=== PATIENT | female | born 1960 | race Caucasian/White ===

== ENCOUNTER 2022-11-02 15:20 | Outpatient (OUT) | payer BC, SELFPAY ==
--- NOTE | 2022-11-02 15:32 | XR_ITS ---
The [address] [address] Patient Name: NA MELENDREZ MRN: [id number] date: 1960 Sex: F Assigned Patient Location: [facility] Current Patient Location: [facility] Accession/Order Number: [id number] Exam Date: 11/02/2022 15:42 Report Date: 11/02/2022 16:19 At the request of: AMPARO DOWELL Procedure: XR abdomen 1V EXAMINATION: XR abdomen 1V HISTORY: Abdomen pain , left flank pain increasing in severity COMPARISON: No relevant comparison available. FINDINGS: KIDNEY/URETER - RIGHT: No visible renal or ureteral calcifications. KIDNEY/URETER - LEFT: 6 x 4 mm subtle opacity projecting over region of proximal left ureter. PELVIS: No suspicious pelvic calcifications. BOWEL: No abnormal dilation or deviation. BONES: No acute abnormality. OTHER: Negative. No abnormal gaseous collections. IMPRESSION: 1. Possible 6 x 4 mm stone within proximal left ureter. 2. No appreciable additional stones within the kidneys, but evaluation is limited by dense overlying bowel content. Electronically authenticated by: EVIN MCLAUGHLIN Date: 11/02/2022 16:19
== END 2022-11-02 15:21 ==
LOC: RAD 15:26
PROVIDERS: PCP Family Medicine; Visit Provider Family Medicine
DX: R10.9 Unspecified abdominal pain (principal)
CPT/HCPCS: 74018

== ENCOUNTER 2022-11-05 11:54 | Outpatient (OUT) | payer BC, SELFPAY ==
--- NOTE | 2022-11-05 12:05 | XR_ITS ---
[address] [address] Patient Name: NA MELENDREZ MRN: [id number] date: 1960 Sex: F Assigned Patient Location: [facility] Current Patient Location: [facility] Accession/Order Number: [id number] Exam Date: 11/05/2022 12:15 Report Date: 11/05/2022 14:10 At the request of: AMPARO DOWELL Procedure: XR abdomen 1V EXAM: XR abdomen 1V HISTORY: Nephrolithiasis N20.0 COMPARISON: 11/02/2022 TECHNIQUE: Abdominal X-ray, 1 view FINDINGS: Support devices: None. Bowel: Unremarkable bowel gas pattern. No bowel dilatation. No radiographic evidence of nephrolithiasis or ureterolithiasis. Additional findings: None. IMPRESSION: No acute abnormality on radiographic exam. Electronically authenticated by: BAKARI DACOSTA Date: 11/05/2022 14:10
== END 2022-11-05 11:55 ==
LOC: RAD 11:56
PROVIDERS: PCP Family Medicine; Visit Provider Family Medicine
DX: N20.0 Calculus of kidney (principal)
CPT/HCPCS: 74018

== ENCOUNTER 2023-06-17 09:01 | Outpatient (OUT) | payer BC, SELFPAY ==
[2023-06-17 09:35] LABS: Basophils Percent Auto 0.7 % (0.2-2.0); Eosinophils Absolute Auto 0.4 10^3/uL (0.0-0.7); Eosinophils Percent Auto 6.5 % (0.9-7.0); Hematocrit 37.4 % (36.0-48.0); Hemoglobin 11.7 g/dL (12.0-16.0); Immature Granulocytes Abs Auto 0.01 10^3/uL (0.00-0.03); Immature Granulocytes Pct Auto 0.2 % (0.0-0.5); Lymphocytes Absolute Auto 1.8 10^3/uL (1.2-3.8); Lymphocytes Percent Auto 29.3 % (20.5-60.0); Mean Corpuscular HGB Conc 31.3 g/dL (29.9-35.2); Mean Corpuscular Hemoglobin 26.6 pg (26.7-34.0); Mean Platelet Volume 9.9 fL (9.5-13.5); Monocytes Absolute Auto 0.4 10^3/uL (0.3-0.8); Monocytes Percent Auto 7.4 % (1.7-12.0); Neutrophils Absolute Auto 3.4 10^3/uL (1.4-6.5); Neutrophils Percent Auto 55.9 % (43.0-75.0); Platelet Count 337 10^3/uL (150-450); Red Cell Distribution Width 14.6 % (11.0-15.0)
[2023-06-17 09:46] LABS: Estimated Average Glucose 134 mg/dL; Glycohemoglobin A1C 6.3 % (4.5-6.2)
[2023-06-17 10:14] LABS: Alanine Aminotransferase 27 U/L (14-59); Albumin Globulin Ratio 0.9; Albumin Level 3.4 g/dL (3.4-5.0); Alkaline Phosphatase 95 U/L (46-116); Anion Gap 9.4; Aspartate Amino Transferase 20 U/L (15-37); BUN Creatinine Ratio 14.9; Bilirubin Total 0.2 mg/dL (0.2-1.0); Calcium 8.8 mg/dL (8.5-10.1); Carbon Dioxide 31.2 mmol/L (21.0-32.0); Chloride 104 mmol/L (98-107); Chol HDL Ratio 2.5; Cholesterol 147 mg/dL (<=200); Estimated GFR (African America >60 (>=60); Estimated GFR (Non-African Ame >60 (>=60); Free T3 2.69 pg/mL (2.18-3.98); Globulin 3.7 g/dL; Glucose 105 mg/dL (74-106); HDL Cholesterol 60 mg/dL (40-60); LDL Cholesterol Calculated 70.6 mg/dL; Potassium 4.6 mmol/L (3.5-5.1); Sodium 140 mmol/L (136-145); Thyroid Stimulating Hormone 1.512 uIU/mL (0.358-3.740); Total Protein 7.1 g/dL (6.4-8.2); Triglycerides 82 mg/dL (<=150); VLDL CHOLESTEROL 16.4 mg/dL
[2023-06-18 12:13] LABS: Insulin 13.1 uIU/mL (2.6-24.9)
== END 2023-06-17 09:02 | disposition home or self-care (01) ==
LOC: LAB 09:03
PROVIDERS: PCP Family Medicine; Visit Provider Family Medicine
DX: Z00.00 Encounter for general adult medical examination without abnormal findings (principal); R73.09 Other abnormal glucose; E78.5 Hyperlipidemia, unspecified; D64.9 Anemia, unspecified; Z12.12 Encounter for screening for malignant neoplasm of rectum; E55.9 Vitamin D deficiency, unspecified
CPT/HCPCS: 36415; 80053; 80061; 82306; 83036; 83525; 83540; 84436; 84443; 84481; 85025

== ENCOUNTER 2023-07-17 13:24 | Outpatient (OUT) | payer BC, SELFPAY ==
--- OUTSIDE RECORDS SUMMARY | 2023-07-17 13:30 | XMS_ITS | CCD ---
Author Name Unknown Address [address] [place] [address] Organization [facility] Care Team Providers Care Interactive Media Specialist Name Role Phone Amparo Ross Primary Care Physician MAGALYS ., DR CHRISTENSEN Consulting Unavailable HOY ., DR CHRISTENSEN Attending Unavailable HOY ., DR CHRISTENSEN Admitting Unavailable HOY ., DR CHRISTENSEN Primary Care Unavailable NILL ., DR DAS Attending Unavailable NILL ., DR DAS Admitting Unavailable ZIEBER, DR TITUS Moreno Consulting Unavailable HOY ., DR CHRISTENSEN Primary Care Unavailable NILL ., DR DAS Consulting Unavailable HAIDER, KYLE Admitting Unavailable HAIDER, KYLE Attending Unavailable HOY ., DR CHRISTENSEN Primary Care Unavailable HAIDER, KYLE Admitting Unavailable HAIDER, KYLE Attending Unavailable HOY ., DR CHRISTENSEN Primary Care Unavailable HOY ., DR CHRISTENSEN Primary Care Unavailable KARASIK ., DR SOLIZ Attending Unavailabl e KARASIK ., DR SOLIZ Admitting Unavailabl e KARASIK ., DR SOLIZ Consulting Unavailabl e WEST, DR KATIE Mario Consulting Unavailable HOY ., DR CHRISTENSEN Primary Care Unavailable HOY ., DR CHRISTENSEN Consulting Unavailable HOY ., DR CHRISTENSEN Attending Unavailable HOY ., DR CHRISTENSEN Admitting Unavailable WEST, DR AKTIE Mario Consulting Unavailable HOY ., DR CHRISTENSEN Primary Care Unavailable HAIDER, KYLE Attending Unavailable HAIDER, KYLE Admitting Unavailable HAIDER, KYLE Consulting Unavailable LUKE BOBO Attending Unavailable JERAMIE, LUKE Admitting Unavailable LUKE BOBO Consulting Unavailable HOY ., DR CHRISTENSEN Primary Care Unavailable HOY ., DR CHRISTENSEN Attending Unavailable HOY ., DR CHRISTENSEN Admjennifer Unavailable HOY ., DR CHRISTENSEN Consulting Unavailable HOY ., DR CHRISTENSEN Primary Care Unavailable HOY ., DR CHRISTENSEN Consulting Unavailable HOY ., DR CHRISTENSEN Attending Unavailable DR AMPARO MCKEON Admitting DR AMPARO Su Primary Care Unavailable SALEM, DR KATIE Mario Consulting Unavailable MIRIAN ZEPEDA Attending Unavailable Pippa RAY Attending Unavailable Amparo Ross Referring Unavailable Allergies Allergy Classification Reported Allergen(s) Allergy Type Date of Onset Reaction(s) Facility (6 sources) HYDROmorphone; Translations: [hydromorphone] Drug Allergy 4 Itching (finding) [facility] [place] (5 sources) Penicillin; Translations: [penicillin] Drug Allergy Unknown (qualifier value), Weal (disorder) [facility] (2 sources) HYDROmorphone Drug Allergy 5 [facility] (3 sources) Penicillins; Translations: [PENICILLINS] Drug allergy (disorder) 4 [facility] Medications Current Medications Medication Drug Class(es) Dates Sig (Normalized) Sig (Original) albuterol HFA 90 mcg/inh MDI (4 sources) Start: 11-17-2021 take 2 puff(s) by inhalation four times daily albuterol HFA 90 mcg/inh MDI 2 puff(s), Inhalation, QID Shortness of breath or wheezing, Refill(s) 0 Start Date: 11/17/21 Status: Ordered aspirin 81 mg delayed release oral tablet (4 sources) Platelet Aggregation Inhibitor, Nonsteroidal Anti-inflammatory Drug Start: 06-27-2023 take 1 tablet by mouth once daily aspirin 81 mg Oral EC Tab 81 mg = 1 tab(s), Oral, Daily, Refills(s) 0 Start Date: 06/27/23 Status: Ordered Start: 11-17-2021 aspirin 81 mg Chew Tab 81 mg = 1 tab(s), Chewed, Daily, Refills(s) 0 Start Date: 11/17/21 Status: Ordered atenolol 25 mg oral tablet (4 sources) beta-Adrenergic Meagan Start: 11-17-2021 atenolol 25 mg Tab 37.5 mg = 1.5 tab(s), Oral, Daily, Refills(s) 0 Start Date: 11/17/21 Status: Ordered atorvastatin 40 mg oral tablet (1 source) HMG-CoA Reductase Inhibitor Start: 06-27-2023 take 1 tablet by mouth once daily atorvastatin 40 mg Tab 40 mg = 1 tab(s), Oral, Daily, Refills(s) 0 Start Date: 06/27/23 Status: Ordered 24 hr desvenlafaxine succinate 100 mg extended release oral tablet (4 sources) Serotonin and Norepinephrine Reuptake Inhibitor Start: 11-17-2021 take 1 tablet by mouth once daily desvenlafaxine 100 mg Tab- 100 mg = 1 tab(s), Oral, Daily, Refills(s) 0 Start Date: 11/17/21 Status: Ordered Start: 11-17-2021 take 1 tablet by kennedy th once daily desvenlafaxine 100 mg Tab- 100 mg = 1 tab(s), Oral, Daily, Refills(s) 0 Start Date: 11/17/21 Status: Ordered esomeprazole 40 mg delayed release oral capsule (3 sources) Proton Pump Inhibitor Start: 11-17-2021 take 1 capsule by mouth once daily Nexium 40 mg Cap-EC 40 mg = 1 cap(s), Oral, Daily, Refills(s) 0 Start Date: 11/17/21 Status: Ordered flecainide acetate 100 mg oral tablet (4 sources) Antiarrhythmic Start: 11-21-2021 take 1 tablet by mouth every twelve hours flecainide 100 mg Tab 100 mg = 1 tab(s), Oral, q12hr, Refills(s) 0 Start Date: 11/21/21 Status: Ordered magnesium oxide 500 mg oral tablet (3 sources) Start: 11-21-2021 take 1 tablet by mouth once daily magnesium oxide 500 mg oral tablet 500 mg = 1 tab(s), Oral, Daily, Refills(s) 0 Start Date: 11/21/21 Status: Ordered Vitamin D3 2000 intl units oral Tab (1 source) Start: 07-16-2023 take 1 tablet by mouth once daily Vitamin D3 2000 intl units oral Tab = 1 tab(s), Oral, Daily, tab(s), Refills(s) 0 Start Date: 07/16/23 Status: Ordered Problems Active Problems Problem Classification Problem Date Documented Date Episodic/Chronic Calculus of urinary tract (1 source) History of calculus of kidney 06-27-2023 Episodic Cardiac dysrhythmias (14 sources) Premature atrial contraction; Translations: [Supraventricular tachycardia] Onset: 3 11-17-2021 Chronic Disorders of lipid metabolism (5 sources) Pure hypercholesterolemia; Translations: [Mixed hyperlipidemia] Onset: 2 11-17-2021 Chronic Heart valve disorders (4 sources) Aortic valve regurgitation 11-17-2021 Chronic Mood disorders (4 sources) Depressive disorder 11-17-2021 Chronic Nonmalignant breast conditions (1 source) Fibrosclerosis of right breast; Translations: [FIBROSCLEROSIS OF RIGHT BREAST] Onset: 2 Chronic Nonmalignant breast conditions (6 sources) Mammographic microcalcification found on diagnostic imaging of breast; Translations: [Unspecified lump in the right breast, lower outer quadrant] Onset: 2 Episodic Other circulatory disease (4 sources) History of cerebrovascular accident 11-17-2021 Episodic Other gastrointestinal disorders (4 sources) H/O: gastrointestinal disease 11-17-2021 Episodic Other injuries and conditions due to external causes (5 sources) H/O: injury; Translations: [Personal history of other (healed) physical injury and trauma] Onset: 2 Episodic Other nutritional; endocrine; and metabolic disorders (1 source) Body mass index 30+ - obesity 07-16-2023 Chronic Other nutritional; endocrine; and metabolic disorders (1 source) Obesity 07-16-2023 Chronic Other nutritional; endocrine; and metabolic disorders (3 sources) Body mass index 25-29 - overweight 11-21-2021 Episodic Other screening for suspected conditions (not mental disorders or infectious disease) (19 sources) Abnormal findings on diagnostic imaging of breast; Translations: [Other abnormal and inconclusive findings on diagnostic imaging of breast] Onset: 2 Episodic Other upper respiratory disease (4 sources) Seasonal allergic rhinitis 11-17-2021 Chronic Spondylosis; intervertebral disc disorders; other back problems (4 sources) Disorder of lumbar disc 11-17-2021 Chronic Unclassified (2 sources) CONTACT W/AND (SUSP) EXPOS COVID-19; Translations: [CONTACT W/AND (SUSP) EXPOS COVID-19] Onset: 2 Unclassified (2 sources) Patient encounter status 01-25-2024 Viral infection (1 source) COVID-19; Translations: [COVID-19] Onset: 2 Past or Other Problems Problem Classification Problem Date Documented Da te Episodic/Chronic Cardiac dysrhythmias (4 sources) Palpitations; Translations: [PALPITATIONS] Onset: 11-27-2021 Episodic Residual codes; unclassified (1 source) Family history of malignant neoplasm of prostate; Translations: [FAMILY HX MALIG NEOPLASM PROSTATE] Onset: 11-10-2021 Episodic Residual codes; unclassified (1 source) Family history of malignant neoplasm of other organs or systems; Translations: [FAM HX MALIG NEOPLASM OTH ORGN/SYS] Onset: 11-10-2021 Episodic Unclassified (1 source) CONTACT W/AND (SUSP) EXPOS COVID-19; Translations: [CONTACT W/AND (SUSP) EXPOS COVID-19] Onset: 11-30-2021 Results Test Name Value Interpretation Reference Range Facility Physician Referralon 024 Physician Referral [id number] IFF Normal [facility] Office Visiton 12-12-2022 Follow-up visit [id number] Katelynn Melendrez 1960 F Date Provider Department Center 12/12/2022 Mikey-MIRIAN ZEPEDA CARD [facility] No family history on file Level of Service:82865 AL OFFICE/OUTPATIENT ESTABLISHED LOW MDM 20-29 MIN Normal [facility] MG MAMM DIAGNOSTIC 3D SERA CA Don 09-26-2022 MG MAMM DIAGNOSTIC 3D SERA CAD Patient: KATELYNN MELENDREZ. Exam Date: 09/26/2022 : 1960 Gender:F Ordering : DR AMPARO ROSS . Admission #: [id number] Family : Order #: [id number] CLICK HERE TO VIEW EXAM RADIOLOGY REPORT PROCEDURE: MAMMOGRAM DIAGNOSTIC 3D BILATERAL CAD COMPARISON: MG MAMM SCREEN 3D SERA CAD, 11/07/2021. MG STEREO CORE NDL W CLIP RT, 01/30/2022. MAMMO POST BIOPSY RIGHT, 01/30/2022. INDICATIONS: Mammographic mass of right breast Calculator Name NCI Breast Cancer Risk Assessment Tool 5 Year Breast Cancer Risk 2.30% Lifetime Breast Cancer Risk 10.60% Personal Breast Cancer No Personal Ovarian Cancer No Treatments None Family Cancers Grandfather-maternal with liver cancer at age 69; Grandfather-maternal with prostate cancer at age 72. LOCATION: [facility] BREAST COMPOSITION: Heterogeneously dense,which may obscure small masses. FINDINGS: DIAGNOSTIC CATEGORY 2--BENIGN FINDING. NO CHANGE FROM COMPARISON. Scattered benign-appearing nodules are present. Scattered benign-appearing calcifications are present. Scattered benign-appearing lymph nodes are present. RIGHT BREAST: Large area of architectural distortion and clustered pleomorphic microcalcifications identified in the anterior to mid lower outer quadrant. This region has had a negative MRI as well as two negative percutaneous biopsies. In light of the stability from the November 2021 exam and negative biopsies the patient was asked to return to mammography. LEFT BREAST: No significant suspicious finding. RECOMMENDATIONS: ROUTINE MAMMOGRAM AND CLINICAL EVALUATION IN 12 MONTHS. PLEASE NOTE: A NORMAL MAMMOGRAM DOES NOT EXCLUDE THE POSSIBILITY OF BREAST CANCER. A CLINICALLY SUSPICIOUS PALPABLE LUMP SHOULD BE BIOPSIED. Dictated by: Katie Mahmood MD on 09/26/2022 at 09:56 Approved by: Katie Mahmood MD on 09/26/2022 at 10:00 Normal [facility] CBC AUTO DIFFon 06-26-2022 BASO # 0.0 103/ul Normal 0.0-0.1 [facility] Comment on above: Performed By: #### C MP, LIPID, TSH #### [facility] [address] [address] [address] Jamia Albrecht Basophils/100 WBC (Bld) 0.5 % Normal 0.2-2.0 [facility] Comment on above: Performed By: #### C MP, LIPID, TSH #### [facility] [address] [address] [address] Jamia Albrecht EO # 0.3 103/ul Normal 0.0-0.7 [facility] Comment on above: Performed By: #### C MP, LIPID, TSH #### [facility] [address] [address] [address] Jamia Albrecht Eosinophils/100 WBC (Bld) 4.7 % Normal 0.9-7.0 [facility] Comment on above: Performed By: #### C MP, LIPID, TSH #### [facility] [address] [place] [address] Dr. Jamia Albrecht Erythrocyte distribution width (RBC) [Ratio] 14.3 % Normal 11.0-15.0 [facility] Comment on above: Performed By: #### C MP, LIPID, TSH #### [facility] [address] [place] [address] Dr. Jamia Albrecht Hematocrit (Bld) [Volume fraction] 37.5 % Normal 36.0-48.0 [facility] Comment on above: Performed By: #### C MP, LIPID, TSH #### [facility] [address] [place] [address] Dr. Jamia Albrecht Hemoglobin (Bld) [Mass/Vol] 12.1 g/dL Normal 12.0-16.0 [facility] Comment on above: Performed By: #### C MP, LIPID, TSH #### [facility] [address] [place] [address] Dr. Jamia Albrecht IG # 0.01 10e3/ul Normal 0.00-0.03 [facility] Comment on above: Performed By: #### C MP, LIPID, TSH #### [facility] [address] [place] [address] Dr. Jamia Albrecht IG % 0.2 % Normal 0.0-0.5 [facility] Comment on above: Performed By: #### C MP, LIPID, TSH #### [facility] [address] [place] [address] Dr. Jamia Albrecht LYMPH # 1.9 103/ul Normal 1.2-3.8 [facility] Comment on above: Performed By: #### C MP, LIPID, TSH #### [facility] [address] [place] [address] Dr. Jamia Albrecht Lymphocytes/100 WBC (Bld) 34.5 % Normal 20.5-60.0 [facility] Comment on above: Performed By: #### C MP, LIPID, TSH #### [facility] [address] [place] [address] Dr. Jamia Albrecht MANUAL DIFF REQ NO Normal [facility] Comment on above: Performed By: #### C MP, LIPID, TSH #### [facility] [address] [place] [address] Dr. Jamia Albrecht MCH (RBC) [Entitic mass] 26.8 pg Normal 26.7-34.0 [facility] Comment on above: Performed By: #### C MP, LIPID, TSH #### [facility] [address] [place] [address] Dr. Jamia Albrecht MCHC (RBC) [Mass/Vol] 32.3 g/dL Normal 29.9-35.2 [facility] Comment on above: Performed By: #### C MP, LIPID, TSH #### [facility] [address] [place] [address] Dr. Jamia Albrecht MCV (RBC) [Entitic vol] 83.0 fL Normal 81.0-99.0 [facility] Comment on above: Performed By: #### C MP, LIPID, TSH #### [facility] [address] [place] [address] Dr. Jamia Albrecht MONO # 0.4 103/ul Normal 0.3-0.8 [facility] Comment on above: Performed By: #### C MP, LIPID, TSH #### [facility] [address] [place] [address] Dr. Jamia Albrecht Monocytes/100 WBC (Bld) 6.8 % Normal 1.7-12.0 [facility] Comment on above: Performed By: #### C MP, LIPID, TSH #### [facility] [address] [place] [address] Dr. Jamia Albrecht NEUT # 2.9 103/ul Normal 1.4-6.5 [facility] Comment on above: Performed By: #### C MP, LIPID, TSH #### [facility] [address] [place] [address] Dr. Jamia Albrecht Neutrophils/100 WBC (Bld) 53.3 % Normal 43.0-75.0 [facility] Comment on above: Performed By: #### C MP, LIPID, TSH #### [facility] [address] [place] [address] Dr. Jamia Albrecht Platelet mean volume (Bld) [Entitic vol] 9.6 fL Normal 9.5-13.5 [facility] Comment on above: Performed By: #### C MP, LIPID, TSH #### [facility] [address] [address] [address] Jamia Albrecht PLT 296 103/ul Normal 150-450 [facility] Comment on above: Performed By: #### C MP, LIPID, TSH #### [facility] [address] [address] [address] Jamia Albrecht RBC 4.52 106/ul Normal 4.20-5.40 [facility] Comment on above: Performed By: #### C MP, LIPID, TSH #### [facility] [address] [address] [address] Jamia Albrecht WBC 5.5 103/ul Normal 4.0-11.0 [facility] Comment on above: Performed By: #### C MP, LIPID, TSH #### [facility] [address] [address] [address] Jamia Albrecht GLYCOHEMOGLOBIN A1Con 2022 ADA RECOMMENDATION SEE BELOW Normal [facility] Comment on above: Result Comment: ADA RECOMMENDED LIMIT 4.0 - 6.0 ADA THERAPEUTIC TARGET < 7.0 ACTION SUGGESTED > 7.0 Performed By: #### C MP, LIPID, TSH #### [facility] [address] [address] [address] Jamia Albrecht Glucose [Mass/Vol] 131 mg/dL Normal [facility] Comment on above: Performed By: #### C MP, LIPID, TSH #### [facility] [address] [address] [address] Jamia Albrecht HbA1c (Bld) [Mass fraction] 6.2 % Normal 4.5-6.2 [facility] Comment on above: Performed By: #### C MP, LIPID, TSH #### [facility] [address] [address] [address] Jamia Albrecht LIPID PROFILEon 06-26-2022 CHOL-HDL RATIO NORM SEE BELOW Normal [facility] Comment on above: Result Comment: 3.3 - 4.4 LOW RISK 4.4 - 7.1 AVERAGE RISK 7.1 - 11.0 MODERATE RISK >11.0 HIGH RISK Performed By: #### C MP, LIPID, TSH #### [facility] [address] [address] [address] Jamia Albrecht Cholesterol [Mass/Vol] 134 mg/dL Normal <=200 [facility] Comment on above: Performed By: #### C MP, LIPID, TSH #### [facility] [address] [address] [address] Jamia Albrecht Cholesterol in HDL [Mass/Vol] 58 mg/dL Normal 40-60 [facility] Comment on above: Performed By: #### C MP, LIPID, TSH #### [facility] [address] [address] [address] Jamia Albrecht Cholesterol in LDL [Mass/Vol] 60.6 mg/dL Normal [facility] Comment on above: Performed By: #### C MP, LIPID, TSH #### [facility] [address] [address] [address] Jamai Albrecht Cholesterol.total/Ch olesterol in HDL [Mass ratio] 2.3 {ratio} Normal [facility] Comment on above: Performed By: #### C MP, LIPID, TSH #### [facility] [address] [address] [address] Jamia Albrecht HDL NORMAL > or = 60 mg/dl - LO W CARDIOVASCULAR RISK <40 mg/dl - HIGH CARDIOVASCULAR RISK Normal [facility] Comment on above: Performed By: #### C MP, LIPID, TSH #### [facility] [address] [address] [address] Jamia Albrecht LDL CALC NORMAL SEE BELOW Normal [facility] Comment on above: Result Comment: <100 mg/dl OPTIMAL 100 - 129 mg/dl NEAR OR ABOVE OPTIMAL 130 - 159 mg/dl BORDERLINE HIGH 160 - 189 mg/dl HIGH >190 mg/dl VERY HIGH Performed By: #### C MP, LIPID, TSH #### [facility] [address] [address] [address] Jamia Albrecht Triglyceride [Mass/Vol] 77 mg/dL Normal <=150 [facility] Comment on above: Performed By: #### C MP, LIPID, TSH #### [facility] [address] [place] [address] Dr. Jamia Albrecht VLDL CALC 15.4 mg/dL Normal [facility] Comment on above: Performed By: #### C MP, LIPID, TSH #### [facility] [address] [place] [address] Dr. Jamia Albrecht PROF 14(COMP METB)on 023 Albumin [Mass/Vol] 3.5 g/dL Normal 3.4-5.0 [facility] Comment on above: Performed By: #### C MP, LIPID, TSH #### [facility] [address] [place] [address] Dr. Jamia Albrecht Albumin/Globulin [Mass ratio] 1.0 {ratio} Normal [facility] Comment on above: Performed By: #### C MP, LIPID, TSH #### [facility] [address] [place] [address] Dr. Jamia Albrecht ALP [Catalytic activity/Vol] 104 U/L Normal 46-116 [facility] Comment on above: Performed By: #### C MP, LIPID, TSH #### [facility] [address] [place] [address] Dr. Jamia Albrecht ALT [Catalytic activity/Vol] 30 U/L Normal 14-59 [facility] Comment on above: Performed By: #### C MP, LIPID, TSH #### [facility] [address] [place] [address] Dr. Jamia Albrecht Anion gap [Moles/Vol] 12.5 mmol/L Normal [facility] Comment on above: Performed By: #### C MP, LIPID, TSH #### [facility] [address] [place] [address] Dr. Jamia Albrecht AST [Catalytic activity/Vol] 21 U/L Normal 15-37 [facility] Comment on above: Performed By: #### C MP, LIPID, TSH #### [facility] [address] [place] [address] Dr. Jamia Albrecht Bilirubin [Mass/Vol] 0.2 mg/dL Normal 0.2-1.0 [facility] Comment on above: Performed By: #### C MP, LIPID, TSH #### [facility] [address] [address] [address] Jamia Albrecht Calcium [Mass/Vol] 8.8 mg/dL Normal 8.5-10.1 [facility] Comment on above: Performed By: #### C MP, LIPID, TSH #### [facility] [address] [place] [address] Dr. Jamia Albrecht Chloride [Moles/Vol] 102 mmol/L Normal 98-107 [facility] Comment on above: Performed By: #### C MP, LIPID, TSH #### [facility] [address] [place] [address] Dr. Jamia Albrecht CO2 [Moles/Vol] 28.5 mmol/L Normal 21.0-32.[address] [facility] Comment on above: Performed By: #### C MP, LIPID, TSH #### [facility] [address] [place] [address] Dr. Jamia Albrecht Creatinine [Mass/Vol] 0.69 mg/dL Normal 0.55-1.02 [facility] Comment on above: Performed By: #### C MP, LIPID, TSH #### [facility] [address] [place] [address] Dr. Jamia Albrecht EGFR-AF URUGUAYAN >60 Normal >=60 [facility] Comment on above: Performed By: #### C MP, LIPID, TSH #### [facility] [address] [place] [address] Dr. Jamia Albrecht EGFR-NON AF URUGUAYAN >60 Normal >=60 [facility] Comment on above: Performed By: #### C MP, LIPID, TSH #### [facility] [address] [place] [address] Dr. Jamia Albrecht Globulin (S) [Mass/Vol] 3.5 g/dL Normal [facility] Comment on above: Performed By: #### C MP, LIPID, TSH #### [facility] [address] [address] [address] Jamia Albrecht Glucose [Mass/Vol] 125 mg/dL Critically high 74-106 [facility] Comment on above: Performed By: #### C MP, LIPID, TSH #### [facility] [address] [place] [address] Dr. Jamia Albrecht Potassium [Moles/Vol] 4.0 mmol/L Normal 3.5-5.1 [facility] Comment on above: Performed By: #### C MP, LIPID, TSH #### [facility] [address] [place] [address] Dr. Jamia Albrecht Protein [Mass/Vol] 7.0 g/dL Normal 6.4-8.2 [facility] Comment on above: Performed By: #### C MP, LIPID, TSH #### [facility] [address] [place] [address] Dr. Jamia Albrecht Sodium [Moles/Vol] 139 mmol/L Normal 136-145 [facility] Comment on above: Performed By: #### C MP, LIPID, TSH #### [facility] [address] [address] [address] Jamia Albrecht Urea nitrogen [Mass/Vol] 12.0 mg/dL Normal 7.0-18.0 [facility] Comment on above: Performed By: #### C MP, LIPID, TSH #### [facility] [address] [place] [address] Dr. Jamia Albrecht Urea nitrogen/Creatinine [Mass ratio] 17.4 mg/mg Normal [facility] Comment on above: Performed By: #### C MP, LIPID, TSH #### [facility] [address] [place] [address] Dr. Jamia Albrecht TSHon 06-26-2022 TSH 2.856 uIU/mL Normal 0.358-3.740 [facility] Comment on above: Performed By: #### C MP, LIPID, TSH #### [facility] [address] [place] [address] Dr. Jamia Albrecht MAMMO POST BIOPSY RIGHTon MAMMO POST BIOPSY RIGHT Patient: KATELYNN MELENDREZ Exam Date: 01/30/2022 : 1960 Gender:F Ordering : DR PIPPA RAY . Admission #: [id number] Family : Order #: [id number] CLICK HERE TO VIEW EXAM This report includes an Addendum and supersedes previous reports for this exam. RADIOLOGY REPORT PROCEDURE: MAMMOGRAM POST BIOPSY IMAGES COMPARISON: US BREAST RIGHT LIMITED, 11/10/2021. MG MAMM RT DIAG FU, 11/10/2021. MG MAMM SCREEN 3D SERA CAD, 11/07/2021. MG STEREO CORE NDL W CLIP RT, 01/30/2022. INDICATIONS: Mammographic microcalcification of right breast BREAST COMPOSITION: Heterogeneously dense, which may obscure small masses. FINDINGS: BIOPSY MARKER: A metallic marker has been placed in the targeted location within the lower-outer quadrant of the right breast. BREAST FINDINGS: Expected post biopsy findings. RECOMMENDATIONS: Dictated by: Titus James M.D. on 01/30/2022 at 13:39 Approved by: Titus James M.D. on 01/30/2022 at 13:40 ADDENDUM: FINDINGS: DIAGNOSTIC CATEGORY 3--PROBABLY BENIGN FINDING. THE FOLLOWING FINDING(S) HAS A HIGH PROBABILITY OF A BENIGN ETIOLOGY: RECOMMENDATIONS: SHORT TERM FOLLOW-UP DIAGNOSTIC MAMMOGRAM RIGHT BREAST IN 6 MONTHS. Dictated by: Titus James M.D. on 02/08/2022 at 08:06 Approved by: Titus James M.D. on 02/08/2022 at 08:[address] [facility] MG STEREO CORE NDL W CLP RTo n 01-30-2022 MG STEREO CORE NDL W CLP RT Patient: KATELYNN MELENDREZ. Exam Date: 01/30/2022 : 1960 Gender:F Ordering : DR PIPPA RAY . Admission #: [id number] Family : Order #: [id number] CLICK HERE TO VIEW EXAM This report includes an Addendum and supersedes previous reports for this exam. RADIOLOGY REPORT PROCEDURE: MAMMOGRAM STEREO CORE BENITEZ WITH CLIP RIGHT COMPARISON: MG MAMM SCREEN 3D SERA CAD, 11/07/2021. MG MAMM RT DIAG FU, 11/10/2021. US BREAST RIGHT LIMITED, 11/10/2021. INDICATIONS: Mammographic microcalcification of right breast DESCRIPTION: Following informed consent, digital stereotactic mammographic views were obtained to localize the lesion. Multiple vacuum-assisted core biopsies were obtained. Specimen images were obtained to confirm proper sampling. The location of the biopsy was then marked as indicated below. FINDINGS: RECOMMENDATIONS: SPECIMEN #, LOCATION: 5 core samples; anaterior lower-outer quadrant right breast. SPECIMEN IMAGE: Multiple calcifications in each core. BIOPSY NEEDLE: 10 gauge Revolve(r) vacuum core biopsy needle. MARKER(S) PLACED: A single metallic marker was placed in the appropriate targeted location. MEDICATION: Buffered 1% lidocaine superficial;1% lidocaine with epinephrine deep. COMPLICATIONS: None. PATHOLOGY / LAB: Pending. CONCLUSION: 1. Technically successful biopsy of the breast lesion. 2. Pathology results are pending. An addendum will be added when pathology results are final. Originally dictated on 01/30/2022 Dictated by: Titus James M.D. on 02/08/2022 at 07:54 Approved by: Titus James M.D. on 02/08/2022 at 07:58 ADDENDUM: Final pathologic diagnosis: Fibrosis, focal chronic inflammation, histiocytes, hemosiderin deposition, calcifications. No evidence of malignancy. Reported faxed to office of Dr. Ray and verified on 02/02/22 Dictated by: Titus James M.D. on 02/08/2022 at 08:06 Approved by: Titus Jamse M.D. on 02/08/2022 at 08:08 Normal [facility] CHEMISTRYOrdered By: SYSTEM SYSTEM on 12-26-2021 Creatinine [Mass/Vol] 0.5 mg/dL Normal 0.5 - 1.3 mg/dL [facility] Remisol GFR/1.73 sq M.predicted among blacks MDRD (S/P/Bld) [Vol rate/Area] mL/min/1.73 m2 Normal >=59mL/min/1 .73 m2 [facility] Chem S GFR/1.73 sq M.predicted among non-blacks MDRD (S/P/Bld) [Vol rate/Area] mL/min/1.73 m2 Normal >=59mL/min/1 .73 m2 [facility] Chem S SYMPTOMATIC COVID-19 ANTIGEN on 11-30-2021 EUA Statement SEE BELOW Normal [facility] Comment on above: Result Comment: This test has not been FDA cleared or approved, but has been authorized by the FDA under an Emergency Use Authorization (EUA) for use by authorized laboratories certified under CLIA that meet the requirements to perform moderate or high complexity testing. This test has been authorized only for the detection of proteins from SARS-CoV-2, not for any other viruses or pathogens. The emergency use of this test is authorized for the duration of the declaration that circumstances exist justifying the authorization of emergency use of in vitro diagnostic tests for detection and/or diagnosis of Covid-19 under section 564(b)(1) of the Act, 21 U.S.C. 360bbb-3(b)(1), unless the declaration is terminated or authorization is revoked sooner. Performed By: #### C MP, LIPID, TSH #### [facility] [address] [place] [address] Dr. Jamia Albrecht SARS-CoV-2 (COVID-19) RNA TONIE+probe Ql (Unsp spec) Positive Critically abnormal NEGATIVE [facility] Comment on above: Performed By: #### C MP, LIPID, TSH #### [facility] [address] [place] [address] Dr. Jamia Albrecht CBC AUTO DIFFon 11-27-2021 BASO # 0.0 103/ul Normal 0.0-0.1 [facility] Comment on above: Performed By: #### C MP, LIPID, TSH #### [facility] [address] [place] [address] Dr. Jamia Albrecht Basophils/100 WBC (Bld) 0.5 % Normal 0.2-2.0 [facility] Comment on above: Performed By: #### C MP, LIPID, TSH #### [facility] [address] [place] [address] Dr. Jamia Albrecht EO # 0.2 103/ul Normal 0.0-0.7 [facility] Comment on above: Performed By: #### C MP, LIPID, TSH #### [facility] [address] [place] [address] Dr. Jamia Albrecht Eosinophils/100 WBC (Bld) 3.7 % Normal 0.9-7.0 [facility] Comment on above: Performed By: #### C MP, LIPID, TSH #### [facility] [address] [place] [address] Dr. Jamia Albrecht Erythrocyte distribution width (RBC) [Ratio] 14.1 % Normal 11.0-15.0 [facility] Comment on above: Performed By: #### C MP, LIPID, TSH #### [facility] [address] [place] [address] Dr. Jamia Albrecht Hematocrit (Bld) [Volume fraction] 39.8 % Normal 36.0-48.0 [facility] Comment on above: Performed By: #### C MP, LIPID, TSH #### [facility] [address] [place] [address] Dr. Jamia Albrecht Hemoglobin (Bld) [Mass/Vol] 12.6 g/dL Normal 12.0-16.0 [facility] Comment on above: Performed By: #### C MP, LIPID, TSH #### [facility] [address] [place] [address] Dr. Jamia Albrecht IG # 0.01 10e3/ul Normal 0.00-0.03 [facility] Comment on above: Performed By: #### C MP, LIPID, TSH #### [facility] [address] [place] [address] Dr. Jamia Albrecht IG % 0.2 % Normal 0.0-0.5 [facility] Comment on above: Performed By: #### C MP, LIPID, TSH #### [facility] [address] [place] [address] Dr. Jamia Albrecht LYMPH # 0.7 103/ul Critically low 1.2-3.8 [facility] Comment on above: Performed By: #### C MP, LIPID, TSH #### [facility] [address] [place] [address] Dr. Jamia Albrecht Lymphocytes/100 WBC (Bld) 16.1 % Critically low 20.5-60.0 [facility] Comment on above: Performed By: #### C MP, LIPID, TSH #### [facility] [address] [place] [address] Dr. Jamia Albrecht MANUAL DIFF REQ NO Normal [facility] Comment on above: Performed By: #### C MP, LIPID, TSH #### [facility] [address] [place] [address] Dr. Jamia Albrecht MCH (RBC) [Entitic mass] 27.2 pg Normal 26.7-34.0 [facility] Comment on above: Performed By: #### C MP, LIPID, TSH #### [facility] [address] [place] [address] Dr. Jamia Albrecht MCHC (RBC) [Mass/Vol] 31.7 g/dL Normal 29.9-35.2 [facility] Comment on above: Performed By: #### C MP, LIPID, TSH #### [facility] [address] [place] [address] Dr. Jamia Albrecht MCV (RBC) [Entitic vol] 86.0 fL Normal 81.0-99.0 [facility] Comment on above: Performed By: #### C MP, LIPID, TSH #### [facility] [address] [place] [address] Dr. Jamia Albrecht MONO # 0.5 103/ul Normal 0.3-0.8 [facility] Comment on above: Performed By: #### C MP, LIPID, TSH #### [facility] [address] [place] [address] Dr. Jamia Albrecht Monocytes/100 WBC (Bld) 11.7 % Normal 1.7-12.0 [facility] Comment on above: Performed By: #### C MP, LIPID, TSH #### [facility] [address] [place] [address] Dr. Jamia Albrecht NEUT # 3.0 103/ul Normal 1.4-6.5 [facility] Comment on above: Performed By: #### C MP, LIPID, TSH #### [facility] [address] [place] [address] Dr. Jamia Albrecht Neutrophils/100 WBC (Bld) 67.8 % Normal 43.0-75.0 [facility] Comment on above: Performed By: #### C MP, LIPID, TSH #### [facility] [address] [place] [address] Dr. Jamia Albrecht Platelet mean volume (Bld) [Entitic vol] 9.4 fL Critically low 9.5-13.5 [facility] Comment on above: Performed By: #### C MP, LIPID, TSH #### [facility] [address] [address] [address] Jamia Albrecht PLT 276 103/ul Normal 150-450 [facility] Comment on above: Performed By: #### C MP, LIPID, TSH #### [facility] [address] [place] [address] Dr. Jamia Albrecht RBC 4.63 106/ul Normal 4.20-5.40 [facility] Comment on above: Performed By: #### C MP, LIPID, TSH #### [facility] [address] [place] [address] Dr. Jamia Albrecht WBC 4.4 103/ul Normal 4.0-11.0 [facility] Comment on above: Performed By: #### C MP, LIPID, TSH #### [facility] [address] [place] [address] Dr. Jamia Albrecht LIPID PROFILEon 11-27-2021 CHOL-HDL RATIO NORM SEE BELOW Normal [facility] Comment on above: Result Comment: 3.3 - 4.4 LOW RISK 4.4 - 7.1 AVERAGE RISK 7.1 - 11.0 MODERATE RISK >11.0 HIGH RISK Performed By: #### C MP, LIPID, TSH #### [facility] [address] [place] [address] Dr. Jamia Albrecht Cholesterol [Mass/Vol] 216 mg/dL Critically high <=200 [facility] Comment on above: Performed By: #### C MP, LIPID, TSH #### [facility] [address] [place] [address] Dr. Jamia Albrecht Cholesterol in HDL [Mass/Vol] 57 mg/dL Normal 40-60 [facility] Comment on above: Performed By: #### C MP, LIPID, TSH #### [facility] [address] [address] [address] Jamia Albrecht Cholesterol in LDL [Mass/Vol] 134.2 mg/dL Normal [facility] Comment on above: Performed By: #### C MP, LIPID, TSH #### [facility] [address] [address] [address] Jamia Albrecht Cholesterol.total/Ch olesterol in HDL [Mass ratio] 3.8 {ratio} Normal [facility] Comment on above: Performed By: #### C MP, LIPID, TSH #### [facility] [address] [address] [address] Jamia Albrecht HDL NORMAL > or = 60 mg/dl - LO W CARDIOVASCULAR RISK <40 mg/dl - HIGH CARDIOVASCULAR RISK Normal [facility] Comment on above: Performed By: #### C MP, LIPID, TSH #### [facility] [address] [place] [address] Dr. Jamia Albrecht LDL CALC NORMAL SEE BELOW Normal [facility] Comment on above: Result Comment: <100 mg/dl OPTIMAL 100 - 129 mg/dl NEAR OR ABOVE OPTIMAL 130 - 159 mg/dl BORDERLINE HIGH 160 - 189 mg/dl HIGH >190 mg/dl VERY HIGH Performed By: #### C MP, LIPID, TSH #### [facility] [address] [place] [address] Dr. Jamia Albrecht Triglyceride [Mass/Vol] 124 mg/dL Normal <=150 [facility] Comment on above: Performed By: #### C MP, LIPID, TSH #### [facility] [address] [place] [address] Dr. Jamia Albrecht VLDL CALC 24.8 mg/dL Normal [facility] Comment on above: Performed By: #### C MP, LIPID, TSH #### [facility] [address] [place] [address] Dr. Jamia Albrecht PROF 14(COMP METB)on 022 Albumin [Mass/Vol] 3.7 g/dL Normal 3.4-5.0 [facility] Comment on above: Performed By: #### C MP, LIPID, TSH #### [facility] [address] [address] [address] Jamia Albrecht Albumin/Globulin [Mass ratio] 1.1 {ratio} Normal [facility] Comment on above: Performed By: #### C MP, LIPID, TSH #### [facility] [address] [address] [address] Jamia Albrecht ALP [Catalytic activity/Vol] 102 U/L Normal 46-116 [facility] Comment on above: Performed By: #### C MP, LIPID, TSH #### [facility] [address] [address] [address] Jamia Albrecht ALT [Catalytic activity/Vol] 26 U/L Normal 14-59 [facility] Comment on above: Performed By: #### C MP, LIPID, TSH #### [facility] [address] [address] [address] Jamia Albrecht Anion gap [Moles/Vol] 10.1 mmol/L Normal [facility] Comment on above: Performed By: #### C MP, LIPID, TSH #### [facility] [address] [address] [address] Jamia Albrecht AST [Catalytic activity/Vol] 19 U/L Normal 15-37 [facility] Comment on above: Performed By: #### C MP, LIPID, TSH #### [facility] [address] [address] [address] Jamia Albrecht Bilirubin [Mass/Vol] 0.3 mg/dL Normal 0.2-1.0 [facility] Comment on above: Performed By: #### C MP, LIPID, TSH #### [facility] [address] [address] [address] Jamia Albrecht Calcium [Mass/Vol] 8.8 mg/dL Normal 8.5-10.1 [facility] Comment on above: Performed By: #### C MP, LIPID, TSH #### [facility] [address] [address] [address] Jamia Albrecht Chloride [Moles/Vol] 103 mmol/L Normal 98-107 [facility] Comment on above: Performed By: #### C MP, LIPID, TSH #### [facility] [address] [address] [address] Jamia Albrecht CO2 [Moles/Vol] 30.4 mmol/L Normal 21.0-32.[address] [facility] Comment on above: Performed By: #### C MP, LIPID, TSH #### [facility] [address] [address] [address] Jamia Albrecht Creatinine [Mass/Vol] 0.83 mg/dL Normal 0.55-1.02 [facility] Comment on above: Performed By: #### C MP, LIPID, TSH #### [facility] [address] [address] [address] Jamia Albrecht EGFR-AF URUGUAYAN >=60 Normal >=[address] [facility] Comment on above: Performed By: #### C MP, LIPID, TSH #### [facility] [address] [address] [address] Jamia Albrecht EGFR-NON AF URUGUAYAN >=60 Normal >=60 [facility] Comment on above: Performed By: #### C MP, LIPID, TSH #### [facility] [address] [address] [address] Jamia Albrecht Globulin (S) [Mass/Vol] 3.4 g/dL Normal [facility] Comment on above: Performed By: #### C MP, LIPID, TSH #### [facility] [address] [address] [address] Jamia Albrecht Glucose [Mass/Vol] 106 mg/dL Normal 74-106 [facility] Comment on above: Performed By: #### C MP, LIPID, TSH #### [facility] [address] [address] [address] Jamia Albrecht Potassium [Moles/Vol] 4.5 mmol/L Normal 3.5-5.1 [facility] Comment on above: Performed By: #### C MP, LIPID, TSH #### [facility] [address] [address] [address] Jamia Albrecht Protein [Mass/Vol] 7.1 g/dL Normal 6.4-8.2 [facility] Comment on above: Performed By: #### C MP, LIPID, TSH #### [facility] [address] [address] [address] Jamia Albrecht Sodium [Moles/Vol] 139 mmol/L Normal 136-145 [facility] Comment on above: Performed By: #### C MP, LIPID, TSH #### [facility] [address] [address] [address] Jamia Albrecht Urea nitrogen [Mass/Vol] 10.0 mg/dL Normal 7.0-18.0 [facility] Comment on above: Performed By: #### C MP, LIPID, TSH #### [facility] [address] [address] [address] Jamia Albrecht Urea nitrogen/Creatinine [Mass ratio] 12.0 mg/mg Normal [facility] Comment on above: Performed By: #### C MP, LIPID, TSH #### [facility] [address] [place] [address] Dr. Jamia Albrecht TSHon 11-27-2021 TSH 1.179 uIU/mL Normal 0.358-3.740 [facility] Comment on above: Performed By: #### C MP, LIPID, TSH #### [facility] [address] [place] [address] Dr. Jamia Albrecht MG MAMM RT DIAG FUon 11-10- 022 MG MAMM RT DIAG FU Patient: KATELYNN MELENDREZ Exam Date: 11/10/2021 : 1960 Gender:F Ordering : DR AMPARO ROSS . Admission #: [id number] Family : DR MARTÍNEZ HARRELL . Order #: [id number] CLICK HERE TO VIEW EXAM RADIOLOGY REPORT PROCEDURE: MAMMOGRAM RIGHT DIAGNOSTIC DIGITAL FOLLOW UP, 11/10/2021, 09:27 ULTRASOUND BREAST RIGHT LIMITED, 11/10/2021, 10:10 COMPARISON: MG MAMM DX 3D RT CAD, 12/28/2020. MG MAMM SCREEN 3D SERA CAD, 11/07/2021. INDICATIONS: Abnormal findings on diagnostic imaging of breast Calculator Name NCI Breast Cancer Risk Assessment Tool 5 Year Breast Cancer Risk 1.70% Lifetime Breast Cancer Risk 8.70% Personal Breast Cancer No Personal Ovarian Cancer No Treatments None Family Cancers Grandfather-maternal with liver cancer at age 69; Grandfather-maternal with prostate cancer at age 72. LOCATION: [facility] BREAST COMPOSITION: Heterogeneously dense,which may obscure small masses. FINDINGS: DIAGNOSTIC CATEGORY 5--HIGHLY SUGGESTIVE OF MALIGNANCY. HIGH PROBABILITY OF MALIGNANCY BASED ON THE FOLLOWING: Four spot magnification views demonstrate a heterogeneous spiculated 5.4 x 1.8 cm mass with significant increase in pleomorphic microcalcifications as well as coarse calcifications. An interval biopsy has been performed evidenced by a new micro clip marker. Ultrasound demonstrates at o'clock position a heterogeneous lobular calcified mass measuring 4.6 x 1.3 by 2.1 cm in size with extensive acoustic shadowing In light of significant interval change, surgical biopsy/excision should be considered RECOMMENDATIONS: SURGICAL BIOPSY: RIGHT BREAST PLEASE NOTE: A NORMAL MAMMOGRAM DOES NOT EXCLUDE THE POSSIBILITY OF BREAST CANCER. A CLINICALLY SUSPICIOUS PALPABLE LUMP SHOULD BE BIOPSIED. Dictated by: Katie Mahmood MD on 11/10/2021 at 10:19 Approved by: Katie Mahmood MD on 11/10/2021 at 10:24 Normal [facility] US BREAST RIGHT LIMITEDon US BREAST RIGHT LIMITED Patient: KATELYNN MELENDREZ Exam Date: 11/10/2021 : 1960 Gender:F Ordering : DR AMPARO ROSS . Admission #: [id number] Family : DR MARTÍNEZ FOWLERCordell . Order #: [id number] CLICK HERE TO VIEW EXAM RADIOLOGY REPORT PROCEDURE: MAMMOGRAM RIGHT DIAGNOSTIC DIGITAL FOLLOW UP, 11/10/2021, 09:27 ULTRASOUND BREAST RIGHT LIMITED, 11/10/2021, 10:10 COMPARISON: MG MAMM DX 3D RT CAD, 12/28/2020. MG MAMM SCREEN 3D SERA CAD, 11/07/2021. INDICATIONS: Abnormal findings on diagnostic imaging of breast Calculator Name NCI Breast Cancer Risk Assessment Tool 5 Year Breast Cancer Risk 1.70% Lifetime Breast Cancer Risk 8.70% Personal Breast Cancer No Personal Ovarian Cancer No Treatments None Family Cancers Grandfather-maternal with liver cancer at age 69; Grandfather-maternal with prostate cancer at age 72. LOCATION: [facility] BREAST COMPOSITION: Heterogeneously dense,which may obscure small masses. FINDINGS: DIAGNOSTIC CATEGORY 5--HIGHLY SUGGESTIVE OF MALIGNANCY. HIGH PROBABILITY OF MALIGNANCY BASED ON THE FOLLOWING: Four spot magnification views demonstrate a heterogeneous spiculated 5.4 x 1.8 cm mass with significant increase in pleomorphic microcalcifications as well as coarse calcifications. An interval biopsy has been performed evidenced by a new micro clip marker. Ultrasound demonstrates at o'clock position a heterogeneous lobular calcified mass measuring 4.6 x 1.3 by 2.1 cm in size with extensive acoustic shadowing In light of significant interval change, surgical biopsy/excision should be considered RECOMMENDATIONS: SURGICAL BIOPSY: RIGHT BREAST PLEASE NOTE: A NORMAL MAMMOGRAM DOES NOT EXCLUDE THE POSSIBILITY OF BREAST CANCER. A CLINICALLY SUSPICIOUS PALPABLE LUMP SHOULD BE BIOPSIED. Dictated by: Katie Mahmood MD on 11/10/2021 at 10:19 Approved by: Katie Mahmood MD on 11/10/2021 at 10:24 [address] [facility] MAMM SCREEN 3D SERA CADon 11-07-2021 MG MAMM SCREEN 3D SERA CAD Patient: KATELYNN MELENDREZ Exam Date: 11/07/2021 : 1960 Gender:F Ordering : DR MARTÍNEZ HARRELL . Admission #: [id number] Family : DR AMPARO ROSS . Order #: [id number] CLICK HERE TO VIEW EXAM RADIOLOGY REPORT PROCEDURE: MAMMOGRAM SCREENING 3D BILATERAL CAD COMPARISON: MG MAMM DX 3D RT CAD, 12/28/2020. MG MAMM RT DIAG FU, 06/29/2020. INDICATIONS: Screening mammography Calculator Name NCI Breast Cancer Risk Assessment Tool 5 Year Breast Cancer Risk 1.70% Lifetime Breast Cancer Risk 8.70% Personal Breast Cancer No Personal Ovarian Cancer No Treatments None Family Cancers Grandfather-maternal with liver cancer at age 69; Grandfather-maternal with prostate cancer at age 72. LOCATION: [facility] BREAST COMPOSITION: Heterogeneously dense,which may obscure small masses. FINDINGS: DIAGNOSTIC CATEGORY 0--INCOMPLETE: NEED ADDITIONAL IMAGING EVALUATION. Scattered benign-appearing calcifications are present. Scattered benign-appearing lymph nodes are present. RIGHT BREAST: Interval increase in size of a spiculated 3.2 x 2.3 cm mass lower outer quadrant of the right breast with significant increase in calcifications compared to the prior exam. Spot magnification and ultrasound follow-up is recommended. Additional area of focal asymmetry in the upper outer quadrant, stable. LEFT BREAST: No significant suspicious finding. RECOMMENDATIONS: ULTRASOUND: RIGHT BREAST ADDITIONAL MAMMOGRAPHIC VIEWS REQUIRED: RIGHT BREAST - spot magnification PLEASE NOTE: A NORMAL MAMMOGRAM DOES NOT EXCLUDE THE POSSIBILITY OF BREAST CANCER. A CLINICALLY SUSPICIOUS PALPABLE LUMP SHOULD BE BIOPSIED. Dictated by: Katie Mahmood MD on 11/07/2021 at 14:26 Approved by: Katie Mahmood MD on 11/07/2021 at 14:30 Normal [facility] DIAGNOSTIC RTon 01-10-20 19 [facility] DIAGNOSTIC RT * * *Final Report* * * * * * SEE BOTTOM OF REPORT FOR ADDENDED TEXT * * * DATE OF EXAM: Jan 09 2019 3:31PM [facility] [id number] - [facility] DIAGNOSTIC RT / PROCEDURE REASON: Abnormal ultrasound of breast * * * * Physician Interpretation * * * * RESULT: FINAL REPORT #[id number] - [facility] US BIOPSY BREAST RT #[id number] - [facility] DIAGNOSTIC RT ULTRASOUND GUIDED BIOPSY RIGHT BREAST WITH POST DIGITAL MAMMOGRAPHIC IMAGIN01/09/2019 HISTORY: Abnormal Ultrasound Of Breast The patient presents for ultrasound-guided right breast biopsy. Pre and post fire sonographic images were obtained and stored in permanent archive. Abnormal Ultrasound Of Breast. PATIENT CONSENT: A time out was performed immediately prior to procedure start with the radiology team, correctly identifying the patient name, date of , procedure, anatomy (including marking of site and side), patient position, relevant diagnostic and radiology test results, safety precautions, and procedure-specific equipment needs. The procedure was explained to the patient including the risks, benefits and alternatives. Medications and allergies were also reviewed. The risks, including but not limited to infection and bleeding, were reviewed by the performing physician and the patient agreed to undergo the procedure. The radiologist and technologist were present throughout the entire procedure. Audible Time Out Time:310 Procedure Start Time:311 Procedure Stop Time: 316 . Correlation is made to exams dated: 09/03/2018 mammogram, 01/01/2019 ultrasound, and 01/09/2019 ultrasound - [facility]. An ultrasound guided biopsy using real-time ultrasound was performed for the concerning irregular shaped solid mass located in the right breast at 9 o'clock anterior depth. This was described on the previous ultrasound report. The skin was prepped in the usual manner. Local anesthetic was administered to the access site. A skin elena was made in the breast. The abnormality was approached from the lateral aspect. A 14 gauge biopsy needle was placed adjacent to the abnormality through an introducer device under ultrasound guidance. Once the needle was documented to be in the correct location, four passes were made using a BARD biopsy device. A skin closure strip and a sterile dressing were applied to the access site. Post procedure digital mammographic imaging demonstrates the clip at the targeted area and partial removal of the abnormality. The specimens were sent to the laboratory for pathological analysis. Note is made that the original partially resolved hematoma was imaged at the 1:00 position. However, the visible lesion is now located at the 9:00 region extending to the subareolar region. IMPRESSION: ULTRASOUND GUIDED BIOPSY BENIGN Ultrasound guided biopsy of the solid mass in the right breast anterior depth was successful. Pathology indicates benign finding. Pathology results are concordant with biopsy findings. UNILATERAL RIGHT DIGITAL DIAGNOSTIC MAMMOGRAM WITH CAD: 01/09/2019 RESULT: TECHNIQUE: The study was acquired using full field digital technology and interpreted from soft copy. Current study was also evaluated with a Computer Aided Detection (CAD). Comparison is made to exams dated: 09/03/2018 mammogram, 01/01/2019 ultrasound, and 01/09/2019 ultrasound - [facility] [place]. There are scattered fibroglandular elements in right breast. There is a marker clip in the appropriate position in the right breast superior lateral quadrant anterior depth. This marker clip placement is at the biopsy site. IMPRESSION: POST PROCEDURE MAMMOGRAM FOR MARKER PLACEMENT There was a successful marker clip placement in the right breast superior lateral quadrant anterior depth. A follow-up mammogram in 6 months is recommended to demonstrate stability. 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 Marissa Boggs M.D. The patient was notified of the concordant pathology results by phone on 01/13/2019 by Kathia Casarez RN (Breast imaging navigator). She should return in six months for imaging follow up. Shannen Merino M.D. ,fa/aj:01/13/2019 08:09:24 Shop Technician(s): RT An(R)(M), [facility] [place] Mammogram BI-RADS: Post-procedure mammogram for marker placement Multiple national specialty organizations have released breast cancer screening guidelines for women at average risk for developing breast cancer - guidelines that are based on both evidence and opinion, yet differ on when to start and how often to screen for breast cancer. With representation from Breast Imaging, Internal Medicine, Women's Health, Family Medicine, and Medical/Surgical Oncology, the [facility] has carefully reviewed the data and reached the following consensus: 1) All women should engage in shared decision-making with their providers to decide when to start and how often to screen; 2) All women should have the opportunity to start screening mammography at age 40; 3) For women ages 45-55, we recommend annual screening mammograms; 4) For women ages 55 and over, we support both the transition from an annual to a biennial interval if this aligns more with patient's values and preferences, or continuation with annual screening; 5) All women should discuss with their providers when to stop screening mammograms. Job Coaching: Aj Transcribe Date/Time: Jan 09 2019 2:43P Dictated by : JENNIFER MERINO MD This examination was interpreted and the report reviewed and electronically signed by: SHANNEN LUIS MD on Jan 09 2019 3:56PM EST This document has been addended by: SHANNEN LUIS MD on Jan 13 2019 8:09AM EST [id number] Normal [facility] US BIOPSY BREAST RTon [facility] US BIOPSY BREAST RT * * *Final Report* * * * * * SEE BOTTOM OF REPORT FOR ADDENDED TEXT * * * DATE OF EXAM: Jan 09 2019 3:31PM [facility] - [facility] US BIOPSY BREAST RT / PROCEDURE REASON: Abnormal ultrasound of breast * * * * Physician Interpretation * * * * RESULT: FINAL REPORT #[id number] - [facility] US BIOPSY BREAST RT #[id number] - [facility] DIAGNOSTIC RT ULTRASOUND GUIDED BIOPSY RIGHT BREAST WITH POST DIGITAL MAMMOGRAPHIC IMAGIN01/09/2019 HISTORY: Abnormal Ultrasound Of Breast The patient presents for ultrasound-guided right breast biopsy. Pre and post fire sonographic images were obtained and stored in permanent archive. Abnormal Ultrasound Of Breast. PATIENT CONSENT: A time out was performed immediately prior to procedure start with the radiology team, correctly identifying the patient name, date of , procedure, anatomy (including marking of site and side), patient position, relevant diagnostic and radiology test results, safety precautions, and procedure-specific equipment needs. The procedure was explained to the patient including the risks, benefits and alternatives. Medications and allergies were also reviewed. The risks, including but not limited to infection and bleeding, were reviewed by the performing physician and the patient agreed to undergo the procedure. The radiologist and technologist were present throughout the entire procedure. Audible Time Out Time:310 Procedure Start Time:311 Procedure Stop Time: 316 . Correlation is made to exams dated: 09/03/2018 mammogram, 01/01/2019 ultrasound, and 01/09/2019 ultrasound - [facility]. An ultrasound guided biopsy using real-time ultrasound was performed for the concerning irregular shaped solid mass located in the right breast at 9 o'clock anterior depth. This was described on the previous ultrasound report. The skin was prepped in the usual manner. Local anesthetic was administered to the access site. A skin elena was made in the breast. The abnormality was approached from the lateral aspect. A 14 gauge biopsy needle was placed adjacent to the abnormality through an introducer device under ultrasound guidance. Once the needle was documented to be in the correct location, four passes were made using a BARD biopsy device. A skin closure strip and a sterile dressing were applied to the access site. Post procedure digital mammographic imaging demonstrates the clip at the targeted area and partial removal of the abnormality. The specimens were sent to the laboratory for pathological analysis. Note is made that the original partially resolved hematoma was imaged at the 1:00 position. However, the visible lesion is now located at the 9:00 region extending to the subareolar region. IMPRESSION: ULTRASOUND GUIDED BIOPSY BENIGN Ultrasound guided biopsy of the solid mass in the right breast anterior depth was successful. Pathology indicates benign finding. Pathology results are concordant with biopsy findings. UNILATERAL RIGHT DIGITAL DIAGNOSTIC MAMMOGRAM WITH CAD: 01/09/2019 RESULT: TECHNIQUE: The study was acquired using full field digital technology and interpreted from soft copy. Current study was also evaluated with a Computer Aided Detection (CAD). Comparison is made to exams dated: 09/03/2018 mammogram, 01/01/2019 ultrasound, and 01/09/2019 ultrasound - [facility]. There are scattered fibroglandular elements in right breast. There is a marker clip in the appropriate position in the right breast superior lateral quadrant anterior depth. This marker clip placement is at the biopsy site. IMPRESSION: POST PROCEDURE MAMMOGRAM FOR MARKER PLACEMENT There was a successful marker clip placement in the right breast superior lateral quadrant anterior depth. A follow-up mammogram in 6 months is recommended to demonstrate stability. 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 Marissa Boggs M.D. The patient was notified of the concordant pathology results by phone on 01/13/2019 by Kathia Casarez RN (Breast imaging navigator). She should return in six months for imaging follow up. Shannen Merino M.D. angelina,madan/aj:01/13/2019 08:09:24 Shop Technician(s): RT An(R)(M), [facility] Mammogram BI-RADS: Post-procedure mammogram for marker placement Multiple national specialty organizations have released breast cancer screening guidelines for women at average risk for developing breast cancer - guidelines that are based on both evidence and opinion, yet differ on when to start and how often to screen for breast cancer. With representation from Breast Imaging, Internal Medicine, Women's Health, Family Medicine, and Medical/Surgical Oncology, the [facility] has carefully reviewed the data and reached the following consensus: 1) All women should engage in shared decision-making with their providers to decide when to start and how often to screen; 2) All women should have the opportunity to start screening mammography at age 40; 3) For women ages 45-55, we recommend annual screening mammograms; 4) For women ages 55 and over, we support both the transition from an annual to a biennial interval if this aligns more with patient's values and preferences, or continuation with annual screening; 5) All women should discuss with their providers when to stop screening mammograms. Job Coaching: Aj Transcribe Date/Time: Jan 09 2019 2:43P Dictated by : JENNIFER MERINO MD This examination was interpreted and the report reviewed and electronically signed by: SHANNEN LUIS MD on Jan 09 2019 3:56PM EST This document has been addended by: SHANNEN LUIS MD on Jan 13 2019 8:09AM EST [id number] Normal [facility] US BREAST [facility]TD RTon 01-09 [facility] US BREAST L[facility] RT * * *Final Report* * * DATE OF EXAM: Jan 09 2019 3:31PM [facility] - [facility] US BREAST LTD RT / PROCEDURE REASON: Lump of right breast * * * * Physician Interpretation * * * * RESULT: #[id number] - [facility] US BREAST LTD RT ULTRASOUND OF RIGHT BREAST: 01/09/2019 HISTORY: Lump Of Right Breast. RESULT: No prior exams were available for comparison. Real-time ultrasound of the right breast was performed. There are multiple benign normal right axillary lymph nodes. These normal right axillary lymph nodes display fatty hilum. IMPRESSION: BENIGN FINDING There is no sonographic evidence of malignancy. The multiple normal right axillary lymph nodes are benign. A 1 year screening mammogram is recommended. Shannen Luis M.D., mc/aj:01/09/2019 15:40:59 Shop Technician(s): Victoria Lynch RT(R)(M), [facility] [place] Ultrasound BI-RADS: 2 Benign finding Multiple national specialty organizations have released breast cancer screening guidelines for women at average risk for developing breast cancer - guidelines that are based on both evidence and opinion, yet differ on when to start and how often to screen for breast cancer. With representation from Breast Imaging, Internal Medicine, [facility], Family Medicine, and Medical/Surgical Oncology, the [facility] has carefully reviewed the data and reached the following consensus: 1) All women should engage in shared decision-making with their providers to decide when to start and how often to screen; 2) All women should have the opportunity to start screening mammography at age 40; 3) For women ages 45-55, we recommend annual screening mammograms; 4) For women ages 55 and over, we support both the transition from an annual to a biennial interval if this aligns more with patient's values and preferences, or continuation with annual screening; 5) All women should discuss with their providers when to stop screening mammograms. Job Coaching: Aj Transcribe Date/Time: Jan 09 2019 2:43P Dictated by : SHANNEN LUIS MD This examination was interpreted and the report reviewed and electronically signed by: SHANNEN LUIS MD on Jan 09 2019 3:40PM EST [id number] Normal [facility] PROGRESSon 01-09-2019 PROGRESS HNO ID: [id number] Author: Victoria Lynch Rt Service: ? Author Type: ? Type: Progress Notes Filed: 01/09/2019 3:43 PM Note Text: Double Identification Patient's idenity was verified by name and : Yes Procedure: Ultrasound Breast Clip Placement and Ultrasound Guided Breast Biopsy Site Verification: right No Nursing No Allergies ALLERGIES Not on File Is the patient having any pain? None Physician, Nurse, Technologist: Victoria Lynch Rt PREOPERATIVE/PROCEDURAL VERIFICATION: Patient verified by: Name, Medical Record Number and Date of Procedure to be performed: Ultrasound Breast Clip Placement and Ultrasound Guided Breast Biopsy Site of the procedure confirmed:Yes Site:right Patient position: Supine Equipment/implant present:Clip and Imaging Data Staff involved: Cara Luis MD Relevant documentation, images, implants or special equipment present: Yes MARKING THE SITE: Procedural site verified by:Physically marking the site on or near incision site, with persistent marker and remains visible once patient prepped. PROCEDURAL TIME OUT: All team activity stops Time out verification includes:Audible time-out documented: Yes. Time: 031 Two Patient Identifiers Correct side and site marking Accurate Consent Agreement on the procedure to be done Correct Positioning Imaging and Test Results Properly Labeled and Displayed Safety Precautions Based on Patient History or Medication Alcohol-based skin prep unit dose applicator used: ChloraPrep No soaking of the patient's hair or linens noted NUMBER OF SPECIMENS SENT TO LAB: 1 Sign in Communication: Completed Time Out: Team Confirms the Correct Patient, Correct Procedure, Correct Site and Site Marking, Correct Position (if applicable). Time: 0310 Affirmation of Time Out: N/A Sign Out Discussion: Completed [facility] PROGRESS HNO ID: [id number] Author: Victoria Lynch Rt Service: ? Author Type: ? Type: Progress Notes Filed: 01/09/2019 3:41 PM Note Text: AMBULATORY PATIENT EDUCATION RADIOLOGY TOPIC: Procedure/Surgery: READINESS TO LEARN COGNITIVE ABILITY: Alert and oriented MOTIVATION TO LEARN: Eager FAMILY SUPPORT: None - Unavailable/disinterest ed INSTRUCTION PROVIDED TO: Patient PATIENT LEARNS BEST BY: Individual Instruction Written Instruction - Hand-outs Verbal Instruction FACTORS AFFECTING LEARNING: None PHYSICAL LIMITATIONS AFFECTING LEARNING: None LEARNING RESPONSE Radiology Procedures Ultrasound Breast Clip Placement and Ultrasound Guided Breast Biopsy METHOD OF INSTRUCTION: Individual instruction Written instruction - handouts Verbal instruction PATIENT / FAMILY RESPONSE: Performs skill independently: Wound care FOLLOW-UP PLAN: Complete - No need for follow-up SUPPLEMENTAL MATERIAL: Homegoing instructions REFERRAL (RECOMMENDATION): None [facility] PROGRESS HNO ID: [id number] Author: Victoria Holley Service: ? Author Type: ? Type: Progress Notes Filed: 01/09/2019 3:40 PM Note Text: Radiology Service Progress Note PATIENT NAME: Katelynn Melendrez DATE OF SERVICE: January 09, 2019 TIME: 3:40 PM PATIENT IDENTITY VERIFICATION COMPLETED USING TWO (2) METHODS: Patient confirmed name verbally and ID band matches.. PATIENT GENDER DATA: Female. status: : No status: NO. PATIENT RELEVANT IMPLANT DATA REVIEWED: Yes RADIOLOGY DEPARTMENT: Biopsy and Mammography PERIPHERAL IV DATA: Not applicable SIGNED BY: Victoria Holley January 09, 2019 3:40 PM [facility] SURGICAL PATHOLOGYon 019 SURGICAL PATHOLOGY Specimen originated from [facility] Specimen #: [id number] Submitting Physician: SHANNEN COLLAZO ([id number]) FINAL DIAGNOSIS Right breast, 9 o'clock, coil clip, ultrasound-guided needle core biopsy (A) Fat necrosis with chronic inflammation and histiocytic reaction, see comment. KINJAL/barb 01/12/[address] Steve Rothman has seen selected slides and concurs. Marissa Boggs M.D. (Electronic Signature) SPECIMEN SUBMITTED A: RIGHT BREAST ULTRASOUND, BIOPSY 900 WITH COIL CLIP PLACEMENT CLINICAL DATA r/o breast ca vs hematoma, documented trauma 07/22. GROSS DESCRIPTION A. Received in formalin labeled as Right breast are multiple segments of cylindrical tissue aggregating to 1.2 x 0.4 x 0.2 cm, brown and of a soft consistency. The specimen is removed from the patient at no time given on 01/09/2019. The specimen was placed in formalin at 15:14 on 01/09/2019. Totally submitted in formalin in one cassette. Fixative type: 10% neutral buffered formalin Length of fixation: 31 hours and 5 minutes Cold ischemia time: Not documented Gross examination performed at [facility], [address] [place] [address] 01/10/2019 2:03:09 AM Date of Report: 01/12/2019 Date of Procedure: 01/09/2019 Date of Receipt: 01/09/2019 Submitted by: SHANNEN COLLAZO ([id number]) Location: A10 Diagnostic interpretation performed at [place] [address]. [facility] Number: [id number] [facility] CNOVon 01-01-2019 CNOV Office Visit ([facility] ) KATELYNN MELENDREZ ([id number]) 1960 F Date Time Provider Department 01/01/19 3:30 PM MARTIN LEARY [facility] During your visit today, we recorded the following information about you: Martin Leary MD 01/11/2019 11:17 AM Signed REASON FOR VISIT: Follow up for right breast hematoma HISTORY OF PRESENT ILLNESS: Katelynn Melendrez is a 58 year old female who is presenting for follow up of a posttraumatic hematoma for which she was seen initially on 09/03/2018. At that time, she was found to have a 11cm hematoma in her right breast. She reports that she feels the lump has decreased significantly in size and she does not feel the shooting pains and breast deformation that she had experienced before. She still continues to have mild dimpling above the area of the mass however. She has not had any illnesses since her last visit and is otherwise doing well. Denies fever, chills, chest pain, numbness/tingling, SOB, and lightheadedness. BREAST RELATED HISTORY: Known posttraumatic hematoma of R breast She performs Self-Breast exams. Used BCP for 10-12 years previously. Never breastfed. 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:Obstetric History T0 L2 SAB0 TAB0 Ectopic0 Multiple0 Live Births0 Comment: Menarche: 15; Age at 1st : 27; Hysterectomy at age 43 due to menometrorrhagia, Ovaries remain intact Used BCP for total 10-12 years, until she had a Stroke at 39 years of age (thought related to BCP) FAMILY HISTORY: FAMILY HISTORY Problem Relation Age of Onset - other (Liver Cancer) Maternal Grandfather 70 - Prostate Cancer Paternal Grandfather 70 - Breast Cancer Paternal Aunt 60 of unrelated disease - other (Kidney Cancer) Paternal Uncle 40 - Osteoporosis Mother - Heart Attack Father 50 PAST MEDICAL HISTORY:No past medical history on file. PROBLEM LIST:There is no problem list on file for this patient. ALLERGIES:ALLERGIES Not on File MEDICATIONS:No prescriptions on file. SOCIAL HISTORY:Employer And Job Title: None on file Years Of Education Completed: Not specified Marital Status: Social History Tobacco Use - Smoking status: Not on file Substance Use Topics - Alcohol use: Not on file - Drug use: Not on file Drug Use: Not on file SURGICAL HISTORY:No past surgical history on file.ANESTHESIA COMPLICATIONS: Denies personal history of anesthesia complications. No known family history of anesthesia complications. REVIEW OF SYSTEMS: GENERAL: No weight loss, malaise or fevers., SEE HPI COUNTER MANAGER: Denies history of stroke, TIAs, seizures, or dementia. No focal symptoms. Denies significant headaches. EENT: Denies changes in hearing or vision. Denies frequent nose bleeds. RESP: Denies dyspnea, chronic cough, Asthma, Bronchitis, COPD, Emphysema, or URI <2 weeks ago. CARD: Patient denies any dyspnea, recent RI, angina, arrhythmias, or valvular disease. GI: Patient denies any history of GERD, PUD, liver problems or ETOH abuse. Patient denies any history of Irritable Bowel, colitis, colorectal cancer, or diarrheal states. : Denies history of disease. RENAL: Denies history of renal insufficiency. ENDO: Denies history of Diabetes. Denies history of Thyroid problems. Denies history of recent steroid use. HEME: Denies bleeding or bruising easily. No history of anemia. No h/o prior transfusion. Denies known coagulopathy. Denies h/o DVT or PE. 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 MUSCULOSKELETAL: Negative for bone pain, concerning joint pain/swelling, chronic back pain, or muscle weakness. SKIN: Denies Scleroderma or Lupus. Denies chronic skin conditions. PSYCHIATRIC: Denies history of psychiatric illness. Patient feels she is coping well with recent Breast Cancer diagnosis. Negative for sleep disturbance, mood disorder and recent psychosocial stressors. EXAMINATION: There were no vitals taken for this visit. GENERAL: Normal, cooperative, in no acute distress, alert NECK: Supple, ROM grossly WNL, No cervical lymphadenopathy RESPIRATORY: Chest symmetrical with bilateral expansion. and Respirations even and non-labored. Regional Lymph Nodes: Possible LAD in right axilla, unclear on exam. No LAD in left axilla BREASTS: The Patient was examined in the upright and supine positions. Breasts are asymmetric. There are no significant fibrocystic changes Right Breast: 3cm irregular, firm mass at 7 o'clock position, 2cm from nipple with some skin retraction/dimpling. Left Breast: There are no dominant masses, skin changes, retraction, pain or nipple discharge. BREAST IMAGING: Breast Imaging was reviewed with radoiology and findings were discussed with the Patient. The results are as follows: Diagnostic Imaging performed 01/01/2019. Excerpts from Breast Imaging Studies IMPRESSION: SUSPICIOUS FINDING - BIOPSY SHOULD BE CONSIDERED The 2.4 cm x 1.7 cm x 2.4 cm irregular mass in the right breast most likely is a hematoma or fat necrosis and is suspicious of malignancy. ?An ultrasound guided biopsy is recommended Assessment/Plan IMPRESSION: 58F w/ known posttraumatic R breast hematoma diagnosed in 09/2018 (11cm at that time) who presents for follow up. Now with resolving hematoma. However, repeat imaging is concerning for irregular shape of mass and mild vascularity. Recommend biopsy of mass to rule out underlying breast malignancy. PLAN: 1. Biopsy of irregular mass on R breast scheduled for 01/09/19 2. Will schedule for additional U/S of right axilla 3. If benign, will follow up with patient in 3 months with imaging 4. Otherwise, will schedule patient based on findings All questions were answered and the Patient had no further concerns at this time. Kiko Mcconnell MD General Surgery, PGY-2 Attending Note: I have personally performed a face to face assessment of this Patient, which included an interview, physical exam, and discussion of the Breast Imaging, Assessment and Plan. I have reviewed and confirmed the history and lópez findings as documented by the Resident and edited as appropriate. Signature: Martin Hameed MD Referring Provider: MARTIN LEARY [[id number]] Allergies As of Date: 01/01/2019 (Not on File) Date Reviewed: 09/12/2018 Reviewed by: Martin Leary - Fully Assessed Primary Visit Diagnosis:Posttraumatic hematoma of right breast, initial encounter [S20.01XA] Other Visit Diagnosis:Abnormal mammogram [R92.8] Problem List As Of Date: 01/01/2019 (None) Encounter Status:Closed by MARTIN LEARY MD on 01/11/19 Normal [facility] [employer] BREAST LTD RTon 01-01 [employer] BREAST MVP Vault RT * * *Final Report* * * DATE OF EXAM: Jan 01 2019 3:12PM [facility] 0594 - [employer] BREAST [facility] RT / PROCEDURE REASON: Posttraumatic hematoma of right breast, initial encounter * * * * Physician Interpretation * * * * RESULT: #[id number] - [employer] BREAST [facility] RT ULTRASOUND OF RIGHT BREAST: 01/01/2019 HISTORY: 3 month follow-up of the right breast. History of previous trauma. RESULT: Comparison is made to exams dated: 09/03/2018 mammogram, 09/03/2018 ultrasound - [facility], and 08/20/2018 ultrasound. Color flow and real-time ultrasound of the right breast were performed. Antunez scale images of the real-time examination were reviewed. There is 2.4 cm x 1.7 cm x 2.4 cm irregular mass in the right breast at 1 o'clock middle depth 3 cm from the nipple. This irregular mass is hypoechoic. Color flow imaging demonstrates that there is no vascularity present. IMPRESSION: SUSPICIOUS FINDING - BIOPSY SHOULD BE CONSIDERED The 2.4 cm x 1.7 cm x 2.4 cm irregular mass in the right breast most likely is a hematoma or fat necrosis and is suspicious of malignancy. An ultrasound guided biopsy is recommended. SUMMARY: The patient made an appointment for the recommended biopsy before leaving the department. Electronically informed consent for the recommended biopsy was explained and signed by the patient. Marjorie yao/aj:01/01/2019 15:27:37 Shop Technician(s): RT Nhan(R)(M), [facility] [place] Ul[facility] BI-RADS: 4 Suspicious finding - Biopsy should be considered Multiple national specialty organizations have released breast cancer screening guidelines for women at average risk for developing breast cancer - guidelines that are based on both evidence and opinion, yet differ on when to start and how often to screen for breast cancer. With representation from Breast Imaging, Internal Medicine, Women's Health, Family Medicine, and Medical/Surgical Oncology, the [facility] has carefully reviewed the data and reached the following consensus: 1) All women should engage in shared decision-making with their providers to decide when to start and how often to screen; 2) All women should have the opportunity to start screening mammography at age 40; 3) For women ages 45-55, we recommend annual screening mammograms; 4) For women ages 55 and over, we support both the transition from an annual to a biennial interval if this aligns more with patient's values and preferences, or continuation with annual screening; 5) All women should discuss with their providers when to stop screening mammograms. Job Coaching: Aj Transcribe Date/Time: Jan 01 2019 2:47P Dictated by : MARJORIE DOHERTY MD This examination was interpreted and the report reviewed and electronically signed by: MARJORIE DOHERTY MD on Jan 01 2019 3:27PM EST [id number] [facility] PROGRESSon 01-01-2019 PROGRESS HNO ID: [id number] Author: Martin Leary Service: ? Author Type: Physician Type: Progress Notes Filed: 01/11/2019 11:17 AM Note Text: REASON FOR VISIT: Follow up for right breast hematoma HISTORY OF PRESENT ILLNESS: Katelynn Melendrez is a 58 year old female who is presenting for follow up of a posttraumatic hematoma for which she was seen initially on 09/03/2018. At that time, she was found to have a 11cm hematoma in her right breast. She reports that she feels the lump has decreased significantly in size and she does not feel the shooting pains and breast deformation that she had experienced before. She still continues to have mild dimpling above the area of the mass however. She has not had any illnesses since her last visit and is otherwise doing well. Denies fever, chills, chest pain, numbness/tingling, SOB, and lightheadedness. BREAST RELATED HISTORY: Known posttraumatic hematoma of R breast She performs Self-Breast exams. Used BCP for 10-12 years previously. Never breastfed. 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:Obstetric History T0 L2 SAB0 TAB0 Ectopic0 Multiple0 Live Births0 Comment: Menarche: 15; Age at 1st : 27; Hysterectomy at age 43 due to menometrorrhagia, Ovaries remain intact Used BCP for total 10-12 years, until she had a Stroke at 39 years of age (thought related to BCP) FAMILY HISTORY: FAMILY HISTORY Problem Relation Age of Onset - other (Liver Cancer) Maternal Grandfather 70 - Prostate Cancer Paternal Grandfather 70 - Breast Cancer Paternal Aunt 60 of unrelated disease - other (Kidney Cancer) Paternal Uncle 40 - Osteoporosis Mother - Heart Attack Father 50 PAST MEDICAL HISTORY:No past medical history on file. PROBLEM LIST:There is no problem list on file for this patient. ALLERGIES:ALLERGIES Not on File MEDICATIONS:No prescriptions on file. SOCIAL HISTORY:Employer And Job Title: None on file Years Of Education Completed: Not specified Marital Status: Social History Tobacco Use - Smoking status: Not on file Substance Use Topics - Alcohol use: Not on file - Drug use: Not on file Drug Use: Not on file SURGICAL HISTORY:No past surgical history on file.ANESTHESIA COMPLICATIONS: Denies personal history of anesthesia complications. No known family history of anesthesia complications. REVIEW OF SYSTEMS: GENERAL: No weight loss, malaise or fevers., SEE HPI COUNTER MANAGER: Denies history of stroke, TIAs, seizures, or dementia. No focal symptoms. Denies significant headaches. EENT: Denies changes in hearing or vision. Denies frequent nose bleeds. RESP: Denies dyspnea, chronic cough, Asthma, Bronchitis, COPD, Emphysema, or URI <2 weeks ago. CARD: Patient denies any dyspnea, recent RI, angina, arrhythmias, or valvular disease. GI: Patient denies any history of GERD, PUD, liver problems or ETOH abuse. Patient denies any history of Irritable Bowel, colitis, colorectal cancer, or diarrheal states. : Denies history of disease. RENAL: Denies history of renal insufficiency. ENDO: Denies history of Diabetes. Denies history of Thyroid problems. Denies history of recent steroid use. HEME: Denies bleeding or bruising easily. No history of anemia. No h/o prior transfusion. Denies known coagulopathy. Denies h/o DVT or PE. 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 MUSCULOSKELETAL: Negative for bone pain, concerning joint pain/swelling, chronic back pain, or muscle weakness. SKIN: Denies Scleroderma or Lupus. Denies chronic skin conditions. PSYCHIATRIC: Denies history of psychiatric illness. Patient feels she is coping well with recent Breast Cancer diagnosis. Negative for sleep disturbance, mood disorder and recent psychosocial stressors. EXAMINATION: There were no vitals taken for this visit. GENERAL: Normal, cooperative, in no acute distress, alert NECK: Supple, ROM grossly WNL, No cervical lymphadenopathy RESPIRATORY: Chest symmetrical with bilateral expansion. and Respirations even and non-labored. Regional Lymph Nodes: Possible LAD in right axilla, unclear on exam. No LAD in left axilla BREASTS: The Patient was examined in the upright and supine positions. Breasts are asymmetric. There are no significant fibrocystic changes Right Breast: 3cm irregular, firm mass at 7 o'clock position, 2cm from nipple with some skin retraction/dimpling. Left Breast: There are no dominant masses, skin changes, retraction, pain or nipple discharge. BREAST IMAGING: Breast Imaging was reviewed with radoiology and findings were discussed with the Patient. The results are as follows: Diagnostic Imaging performed 01/01/2019. Excerpts from Breast Imaging Studies IMPRESSION: SUSPICIOUS FINDING - BIOPSY SHOULD BE CONSIDERED The 2.4 cm x 1.7 cm x 2.4 cm irregular mass in the right breast most likely is a hematoma or fat necrosis and is suspicious of malignancy. ?An ultrasound guided biopsy is recommended Assessment/Plan IMPRESSION: 58F w/ known posttraumatic R breast hematoma diagnosed in 09/2018 (11cm at that time) who presents for follow up. Now with resolving hematoma. However, repeat imaging is concerning for irregular shape of mass and mild vascularity. Recommend biopsy of mass to rule out underlying breast malignancy. PLAN: 1. Biopsy of irregular mass on R breast scheduled for 01/09/19 2. Will schedule for additional U/S of right axilla 3. If benign, will follow up with patient in 3 months with imaging 4. Otherwise, will schedule patient based on findings All questions were answered and the Patient had no further concerns at this time. Kiko Mcconnell MD General Surgery, PGY-2 Attending Note: I have personally performed a face to face assessment of this Patient, which included an interview, physical exam, and discussion of the Breast Imaging, Assessment and Plan. I have reviewed and confirmed the history and lópez findings as documented by the Resident and edited as appropriate. Signature: Martin Hameed MD [facility] PROGRESS HNO ID: [id number] Author: Kathia Bourne Mamm-T Service: Radiology Author Type: ? Type: Progress Notes Filed: 01/01/2019 2:48 PM Note Text: Radiology Service Progress Note PATIENT NAME: Katelynn Melendrez DATE OF SERVICE: January 01, 2019 TIME: 2:48 PM PATIENT IDENTITY VERIFICATION COMPLETED USING TWO (2) METHODS: Patient confirmed name verbally and Date of . PATIENT GENDER DATA: Female. status: : No status: NO. PATIENT RELEVANT IMPLANT DATA REVIEWED: Yes RADIOLOGY DEPARTMENT: Mammography PERIPHERAL IV DATA: Not applicable SIGNED BY: Kathia Bourne Mamm-T January 01, 2019 2:[address] [facility] CNOVon 09-03-2018 CNOV Office Visit ([facility] ) KATELYNN MELENDREZ ([id number]) 1960 F Date Time Provider Department 09/03/18 2:00 PM MARTIN LEARY [facility] During your visit today, we recorded the following information about you: Weight Height 92.1 kg 1.651 m Martin Leary MD 09/12/2018 10:35 AM Signed REASON for TODAY'S VISIT: No chief complaint on file. REFERRAL: Self HISTORY of PRESENT ILLNESS: Katelynn Melendrez is a 58 year old female who presents today for a second opinion regarding a traumatic hematoma of her Right breast, which occurred on 07/07/18. She states she fell at work and her Right breast hit the stand of an IV pole. Initially, she had severe pain of her breast with bruising affecting the entire breast, Right side and up to her Right shoulder. She states her breast doubled in size . These symptoms have been resolving slowly, until two weeks ago she developed cellulitis in the Right breast and has completed a seven day course of Keflex 500mg three times daily. Currently, she states her breast is tender and her nipple has inverted and she continues to have bruising in the inferior aspect. She denies any nipple discharge on the Right. She denies any masses, skin changes, dimpling, pain or nipple discharge of Left breast. BREAST RELATED HISTORY: The Patient denies any prior breast problems or breast surgery. 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 FAMILY HISTORY: FAMILY HISTORY Problem Relation Age of Onset - other (Liver Cancer) Maternal Grandfather 70 - Prostate Cancer Paternal Grandfather 70 - Breast Cancer Paternal Aunt 60 of unrelated disease - other (Kidney Cancer) Paternal Uncle 40 - Osteoporosis Mother - Heart Attack Father 50 The Patient is not of Ashkenazic Ancestry.History of Genetic Testing: N/A SOCIAL HISTORY:Employer And Job Title: None on file Years Of Education Completed: Not specified Marital Status: Social History Tobacco Use - Smoking status: Not on file Substance Use Topics - Alcohol use: Not on file - Drug use: Not on file PAST MEDICAL HISTORY:No past medical history on file. 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 Denies any residual problem. HEENT: Negative for significant headaches. No changes in hearing or vision. Denies frequent nose bleeds. RESP: +H/O frequent bronchitis CARD: +HTN: Pt reports controlled on Rx. +SVT and has loop monitor embedded in Left chest. Denies h/o DVT or PE. Patient denies any dyspnea, recent RI, angina, or valvular disease, GI: +GERD. Patient denies any history of PUD, liver problems or ETOH abuse. Patient denies any history of IBD, IBS, colitis, colorectal cancer, or diarrheal states. : No history of disease. RENAL: Denies history of renal insufficiency. ENDO: Denies history of Diabetes. Denies history of Thyroid problems. Denies history of steroid use. HEME: +Recent Anemia, which she states was related to the breast trauma. Denies bleeding or bruising easily. No h/o prior transfusion. Denies known coagulopathy. 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 MUSCULOSKELETAL: +Osteoarthritis. +Chronic low back pain SKIN: Denies H/O Scleroderma or Lupus. PSYCHIATRIC: +History of depression: she states this is in good control. History was recorded by Erika Pena RN, PA-C and reviewed by Dr. Martin Leary. EXAMINATION: Ht 165.1 cm (5' 5 ) Wt 92.1 kg (203 lb) BMI 33.78 kg/m? Body mass index is 33.78 kg/m?. GENERAL: healthy, alert, no acute distress, cooperative, smiling SKIN: warm, dry, skin color, texture, turgor normal HEAD/EYES: normocephalic, atraumatic and anicteric NECK: Supple, ROM grossly WNL, No cervical lymphadenopathy RESP: Respirations non labored MUSCULOSKELETAL: No observed limitations in movement. Patient ambulates independently. REGIONAL NODES: There is There is no concerning supraclavicular, infraclavicular or axillary lymphadenopathy.. BREASTS: The Patient was examined in the upright and supine positions. Large RIGHT breast mass consistent with known hematoma that is slowly resolving. No other masses no skin changes, no nipple changes. BREAST IMAGING: Breast Imaging was reviewed with Dr. Doherty. These studies were reviewed with the Patient. Excerpts from Breast Imaging Studies RESULT: #[id number] - [facility] DIAG[facility]STIC RT #[id number] - [facility] US BREAST LTD RT UNILATERAL RIGHT DIGITAL DIAGNOSTIC MAMMOGRAM WITH CAD: 09/03/2018 HISTORY: Fell on IV pole 07/07/2018. Persistent bruising and palpable finding. Per patient she had a previous mammogram in 2018. Only provided comparison is an ultrasound dated 08/20/2018. ?Disorder Of Breast. RESULT: TECHNIQUE: The study was acquired using full field digital technology and interpreted from soft copy. Current study was also evaluated with a Computer Aided Detection (CAD). Comparison is made to exam dated: ?08/20/2018 ultrasound. ?There are scattered fibroglandular elements in right breast. There is 11 cm x 7.8 cm x 8.4 cm high density mass in the right breast upper inner aspect. No other significant masses or calcifications are seen in the breast. IMPRESSION: INCOMPLETE: NEEDS ADDITIONAL IMAGING EVALUATION The 11 cm x 7.8 cm x 8.4 cm high density mass in the right breast is indeterminate. ?An ultrasound is recommended. ULTRASOUND OF RIGHT BREAST: 09/03/2018 RESULT: Comparison is made to exam dated: ?08/20/2018 ultrasound. Color flow and real-time ultrasound of the right breast were performed. ? Antunez scale images of the real-time examination were reviewed. There is a large fluid collection throughout the upper outer and upper inner quadrants. There is no associated vascularity. ?This corresponds to the mammogram. IMPRESSION: PROBABLY BENIGN - SHORT TERM INTERVAL FOLLOW-UP RECOMMENDED Extensive hematoma consistent with the history of trauma. A follow-up right ultrasound in 3 months is recommended. OVERALL STUDY BIRADS: 3 Probably benign finding - short term interval follow-up recommended Dictated by : MARJORIE DOHERTY MD Assessment/Plan IMPRESSION: ? 58 year old female with a Right Breast Traumatic Hematoma PLAN: The Breast Imaging and today's clinical exam were discussed with the Patient. All questions were answered and she had no further concerns. Ms. Melendrez will return in 3 months with Right Breast Ultrasound as discussed with radiology and patient. She has our names and numbers to contact us if she has any questions or concerns. Martin Leary MD cc: LUKE BOBO [address] [facility] [id number] Referring Provider: LUKE BOBO [[id number]] Allergies As of Date: 09/03/2018 (Not on File) Date Reviewed: Never Reviewed Reason for Visit: New Patient [172] Primary Visit Diagnosis:Posttraumatic hematoma of right breast, initial encounter [S20.01XA] Order(s):US BREAST LTD RT [[id number]] Order #: [id number] FUTURE Problem List As Of Date: 09/03/2018 (None) Encounter Status:Closed by MARTIN LEARY MD on 09/12/18 Normal [facility] DIAGNOSTIC RTon 09-04-19 [facility] DIAGNOSTIC RT * * *Final Report* * * DATE OF EXAM: Sep 03 2018 2:29PM [facility] [id number] - [facility] DIAGNOSTIC RT / PROCEDURE REASON: Disorder of breast * * * * Physician Interpretation * * * * RESULT: #[id number] - [facility]AG[facility]ST[facility] RT #[id number] - [facility] US BREAST LTD RT UNILATERAL RIGHT DIGITAL DIAGNOSTIC MAMMOGRAM WITH CAD: 09/03/2018 HISTORY: Fell on IV pole 07/07/2018. Persistent bruising and palpable finding. Per patient she had a previous mammogram in 2018. Only provided comparison is an ultrasound dated 08/20/2018. Disorder Of Breast. RESULT: TECHNIQUE: The study was acquired using full field digital technology and interpreted from soft copy. Current study was also evaluated with a Computer Aided Detection (CAD). Comparison is made to exam dated: 08/20/2018 ultrasound. There are scattered fibroglandular elements in right breast. There is 11 cm x 7.8 cm x 8.4 cm high density mass in the right breast upper inner aspect. No other significant masses or calcifications are seen in the breast. IMPRESSION: INCOMPLETE: NEEDS ADDITIONAL IMAGING EVALUATION The 11 cm x 7.8 cm x 8.4 cm high density mass in the right breast is indeterminate. An ultrasound is recommended. ULTRASOUND OF RIGHT BREAST: 09/03/2018 RESULT: Comparison is made to exam dated: 08/20/2018 ultrasound. Color flow and real-time ultrasound of the right breast were performed. Antunez scale images of the real-time examination were reviewed. There is a large fluid collection throughout the upper outer and upper inner quadrants. There is no associated vascularity. This corresponds to the mammogram. IMPRESSION: PROBABLY BENIGN - SHORT TERM INTERVAL FOLLOW-UP RECOMMENDED Extensive hematoma consistent with the history of trauma. A follow-up right ultrasound in 3 months is recommended. Marjorie Doherty M.D. tr/aj:09/03/2018 16:07:56 Multiple national specialty organizations have released breast cancer screening guidelines for women at average risk for developing breast cancer - guidelines that are based on both evidence and opinion, yet differ on when to start and how often to screen for breast cancer. With representation from Breast Imaging, Internal Medicine, Women's Health, Family Medicine, and Medical/Surgical Oncology, the [facility] has carefully reviewed the data and reached the following consensus: 1) All women should engage in shared decision-making with their providers to decide when to start and how often to screen; 2) All women should have the opportunity to start screening mammography at age 40; 3) For women ages 45-55, we recommend annual screening mammograms; 4) For women ages 55 and over, we support both the transition from an annual to a biennial interval if this aligns more with patient's values and preferences, or continuation with annual screening; 5) All women should discuss with their providers when to stop screening mammograms. Shop Technician(s): RT Nhan(R)(M), [facility] [place] OVERALL STUDY BIRADS: 3 Probably benign finding - short term interval follow-up recommended Job Coaching: Aj Transcribe Date/Time: Sep 03 2018 2:29P Dictated by : MARJORIE DOHERTY MD This examination was interpreted and the report reviewed and electronically signed by: MARJORIE DOHERTY MD on Sep 03 2018 4:07PM EST [id number] [facility] US BREAST LTD RTon 09-03 [facility] [employer] BREAST LTD RT * * *Final Report* * * DATE OF EXAM: Sep 03 2018 2:50PM [facility] [id number] - [facility] US BREAST LTD RT / PROCEDURE REASON: Disorder of breast * * * * Physician Interpretation * * * * RESULT: #[id number] - [facility] DIAG[facility]ST[facility] RT #[id number] - [facility] US BREAST LTD RT UNILATERAL RIGHT DIGITAL DIAGNOSTIC MAMMOGRAM WITH CAD: 09/03/2018 HISTORY: Fell on IV pole 07/07/2018. Persistent bruising and palpable finding. Per patient she had a previous mammogram in 2018. Only provided comparison is an ultrasound dated 08/20/2018. Disorder Of Breast. RESULT: TECHNIQUE: The study was acquired using full field digital technology and interpreted from soft copy. Current study was also evaluated with a Computer Aided Detection (CAD). Comparison is made to exam dated: 08/20/2018 ultrasound. There are scattered fibroglandular elements in right breast. There is 11 cm x 7.8 cm x 8.4 cm high density mass in the right breast upper inner aspect. No other significant masses or calcifications are seen in the breast. IMPRESSION: INCOMPLETE: NEEDS ADDITIONAL IMAGING EVALUATION The 11 cm x 7.8 cm x 8.4 cm high density mass in the right breast is indeterminate. An ultrasound is recommended. ULTRASOUND OF RIGHT BREAST: 09/03/2018 RESULT: Comparison is made to exam dated: 08/20/2018 ultrasound. Color flow and real-time ultrasound of the right breast were performed. Antunez scale images of the real-time examination were reviewed. There is a large fluid collection throughout the upper outer and upper inner quadrants. There is no associated vascularity. This corresponds to the mammogram. IMPRESSION: PROBABLY BENIGN - SHORT TERM INTERVAL FOLLOW-UP RECOMMENDED Extensive hematoma consistent with the history of trauma. A follow-up right ultrasound in 3 months is recommended. Marjorie yao/aj:09/03/2018 16:07:56 Multiple national specialty organizations have released breast cancer screening guidelines for women at average risk for developing breast cancer - guidelines that are based on both evidence and opinion, yet differ on when to start and how often to screen for breast cancer. With representation from Breast Imaging, Internal Medicine, Women's Health, Family Medicine, and Medical/Surgical Oncology, the [facility] has carefully reviewed the data and reached the following consensus: 1) All women should engage in shared decision-making with their providers to decide when to start and how often to screen; 2) All women should have the opportunity to start screening mammography at age 40; 3) For women ages 45-55, we recommend annual screening mammograms; 4) For women ages 55 and over, we support both the transition from an annual to a biennial interval if this aligns more with patient's values and preferences, or continuation with annual screening; 5) All women should discuss with their providers when to stop screening mammograms. Shop Technician(s): RT Nhan(Josh)(M), [facility] OVERALL STUDY BIRADS: 3 Probably benign finding - short term interval follow-up recommended Job Coaching: Aj Transcribe Date/Time: Sep 03 2018 2:29P Dictated by : MARJORIE DOHERTY MD This examination was interpreted and the report reviewed and electronically signed by: MARJORIE DOHERTY MD on Sep 03 2018 4:07PM EST [id number] [facility] PROGRESSon 09-03-2018 PROGRESS HNO ID: [id number] Author: Martin Leary Service: ? Author Type: Physician Type: Progress Notes Filed: 09/12/2018 10:35 AM Note Text: REASON for TODAY'S VISIT: No chief complaint on file. REFERRAL: Self HISTORY of PRESENT ILLNESS: Katelynn Melendrez is a 58 year old female who presents today for a second opinion regarding a traumatic hematoma of her Right breast, which occurred on 07/07/18. She states she fell at work and her Right breast hit the stand of an IV pole. Initially, she had severe pain of her breast with bruising affecting the entire breast, Right side and up to her Right shoulder. She states her breast doubled in size . These symptoms have been resolving slowly, until two weeks ago she developed cellulitis in the Right breast and has completed a seven day course of Keflex 500mg three times daily. Currently, she states her breast is tender and her nipple has inverted and she continues to have bruising in the inferior aspect. She denies any nipple discharge on the Right. She denies any masses, skin changes, dimpling, pain or nipple discharge of Left breast. BREAST RELATED HISTORY: The Patient denies any prior breast problems or breast surgery. 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 FAMILY HISTORY: FAMILY HISTORY Problem Relation Age of Onset - other (Liver Cancer) Maternal Grandfather 70 - Prostate Cancer Paternal Grandfather 70 - Breast Cancer Paternal Aunt 60 of unrelated disease - other (Kidney Cancer) Paternal Uncle 40 - Osteoporosis Mother - Heart Attack Father 50 The Patient is not of Ashkenazic Ancestry.History of Genetic Testing: N/A SOCIAL HISTORY:Employer And Job Title: None on file Years Of Education Completed: Not specified Marital Status: Social History Tobacco Use - Smoking status: Not on file Substance Use Topics - Alcohol use: Not on file - Drug use: Not on file PAST MEDICAL HISTORY:No past medical history on file. 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 Denies any residual problem. HEENT: Negative for significant headaches. No changes in hearing or vision. Denies frequent nose bleeds. RESP: +H/O frequent bronchitis CARD: +HTN: Pt reports controlled on Rx. +SVT and has loop monitor embedded in Left chest. Denies h/o DVT or PE. Patient denies any dyspnea, recent RI, angina, or valvular disease, GI: +GERD. Patient denies any history of PUD, liver problems or ETOH abuse. Patient denies any history of IBD, IBS, colitis, colorectal cancer, or diarrheal states. : No history of disease. RENAL: Denies history of renal insufficiency. ENDO: Denies history of Diabetes. Denies history of Thyroid problems. Denies history of steroid use. HEME: +Recent Anemia, which she states was related to the breast trauma. Denies bleeding or bruising easily. No h/o prior transfusion. Denies known coagulopathy. 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 MUSCULOSKELETAL: +Osteoarthritis. +Chronic low back pain SKIN: Denies H/O Scleroderma or Lupus. PSYCHIATRIC: +History of depression: she states this is in good control. History was recorded by Erika Pena RN, PA-C and reviewed by Dr. Martin Leary. EXAMINATION: Ht 165.1 cm (5' 5 ) Wt 92.1 kg (203 lb) BMI 33.78 kg/m? Body mass index is 33.78 kg/m?. GENERAL: healthy, alert, no acute distress, cooperative, smiling SKIN: warm, dry, skin color, texture, turgor normal HEAD/EYES: normocephalic, atraumatic and anicteric NECK: Supple, ROM grossly WNL, No cervical lymphadenopathy RESP: Respirations non labored MUSCULOSKELETAL: No observed limitations in movement. Patient ambulates independently. REGIONAL NODES: There is There is no concerning supraclavicular, infraclavicular or axillary lymphadenopathy.. BREASTS: The Patient was examined in the upright and supine positions. Large RIGHT breast mass consistent with known hematoma that is slowly resolving. No other masses no skin changes, no nipple changes. BREAST IMAGING: Breast Imaging was reviewed with Dr. Doherty. These studies were reviewed with the Patient. Excerpts from Breast Imaging Studies RESULT: #[id number] - [facility] DI[facility]STIC RT #[id number] - [facility] US BREAST LTD RT UNILATERAL RIGHT DIGITAL DIAGNOSTIC MAMMOGRAM WITH CAD: 09/03/2018 HISTORY: Fell on IV pole 07/07/2018. Persistent bruising and palpable finding. Per patient she had a previous mammogram in 2018. Only provided comparison is an ultrasound dated 08/20/2018. ?Disorder Of Breast. RESULT: TECHNIQUE: The study was acquired using full field digital technology and interpreted from soft copy. Current study was also evaluated with a Computer Aided Detection (CAD). Comparison is made to exam dated: ?08/20/2018 ultrasound. ?There are scattered fibroglandular elements in right breast. There is 11 cm x 7.8 cm x 8.4 cm high density mass in the right breast upper inner aspect. No other significant masses or calcifications are seen in the breast. IMPRESSION: INCOMPLETE: NEEDS ADDITIONAL IMAGING EVALUATION The 11 cm x 7.8 cm x 8.4 cm high density mass in the right breast is indeterminate. ?An ultrasound is recommended. ULTRASOUND OF RIGHT BREAST: 09/03/2018 RESULT: Comparison is made to exam dated: ?08/20/2018 ultrasound. Color flow and real-time ultrasound of the right breast were performed. ? Antunez scale images of the real-time examination were reviewed. There is a large fluid collection throughout the upper outer and upper inner quadrants. There is no associated vascularity. ?This corresponds to the mammogram. IMPRESSION: PROBABLY BENIGN - SHORT TERM INTERVAL FOLLOW-UP RECOMMENDED Extensive hematoma consistent with the history of trauma. A follow-up right ultrasound in 3 months is recommended. OVERALL STUDY BIRADS: 3 Probably benign finding - short term interval follow-up recommended Dictated by : MARJORIE DOHERTY MD Assessment/Plan IMPRESSION: ? 58 year old female with a Right Breast Traumatic Hematoma PLAN: The Breast Imaging and today's clinical exam were discussed with the Patient. All questions were answered and she had no further concerns. Ms. Melendrez will return in 3 months with Right Breast Ultrasound as discussed with radiology and patient. She has our names and numbers to contact us if she has any questions or concerns. Martin Leary MD cc: LUKE BOBO [address] [facility] [id number] Normal [facility] US OUTSIDE CD DICOM IMPORT - NBNRon 08-20-2018 US OUTSIDE CD DICOM IMPORT -NBNR Images were obtained outside of [facility] [id number] Normal [facility] Vital Signs Date Time Vital Sign Value Performing Clinician Ludwin cain 07-16-2023 14:58-0500 Blood Pressure Location Pippa NILL [facility] 07-16-2023 14:58-0500 Diastolic blood pressure 84 mm[Hg] Pippa NILL [facility] 07-16-2023 14:58-0500 Heart rate 76 /min Pippa NILL [facility] 07-16-2023 14:58-0500 Respiratory rate 16 /min Pippa NILL [facility] 07-16-2023 14:58-0500 Systolic blood pressure 126 mm[Hg] Pippa NILL [facility] 11-21-2021 09:32-0400 Diastolic blood pressure 72 mm[Hg] Pippa NILL [facility] [place] 11-21-2021 09:32-0400 Mean blood pressure 87 mm[Hg] Pippa NILL [facility] [place] 11-21-2021 09:32-0400 Systolic blood pressure 116 mm[Hg] Pippa NILL [facility] [place] 11-21-2021 08:46-0400 Blood Pressure Location Pippa NILL [facility] [place] 11-21-2021 08:46-0400 Diastolic blood pressure 78 mm[Hg] Pippa NILL [facility] [place] 11-21-2021 08:46-0400 Heart rate 52 /min Pippa NILL [facility] [place] 11-21-2021 08:46-0400 Respiratory rate 16 /min Pippa NILL [facility] [place] 11-21-2021 08:46-0400 Systolic blood pressure 161 mm[Hg] Pippa NILL [facility] [place] Encounters Encounter Date Encounter Type Care Provider Facility Start: 07-16-2023 ambulatory Pippa RAY Facility :[facility] Start: 07-16-2023 End: 07-16-2023 Patient encounter procedure Pippa SANZL [facility] [place] Start: 12-12-2022 End: 12-12-2022 ambulatory [facility] Start: 09-26-2022 End: 09-27-[address] AMPARO ROSS . Facility:[facility] Start: 06-27-2022 Encounter for genera l adult medical examination without abnormal findings DR AMPARO ROSS . [facility] Start: 06-26-2022 End: 06-27-[address] AMPARO ROSS . Facility:[facility] Start: 06-26-2022 End: 06-27-2022 Encounter for general adult medical examination without abnormal findings DR AMPARO ROSS . Facility:[facility] Start: 03-29-2022 End: 03-30-[address] AMPARO ROSS . Facility:[facility] Start: 02-07-2022 End: 02-07-2022 Patient encounter procedure Pippa RAY [facility] Start: 01-31-2022 ambulatory KYLE MALONEY Facility:[facility] Start: 01-30-2022 End: 01-30-[address] PIPPA RAY . Facility:[facility] Start: 12-26-2021 End: 12-26-2021 Patient encounter procedure Pippa RAY [facility] Start: 12-13-2021 ambulatory KYLE MALONEY Facility:[facility] Start: 11-30-2021 End: 11-30-2021 ambulatory LUKE BOBO Facility:[facility] Start: 11-27-2021 End: 11-28-[address] AMPARO ROSS . Facility:[facility] Start: 11-21-2021 End: 11-21-2021 Patient encounter procedure Pippa RAY [facility] [place] Start: 11-10-2021 End: 11-11-[address] AMPARO ROSS . Facility:[facility] Start: 11-07-2021 End: 11-08-[address] AMPARO ROSS . Facility:[facility] Procedures Date Procedure Procedure Detail Performing Clinician Start: 01-30-2022 Stereotactically wendy ded core needle biopsy of breast Pippa SANZL Start: 06-03-2018 Biopsy of breast Michae l ROBBIN Start: 09-29-2009 Stereotactically wendy ded core needle biopsy of breast Pippa SANZL Decompression of median nerve Pippa RAY Excision of lumbar intervertebral disc Pippa RAY Open reduction of fr acture of ankle with internal fixation Pippa RAY Repair of right ingu inal hernia [employer] [employer] [facility] Total hysterectomy v ia vaginal approach Pippa RAY Immunizations Immunization Date Immunization Notes Care Provider Fa emily 03-03-2023 influenza virus vaccine, unspecified formulation Pippa RAY [facility] [place] 04-03-2022 SARS-CoV-2 (COVID-19 ) mRNA-1273 vaccine [employer]a [employer] [facility] [place] 03-24-2021 SARS-CoV-2 (COVID-19 ) mRNA-1273 vaccine [employer] [facility] [place] 06-30-2020 SARS-CoV-2 (COVID-19 ) mRNA-1273 vaccine Pippa [employer] [facility] [place] 06-01-2020 SARS-CoV-2 (COVID-19 ) mRNA-1273 vaccine Pippa YVON [facility] [place] Payers Date Payer Category Payer Unknown [id number] 2022 Unknown [id number] 2019 Unknown [id number] 1960 Unknown [id number] 2.16.84 [id number] 1961 Unknown [id number] 2.16.84 [id number] 1961 Unknown [id number] 2.16.84 [id number] 1961 Unknown [id number] 2.16.84 [id number] 1961 Unknown [id number] 2.16.84 [id number] 1961 Unknown [id number] 2.16.84 [id number] 1961 Unknown [id number] 2.16.84 [id number] 1961 Unknown [id number] 2.16.84 [id number] 1961 Unknown [id number] 2.16.84 [id number] 1961 Unknown [id number] 2.16.8 [id number] 1958 Self-pay [id number] Unknown [id number] 2.16.84 [id number] Social History Date Type Detail Facility Start: 11-21-2021 End: 07-16-2023 Tobacco smoking status Never smoked tobacco (finding) [facility] Tobacco smoking status Never [facility] Sex Assigned At Female [facility] Functional Status Date Assessment Result Facility 07-16-2023 Functional Status N/A [facility] 11-21-2021 Functional Status N/A [facility] Progress note 12-17-2022 Note Date & Type Note Facility 12-17-2022 Note - continue flecainid e 100 mg twice daily, atenolol 37.5 mg twice daily [facility] Progress note 12-12-2022 Note Date & Type Note Facility 12-12-2022 Note [facility] Consult Note Reason for visit: 1 year follow-up HPI: Katelynn Melendrez is a 62 y.o. 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 She had no complaints of chest pain, shortness of breath, palpitations, lightness, dizziness, syncope, presyncope ECG 12/12/2022 sinus bradycardia with first-degree AV block, AL interval 232 ms, QRS <120 ---- --- Per dr. Cobb 08/15/2021 cc; Palpitations 58-year-old lady with a past medical history of CVA and palpitations was previously seen by Dr. Costello for loop implant for cryptogenic stroke eval. This was done on 04/27/2014. Review of this has not revealed any evidence of A. fib and is now at end-of-life . She continues to have palpitations that was reported to her PCP and Dr. De La Garza had increased her medication from atenolol 37.5 once a day to 37.5 mg twice a day. Her Holter has shown that her symptoms correlated with PVCs which was confirmed to be while I was in the office with her. She notes that she is feeling some of the movement she is much more relaxed and at nighttime 15 with a lower heart rate bringing out more of the PVCs. EKG: Sinus rhythm with a PVC of right bundle branch morphology. Unfortunately our EKG could not catch it in all leads but it was positive in lead II and V4 V5 V6 12 the rhythm leads available. Stress test: Lexiscan study that was done on 06/08/2021 shows no evidence of ischemia and EF was noted to be 79% Echocardiogram 04/26/2021 shows ejection fraction of 65% with moderately dilated left atrium and mild dilatation of the right atrium with normal RV function trivial MR mild to moderate AR Holter monitor performed on 04/26/2021 to 05/03/2021 reveals 1 episode of nonsustained SVT of 4 beats that was seen on 05/02/2021 at 6:17 PM and another 1 noted on 04/27/2021 at 8:27 AM of 5 beats. Her symptoms of skipped beats seems to correlate with occasional PVC. The PVC burden was noted to be less than 2% with a total of 7000 beats over the 1 week that was monitored. No ventricular tachycardia was seen ---- - PMH: No past medical history on file. Patient Active Problem List Diagnosis Well adult health check Palpitations History of stroke without residual deficits Blood coagulation disorder (CMS/HCC) PVC (premature ventricular contraction) PSH: No past surgical history on file. SH: Social Determinants of Health Tobacco Use: Not on file Alcohol Use: Not on file Financial Resource Strain: Not on file Food Insecurity: Not on file Transportation Needs: Not on file Physical Activity: Not on file Stress: Not on file Social Connections: Not on file Intimate Partner Violence: Not on file Depression: Not on file Housing Stability: Not on file Allergies: Allergies Allergen Reactions Hydromorphone Other Penicillins Other Weight: 80.3kg Visit Vitals BP 126/79 (BP Location: Left arm, Patient Position: Sitting) Pulse 61 Ht 1.651 m (5' 5 ) Wt 80.3 kg (177 lb) SpO2 97% BMI 29.45 kg/m??? BSA 1.92 m??? Meds: Current Outpatient Medications on File Prior to Visit Medication Sig Dispense Refill albuterol 90 mcg/actuation inhaler INHALE 2 PUFFS BY MOUTH 4 TIMES A DAY NEEDED aspirin 81 mg chewable tablet Chew 1 tablet every day by oral route. atenolol (Tenormin) 25 mg tablet Take 37.5 mg by mouth 1 (one) time each day. atorvastatin (Lipitor) 40 mg tablet TAKE 1 TABLET BY MOUTH EVERYDAY AT BEDTIME desvenlafaxine (Pristiq) 100 mg 24 hr tablet Take 1 tablet by mouth in the morning. flecainide (Tambocor) 100 mg tablet Take 1 tablet (100 mg) by mouth in the morning and at bedtime. 180 tablet 3 No current facility-administered medications on file prior to visit. ROS: Cardio Basic Cardiovascular Symptoms: no lightheadedness, no leg edema, no syncope, no orthopnea, no PND, no claudication, Constitutional Constitutional: no fever, no night sweats, no significant weight gain, no significant weight loss, no exercise intolerance Eyes Eyes: no dry eyes, no irritation, no vision change ENMT Ears: no difficulty hearing, no ear pain Nose: no frequent nosebleeds, Mouth/Throat: no sore throat, no bleeding gums, no snoring, no dry mouth, no mouth ulcers, no oral abnormalities, no teeth problems Respiratory Respiratory: no cough, no wheezing, no co (more content not included)... [facility] Progress note 12-12-2022 Note Date & Type Note Facility 12-12-2022 Note Patient here for 1 y ear follow up PVC's, palpitations, and hyperlipidemia. Has rare palpitations. Feels good. Denies chest pain and SOB. Review of Systems Cardiovascular: Positive for palpitations ( rare ). All other systems reviewed and are negative. [facility] Evaluation + Plan note Radiology Note Date & Type Note Facility Evaluation + Plan note Future Appointments Appointment Date:12/26/2021 01:00:00 PM Scheduled Provider: Location:[facility].MRI Appointment Type:MRI Breast ([facility]) Future Scheduled TestsMRI Breast w/o and w/ Contrast, Bilat 12/26/21 [facility] [place] Hospital course Narrative Note Date & Type Note Facility Hospital course Narrative No data available for this section [facility] [place] Hospital Discharge instructions Note Date & Type Note Facility Hospital Discharge instructions No data available for this section [facility] [place] Progress note Note Date & Type Note Facility Progress note No data available for this section [facility] [place] Summary Purpose Family History No Family History Records FoundNo Family History Records FoundNo Family History Records FoundNo Family History Records Found No data available for this section Advance Directives No Advanced Directives Records FoundNo Advanced Directives Records FoundNo Advanced Directives Records FoundNo Advanced Directives Records Found Additional Source Comments INFORMATION SOURCE (unrecogn ized section and content) DATE CREATED AUTHOR 01/13/2019 [facility] DATE CREATED AUTHOR AUTHOR'S ORGANIZ ATION 09/29/2022 [facility] DATE CREATED AUTHOR AUTHOR'S ORGANIZ ATION 12/18/2022 [facility] DATE CREATED AUTHOR AUTHOR'S ORGANIZ ATION 07/12/2023 [facility] Care Team (unrecognized sect ion and content) Personnel Name: Amparo Ross MD Address: [address] [place] [address] Personnel Name: Amparo Ross MD Address: [address] [place] [address] Personnel Name: Amparo Ross MD Address: [address] [place] [address] Personnel Name: Amparo Ross MD Address: Address: [address] [place] [address] FOR RECORDS PERTAINING TO PATIENTS WHO ARE OR HAVE BEEN ENROLLED IN A CHEMICAL DEPENDENCY/SUBSTANCEABUSE PROGRAM, SOME INFORMATION MAY BE OMITTED. This clinical summary was aggregated from multiple sources. Caution should be exercised in using it in the provision of clinical care. This summary normalizes information from multiple sources, and as a consequence, information in this document may materially change the coding, format and clinical context of patient data. In addition, data may be omitted in some cases. CLINICAL DECISIONS SHOULD BE BASED ON THE PRIMARY CLINICAL RECORDS. [employer] [facility]. provides no warranty or guarantee of the accuracy or completeness of information in this document.
== END 2023-07-17 13:25 | disposition home or self-care (01) ==
LOC: PST 13:24
PROVIDERS: PCP Family Medicine; Visit Provider Surgery
DX: Z12.11 Encounter for screening for malignant neoplasm of colon (principal)

== ENCOUNTER 2023-07-24 07:50 | Day surgery (SDC) | payer BC, SELFPAY ==
--- NOTE | 2023-07-24 | OP_ITS ---
OPERATION DATE: 07/24/2023 PREOPERATIVE DIAGNOSIS: Colorectal screening. POSTOPERATIVE DIAGNOSIS: Normal colonoscopy to cecum. PROCEDURE: Colonoscopy to cecum. SURGEON: Judson Ray M.D. ANESTHESIA: Monitored anesthesia care. ESTIMATED BLOOD LOSS: Zero. INDICATIONS AND CONSENT: Patient is a 62-year-old female presents for colorectal screening. Indications, risks, benefits, alternatives of proceeding with colonoscopy were explained extensively to the patient, including the risks of bleeding, colon perforation or anesthetic complications. All of her questions were answered. Informed consent was obtained. PROCEDURE: Patient brought to the operating room, placed in the left lateral decubitus position. Monitored anesthesia care was provided. Rectal exam was performed which showed no masses or blood. The scope was inserted into the anal canal. Under direct visualization was advanced. With the aid of abdominal compression, it was advanced to the cecum where cecal markings were clearly identified. Upon withdrawal of the scope, mucosal surfaces were carefully examined. There were no mass lesions or polyps. No inflammatory changes or ulcerations. No significant diverticulosis. The scope was retroflexed in the anal canal. There was no significant hemorrhoidal disease. The prep was good. Scope was then withdrawn. Patient tolerated procedure well, was sent to recovery room in good condition. Follow up colonoscopy should be in 10 years for screening. CC: Jalen Ross M.D. RADHA
--- OUTSIDE RECORDS SUMMARY | 2023-07-24 07:53 | XMS_ITS | CCD ---
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 Name Role Phone Amparo Ross Primary Care Physician [phone] [address]AN[address] ., DR CHRISTENSEN Consulting Unavailable HOY ., [...] ., DR CHRISTENSEN Admitting Unavailable WEST, DR KATIE Mario Consulting Unavailable HOY [...] Unavailable HOY ., DR CHRISTENSEN Admitting Unavailable DR AMPARO MCKEON Primary Care Unavailable LINEFORK, DR KATIE Mario Consulting Unavailable MIRIAN ZEPEDA Attending Unavailable Pippa RAY Attending Unavailable Amparo Ross Referring Unavailable Allergies Allergy Classification Reported Allergen(s) Allergy Type Date of Onset Reaction(s) Facility (6 sources) HYDROmorphone; Translations: [hydromorphone] Drug Allergy 4 Itching (finding) [facility] [place] (5 sources) Penicillin; Translations: [penicillin] Drug Allergy Unknown (qualifier value), Weal (disorder) [facility] (2 sources) HYDROmorphone Drug Allergy 5 [facility] (3 sources) Penicillins; Translations: [PENICILLINS] Drug allergy (disorder) 4 [facility] Medications Current Medications Medication Drug Class(es) [...] 2 Unclassified (2 sources) Patient encounter status 06-27-2023 Viral infection (1 source) COVID-19; Translations: [COVID-19] [...] Test Name Value Interpretation Reference Range Facility Insurance Correspondenceon 0 07-18-2023 Insurance Correspondence [id number] IFF Normal [facility] Consent for Procedure/Surger yon 07-17-2023 Consent for Procedure/Surgery [id number] IFF Normal [facility] Facesheeton 07-17-2023 Facesheet [id number]#1.00 TIFF Normal [facility] Ambulatory Visit Summaryon 0 07-16-2023 Ambulatory Visit Summary KATELYNN MELENDREZ :1960 Visit Date:07/16/2023 Ambulatory Visit Instructions Your Care Team Attending Physician - ROBBIN CASTRO, Pippa Moreno Primary Care Physician - Vandana CASTRO, Amparo Referring Physician - Amparo Ross MD This Is Your Medications List Contact prescribing physician if questions or concerns albuterol (albuterol HFA 90 mcg/inh MDI) aspirin (aspirin 81 mg Oral EC Tab) atenolol (atenolol 25 mg Tab) atorvastatin (atorvastatin 40 mg Tab) cholecalciferol (Vitamin D3 2000 intl units oral Tab) desvenlafaxine (desvenlafaxine 100 mg Tab-) flecainide (flecainide 100 mg Tab) Procedures Performed Stereotactically guided core needle biopsy of breast (01/30/2022), Biopsy of breast (2019), Stereotactically guided core needle biopsy of breast (09/29/2009), Carpal tunnel release, Lumbar discectomy, ORIF - Open reduction of fracture of ankle with internal fixation, ORIF - Open reduction of fracture of ankle with internal fixation, Repair of right inguinal hernia, Vaginal total hysterectomy. Discharge Vitals Heart Rate (Peripheral) 76 Respiratory Rate 16 Blood Pressure 126/84 Height 165 cm Height 65 in Weight 83.4 kg Weight 183.48 lb BMI 30.63 Medications What How Much When Instructions Unchanged albuterol (albuterol HFA 90 mcg/ inh MDI) 2 Puffs Inhalation 4 times a day as needed for Shortness of breath or wheezing Contact prescribing physician if questions or concerns Unchanged aspirin (aspirin 81 mg Oral EC Tab) 1 Tablets By Mouth Every day Contact prescribing physician if questions or concerns Unchanged atenolol (atenolol 25 mg Tab) 1.5 Tablets By Mouth Every day Contact prescribing physician if questions or concerns Unchanged atorvastatin (atorvastatin 40 mg Tab) 1 Tablets By Mouth Every day Contact prescribing physician if questions or concerns Unchanged cholecalciferol (Vitamin D3 2000 intl units oral Tab) 1 Tablets By Mouth Every day Contact prescribing physician if questions or concerns Unchanged desvenlafaxine (desvenlafaxine 100 mg Tab-) 1 Tablets By Mouth Every day Contact prescribing physician if questions or concerns Unchanged flecainide (flecainide 100 mg Tab) 1 Tablets By Mouth Every 12 hours Contact prescribing physician if questions or concerns Allergies HYDROmorphone (Itching) penicillin (Hives) Problems Ongoing - Any problem that you are currently receiving treatment for. Abnormal mammogram of right breast Abnormal ultrasound of breast Aortic valve regurgitation BMI 30.0-30.9,adult Depression Disc disorder of lumbar region History of CVA (cerebrovascular accident) History of nephrolithiasis History of rectal fissure History of trauma of breast Obesity Premature atrial contractions Premature ventricular beats Pure hypercholesterolemia Screen for colon cancer Seasonal allergic rhinitis Supraventricular tachycardia Patient Survey You may receive a survey via text or e-mail asking about your office visit. Please share your experience with us by completing your survey. We appreciate your feedback and thank you for choosing us for your care. Normal [facility] Physician Referralon 024 Physician Referral [id number] IFF Normal [facility] Office Visiton 12-12-2022 Follow-up visit [id number] Katelynn Melendrez 1960 F Date Provider Department Center 12/12/2022 Marie6-AMBERSALEEM MIRIAN [facility] No family history on file Level of Service:76361 NM OFFICE/OUTPATIENT ESTABLISHED LOW MDM 20-29 MIN Normal [facility] MG MAMM DIAGNOSTIC 3D SERA CA Don 09-26-2022 MG MAMM DIAGNOSTIC 3D SERA CAD Patient: KATELYNN MELENDREZ. Exam Date: 09/26/2022 : 1960 Gender:F Ordering : DR AMPARO ROSS . Admission #: [id number] Family : Order #: [id number] CLICK HERE TO VIEW EXAM RADIOLOGY REPORT [...] prostate cancer at age 73. LOCATION: [facility] BREAST COMPOSITION: Heterogeneously dense,which may obscure small [...] MD on 09/26/2022 at 10:00 Normal [facility] CBC AUTO DIFFon 06-26-2022 BASO # 0.0 103/ul Normal 0.0-0.[address] [facility] Comment on above: Performed By: #### C MP, LIPID, TSH #### [facility] [address] [place] [address] Dr. Jamia Albrecht Basophils/100 WBC (Bld) 0.5 % Normal 0.2-2.0 [facility] Comment on above: Performed By: #### C MP, LIPID, TSH #### [facility] [address] [place] [address] Dr. Jamia Albrecht EO # 0.3 103/ul Normal 0.0-0.7 [facility] Comment on above: Performed By: #### C MP, LIPID, TSH #### [facility] [address] [place] [address] Dr. Jamia Albrecht Eosinophils/100 WBC (Bld) 4.7 % Normal 0.9-7.0 [facility] Comment on above: Performed By: #### C MP, LIPID, TSH #### [facility] [address] [place] [address] Dr. Jamia Albrecht Erythrocyte distribution width (RBC) [Ratio] 14.3 % Normal 11.0-15.[address] [facility] Comment on above: Performed By: #### C MP, LIPID, TSH #### [facility] [address] [place] [address] Dr. Jamia Albrecht Hematocrit (Bld) [Volume fraction] 37.5 % Normal 36.0-48.0 [facility] Comment on above: Performed By: #### C MP, LIPID, TSH #### [facility] [address] [place] [address] Dr. Jamia Albrecht Hemoglobin (Bld) [Mass/Vol] 12.1 g/dL Normal 12.0-16.0 [facility] Comment on above: Performed By: #### C MP, LIPID, TSH #### [facility] [address] [address] [address] Jamia Albrecht IG # 0.01 10e3/ul Normal 0.00-0.[address] [facility] Comment on above: Performed By: #### C MP, LIPID, TSH #### [facility] [address] [address] [address] Jamia Albrecht IG % 0.2 % Normal 0.0-0.[address] [facility] Comment on above: Performed By: #### C MP, LIPID, TSH #### [facility] [address] [address] [address] Jamia Albrecht LYMPH # 1.9 103/ul Normal 1.2-3.[address] [facility] Comment on above: Performed By: #### C MP, LIPID, TSH #### [facility] [address] [place] [address] Dr. Jamia Albrecht Lymphocytes/100 WBC (Bld) 34.5 % Normal 20.5-60.[address] [facility] Comment on above: Performed By: #### C MP, LIPID, TSH #### [facility] [address] [place] [address] Dr. Jamia Albrecht MANUAL DIFF REQ NO Normal [facility] Comment on above: Performed By: #### C MP, LIPID, TSH #### [facility] [address] [address] [address] Jamia Albrecht MCH (RBC) [Entitic mass] 26.8 pg Normal 26.7-34.[address] [facility] Comment on above: Performed By: #### C MP, LIPID, TSH #### [facility] [address] [place] [address] Dr. Jamia Albrecht MCHC (RBC) [Mass/Vol] 32.3 g/dL Normal 29.9-35.[address] [facility] Comment on above: Performed By: #### C MP, LIPID, TSH #### [facility] [address] [place] [address] Dr. Jamia Albrecht MCV (RBC) [Entitic vol] 83.0 fL Normal 81.0-99.[address] [facility] Comment on above: Performed By: #### C MP, LIPID, TSH #### [facility] [address] [place] [address] Dr. Jamia Albrecht MONO # 0.4 103/ul Normal 0.3-0.8 [facility] Comment on above: Performed By: #### C MP, LIPID, TSH #### [facility] [address] [place] [address] Dr. Jamia Albrecht Monocytes/100 WBC (Bld) 6.8 % Normal 1.7-12.[address] [facility] Comment on above: Performed By: #### C MP, LIPID, TSH #### [facility] [address] [place] [address] Dr. Jamia Albrecht NEUT # 2.9 103/ul Normal 1.4-6.[address] [facility] Comment on above: Performed By: #### C MP, LIPID, TSH #### [facility] [address] [place] [address] Dr. Jamia Albrecht Neutrophils/100 WBC (Bld) 53.3 % Normal 43.0-75.[address] [facility] Comment on above: Performed By: #### C MP, LIPID, TSH #### [facility] [address] [place] [address] Dr. Jamia Albrecht Platelet mean volume (Bld) [Entitic vol] 9.6 fL Normal 9.5-13.5 [facility] Comment on above: Performed By: #### C MP, LIPID, TSH #### [facility] [address] [place] [address] Dr. Jamia Albrecht PLT 296 103/ul Normal 150-450 [facility] Comment on above: Performed By: #### C MP, LIPID, TSH #### [facility] [address] [place] [address] Dr. Jamia Albrecht RBC 4.52 106/ul Normal 4.20-5.40 [facility] Comment on above: Performed By: #### C MP, LIPID, TSH #### [facility] [address] [place] [address] Dr. Jamia Albrecht WBC 5.5 103/ul Normal 4.0-11.0 [facility] Comment on above: Performed By: #### C MP, LIPID, TSH #### [facility] [address] [address] [address] Jamia Albrecht GLYCOHEMOGLOBIN A1Con 2022 ADA RECOMMENDATION SEE BELOW Normal [facility] Comment on above: Result Comment: ADA RECOMMENDED LIMIT 4.0 - 6.0 ADA THERAPEUTIC TARGET < 7.0 ACTION SUGGESTED > 7.0 Performed By: #### C MP, LIPID, TSH #### [facility] [address] [address] [address] Jamia Albrecht Glucose [Mass/Vol] 131 mg/dL Normal [facility] Comment on above: Performed By: #### C MP, LIPID, TSH #### [facility] [address] [address] [address] Jamia Albrecht HbA1c (Bld) [Mass fraction] 6.2 % Normal 4.5-6.[address] [facility] Comment on above: Performed By: #### C MP, LIPID, TSH #### [facility] [address] [address] [address] Jamia Albrecht LIPID PROFILEon 06-26-2022 CHOL-HDL RATIO NORM SEE BELOW Normal [facility] Comment on above: Result Comment: 3.3 - 4.4 LOW RISK 4.4 - 7.1 AVERAGE RISK 7.1 - 11.0 MODERATE RISK >11.0 HIGH RISK Performed By: #### C MP, LIPID, TSH #### [facility] [address] [address] [address] Jamia Albrecht Cholesterol [Mass/Vol] 134 mg/dL Normal <=[address] [facility] Comment on above: Performed By: #### C MP, LIPID, TSH #### [facility] [address] [address] [address] Jamia Albrecht Cholesterol in HDL [Mass/Vol] 58 mg/dL Normal 40-[address] [facility] Comment on above: Performed By: #### C MP, LIPID, TSH #### [facility] [address] [address] [address] Jamia Albrecht Cholesterol in LDL [Mass/Vol] 60.6 mg/dL Normal [facility] Comment on above: Performed By: #### C MP, LIPID, TSH #### [facility] [address] [address] [address] Jamia Albrecht Cholesterol.total/Ch olesterol in HDL [Mass ratio] 2.3 {ratio} Normal [facility] Comment on above: Performed By: #### C MP, LIPID, TSH #### [facility] [address] [address] [address] Jamia Albrecht HDL NORMAL > or = 60 mg/dl - LO W CARDIOVASCULAR RISK <40 mg/dl - HIGH CARDIOVASCULAR RISK Normal [facility] Comment on above: Performed By: #### C MP, LIPID, TSH #### [facility] [address] [place] [address] Dr. Jamia Albrecht LDL CALC NORMAL SEE BELOW Normal [facility] Comment on above: Result Comment: <100 mg/dl OPTIMAL 100 - 129 mg/dl NEAR OR ABOVE OPTIMAL 130 - 159 mg/dl BORDERLINE HIGH 160 - 189 mg/dl HIGH >190 mg/dl VERY HIGH Performed By: #### C MP, LIPID, TSH #### [facility] [address] [address] [address] Jamia Albrecht Triglyceride [Mass/Vol] 77 mg/dL Normal <=[address] [facility] Comment on above: Performed By: #### C MP, LIPID, TSH #### [facility] [address] [address] [address] Jamia Albrecht VLDL CALC 15.4 mg/dL Normal [facility] Comment on above: Performed By: #### C MP, LIPID, TSH #### [facility] [address] [address] [address] Jamia Albrecht PROF 14(COMP METB)on 023 Albumin [Mass/Vol] 3.5 g/dL Normal 3.4-5.0 [facility] Comment on above: Performed By: #### C MP, LIPID, TSH #### [facility] [address] [address] [address] Jamia Albrecht Albumin/Globulin [Mass ratio] 1.0 {ratio} Normal [facility] Comment on above: Performed By: #### C MP, LIPID, TSH #### [facility] [address] [address] [address] Jamia Albrecht ALP [Catalytic activity/Vol] 104 U/L Normal 46-[address] [facility] Comment on above: Performed By: #### C MP, LIPID, TSH #### [facility] [address] [address] [address] Jamia Albrecht ALT [Catalytic activity/Vol] 30 U/L Normal 14-[address] [facility] Comment on above: Performed By: #### C MP, LIPID, TSH #### [facility] [address] [place] [address] Dr. Jamia Albrecht Anion gap [Moles/Vol] 12.5 mmol/L Normal [facility] Comment on above: Performed By: #### C MP, LIPID, TSH #### [facility] [address] [place] [address] Dr. Jamia Albrecht AST [Catalytic activity/Vol] 21 U/L Normal 15-[address] [facility] Comment on above: Performed By: #### C MP, LIPID, TSH #### [facility] [address] [place] [address] Dr. Jamia Albrecht Bilirubin [Mass/Vol] 0.2 mg/dL Normal 0.2-1.[address] [facility] Comment on above: Performed By: #### C MP, LIPID, TSH #### [facility] [address] [place] [address] Dr. Jamia Albrecht Calcium [Mass/Vol] 8.8 mg/dL Normal 8.5-10.1 [facility] Comment on above: Performed By: #### C MP, LIPID, TSH #### [facility] [address] [place] [address] Dr. Jamia Albrecht Chloride [Moles/Vol] 102 mmol/L Normal 98-[address] [facility] Comment on above: Performed By: #### C MP, LIPID, TSH #### [facility] [address] [place] [address] Dr. Jamia Albrecht CO2 [Moles/Vol] 28.5 mmol/L Normal 21.0-32.0 [facility] Comment on above: Performed By: #### C MP, LIPID, TSH #### [facility] [address] [address] [address] Jamia Albrecht Creatinine [Mass/Vol] 0.69 mg/dL Normal 0.55-1.[address] [facility] Comment on above: Performed By: #### C MP, LIPID, TSH #### [facility] [address] [address] [address] Jamia Albrecht EGFR-AF [place] >60 Normal >=60 [facility] Comment on above: Performed By: #### C MP, LIPID, TSH #### [facility] [address] [address] [address] Jamia Albrecht EGFR-NON AF [place] >60 Normal >=[address] [facility] Comment on above: Performed By: #### C MP, LIPID, TSH #### [facility] [address] [address] [address] Jamia Albrecht Globulin (S) [Mass/Vol] 3.5 g/dL Normal [facility] Comment on above: Performed By: #### C MP, LIPID, TSH #### [facility] [address] [address] [address] Jamia Albrecht Glucose [Mass/Vol] 125 mg/dL Critically high 74-106 [facility] Comment on above: Performed By: #### C MP, LIPID, TSH #### [facility] [address] [address] [address] Jamia Albrecht Potassium [Moles/Vol] 4.0 mmol/L Normal 3.5-5.[address] [facility] Comment on above: Performed By: #### C MP, LIPID, TSH #### [facility] [address] [address] [address] Jamia Albrecht Protein [Mass/Vol] 7.0 g/dL Normal 6.4-8.2 [facility] Comment on above: Performed By: #### C MP, LIPID, TSH #### [facility] [address] [address] [address] Jamia Albrecht Sodium [Moles/Vol] 139 mmol/L Normal 136-145 [facility] Comment on above: Performed By: #### C MP, LIPID, TSH #### [facility] [address] [address] [address] Jamia Albrecht Urea nitrogen [Mass/Vol] 12.0 mg/dL Normal 7.0-18.[address] [facility] Comment on above: Performed By: #### C MP, LIPID, TSH #### [facility] [address] [address] [address] Jamia Albrecht Urea nitrogen/Creatinine [Mass ratio] 17.4 mg/mg Normal [facility] Comment on above: Performed By: #### C SATISH, LIPID, TSH #### [facility] [address] [address] [address] Jamia Albrecht TSHon 06-26-2022 TSH 2.856 uIU/mL Normal 0.358-3.740 [facility] Comment on above: Performed By: #### C MP, LIPID, TSH #### [facility] [address] [address] [address] Jamia Albrecht MAMMO POST BIOPSY RIGHTon MAMMO POST BIOPSY RIGHT Patient: KATELYNN MELENDREZ Exam Date: 01/30/2022 : 1960 Gender:F Ordering : DR PIPPA RAY . Admission #: [id number] Family : Order #: [id number] CLICK HERE TO VIEW EXAM This report [...] Titus James M.D. on 02/08/2022 at 08:[address] [facility] MG STEREO CORE NDL W CLP RTo n 01-30-2022 MG STEREO CORE NDL W CLP RT Patient: KATELYNN MELENDREZ Exam Date: 01/30/2022 : 1960 Gender:F Ordering : DR PIPPA RAY . Admission #: [id number] Family : Order #: [id number] CLICK HERE TO VIEW EXAM This report [...] by: Titus James M.D. on 02/08/2022 at 08:[address] [facility] CHEMISTRYOrdered By: SYSTEM SYSTEM on 12-26-2021 Creatinine [Mass/Vol] 0.5 mg/dL Normal 0.5 - 1.3 mg/dL [facility] Remisol GFR/1.73 sq M.predicted among blacks MDRD (S/P/Bld) [Vol rate/Area] mL/min/1.73 m2 Normal >=59mL/min/1 .73 m2 [facility] Chem S GFR/1.73 sq M.predicted among non-blacks MDRD (S/P/Bld) [Vol rate/Area] mL/min/1.73 m2 Normal >=59mL/min/1 .73 m2 [facility] Chem S SYMPTOMATIC COVID-19 ANTIGEN on 11-30-2021 EUA Statement SEE BELOW Normal [facility] Comment on above: Result Comment: This test [...] By: #### C MP, LIPID, TSH #### [facility] [address] [place] [address] Dr. Jamia Albrecht SARS-CoV-2 (COVID-19) RNA TONIE+probe Ql (Unsp spec) Positive Critically abnormal NEGATIVE [facility] Comment on above: Performed By: #### C MP, LIPID, TSH #### [facility] [address] [place] [address] Dr. Jamia Albrecht CBC AUTO DIFFon 11-27-2021 BASO # 0.0 103/ul Normal 0.0-0.[address] [facility] Comment on above: Performed By: #### C MP, LIPID, TSH #### [facility] [address] [place] [address] Dr. Jamia Albrecht Basophils/100 WBC (Bld) 0.5 % Normal 0.2-2.[address] [facility] Comment on above: Performed By: #### C MP, LIPID, TSH #### [facility] [address] [place] [address] Dr. Jamia Albrecht EO # 0.2 103/ul Normal 0.0-0.7 [facility] Comment on above: Performed By: #### C MP, LIPID, TSH #### [facility] [address] [place] [address] Dr. Jamia Albrecht Eosinophils/100 WBC (Bld) 3.7 % Normal 0.9-7.[address] [facility] Comment on above: Performed By: #### C MP, LIPID, TSH #### [facility] [address] [place] [address] Dr. Jamia Albrecht Erythrocyte distribution width (RBC) [Ratio] 14.1 % Normal 11.0-15.[address] [facility] Comment on above: Performed By: #### C MP, LIPID, TSH #### [facility] [address] [place] [address] Dr. Jamia Albrecht Hematocrit (Bld) [Volume fraction] 39.8 % Normal 36.0-48.[address] [facility] Comment on above: Performed By: #### C MP, LIPID, TSH #### [facility] [address] [place] [address] Dr. Jamia Albrecht Hemoglobin (Bld) [Mass/Vol] 12.6 g/dL Normal 12.0-16.[address] [facility] Comment on above: Performed By: #### C MP, LIPID, TSH #### [facility] [address] [place] [address] Dr. Jamia Albrecht IG # 0.01 10e3/ul Normal 0.00-0.[address] [facility] Comment on above: Performed By: #### C MP, LIPID, TSH #### [facility] [address] [place] [address] Dr. Jamia Albrecht IG % 0.2 % Normal 0.0-0.[address] [facility] Comment on above: Performed By: #### C MP, LIPID, TSH #### [facility] [address] [place] [address] Dr. Jamia Albrecht LYMPH # 0.7 103/ul Critically low 1.2-3.8 [facility] Comment on above: Performed By: #### C MP, LIPID, TSH #### [facility] [address] [place] [address] Dr. Jamia Albrecht Lymphocytes/100 WBC (Bld) 16.1 % Critically low 20.5-60.0 [facility] Comment on above: Performed By: #### C MP, LIPID, TSH #### [facility] [address] [place] [address] Dr. Jamia Albrecht MANUAL DIFF REQ NO Normal [facility] Comment on above: Performed By: #### C MP, LIPID, TSH #### [facility] [address] [place] [address] Dr. Jamia Albrecht MCH (RBC) [Entitic mass] 27.2 pg Normal 26.7-34.0 [facility] Comment on above: Performed By: #### C MP, LIPID, TSH #### [facility] [address] [place] [address] Dr. Jamia Albrecht MCHC (RBC) [Mass/Vol] 31.7 g/dL Normal 29.9-35.2 [facility] Comment on above: Performed By: #### C MP, LIPID, TSH #### [facility] [address] [place] [address] Dr. Jamia Albrecht MCV (RBC) [Entitic vol] 86.0 fL Normal 81.0-99.[address] [facility] Comment on above: Performed By: #### C MP, LIPID, TSH #### [facility] [address] [place] [address] Dr. Jamia Albrecht MONO # 0.5 103/ul Normal 0.3-0.8 [facility] Comment on above: Performed By: #### C MP, LIPID, TSH #### [facility] [address] [place] [address] Dr. Jamia Albrecht Monocytes/100 WBC (Bld) 11.7 % Normal 1.7-12.[address] [facility] Comment on above: Performed By: #### C MP, LIPID, TSH #### [facility] [address] [place] [address] Dr. Jamia Albrecht NEUT # 3.0 103/ul Normal 1.4-6.5 [facility] Comment on above: Performed By: #### C MP, LIPID, TSH #### [facility] [address] [place] [address] Dr. Jamia Albrecht Neutrophils/100 WBC (Bld) 67.8 % Normal 43.0-75.[address] [facility] Comment on above: Performed By: #### C MP, LIPID, TSH #### [facility] [address] [place] [address] Dr. Jamia Albrecht Platelet mean volume (Bld) [Entitic vol] 9.4 fL Critically low 9.5-13.[address] [facility] Comment on above: Performed By: #### C MP, LIPID, TSH #### [facility] [address] [place] [address] Dr. Jamia Albrecht PLT 276 103/ul Normal 150-450 [facility] Comment on above: Performed By: #### C MP, LIPID, TSH #### [facility] Laboratory [address] [place] [address] Dr. Jamia Albrecht RBC 4.63 106/ul Normal 4.20-5.40 [facility] Comment on above: Performed By: #### C MP, LIPID, TSH #### [facility] [address] [address] [address] Jamia Albrecht WBC 4.4 103/ul Normal 4.0-11.[address] [facility] Comment on above: Performed By: #### C MP, LIPID, TSH #### [facility] [address] [address] [address] Jamia Albrecht LIPID PROFILEon 11-27-2021 CHOL-HDL RATIO NORM SEE BELOW Normal [facility] Comment on above: Result Comment: 3.3 - 4.4 LOW RISK 4.4 - 7.1 AVERAGE RISK 7.1 - 11.0 MODERATE RISK >11.0 HIGH RISK Performed By: #### C MP, LIPID, TSH #### [facility] [address] [address] [address] Jamia Albrecht Cholesterol [Mass/Vol] 216 mg/dL Critically high <=[address] [facility] Comment on above: Performed By: #### C MP, LIPID, TSH #### [facility] [address] [address] [address] Jamia Albrecht Cholesterol in HDL [Mass/Vol] 57 mg/dL Normal 40-[address] [facility] Comment on above: Performed By: #### C MP, LIPID, TSH #### [facility] [address] [address] [address] Jamia Albrecht Cholesterol in LDL [Mass/Vol] 134.2 mg/dL Normal [facility] Comment on above: Performed By: #### C MP, LIPID, TSH #### [facility] [address] [address] [address] Jamia Albrecht Cholesterol.total/Ch olesterol in HDL [Mass ratio] 3.8 {ratio} Normal [facility] Comment on above: Performed By: #### C MP, LIPID, TSH #### [facility] [address] [address] [address] Jamia Albrecht HDL NORMAL > or = 60 mg/dl - LO W CARDIOVASCULAR RISK <40 mg/dl - HIGH CARDIOVASCULAR RISK Normal [facility] Comment on above: Performed By: #### C MP, LIPID, TSH #### [facility] [address] [address] [address] Jamia Albrecht LDL CALC NORMAL SEE BELOW Normal [facility] Comment on above: Result Comment: <100 mg/dl OPTIMAL 100 - 129 mg/dl NEAR OR ABOVE OPTIMAL 130 - 159 mg/dl BORDERLINE HIGH 160 - 189 mg/dl HIGH >190 mg/dl VERY HIGH Performed By: #### C MP, LIPID, TSH #### [facility] [address] [address] [address] Jamia Albrecht Triglyceride [Mass/Vol] 124 mg/dL Normal <=150 [facility] Comment on above: Performed By: #### C MP, LIPID, TSH #### [facility] [address] [address] [address] Jamia Albrecht VLDL CALC 24.8 mg/dL Normal [facility] Comment on above: Performed By: #### C MP, LIPID, TSH #### [facility] [address] [address] [address] Jamia Albrecht PROF 14(COMP METB)on 022 Albumin [Mass/Vol] 3.7 g/dL Normal 3.4-5.0 [facility] Comment on above: Performed By: #### C MP, LIPID, TSH #### [facility] [address] [place] [address] Dr. Jamia Albrecht Albumin/Globulin [Mass ratio] 1.1 {ratio} Normal [facility] Comment on above: Performed By: #### C MP, LIPID, TSH #### [facility] [address] [place] [address] Dr. Jamia Albrecht ALP [Catalytic activity/Vol] 102 U/L Normal 46-116 [facility] Comment on above: Performed By: #### C MP, LIPID, TSH #### [facility] [address] [place] [address] Dr. Jamia Albrecht ALT [Catalytic activity/Vol] 26 U/L Normal 14-[address] [facility] Comment on above: Performed By: #### C MP, LIPID, TSH #### [facility] [address] [address] [address] Jamia Albrecht Anion gap [Moles/Vol] 10.1 mmol/L Normal [facility] Comment on above: Performed By: #### C MP, LIPID, TSH #### [facility] [address] [place] [address] Dr. Jamia Albrecht AST [Catalytic activity/Vol] 19 U/L Normal 15-[address] [facility] Comment on above: Performed By: #### C MP, LIPID, TSH #### [facility] [address] [place] [address] Dr. Jamia Albrecht Bilirubin [Mass/Vol] 0.3 mg/dL Normal 0.2-1.[address] [facility] Comment on above: Performed By: #### C MP, LIPID, TSH #### [facility] [address] [place] [address] Dr. Jamia Albrecht Calcium [Mass/Vol] 8.8 mg/dL Normal 8.5-10.1 [facility] Comment on above: Performed By: #### C MP, LIPID, TSH #### [facility] [address] [place] [address] Dr. Jamia Albrecht Chloride [Moles/Vol] 103 mmol/L Normal 98-107 [facility] Comment on above: Performed By: #### C MP, LIPID, TSH #### [facility] [address] [place] [address] Dr. Jamia Albrecht CO2 [Moles/Vol] 30.4 mmol/L Normal 21.0-32.0 [facility] Comment on above: Performed By: #### C MP, LIPID, TSH #### [facility] [address] [place] [address] Dr. Jamia Albrecht Creatinine [Mass/Vol] 0.83 mg/dL Normal 0.55-1.02 [facility] Comment on above: Performed By: #### C MP, LIPID, TSH #### [facility] [address] [place] [address] Dr. Jamia Albrecht EGFR-AF [place]OREAN >=60 Normal >=60 [facility] Comment on above: Performed By: #### C MP, LIPID, TSH #### [facility] [address] [address] [address] Jamia Albrecht EGFR-NON AF [place]ORE[place] >=60 Normal >=[address] [facility] Comment on above: Performed By: #### C MP, LIPID, TSH #### [facility] [address] [address] [address] Jamia Albrecht Globulin (S) [Mass/Vol] 3.4 g/dL Normal [facility] Comment on above: Performed By: #### C MP, LIPID, TSH #### [facility] [address] [address] [address] Jamia Albrecht Glucose [Mass/Vol] 106 mg/dL Normal 74-106 [facility] Comment on above: Performed By: #### C MP, LIPID, TSH #### [facility] [address] [place] [address] Dr. Jamia Albrecht Potassium [Moles/Vol] 4.5 mmol/L Normal 3.5-5.1 [facility] Comment on above: Performed By: #### C MP, LIPID, TSH #### [facility] [address] [place] [address] Dr. Jamia Albrecht Protein [Mass/Vol] 7.1 g/dL Normal 6.4-8.2 [facility] Comment on above: Performed By: #### C MP, LIPID, TSH #### [facility] [address] [place] [address] Dr. Jamia Albrecht Sodium [Moles/Vol] 139 mmol/L Normal 136-145 [facility] Comment on above: Performed By: #### C MP, LIPID, TSH #### [facility] [address] [place] [address] Dr. Jamia Albrecht Urea nitrogen [Mass/Vol] 10.0 mg/dL Normal 7.0-18.[address] [facility] Comment on above: Performed By: #### C MP, LIPID, TSH #### [facility] [address] [place] [address] Dr. Jamia Albrecht Urea nitrogen/Creatinine [Mass ratio] 12.0 mg/mg Normal [facility] Comment on above: Performed By: #### C MP, LIPID, TSH #### [facility] [address], [place] [address] Dr. Jamia Albrecht TSHon 11-27-2021 TSH 1.179 uIU/mL Normal 0.358-3.740 [facility] Comment on above: Performed By: #### C MP, LIPID, TSH #### [facility] [address], [place] [address] Dr. Jamia Albrecht MG MAMM RT DIAG FUon 022 MG MAMM RT DIAG FU Patient: KATELYNN MELENDREZ Exam Date: 11/10/2021 : 1960 Gender:F Ordering : DR AMPARO ROSS . Admission #: [id number] Family : DR MARTÍNEZ HARRELL . Order #: [id number] CLICK HERE TO VIEW EXAM RADIOLOGY REPORT [...] prostate cancer at age 73. LOCATION: [facility] BREAST COMPOSITION: Heterogeneously dense,which may obscure small [...] MD on 11/10/2021 at 10:24 Normal [facility] US BREAST RIGHT LIMITEDon US BREAST RIGHT LIMITED Patient: KATELYNN MELENDREZ Exam Date: 11/10/2021 : 1960 Gender:F Ordering : DR AMPARO ROSS . Admission #: [id number] Family : DR MARTÍNEZ HARRELL . Order #: [id number] CLICK HERE TO VIEW EXAM RADIOLOGY REPORT [...] prostate cancer at age 73. LOCATION: [facility] BREAST COMPOSITION: Heterogeneously dense,which may obscure small [...] MD on 11/10/2021 at 10:24 Normal [facility] MG MAMM SCREEN 3D SERA CADon 06-07-2022 MG MAMM SCREEN 3D SERA CAD Patient: KATELYNN MELENDREZ Exam Date: 11/07/2021 : 1960 Gender:F Ordering : DR MARTÍNEZ HARRELL . Admission #: [id number] Family : DR AMPARO ROSS . Order #: [id number] CLICK HERE TO VIEW EXAM RADIOLOGY REPORT PROCEDURE: MAMMOGRAM SCREENING 3D BILATERAL CAD COMPARISON: MG MAMM DX 3D RT CAD, 12/28/2020. MG MAMM RT DIAG FU, 06/29/2020. INDICATIONS: Screening mammography Calculator Name [facility] Breast Cancer Risk Assessment Tool 5 Year Breast Cancer Risk 1.70% Lifetime Breast Cancer Risk 8.70% Personal Breast Cancer No Personal Ovarian Cancer No Treatments None Family Cancers Grandfather-maternal with liver cancer at age 69; Grandfather-maternal with prostate cancer at age 72. LOCATION: [facility] BREAST COMPOSITION: Heterogeneously dense,which may obscure small [...] Mahmood MD on 11/07/2021 at 14:30 Normal [facility] DIAGNOSTIC RTon 01-10-20 19 [facility] DIAGNOSTIC RT * * *Final Report* * * * * * SEE BOTTOM OF REPORT FOR ADDENDED TEXT * * * DATE OF EXAM: Jan 09 2019 3:31PM W 0626 - [facility] DIAGNOSTIC RT / PROCEDURE REASON: Abnormal ultrasound of breast * * * * Physician Interpretation * * * * RESULT: FINAL REPORT #[id number] - [facility] US BIOPSY BREAST RT #[id number] - [facility] DIAGNOSTIC RT ULTRASOUND GUIDED BIOPSY RIGHT [...] 01/01/2019 ultrasound, and 01/09/2019 ultrasound - [facility]. There are scattered fibroglandular elements in right [...] months for imaging follow up. Shannen Merino M.D., mc,madan/aj:01/13/2019 08:09:24 Nitroglycerin Separator Operator(s): RT An(R)(M), [facility] [place] Mammogram BI-RADS: Post-procedure mammogram for marker placement [...] Health, Family Medicine, and Medical/Surgical Oncology, the [facility] has carefully reviewed the data and reached [...] their providers when to stop screening mammograms. Paediatrician: Aj Transcribe Date/Time: Jan 09 2019 2:43P Dictated by : JENNIFER MERINO MD This examination was interpreted and the report reviewed and electronically signed by: SHANNEN LUIS MD on Jan 09 2019 3:56PM EST This document has been addended by: SHANNEN LUIS MD on Jan 13 2019 8:09AM EST [id number] Normal [facility] US BIOPSY BREAST RTon [facility] US BIOPSY BREAST RT * * *Final Report* * * * * * SEE BOTTOM OF REPORT FOR ADDENDED TEXT * * * DATE OF EXAM: Jan 09 2019 3:31PM MCW 0598 - [facility] US BIOPSY BREAST RT / PROCEDURE REASON: Abnormal ultrasound of breast * * * * Physician Interpretation * * * * RESULT: FINAL REPORT #[id number] - [facility] US BIOPSY BREAST RT #[id number] - [facility] DIAGNOSTIC RT ULTRASOUND GUIDED BIOPSY RIGHT [...] 01/01/2019 ultrasound, and 01/09/2019 ultrasound - [facility] [place]. There are scattered fibroglandular elements in right [...] months for imaging follow up. Shannen Merino M.D., mc,fa/penori:01/13/2019 08:09:24 Nitroglycerin Separator Operator(s): RT An(R)(M), [facility] Mamm[facility] BI-RADS: Post-procedure mammogram [...] Health, Family Medicine, and Medical/Surgical Oncology, the [facility] has carefully reviewed the data and reached [...] their providers when to stop screening mammograms. Paediatrician: Aj Transcribe Date/Time: Jan 09 2019 2:43P Dictated by : JENNIFER MERINO MD This examination was interpreted and the report reviewed and electronically signed by: SHANNEN LUIS MD on Jan 09 2019 3:56PM EST This document has been addended by: SHANNEN LUIS MD on Jan 13 2019 8:09AM EST [id number] Normal [facility] US BREAST LTD RTon 01-09 [facility] BREAST LTD RT * * *Final Report* * * DATE OF EXAM: Jan 09 2019 3:31PM [facility] - [facility] BREAST LTD RT / PROCEDURE REASON: Lump of right breast * * * * Physician Interpretation * * * * RESULT: #[id number] - [facility] BREAST LTD RT ULTRASOUND OF RIGHT BREAST: [...] is recommended. Shannen Luis M.D., mc/aj:01/09/2019 15:40:59 Nitroglycerin Separator Operator(s): RT An(R)(M), [facility] [place] Ultrasound BI-RADS: 2 Benign finding Multiple national specialty organizations have released breast cancer screening guidelines for women at average risk for developing breast cancer - guidelines that are based on both evidence and opinion, yet differ on when to start and how often to screen for breast cancer. With representation from Breast Imaging, Internal Medicine, Women's Health, Family Medicine, and Medical/Surgical Oncology, the [facility] has carefully reviewed the data and reached [...] their providers when to stop screening mammograms. Paediatrician: Aj Transcribe Date/Time: Jan 09 2019 2:43P Dictated by : SHANNEN LUIS MD This examination was interpreted and the report reviewed and electronically signed by: SHANNEN LUIS MD on Jan 09 2019 3:40PM EST [id number] Normal [facility] PROGRESSon 01-09-2019 PROGRESS HNO ID: [id number] Author: Victoria Holley Service: ? Author Type: ? Type: Progress Notes Filed: 01/09/2019 3:43 PM Note Text: Double Identification Patient's idenity was verified by name and : Yes Procedure: Ultrasound Breast Clip Placement and Ultrasound Guided Breast Biopsy Site Verification: right No Nursing No Allergies ALLERGIES Not on File Is the patient having any pain? None Physician, Nurse, Technologist: Victoria Holley PREOPERATIVE/PROCEDURAL VERIFICATION: Patient verified by: Name, Medical [...] out verification includes:Audible time-out documented: Yes. Time: 309 Two Patient Identifiers Correct side and site [...] Site Marking, Correct Position (if applicable). Time: 309 Affirmation of Time Out: N/A Sign Out Discussion: Completed Normal [facility] PROGRESS HNO ID: [id number] Author: Victoria Lynch Rt Service: ? Author [...] MATERIAL: Homegoing instructions REFERRAL (RECOMMENDATION): None Normal [facility] PROGRESS HNO ID: [id number] Author: Victoria Holley Service: ? 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 JJR/barb 01/12/[address] Steve Rothman has seen [...] time: Not documented Gross examination performed at [facility], [address] [place] [address] 01/10/2019 2:03:09 AM Date of Report: 01/12/2019 Date of Procedure: 01/09/2019 Date of Receipt: 01/09/2019 Submitted by: SHANNEN COLLAZO ([id number]) Location: A10 Diagnostic interpretation performed at [facility], [address], [facility] [address]. [place] Number: [id number] Normal [facility] CNOVon 01-01-2019 CNOV Office Visit (BRCRMN ) KATELYNN MELENDREZ ([id number]) 1960 F Date Time Provider Department 01/01/19 3:30 PM MARTIN LEARY BRZAKIYA During your visit today, we recorded the [...] BCP for 10-12 years previously. Never breastfed. 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 No focal symptoms. Denies significant headaches. EENT: Denies changes in hearing or vision. Denies frequent nose bleeds. RESP: Denies dyspnea, chronic cough, Asthma, Bronchitis, COPD, Emphysema, or URI <2 weeks ago. CARD: Patient denies any dyspnea, recent [place], angina, arrhythmias, or valvular disease. GI: Patient [...] known coagulopathy. Denies h/o DVT or PE. SHINGLE CATCHER: Negative for abnormal vaginal bleeding, abnormal vaginal [...] Martin Hameed MD Referring Provider: MARTIN LEARY [[id number]] Allergies As of Date: 01/01/2019 (Not on File) Date Reviewed: 09/12/2018 Reviewed by: Martin Leary - Fully Assessed Primary Visit Diagnosis:Posttraumatic hematoma of right breast, initial encounter [S20.01XA] Other Visit Diagnosis:Abnormal mammogram [R92.8] Problem List As Of Date: 01/01/2019 (None) Encounter Status:Closed by MARTIN LEARY MD on 01/11/19 Normal [facility] US BREAST LTD RTon 01-01 [facility] US BREAST LTD RT * * *Final Report* * * DATE OF EXAM: Jan 01 2019 3:12PM MCW 0594 - [facility] US BREAST LTD RT / PROCEDURE REASON: Posttraumatic hematoma of right breast, initial encounter * * * * Physician Interpretation * * * * RESULT: #[id number] - [facility] US BREAST LTD RT ULTRASOUND OF RIGHT BREAST: 01/01/2019 HISTORY: 3 month follow-up of the right breast. History of previous trauma. RESULT: Comparison is made to exams dated: 09/03/2018 mammogram, 09/03/2018 ultrasound - [facility], and 08/20/2018 ultrasound. Color [...] signed by the patient. Marjorie yao/aj:01/01/2019 15:27:37 Nitroglycerin Separator Operator(s): RT Nhan(R)(M), [facility] [place] Ultrasound BI-RADS: 4 Suspicious finding - Biopsy [...] Health, Family Medicine, and Medical/Surgical Oncology, the [facility] has carefully reviewed the data and reached [...] their providers when to stop screening mammograms. Paediatrician: Aj Transcribe Date/Time: Jan 01 2019 2:47P Dictated by : MARJORIE DOHERTY MD This examination was interpreted and the report reviewed and electronically signed by: MARJORIE DOHERTY MD on Jan 01 2019 3:27PM EST [id number] Normal [facility] PROGRESSon 01-01-2019 PROGRESS HNO ID: [id number] Author: Martin Leary Service: ? Author Type: [...] BCP for 10-12 years previously. Never breastfed. 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 No focal symptoms. Denies significant headaches. EENT: Denies changes in hearing or vision. Denies frequent nose bleeds. RESP: Denies dyspnea, chronic cough, Asthma, Bronchitis, COPD, Emphysema, or URI <2 weeks ago. CARD: Patient denies any dyspnea, recent [place], angina, arrhythmias, or valvular disease. GI: Patient [...] known coagulopathy. Denies h/o DVT or PE. SHINGLE CATCHER: Negative for abnormal vaginal bleeding, abnormal vaginal [...] edited as appropriate. Signature: Martin Hameed MD [facility] PROGRESS HNO ID: [id number] Author: Kathia Bourne Mamm-T Service: Radiology Author [...] IV DATA: Not applicable SIGNED BY: Kathia Somersgilda Mamm-T January 01, 2019 2:48 PM Normal [facility] CNOVon 09-03-2018 CNOV Office Visit (BRCRMN ) KATELYNN MELENDREZ ([id number]) 1960 F Date Time Provider Department 09/03/18 2:00 PM MARTIN LEARY During your visit today, we recorded the [...] any prior breast problems or breast surgery. 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 Denies any residual problem. HEENT: Negative for significant headaches. No changes in hearing or vision. Denies frequent nose bleeds. RESP: +H/O frequent bronchitis CARD: +HTN: Pt reports controlled on Rx. +SVT and has loop monitor embedded in Left chest. Denies h/o DVT or PE. Patient denies any dyspnea, recent [place], angina, or valvular disease, GI: +GERD. Patient [...] No h/o prior transfusion. Denies known coagulopathy. SHINGLE CATCHER: Negative for abnormal vaginal bleeding, abnormal vaginal [...] Patient. Excerpts from Breast Imaging Studies RESULT: #[id number] - [facility] DIAGNOSTIC RT #[id number] - [facility] US BREAST LTD RT UNILATERAL RIGHT [...] Martin Leary MD cc: LUKE BOBO [address] [address] Referring Provider: LUKE BOBO [[id number]] Allergies As of Date: 09/03/2018 (Not on File) Date Reviewed: Never Reviewed Reason for Visit: New Patient [[id number]] Primary Visit Diagnosis:Posttraumatic hematoma of right breast, initial encounter [S20.01XA] Order(s):US BREAST LTD RT [[id number]] Order #: [id number] FUTURE Problem List As Of Date: 09/03/2018 (None) Encounter Status:Closed by MARTIN LEARY MD on 09/12/18 Normal [facility] DIAGNOSTIC RTon 09-04-19 19 [facility] DIAGNOSTIC RT * * *Final Report* * * DATE OF EXAM: Sep 03 2018 2:29PM [facility] 0626 - [facility] DIAGNOSTIC RT / PROCEDURE REASON: Disorder of breast * * * * Physician Interpretation * * * * RESULT: #[id number] - [facility] DIAGNOSTIC RT #[id number] - [facility] US BREAST LTD RT UNILATERAL RIGHT [...] Health, Family Medicine, and Medical/Surgical Oncology, the [facility] has carefully reviewed the data and reached [...] their providers when to stop screening mammograms. Nitroglycerin Separator Operator(s): RT Nhan(R)(M), [facility] OVERALL STUDY BIRADS: 3 Probably benign finding - short term interval follow-up recommended Paediatrician: Aj Transcribe Date/Time: Sep 03 2018 2:29P Dictated by : MARJORIE DOHERTY MD This examination was interpreted and the report reviewed and electronically signed by: MARJORIE DOHERTY MD on Sep 03 2018 4:07PM EST [id number] Normal [facility] US BREAST LTD RTon 09-03 [facility] BREAST LTD RT * * *Final Report* * * DATE OF EXAM: Sep 03 2018 2:50PM [facility]W 0594 - [facility] BREAST [place] RT / PROCEDURE REASON: Disorder of breast * * * * Physician Interpretation * * * * RESULT: #[id number] - [facility] DIAGNOSTIC RT #[id number] - [facility] BREAST LTD RT UNILATERAL RIGHT DIGITAL DIAGNOSTIC [...] Health, Family Medicine, and Medical/Surgical Oncology, the [facility] has carefully reviewed the data and reached [...] their providers when to stop screening mammograms. Nitroglycerin Separator Operator(s): RT Nhan(Josh)(M), [facility] [place] OVERALL STUDY BIRADS: 3 Probably benign finding - short term interval follow-up recommended Paediatrician: Aj Transcribe Date/Time: Sep 03 2018 2:29P Dictated by : MARJORIE DOHERTY MD This examination was interpreted and the report reviewed and electronically signed by: MARJORIE DOHERTY MD on Sep 03 2018 4:07PM EST [id number] Normal [facility] PROGRESSon 09-03-2018 PROGRESS HNO ID: [id number] Author: Martin Leary Service: ? Author Type: Physician Type: Progress Notes Filed: 09/12/2018 10:35 AM Note Text: REASON for TODAY'S VISIT: No chief complaint on file. REFERRAL: Self HISTORY of PRESENT ILLNESS: Katleynn Melendrez is a 58 year old female [...] any prior breast problems or breast surgery. 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 Denies any residual problem. HEENT: Negative for significant headaches. No changes in hearing or vision. Denies frequent nose bleeds. RESP: +H/O frequent bronchitis CARD: +HTN: Pt reports controlled on Rx. +SVT and has loop monitor embedded in Left chest. Denies h/o DVT or PE. Patient denies any dyspnea, recent [place], angina, or valvular disease, GI: +GERD. Patient [...] No h/o prior transfusion. Denies known coagulopathy. SHINGLE CATCHER: Negative for abnormal vaginal bleeding, abnormal vaginal [...] Patient. Excerpts from Breast Imaging Studies RESULT: #[id number] - [facility] DIAGNOSTIC RT #[id number] - [facility] US BREAST LTD RT UNILATERAL RIGHT [...] Martin Leary MD cc: LUKE BOBO [address] [facility] [id number] Normal [facility] US OUTSIDE CD DICOM IMPORT - NBNRon 08-20-2018 US OUTSIDE CD DICOM IMPORT -NBNR Images were obtained outside of [facility] [id number] Normal [facility] Vital Signs Date Time Vital Sign Value Performing Clinician Ludwin cain 07-16-2023 14:58-0500 Blood Pressure Location Pippa RAY [facility] [place] 07-16-2023 14:58-0500 Diastolic blood pressure 84 mm[Hg] Pippa NILL [facility] [place] 07-16-2023 14:58-0500 Heart rate 76 /min Pippa NILL [facility] [place] 07-16-2023 14:58-0500 Respiratory rate 16 /min Pippa NILL [facility] [place] 07-16-2023 14:58-0500 Systolic blood pressure 126 mm[Hg] Pippa NILL [facility] [place] 11-21-2021 09:32-0400 Diastolic blood pressure 72 mm[Hg] Pippa NILL [facility] [place] 11-21-2021 09:32-0400 Mean blood pressure 87 mm[Hg] Pippa NILL [facility] [place] 11-21-2021 09:32-0400 Systolic blood pressure 116 mm[Hg] Pippa NILL [facility] [place] 11-21-2021 08:46-0400 Blood Pressure Location Pippa NILL [facility] [place] 11-21-2021 08:46-0400 Diastolic blood pressure 78 mm[Hg] Pippa NILL [facility] [place] 11-21-2021 08:46-0400 Heart rate 52 /min Pippa NILL [facility] [place] 11-21-2021 08:46-0400 Respiratory rate 16 /min Pippa NILL [facility] [place] 11-21-2021 08:46-0400 Systolic blood pressure 161 mm[Hg] Pippa RAY [facility] [place] Encounters Encounter Date Encounter Type Care Provider Facility Start: 07-16-2023 End: 07-17-2023 ambulatory Pippa RAY Facility:[facility] Start: 07-16-2023 End: 07-16-2023 Patient encounter procedure Pippa RAY [facility] Start: 12-12-2022 End: 12-12-2022 ambulatory [facility] Start: 09-26-2022 End: 09-27-[address] AMPARO ROSS . Facility:[facility] Start: 06-27-2022 Encounter for genera l adult medical examination without abnormal findings DR AMPARO ROSS . [facility] Start: 06-26-2022 End: 06-27-[address] AMPARO ROSS . Facility: Start: 06-26-2022 End: 06-27-2022 Encounter for general adult medical examination without abnormal findings DR AMPARO ROSS . Facility: Start: 03-29-2022 End: 03-30-[address] AMPARO ROSS . Facility: Start: 02-07-2022 End: 02-07-2022 Patient encounter procedure Pippa RAY [facility] [place] Start: 01-31-2022 ambulatory KYLE MALONEY Facility:[facility] Start: 01-30-2022 End: 01-30-[address] PIPPA RAY . Facility:[facility] Start: 12-26-2021 End: 12-26-2021 Patient encounter procedure Pippa RAY [facility] Start: 12-13-2021 ambulatory KYLE MALONEY Facility:[facility] Start: 11-30-2021 End: 11-30-2021 ambulatory LUKE VILLAERLY Facility:[facility] Start: 11-27-2021 End: 11-28-[address] AMPARO ROSS . Facility:[facility] Start: 11-21-2021 End: 11-21-2021 Patient encounter procedure Pippa RAY [facility] [place] Start: 11-10-2021 End: 11-11-[address] AMPARO ROSS . Facility:[facility] Start: 11-07-2021 End: 11-08-[address] AMPARO ROSS . Facility:[facility] Procedures Date Procedure Procedure Detail Performing Clinician Start: 01-30-2022 Stereotactically wendy ded core needle biopsy of breast Pippa RAY Start: 06-03-2018 Biopsy of breast Ron RAY Start: 09-29-2009 Stereotactically wendy ded core needle biopsy of breast Pippa SANZL Decompression of median nerve Pippa SANZL Excision of lumbar intervertebral disc Pippa SANZL Open reduction of fr acture of ankle with internal fixation Pippa SANZL Repair of right ingu inal hernia Pippa SANZL Total hysterectomy v ia vaginal approach Pippa SANZL Immunizations Immunization Date Immunization Notes Care Provider Fa [facility] 03-03-2023 influenza virus vaccine, unspecified formulation Pippa SANZL [facility] [place] 04-03-2022 SARS-CoV-2 (COVID-19 ) mRNA-1273 vaccine Pippa NILL [facility] [place] 03-24-2021 SARS-CoV-2 (COVID-19 ) mRNA-1273 vaccine Pippa NILL [facility] [place] 06-30-2020 SARS-CoV-2 (COVID-19 ) mRNA-1273 vaccine Pippa RAY [facility] [place] 06-01-2020 SARS-CoV-2 (COVID-19 ) mRNA-1273 vaccine Pippa RAY [facility] Payers Date Payer Category Payer Unknown [id number] 2022 Unknown [id number] 2019 Unknown [id number] 1960 Unknown [id number] 2.16.84 [id number] 1960 Unknown [id number] 2.16.84 [id number] 1961 Unknown [id number] 2.16.84 [id number] 1961 Unknown [id number] 2.16.84 [id number] 1961 Unknown [id number] 2.16.84 [id number] 1961 Unknown [id number] 2.16.84 [id number] 1961 Unknown [id number] 2.16.84 [id number] 1961 Unknown [id number] 2.16.84 [id number] 1961 Unknown [id number] 2.16.84 [id number] 1960 Unknown [id number] 2.16.8 [id number] 1958 Self-pay [id number] Unknown [id number] 2.16.84 [id number] Social History Date Type Detail Facility Start: 11-21-2021 End: 07-16-2023 Tobacco smoking status Never smoked tobacco (finding) [facility] [place] Tobacco smoking status [facility] [place] Sex Assigned At Female [facility] Functional Status Date Assessment Result Facility 07-16-2023 Functional Status N/A [facility] [place] 11-21-2021 Functional Status N/A [facility] [place] Clinical Note 07-16-2023 Note Date & Type Note Facility 07-16-2023 Note Chief Complaint consultation for colonoscopy HPI Staff 62 year old female presents on consultation from Dr. Ross for screening colonoscopy. Denies abdominal or rectal pain. No rectal bleeding or change in bowel habits. Denies nausea or vomiting. No unexplained weight loss. Never had colonoscopy in the past. No known family history of colon cancer. History of Present Illness 62 yo female with h/o hypercholesterolemia, SVT, aortic regurgitation, CVA, referred for colorectal screening; denies change in bms or blood in stools; no abdominal complaints; on baby asa daily, no NSAID use, no SBE prophylaxis; abdominal operations significant for RIHR and vaginal hysterectomy; no fmhx of GI malignancy or IBD; no tobacco use. Review of Systems PHQ Score Initial Depression Screen Score: 0 SCORE ROS - Provider Constitutional: no fever, no sweats, no weight loss. Eyes: yes glasses, no blurred vision, no visual loss. ENMT: no dentures, no hoarseness, no swallowing difficulties, no hearing loss, no ear infection(s), no nose bleeds. Cardiovascular: normal blood pressure, no chest pain, regular heartbeat, no heart murmur. Respiratory: no shortness of breath, no cough, no asthma, no wheezing. Gastrointestinal: no nausea, no vomiting, no diarrhea, no constipation, no blood in stool, no change in bowel habits, no abdominal pain, no hepatitis. Genitourinary: no kidney stones, no urine infection, no dysuria. Musculoskeletal: no pain, no weakness. Skin: no changing moles, no rash, no skin lumps. Neurologic: no seizures, no epilepsy, no headache. Psychiatric: no emotional or psychiatric problem. Heme/Lymph: no bleeding problems, no anemia, no blood clots, no transfusions. Allergy/Immunologic: no swollen lymph nodes/glands, no IV drug abuse. Other: Additional ROS info: Except as noted in the above Review of Systems and in the History of Present Illness, all other systems have been reviewed and are negative or noncontributory. Physical Exam Vitals & Measurements HR: 76(Peripheral) RR: 16 BP: 126/84 HT: 65 in HT: 165 cm WT: 83.4 kg WT: 183.48 lb BMI: 30.63 HEENT: normal conjunctiva, sclera clear, no scleral icterus, EOM intact, PERRLA, oral mucosa moist without lesions. Neck: trachea midline, no mass, symmetric, no thyromegaly or nodules, no adenopathy Respiratory: lungs CTA, respirations non labored. Cardiovascular: regular rate and rhythm, no murmur, no pedal edema or varicosities. Gastrointestinal: soft, non distended, no tenderness, no masses, no palpable hernias, diastasis recti no, no hepatosplenomegaly; normal bs Lymphatic: no cervical adenopathy, nosupraclavicular adenopathy. Musculoskeletal: normal gait, digits and nails without infection, nodes, cyanosis, clubbing. Skin: no rashes, no lesions, no ulcers, no subcutaneous nodules, induration. Psychiatric/Neuro: oriented to time, place, person, judgement normal, affect appropriate for age, insight intact, no focal deficits. Tests: , review of old records completed , Discussed surgical options, risks, and possible complications with patient. Assessment/Plan 1. Screening for malignant neoplasm of colon (Z12.11: Encounter for screening for malignant neoplasm of colon) plan colonoscopy under anesthesia, informed consent obtained. Follow-up No qualifying data available Problem List/Past Medical History Ongoing Abnormal mammogram of right breast Abnormal ultrasound of breast Aortic valve regurgitation BMI 30.0-30.9,adult Depression Disc disorder of lumbar region History of CVA (cerebrovascular accident) History of nephrolithiasis History of rectal fissure History of trauma of breast Obesity Premature atrial contractions Premature ventricular beats Pure hypercholesterolemia Screen for colon cancer Screening for malignant neoplasm of colon Seasonal allergic rhinitis Supraventricular tachycardia Historical No qualifying data Procedure/Surgical History Stereotactically guided core needle biopsy of breast (01/30/2022), Biopsy of breast (2019), Stereotactically guided core needle biopsy of breast (09/29/2009), Carpal tunnel release, Lumbar discectomy, ORIF - Open reduction of fracture of ankle with internal fixation, ORIF - Open reduction of fracture of ankle with internal fixation, Repair of right inguinal hernia, Vaginal total hysterectomy. Medications albuterol HFA 90 mcg/inh MDI, 2 puff(s), Inhalation, QID, PRN aspirin 81 mg Oral EC Tab, 81 mg= 1 tab(s), Oral, Daily atenolol 25 mg Tab, 37.5 mg= 1.5 tab(s), Oral, Daily atorvastatin 40 mg Tab, 40 mg= 1 tab(s), Oral, Daily desvenlafaxine 100 mg Tab-, 100 mg= 1 tab(s), Oral, Daily flecainide 100 mg Tab, 100 mg= 1 tab(s), Oral, q12hr Vitamin D3 2000 intl units oral Tab, 1 tab(s), Oral, Daily Allergies HYDROmorphone (Itching) penicillin (Hives) Social History Alcohol - Denies Alcohol Use, 11/21/2021 Substance Abuse - Denies Substance Abuse, 11/21/2021 Tobacco Never (less than (more content not included)... [facility] Comment on above: Result Comment: Elec tronically Signed By: ROBBIN CASTRO, Pippa Jenkins\Date and Time Signed: 07/16/23 15:21 EST Progress note 12-17-2022 Note Date & Type Note Facility 12-17-2022 Note - continue flecainid e 100 mg twice daily, atenolol 37.5 mg twice daily [facility] Progress note 12-12-2022 Note Date & Type [...] 12/12/2022 sinus bradycardia with first-degree AV block, NM interval 232 ms, QRS <120 ---- --- [...] wheezing, no co (more content not included)... [facility] Progress note 12-12-2022 Note Date & Type Note Facility 12-12-2022 Note Patient here for 1 y ear follow up PVC's, palpitations, and hyperlipidemia. Has rare palpitations. Feels good. Denies chest pain and SOB. Review of Systems Cardiovascular: Positive for palpitations ( rare ). All other systems reviewed and are negative. [facility] Evaluation + Plan note Radiology Note Date & Type Note Facility Evaluation + Plan note Future Appointments Appointment Date:12/26/2021 01:00:00 PM Scheduled Provider: Location:FT.MRI Appointment Type:MRI Breast ([facility]) Future Scheduled TestsMRI Breast w/o and w/ Contrast, Bilat 12/26/21 [facility] [place] Hospital course Narrative Note Date & Type Note Facility Hospital course Narrative No data available for this section [facility] [place] Hospital Discharge instructions Note Date & Type Note Facility Hospital Discharge instructions No data available for this section [facility] [place] Progress note Note Date & Type Note Facility Progress note No data available for this section [facility] [place] Summary Purpose Family History No Family History Records FoundNo Family History Records FoundNo Family History Records Found No data available for this section No Family History Records Found Advance Directives No Advanced Directives Records FoundNo Advanced Directives Records FoundNo Advanced Directives Records FoundNo Advanced Directives Records Found Additional Source Comments INFORMATION SOURCE (unrecogn ized section and content) DATE CREATED AUTHOR 01/13/2019 [facility] DATE CREATED AUTHOR AUTHOR'S ORGANIZ ATION 09/29/2022 [facility] DATE CREATED AUTHOR AUTHOR'S ORGANIZ ATION 12/18/2022 [facility] DATE CREATED AUTHOR AUTHOR'S ORGANIZ ATION 07/20/2023 [place] [facility] Team (unrecognized sect ion and content) Personnel Name: Amparo Ross MD Address: [address] [place] [address] Personnel Name: Amparo Ross MD Address: [address] [place] [address] Personnel Name: Amparo Ross MD Address: [address] [place] [address] Personnel Name: Amparo Ross MD Address: Address: [address] [place] [address] FOR RECORDS PERTAINING TO PATIENTS WHO ARE [...] BE BASED ON THE PRIMARY CLINICAL RECORDS. [facility] [employer] provides no warranty or guarantee of the accuracy or completeness of information in this document.
[2023-07-24 08:15] VITALS: BP 132/66; PULSE 52; RESP 16; TEMP 35.9; O2SAT 100; BMI 29.4
[2023-07-24] MEDS: LACTATED RINGER'S SOLUTION 1,000 ML 50 ML IV (08:24)
[2023-07-24 09:20] VITALS: BP 99/56; PULSE 51; RESP 16; TEMP 36.2; O2SAT 96
[2023-07-24 09:35] VITALS: BP 73/35; PULSE 48; RESP 16; O2SAT 100
--- NOTE | 2023-07-24 09:40 | PC.NURSE ---
low bp increased flluids and lowered patient's head of the bed.Patient is resting comfortable.
[2023-07-24 09:50] VITALS: BP 82/48; PULSE 54; RESP 16; O2SAT 95
[2023-07-24 10:05] VITALS: BP 94/46; PULSE 48; RESP 16; O2SAT 100
[2023-07-24 10:20] VITALS: BP 85/59; PULSE 50; RESP 16; O2SAT 100
--- NOTE | 2023-07-24 10:23 | PC.NURSE ---
ANGELITO Worley spoke with patient about low blood pressure. 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 Patient states she is a little groggy but feels fine. Patient is in the bathroom gettig clothes on.
--- NOTE | 2023-07-24 10:26 | PC.NURSE ---
Patient states she feels fine and wants to be discharged.
--- NOTE | 2023-07-24 10:26 | PC.NURSE ---
Per anesthesia it is ok for her to be discharged as ANGELITO Worley explained to her if she wanted to be treated she would. Patient refused .
--- NOTE | 2023-07-24 10:34 | PC.NURSE ---
1025 iv was removed intact. Patient tolerated well.
== END 2023-07-24 10:25 | disposition home or self-care (01) ==
PROVIDERS: PCP Family Medicine; Visit Provider Surgery
PROC: (CPT 811; principal; 2023-07-24 09:00)
DX: Z12.11 Encounter for screening for malignant neoplasm of colon (principal); Z86.73 Personal history of transient ischemic attack (TIA), and cerebral infarction without residual deficits; Z87.442 Personal history of urinary calculi; F32.A Depression, unspecified; M51.86 Other intervertebral disc disorders, lumbar region; Z90.710 Acquired absence of both cervix and uterus; Z79.82 Long term (current) use of aspirin; I35.1 Nonrheumatic aortic (valve) insufficiency; E66.9 Obesity, unspecified; Z68.30 Body mass index [BMI] 30.0-30.9, adult
CPT/HCPCS: 45378; J1100; J2704

== ENCOUNTER 2023-11-11 11:41 | Outpatient (OUT) | payer BC, SELFPAY ==
--- NOTE | 2023-11-11 | XR_ITS ---
The [address] [address] Patient Name: NA MELENDREZ MRN: [id number] date: 1960 Sex: F Assigned Patient Location: Current Patient Location: Accession/Order Number: [id number] Exam Date: 11/11/2023 11:41 Report Date: 11/11/2023 13:05 At the request of: EVIN NUNES Procedure: XR hand LT min 3V PROCEDURE: XR hand LT min 3V COMPARISON: None. HISTORY: LEFT HAND PAIN FINDINGS: BONES:No acute fracture or dislocation. Moderate osteoarthritis of the first carpometacarpal joint with joint space narrowing marginal osteophyte formation SOFT TISSUES:Negative. No visible soft tissue swelling. EFFUSION:None visible. OTHER: Negative. XR/XR hand LT min 3V IMPRESSION: Moderate first carpometacarpal joint osteoarthritis Electronically authenticated by: KATIE WHALEY Date: 11/11/2023 13:05
--- OUTSIDE RECORDS SUMMARY | 2023-11-11 12:01 | XMS_ITS | CCD ---
Author Organization [facility] Care Team Providers Care Bridge Instructor Name Role Phone Amparo Ross Primary Care Physician VANDANA ., DR CHRISTENSEN Consulting Unavailable HOY [...] Unavailable HOY ., DR CHRISTENSEN Admjennifer Unavailable WEST, DR KATIE Mario Consulting Unavailable HOY ., DR CHRISTENSEN Primary Care Unavailable HAIDER, KYLE Attending Unavailable HAIDER, KYLE Admitting Unavailable HAIDER, KYLE Consulting Unavailable JERAMIE, LUKE Attending Unavailable JERAMIE, LUKE Admitting Unavailable JERAMIELUKE MEJIA Consulting Unavailable HOY ., DR CHRISTENSEN Primary Care Unavailable HOY ., DR CHRISTENSEN Attending Unavailable HOY ., DR CHRISTENSEN Admjennifer Unavailable HOY ., DR CHRISTENSEN Consulting Unavailable HOY ., DR CHRISTENSEN Primary Care Unavailable HOY ., DR CHRISTENSEN Consulting Unavailable HOY ., DR CHRISTENSEN Attending Unavailable HOY ., DR CHRISTENSEN Admjennifer Unavailable HOY ., DR CHRISTENSEN Primary Care Unavailable WEST, DR KATIE Mario Consulting Unavailable MIRIAN ZEPEDA Attending Unavailable Pippa RAY Attending Unavailable Amparo Ross Referring Unavailable Pippa RAY Attending Unavailable Allergies Allergy Classification Reported Allergen(s) Allergy Type Date of Onset Reaction(s) Facility (6 sources) HYDROmorphone; Translations: [hydromorphone] Drug Allergy 4 Itching (finding) [facility] (5 sources) Penicillin; Translations: [penicillin] Drug Allergy Unknown (qualifier value), Weal (disorder) [facility] (2 sources) HYDROmorphone Drug Allergy 5 [facility] (3 sources) Penicillins; Translations: [PENICILLINS] Drug allergy (disorder) 4 [facility] Medications Current Medications Medication Drug [...] malignant neoplasm of prostate; Translations: [FAMILY HX MALMIGUEL NEOPLASM PROSTATE] Onset: 11-10-2021 Episodic Residual codes; unclassified (1 source) Family history of malignant neoplasm of other organs or systems; Translations: [FAM HX MALIG NEOPLASM OTH ORGN/SYS] Onset: 11-10-2021 Episodic Unclassified (1 source) CONTACT W/AND (SUSP) EXPOS COVID-19; Translations: [CONTACT W/AND (SUSP) EXPOS COVID-19] Onset: 11-30-2021 Results Test Name Value Interpretation Reference Range Facility Outside Colonoscopyon 2023 Outside Colonoscopy [id number]#1.00T IFF [facility] Reminderson 07-25-2023 Reminders - From: Ginger Young LPN To: N - Clinical; Sent: 07/25/2023 13:55:05 EST Show up: 06/23/2033 07:00:00 EST Subject: colonoscopy recall Due Date/Time: 07/24/2033 07:00:00 EST Reminder/Recall Patient due for screening colonoscopy 07/24/2033. [facility] Insurance Correspondenceon 0 07-18-2023 Insurance Correspondence [id number] IFF [facility] Consent for Procedure/Surger yon 07-17-2023 Consent for Procedure/Surgery [id number] IFF [facility] Facesheeton 07-17-2023 Facesheet [id number] TIFF [facility] Ambulatory Visit Summaryon 0 07-16-2023 Ambulatory [...] biopsy of breast (01/30/2022), Biopsy of breast (2018), Stereotactically guided core needle biopsy of breast [...] for choosing us for your care. Normal [facility] Physician Referralon 024 Physician Referral [id number] IFF Normal [facility] Office Visiton 12-12-2022 Follow-up visit [id number] Katelynn Melendrez 1960 F Date Provider Department Center 12/12/2022 Mikey-MIRIAN ZEPEDA [facility] No family history on file Level of Service:13289 DE OFFICE/OUTPATIENT ESTABLISHED LOW MDM 20-29 MIN Normal [facility] MG MAMM DIAGNOSTIC 3D SERA CA Don 09-26-2022 MG MAMM DIAGNOSTIC 3D SERA CAD Patient: KATELYNN MELENDREZ. Exam Date: 09/26/2022 : 1960 Gender:F Ordering : DR AMPARO ROSS . Admission #: [id number] Family : Order #: [id number] CLICK HERE TO VIEW EXAM RADIOLOGY REPORT [...] prostate cancer at age 73. LOCATION: [facility] BREAST COMPOSITION: Heterogeneously dense,which may obscure [...] MD on 09/26/2022 at 10:00 Normal [facility] CBC AUTO DIFFon 06-26-2022 BASO # 0.0 103/ul Normal 0.0-0.1 [facility] Comment on above: Performed By: #### C MP, LIPID, TSH #### [facility] [address] [place] [address] Dr. Jamia Albrecht Basophils/100 WBC (Bld) 0.5 % Normal 0.2-2.0 [facility] Comment on above: Performed By: #### C MP, LIPID, TSH #### [facility] [address] [place] [address] Dr. Jamia Albrecht EO # 0.3 103/ul Normal 0.0-0.7 [facility] Comment on above: Performed By: #### C MP, LIPID, TSH #### [facility] [address] [place] [address] Dr. Jamia Albrecht Eosinophils/100 WBC (Bld) 4.7 % Normal 0.9-7.0 [facility] Comment on above: Performed By: #### C MP, LIPID, TSH #### [facility] [address] [place] [address] Dr. Jamia Albrecht Erythrocyte distribution width (RBC) [Ratio] 14.3 % Normal 11.0-15.0 [facility] Comment on above: Performed By: #### C MP, LIPID, TSH #### [facility] [address] [place] [address] Dr. Jamia Albrecht Hematocrit (Bld) [Volume fraction] 37.5 % Normal 36.0-48.0 [facility] Comment on above: Performed By: #### C MP, LIPID, TSH #### [facility] [address] [place] [address] Dr. Jamia Albrecht Hemoglobin (Bld) [Mass/Vol] 12.1 g/dL Normal 12.0-16.0 [facility] Comment on above: Performed By: #### C MP, LIPID, TSH #### [facility] [address] [place] [address] Dr. Jamia Albrecht IG # 0.01 10e3/ul Normal 0.00-0.03 [facility] Comment on above: Performed By: #### C MP, LIPID, TSH #### [facility] [address] [place] [address] Dr. Jamia Albrecht IG % 0.2 % Normal 0.0-0.5 [facility] Comment on above: Performed By: #### C MP, LIPID, TSH #### [facility] [address] [place] [address] Dr. Jamia Albrecht LYMPH # 1.9 103/ul Normal 1.2-3.8 [facility] Comment on above: Performed By: #### C MP, LIPID, TSH #### [facility] [address] [place] [address] Dr. Jamia Albrecht Lymphocytes/100 WBC (Bld) 34.5 % Normal 20.5-60.0 [facility] Comment on above: Performed By: #### C MP, LIPID, TSH #### [facility] [address] [place] [address] Dr. Jamia Albrecht MANUAL DIFF REQ NO Normal [facility] Comment on above: Performed By: #### C MP, LIPID, TSH #### [facility] [address] [place] [address] Dr. Jamia Albrecht MCH (RBC) [Entitic mass] 26.8 pg Normal 26.7-34.0 [facility] Comment on above: Performed By: #### C MP, LIPID, TSH #### [facility] [address] [place] [address] Dr. Jamia Albrecht MCHC (RBC) [Mass/Vol] 32.3 g/dL Normal 29.9-35.2 [facility] Comment on above: Performed By: #### C MP, LIPID, TSH #### [facility] [address] [place] [address] Dr. Jamia Albrecht MCV (RBC) [Entitic vol] 83.0 fL Normal 81.0-99.0 [facility] Comment on above: Performed By: #### C MP, LIPID, TSH #### [facility] [address] [place] [address] Dr. Jamia Albrecht MONO # 0.4 103/ul Normal 0.3-0.8 [facility] Comment on above: Performed By: #### C MP, LIPID, TSH #### [facility] [address] [place] [address] Dr. Jamia Albrecht Monocytes/100 WBC (Bld) 6.8 % Normal 1.7-12.0 [facility] Comment on above: Performed By: #### C MP, LIPID, TSH #### [facility] [address] [place] [address] Dr. Jamia Albrecht NEUT # 2.9 103/ul Normal 1.4-6.5 [facility] Comment on above: Performed By: #### C MP, LIPID, TSH #### [facility] [address] [place] [address] Dr. Jamia Albrecht Neutrophils/100 WBC (Bld) 53.3 % Normal 43.0-75.0 [facility] Comment on above: Performed By: #### C MP, LIPID, TSH #### [facility] [address] [place] [address] Dr. Jamia Albrecht Platelet mean volume (Bld) [Entitic vol] 9.6 fL Normal 9.5-13.5 [facility] Comment on above: Performed By: #### C MP, LIPID, TSH #### [facility] [address] [address] [address] Jamia Albrecht PLT 296 103/ul Normal 150-450 [facility] Comment on above: Performed By: #### C MP, LIPID, TSH #### [facility] [address] [address] [address] Jamia Albrecht RBC 4.52 106/ul Normal 4.20-5.40 [facility] Comment on above: Performed By: #### C MP, LIPID, TSH #### [facility] [address] [address] [address] Jamia Albrecht WBC 5.5 103/ul Normal 4.0-11.0 [facility] Comment on above: Performed By: #### C MP, LIPID, TSH #### [facility] [address] [address] [address] Jamia Albrecht GLYCOHEMOGLOBIN A1Con 2022 ADA RECOMMENDATION SEE BELOW Normal [facility] Comment on above: Result Comment: ADA RECOMMENDED LIMIT 4.0 - 6.0 ADA THERAPEUTIC TARGET < 7.0 ACTION SUGGESTED > 7.0 Performed By: #### C MP, LIPID, TSH #### [facility] [address] [address] [address] Jamia Albrecht Glucose [Mass/Vol] 131 mg/dL Normal [facility] Comment on above: Performed By: #### C MP, LIPID, TSH #### [facility] [address] [address] [address] Jamia Albrecht HbA1c (Bld) [Mass fraction] 6.2 % Normal 4.5-6.2 [facility] Comment on above: Performed By: #### C MP, LIPID, TSH #### [facility] [address] [address] [address] Jamia Albrecht LIPID PROFILEon 06-26-2022 CHOL-HDL RATIO NORM SEE BELOW Normal [facility] Comment on above: Result Comment: 3.3 - 4.4 LOW RISK 4.4 - 7.1 AVERAGE RISK 7.1 - 11.0 MODERATE RISK >11.0 HIGH RISK Performed By: #### C MP, LIPID, TSH #### [facility] [address] [address] [address] Jamia Albrecht Cholesterol [Mass/Vol] 134 mg/dL Normal <=200 [facility] Comment on above: Performed By: #### C MP, LIPID, TSH #### [facility] [address] [address] [address] Jamia Albrecht Cholesterol in HDL [Mass/Vol] 58 mg/dL Normal 40-60 [facility] Comment on above: Performed By: #### C MP, LIPID, TSH #### [facility] [address] [address] [address] Jamia Albrecht Cholesterol in LDL [Mass/Vol] 60.6 mg/dL Normal [facility] Comment on above: Performed By: #### C MP, LIPID, TSH #### [facility] [address] [address] [address] Jamia Albrecht Cholesterol.total/Ch olesterol in HDL [Mass ratio] 2.3 {ratio} Normal [facility] Comment on above: Performed By: #### C MP, LIPID, TSH #### [facility] [address] [address] [address] Jamia Albrecht HDL NORMAL > or = 60 mg/dl - LO W CARDIOVASCULAR RISK <40 mg/dl - HIGH CARDIOVASCULAR RISK Normal [facility] Comment on above: Performed By: #### C MP, LIPID, TSH #### [facility] [address] [address] [address] Jamia Albrecht LDL CALC NORMAL SEE BELOW Normal [facility] Comment on above: Result Comment: <100 mg/dl OPTIMAL 100 - 129 mg/dl NEAR OR ABOVE OPTIMAL 130 - 159 mg/dl BORDERLINE HIGH 160 - 189 mg/dl HIGH >190 mg/dl VERY HIGH Performed By: #### C MP, LIPID, TSH #### [facility] [address] [address] [address] Jamia Albrecht Triglyceride [Mass/Vol] 77 mg/dL Normal <=150 [facility] Comment on above: Performed By: #### C MP, LIPID, TSH #### [facility] [address] [address] [address] Jamia Albrecht VLDL CALC 15.4 mg/dL Normal [facility] Comment on above: Performed By: #### C MP, LIPID, TSH #### [facility] [address] [place] [address] Dr. Jamia Albrecht PROF 14(COMP METB)on 023 Albumin [Mass/Vol] 3.5 g/dL Normal 3.4-5.0 [facility] Comment on above: Performed By: #### C MP, LIPID, TSH #### [facility] [address] [place] [address] Dr. Jamia Albrecht Albumin/Globulin [Mass ratio] 1.0 {ratio} Normal [facility] Comment on above: Performed By: #### C MP, LIPID, TSH #### [facility] [address] [place] [address] Dr. Jamia Albrecht ALP [Catalytic activity/Vol] 104 U/L Normal 46-116 [facility] Comment on above: Performed By: #### C MP, LIPID, TSH #### [facility] [address] [place] [address] Dr. Jamia Albrecht ALT [Catalytic activity/Vol] 30 U/L Normal 14-59 [facility] Comment on above: Performed By: #### C MP, LIPID, TSH #### [facility] [address] [place] [address] Dr. Jamia Albrecht Anion gap [Moles/Vol] 12.5 mmol/L Normal [facility] Comment on above: Performed By: #### C MP, LIPID, TSH #### [facility] [address] [place] [address] Dr. Jamia Albrecht AST [Catalytic activity/Vol] 21 U/L Normal 15-37 [facility] Comment on above: Performed By: #### C MP, LIPID, TSH #### [facility] [address] [place] [address] Dr. Jamia Albrecht Bilirubin [Mass/Vol] 0.2 mg/dL Normal 0.2-1.0 [facility] Comment on above: Performed By: #### C MP, LIPID, TSH #### [facility] [address] [address] [address] Jamia Albrecht Calcium [Mass/Vol] 8.8 mg/dL Normal 8.5-10.1 [facility] Comment on above: Performed By: #### C MP, LIPID, TSH #### [facility] [address] [address] [address] Jamia Albrecht Chloride [Moles/Vol] 102 mmol/L Normal 98-107 [facility] Comment on above: Performed By: #### C MP, LIPID, TSH #### [facility] [address] [address] [address] Jamia Albrecht CO2 [Moles/Vol] 28.5 mmol/L Normal 21.0-32.0 [facility] Comment on above: Performed By: #### C MP, LIPID, TSH #### [facility] [address] [place] [address] Dr. Jamia Albrecht Creatinine [Mass/Vol] 0.69 mg/dL Normal 0.55-1.02 [facility] Comment on above: Performed By: #### C MP, LIPID, TSH #### [facility] [address] [address] [address] Jamia Albrecht EGFR-AF ANGOLAN >60 Normal >=60 [facility] Comment on above: Performed By: #### C MP, LIPID, TSH #### [facility] [address] [place] [address] Dr. Jamia Albrecht EGFR-NON AF ANGOLAN >60 Normal >=60 [facility] Comment on above: Performed By: #### C MP, LIPID, TSH #### [facility] [address] [place] [address] Dr. Jamia Albrecht Globulin (S) [Mass/Vol] 3.5 g/dL Normal [facility] Comment on above: Performed By: #### C MP, LIPID, TSH #### [facility] [address] [place] [address] Dr. Jamia Albrecht Glucose [Mass/Vol] 125 mg/dL Critically high 74-106 T [facility] Comment on above: Performed By: #### C MP, LIPID, TSH #### [facility] [address] [address] [address] Jamia Albrecht Potassium [Moles/Vol] 4.0 mmol/L Normal 3.5-5.1 [facility] Comment on above: Performed By: #### C MP, LIPID, TSH #### [facility] [address] [address] [address] Jamia Albrecht Protein [Mass/Vol] 7.0 g/dL Normal 6.4-8.2 [facility] Comment on above: Performed By: #### C MP, LIPID, TSH #### [facility] [address] [address] [address] Jamia Albrecht Sodium [Moles/Vol] 139 mmol/L Normal 136-145 [facility] Comment on above: Performed By: #### C MP, LIPID, TSH #### [facility] [address] [place] [address] Dr. Jamia Albrecht Urea nitrogen [Mass/Vol] 12.0 mg/dL Normal 7.0-18.0 [facility] Comment on above: Performed By: #### C MP, LIPID, TSH #### [facility] [address] [address] [address] Jamia Albrecht Urea nitrogen/Creatinine [Mass ratio] 17.4 mg/mg Normal [facility] Comment on above: Performed By: #### C MP, LIPID, TSH #### [facility] [address] [address] [address] Jamia Albrecht TSHon 06-26-2022 TSH 2.856 uIU/mL Normal 0.358-3.[address] [facility] Comment on above: Performed By: #### C MP, LIPID, TSH #### [facility] [address] [place] [address] Dr. Jamia Albrecht MAMMO POST BIOPSY RIGHTon MAMMO POST BIOPSY RIGHT Patient: KATELYNN MELENDREZ Exam Date: 01/30/2022 : 1960 Gender:F Ordering : DR PIPPA RAY . Admission #: [id number] Family : Order #: [id number] CLICK HERE TO VIEW EXAM This report [...] James M.D. on 02/08/2022 at 08:06 Normal [facility] MG STEREO CORE NDL W CLP RTo n 01-30-2022 MG STEREO CORE NDL W CLP RT Patient: KATELYNN MELENDREZ Exam Date: 01/30/2022 : 1960 Gender:F Ordering : DR PIPPA RAY . Admission #: [id number] Family : Order #: [id number] CLICK HERE TO VIEW EXAM This report [...] James M.D. on 02/08/2022 at 08:08 Normal [facility] CHEMISTRYOrdered By: SYSTEM SYSTEM on 12-26-2021 Creatinine [Mass/Vol] 0.5 mg/dL Normal 0.5 - 1.3 mg/dL [facility] Remisol GFR/1.73 sq M.predicted among blacks MDRD (S/P/Bld) [Vol rate/Area] mL/min/1.73 m2 Normal >=59mL/min/1 .73 m2 [facility] Chem S GFR/1.73 sq M.predicted among non-blacks MDRD (S/P/Bld) [Vol rate/Area] mL/min/1.73 m2 Normal >=59mL/min/1 .73 m2 [facility] Chem S SYMPTOMATIC COVID-19 ANTIGEN on 11-30-2021 EUA Statement SEE BELOW Normal [facility] Comment on above: Result Comment: This test [...] By: #### C MP, LIPID, TSH #### [facility] [address] [place] [address] Dr. Jamia Albrecht SARS-CoV-2 (COVID-19) RNA TONIE+probe Ql (Unsp spec) Positive Critically abnormal NEGATIVE [facility] Comment on above: Performed By: #### C MP, LIPID, TSH #### [facility] [address] [place] [address] Dr. Jamia Albrecht CBC AUTO DIFFon 11-27-2021 BASO # 0.0 103/ul Normal 0.0-0.1 [facility] Comment on above: Performed By: #### C MP, LIPID, TSH #### [facility] [address] [place] [address] Dr. Jamia Albrecht Basophils/100 WBC (Bld) 0.5 % Normal 0.2-2.0 [facility] Comment on above: Performed By: #### C MP, LIPID, TSH #### [facility] [address] [place] [address] Dr. Jamia Albrecht EO # 0.2 103/ul Normal 0.0-0.7 [facility] Comment on above: Performed By: #### C MP, LIPID, TSH #### [facility] [address] [place] [address] Dr. Jamia Albrecht Eosinophils/100 WBC (Bld) 3.7 % Normal 0.9-7.0 [facility] Comment on above: Performed By: #### C MP, LIPID, TSH #### [facility] [address] [address] [address] Jamia Albrecht Erythrocyte distribution width (RBC) [Ratio] 14.1 % Normal 11.0-15.0 [facility] Comment on above: Performed By: #### C MP, LIPID, TSH #### [facility] [address] [address] [address] Jamia Albrecht Hematocrit (Bld) [Volume fraction] 39.8 % Normal 36.0-48.0 [facility] Comment on above: Performed By: #### C MP, LIPID, TSH #### [facility] [address] [address] [address] Jamia Albrecht Hemoglobin (Bld) [Mass/Vol] 12.6 g/dL Normal 12.0-16.0 [facility] Comment on above: Performed By: #### C MP, LIPID, TSH #### [facility] [address] [place] [address] Dr. Jamia Albrecht IG # 0.01 10e3/ul Normal 0.00-0.03 [facility] Comment on above: Performed By: #### C MP, LIPID, TSH #### [facility] [address] [address] [address] Jamia Albrecht IG % 0.2 % Normal 0.0-0.5 [facility] Comment on above: Performed By: #### C MP, LIPID, TSH #### [facility] [address] [address] [address] Jamia Albrecht LYMPH # 0.7 103/ul Critically low 1.2-3.8 [facility] Comment on above: Performed By: #### C MP, LIPID, TSH #### [facility] [address] [address] [address] Jamia Albrecht Lymphocytes/100 WBC (Bld) 16.1 % Critically low 20.5-60.0 [facility] Comment on above: Performed By: #### C MP, LIPID, TSH #### [facility] [address] [address] [address] Jamia Albrecht MANUAL DIFF REQ NO Normal [facility] Comment on above: Performed By: #### C MP, LIPID, TSH #### [facility] [address] [place] [address] Dr. Jamia Albrecht MCH (RBC) [Entitic mass] 27.2 pg Normal 26.7-34.0 [facility] Comment on above: Performed By: #### C MP, LIPID, TSH #### [facility] [address] [place] [address] Dr. Jamia Albrecht MCHC (RBC) [Mass/Vol] 31.7 g/dL Normal 29.9-35.2 [facility] Comment on above: Performed By: #### C MP, LIPID, TSH #### [facility] [address] [place] [address] Dr. Jamia Albrecht MCV (RBC) [Entitic vol] 86.0 fL Normal 81.0-99.0 [facility] Comment on above: Performed By: #### C MP, LIPID, TSH #### [facility] [address] [place] [address] Dr. Jamia Albrecht MONO # 0.5 103/ul Normal 0.3-0.8 [facility] Comment on above: Performed By: #### C MP, LIPID, TSH #### [facility] [address] [place] [address] Dr. Jamia Albrecht Monocytes/100 WBC (Bld) 11.7 % Normal 1.7-12.0 [facility] Comment on above: Performed By: #### C MP, LIPID, TSH #### [facility] [address] [place] [address] Dr. Jamia Albrecht NEUT # 3.0 103/ul Normal 1.4-6.5 [facility] Comment on above: Performed By: #### C MP, LIPID, TSH #### [facility] [address] [place] [address] Dr. Jamia Albrecht Neutrophils/100 WBC (Bld) 67.8 % Normal 43.0-75.0 [facility] Comment on above: Performed By: #### C MP, LIPID, TSH #### [facility] [address] [place] [address] Dr. Jamia Albrecht Platelet mean volume (Bld) [Entitic vol] 9.4 fL Critically low 9.5-13.5 [facility] Comment on above: Performed By: #### C MP, LIPID, TSH #### [facility] [address] [address] [address] Jamia Albrecht PLT 276 103/ul Normal 150-450 [facility] Comment on above: Performed By: #### C MP, LIPID, TSH #### [facility] [address] [address] [address] Jamia Alrbecht RBC 4.63 106/ul Normal 4.20-5.40 [facility] Comment on above: Performed By: #### C MP, LIPID, TSH #### [facility] [address] [address] [address] Jamia Albrecht WBC 4.4 103/ul Normal 4.0-11.0 [facility] Comment on above: Performed By: #### C MP, LIPID, TSH #### [facility] [address] [place] [address] Dr. Jamia Albrecht LIPID PROFILEon 11-27-2021 CHOL-HDL RATIO NORM SEE BELOW Normal [facility] Comment on above: Result Comment: 3.3 - 4.4 LOW RISK 4.4 - 7.1 AVERAGE RISK 7.1 - 11.0 MODERATE RISK >11.0 HIGH RISK Performed By: #### C MP, LIPID, TSH #### [facility] [address] [address] [address] Jamia Albrecht Cholesterol [Mass/Vol] 216 mg/dL Critically high <=200 [facility] Comment on above: Performed By: #### C MP, LIPID, TSH #### [facility] [address] [address] [address] Jamia Albrecht Cholesterol in HDL [Mass/Vol] 57 mg/dL Normal 40-60 [facility] Comment on above: Performed By: #### C MP, LIPID, TSH #### [facility] [address] [address] [address] Jamia Albrecht Cholesterol in LDL [Mass/Vol] 134.2 mg/dL Normal [facility] Comment on above: Performed By: #### C MP, LIPID, TSH #### [facility] [address] [address] [address] Jamia Albrecht Cholesterol.total/Ch olesterol in HDL [Mass ratio] 3.8 {ratio} Normal [facility] Comment on above: Performed By: #### C MP, LIPID, TSH #### [facility] [address] [address] [address] Jamia Albrecht HDL NORMAL > or = 60 mg/dl - LO W CARDIOVASCULAR RISK <40 mg/dl - HIGH CARDIOVASCULAR RISK Normal [facility] Comment on above: Performed By: #### C MP, LIPID, TSH #### [facility] [address] [place] [address] Dr. Jamia Albrecht LDL CALC NORMAL SEE BELOW Normal [facility] Comment on above: Result Comment: <100 mg/dl OPTIMAL 100 - 129 mg/dl NEAR OR ABOVE OPTIMAL 130 - 159 mg/dl BORDERLINE HIGH 160 - 189 mg/dl HIGH >190 mg/dl VERY HIGH Performed By: #### C MP, LIPID, TSH #### [facility] [address] [address] [address] Jamia Albrecht Triglyceride [Mass/Vol] 124 mg/dL Normal <=150 [facility] Comment on above: Performed By: #### C MP, LIPID, TSH #### [facility] [address] [place] [address] Dr. Jamia Albrecht VLDL CALC 24.8 mg/dL Normal [facility] Comment on above: Performed By: #### C MP, LIPID, TSH #### [facility] [address] [address] [address] Jamia Albrecht PROF 14(COMP METB)on 022 Albumin [Mass/Vol] 3.7 g/dL Normal 3.4-5.0 [facility] Comment on above: Performed By: #### C MP, LIPID, TSH #### [facility] [address] [place] [address] Dr. Jamia Albrecht Albumin/Globulin [Mass ratio] 1.1 {ratio} Normal [facility] Comment on above: Performed By: #### C MP, LIPID, TSH #### [facility] [address] [address] [address] Jamia Albrecht ALP [Catalytic activity/Vol] 102 U/L Normal 46-116 [facility] Comment on above: Performed By: #### C MP, LIPID, TSH #### [facility] [address] [address] [address] Jamia Albrecht ALT [Catalytic activity/Vol] 26 U/L Normal 14-59 [facility] Comment on above: Performed By: #### C MP, LIPID, TSH #### [facility] [address] [address] [address] Jamia Albrecht Anion gap [Moles/Vol] 10.1 mmol/L Normal [facility] Comment on above: Performed By: #### C MP, LIPID, TSH #### [facility] [address] [address] [address] Jamia Albrecht AST [Catalytic activity/Vol] 19 U/L Normal 15-37 [facility] Comment on above: Performed By: #### C MP, LIPID, TSH #### [facility] [address] [address] [address] Jamia Albrecht Bilirubin [Mass/Vol] 0.3 mg/dL Normal 0.2-1.0 [facility] Comment on above: Performed By: #### C MP, LIPID, TSH #### [facility] [address] [address] [address] Jamia Albrecht Calcium [Mass/Vol] 8.8 mg/dL Normal 8.5-10.1 [facility] Comment on above: Performed By: #### C MP, LIPID, TSH #### [facility] [address] [address] [address] Jamia Albrecht Chloride [Moles/Vol] 103 mmol/L Normal 98-107 [facility] Comment on above: Performed By: #### C MP, LIPID, TSH #### [facility] [address] [address] [address] Jamia Albrecht CO2 [Moles/Vol] 30.4 mmol/L Normal 21.0-32.0 [facility] Comment on above: Performed By: #### C MP, LIPID, TSH #### [facility] [address] [address] [address] Jamia Albrecht Creatinine [Mass/Vol] 0.83 mg/dL Normal 0.55-1.02 [facility] Comment on above: Performed By: #### C MP, LIPID, TSH #### [facility] [address] [address] [address] Jamia Albrecht EGFR-AF ANGOLAN >=60 Normal >=60 [facility] Comment on above: Performed By: #### C MP, LIPID, TSH #### [facility] [address] [place] [address] Dr. Jamia Albrecht EGFR-NON AF ANGOLAN >=60 Normal >=60 [facility] Comment on above: Performed By: #### C MP, LIPID, TSH #### [facility] [address] [place] [address] Dr. Jaima Albrecht Globulin (S) [Mass/Vol] 3.4 g/dL Normal [facility] Comment on above: Performed By: #### C MP, LIPID, TSH #### [facility] [address] [place] [address] Dr. Jamia Albrecht Glucose [Mass/Vol] 106 mg/dL Normal 74-106 [facility] Comment on above: Performed By: #### C MP, LIPID, TSH #### [facility] [address] [address] [address] Jamia Albrecht Potassium [Moles/Vol] 4.5 mmol/L Normal 3.5-5.1 [facility] Comment on above: Performed By: #### C MP, LIPID, TSH #### [facility] [address] [place] [address] Dr. Jamia Albrecht Protein [Mass/Vol] 7.1 g/dL Normal 6.4-8.2 [facility] Comment on above: Performed By: #### C MP, LIPID, TSH #### [facility] [address] [place] [address] Dr. Jamia Albrecht Sodium [Moles/Vol] 139 mmol/L Normal 136-145 [facility] Comment on above: Performed By: #### C SATISH, LIPID, TSH #### [facility] [address] [address] [address] Jamia Albrecht Urea nitrogen [Mass/Vol] 10.0 mg/dL Normal 7.0-18.0 [facility] Comment on above: Performed By: #### C SATISH LIPID, TSH #### [facility] [address] [address] [address] Jamia Albrecht Urea nitrogen/Creatinine [Mass ratio] 12.0 mg/mg Normal [facility] Comment on above: Performed By: #### C SATISH LIPID, TSH #### [facility] [address] [place] [address] Dr. Jamia Albrecht TSHon 11-27-2021 TSH 1.179 uIU/mL Normal 0.358-3.[address] [facility] Comment on above: Performed By: #### C SATISH LIPID, TSH #### [facility] [address] [place] [address] Dr. Jamia Albrecht MG MAMM RT DIAG FUon 022 MG MAMM RT DIAG Patient: KATELYNN MELENDREZ Exam Date: 11/10/2021 : 1960 Gender:F Ordering : DR AMPARO ROSS . Admission #: [id number] Family : DR MARTÍNEZ HARRELL . Order #: [id number] CLICK HERE TO VIEW EXAM RADIOLOGY REPORT [...] prostate cancer at age 73. LOCATION: [facility] BREAST COMPOSITION: Heterogeneously dense,which may obscure [...] MD on 11/10/2021 at 10:24 Normal [facility] US BREAST RIGHT LIMITEDon US BREAST RIGHT LIMITED Patient: KATELYNN MELENDREZ Exam Date: 11/10/2021 : 1960 Gender:F Ordering : DR AMPARO ROSS . Admission #: [id number] Family : DR MARTÍNEZ HARRELL . Order #: [id number] CLICK HERE TO VIEW EXAM RADIOLOGY REPORT [...] prostate cancer at age 73. LOCATION: [facility] BREAST COMPOSITION: Heterogeneously dense,which may obscure [...] MD on 11/10/2021 at 10:24 Normal [facility] MAMM SCREEN 3D SERA CADon 11-07-2021 MG MAMM SCREEN 3D SERA CAD Patient: KATELYNN MELENDREZ Exam Date: 11/07/2021 : 1960 Gender:F Ordering : DR MARTÍNEZ HARRELL . Admission #: [id number] Family : DR AMPARO ROSS . Order #: [id number] CLICK HERE TO VIEW EXAM RADIOLOGY REPORT [...] prostate cancer at age 73. LOCATION: [facility] BREAST COMPOSITION: Heterogeneously dense,which may obscure [...] MD on 11/07/2021 at 14:30 Normal The [facility] DIAGNOSTIC RTon 01-10-20 [facility] RT * * *Final Report* * * * * * SEE BOTTOM OF REPORT FOR ADDENDED TEXT * * * DATE OF EXAM: Jan 09 2019 3:31PM [facility] 0626 - [facility] RT / PROCEDURE REASON: Abnormal ultrasound of breast * * * * Physician Interpretation * * * * RESULT: FINAL REPORT #[id number] - [facility] US BIOPSY BREAST RT #[id number] - [facility] RT ULTRASOUND GUIDED BIOPSY RIGHT BREAST [...] location, four passes were made using a MRO biopsy device. A skin closure strip and [...] 01/01/2019 ultrasound, and 01/09/2019 ultrasound - The [facility]. There are scattered fibroglandular elements in right [...] for imaging follow up. Shannen Merino M.D., mc,fa/aj:01/13/2019 08:09:24 Loft Worker Head(s): RT An(Josh)(M), The [facility] Mammogram BI-RADS: Post-procedure mammogram for marker placement [...] Medicine, and Medical/Surgical Oncology, the [facility] has carefully reviewed the data and reached [...] their providers when to stop screening mammograms. Demi Chef: Aj Transcribe Date/Time: Jan 09 2019 2:43P Dictated by : JENNIFER MERINO MD This examination was interpreted and the report reviewed and electronically signed by: SHANNEN LUIS MD on Jan 09 2019 3:56PM EST This document has been addended by: SHANNEN LUIS MD on Jan 13 2019 8:09AM EST [id number] Normal [facility] US BIOPSY BREAST RTon [facility] US BIOPSY BREAST RT * * *Final Report* * * * * * SEE BOTTOM OF REPORT FOR ADDENDED TEXT * * * DATE OF EXAM: Jan 09 2019 3:31PM [facility] [place] [facility] US BIOPSY BREAST RT / PROCEDURE REASON: Abnormal ultrasound of breast * * * * Physician Interpretation * * * * RESULT: FINAL REPORT #[id number] - [facility] US BIOPSY BREAST RT #[id number] - [facility] RT ULTRASOUND GUIDED BIOPSY RIGHT BREAST [...] 01/01/2019 ultrasound, and 01/09/2019 ultrasound - [facility] An [facility] guided biopsy using real-time ultrasound [...] 01/01/2019 ultrasound, and 01/09/2019 ultrasound - [facility]. There are scattered fibroglandular [...] for imaging follow up. Shannen Merino M.D. leigh,madan/aj:01/13/2019 08:09:24 Loft Worker Head(s): RT An(R)(M), [facility] [...] Medicine, and Medical/Surgical Oncology, the [facility] has carefully reviewed the data and reached [...] their providers when to stop screening mammograms. Demi Chef: Aj Transcribe Date/Time: Jan 09 2019 2:43P Dictated by : JENNIFER MERINO MD This examination was interpreted and the report reviewed and electronically signed by: SHANNEN LUIS MD on Jan 09 2019 3:56PM EST This document has been addended by: SHANNEN LUIS MD on Jan 13 2019 8:09AM EST [id number] Normal [facility] US BREAST LTD RTon 01-09 [facility] US BREAST LTD RT * * *Final Report* * * DATE OF EXAM: Jan 09 2019 3:31PM [facility] - [facility] US BREAST LTD RT / PROCEDURE REASON: Lump of right breast * * * * Physician Interpretation * * * * RESULT: #[id number] - [facility] US BREAST LTD RT ULTRASOUND OF RIGHT [...] is recommended. Shannen Luis M.D., mc/aj:01/09/2019 15:40:59 Loft Worker Head(s): RT An(R)(M), [facility] Ul[facility]ound BI-RADS: 2 Benign finding Multiple national [...] Medicine, and Medical/Surgical Oncology, the [facility] has carefully reviewed the data and reached [...] their providers when to stop screening mammograms. Demi Chef: Aj Transcribe Date/Time: Jan 09 2019 2:43P Dictated by : SHANNEN LUIS MD This examination was interpreted and the report reviewed and electronically signed by: SHANNEN LUIS MD on Jan 09 2019 3:40PM EST [id number] Normal [facility] PROGRESSon 01-09-2019 PROGRESS HNO ID: [id number] Author: Victoria Syed Rt Service: ? Author Type: ? Type: [...] out verification includes:Audible time-out documented: Yes. Time: 0310 Two Patient Identifiers Correct side and site [...] Out: N/A Sign Out Discussion: Completed Normal [facility] PROGRESS HNO ID: [id number] Author: Victoria Lynch Rt Service: ? Author [...] MATERIAL: Homegoing instructions REFERRAL (RECOMMENDATION): None Normal [facility] PROGRESS HNO ID: [id number] Author: Victoria Holley Service: ? Author Type: [...] Holley January 09, 2019 3:40 PM Normal [facility] SURGICAL PATHOLOGYon 019 SURGICAL PATHOLOGY Specimen originated from [facility] Specimen #: [id number] Submitting Physician: SHANNEN COLLAZO ([id number]) FINAL DIAGNOSIS [...] documented Gross examination performed at [facility], [address] [place] [address] 01/10/2019 2:03:09 AM Date of Report: 01/12/2019 Date of Procedure: 01/09/2019 Date of Receipt: 01/09/2019 Submitted by: SHANNEN COLLAZO ([id number]) Location: A10 Diagnostic interpretation performed at [address] [address]. IA Number: [id number] Normal [facility] CNOVon 01-01-2019 CNOV Office Visit (BRCRMN ) KATELYNN MELENDREZ ([id number]) 1960 F Date Time Provider Department 01/01/19 3:30 PM MARTIN LEARY [facility] During your visit today, we recorded the [...] BCP for 10-12 years previously. Never breastfed. BIOSTATISTICS TEACHER HISTORY:Obstetric History T0 L2 SAB0 TAB0 Ectopic0 [...] weight loss, malaise or fevers., SEE HPI DIE ASSEMBLER: Denies history of stroke, TIAs, seizures, or dementia. No focal symptoms. Denies significant headaches. EENT: Denies changes in hearing or vision. Denies frequent nose bleeds. RESP: Denies dyspnea, chronic cough, Asthma, Bronchitis, COPD, Emphysema, or URI <2 weeks ago. CARD: Patient denies any dyspnea, recent IN, angina, arrhythmias, or valvular disease. GI: Patient [...] known coagulopathy. Denies h/o DVT or PE. SUBSTANCE ADDICTION COORDINATOR: Negative for abnormal vaginal bleeding, abnormal vaginal [...] Martin Hameed MD Referring Provider: MARTIN LEARY [[id number]] Allergies As of Date: 01/01/2019 (Not on File) Date Reviewed: 09/12/2018 Reviewed by: Martin Leary - Fully Assessed Primary Visit Diagnosis:Posttraumatic hematoma of right breast, initial encounter [S20.01XA] Other Visit Diagnosis:Abnormal mammogram [R92.8] Problem List As Of Date: 01/01/2019 (None) Encounter Status:Closed by MARTIN LEARY MD on 01/11/19 Normal [facility] BREAST Appercode RTon 01-01 [facility] BREAST Appercode RT * * *Final Report* * * DATE OF EXAM: Jan 01 2019 3:12PM [facility] [place] [facility] RT / PROCEDURE REASON: Posttraumatic hematoma of right breast, initial encounter * * * * Physician Interpretation * * * * RESULT: #[id number] - [facility] RT ULTRASOUND OF RIGHT BREAST: 01/01/2019 HISTORY: [...] signed by the patient. Marjorie yao/aj:01/01/2019 15:27:37 Loft Worker Head(s): RT Nhan(R)(M), [facility] Ultrasound BI-RADS: 4 Suspicious finding - Biopsy [...] Medicine, and Medical/Surgical Oncology, the [facility] has carefully reviewed the data and reached [...] their providers when to stop screening mammograms. Demi Chef: Aj Transcribe Date/Time: Jan 01 2019 2:47P Dictated by : MARJORIE DOHERTY MD This examination was interpreted and the report reviewed and electronically signed by: MARJORIE DOHERTY MD on Jan 01 2019 3:27PM EST [id number] Normal [facility] PROGRESSon 01-01-2019 PROGRESS HNO ID: [id number] Author: Martin Leary Service: ? Author Type: [...] BCP for 10-12 years previously. Never breastfed. BIOSTATISTICS TEACHER HISTORY:Obstetric History T0 L2 SAB0 TAB0 Ectopic0 [...] weight loss, malaise or fevers., SEE HPI DIE ASSEMBLER: Denies history of stroke, TIAs, seizures, or dementia. No focal symptoms. Denies significant headaches. EENT: Denies changes in hearing or vision. Denies frequent nose bleeds. RESP: Denies dyspnea, chronic cough, Asthma, Bronchitis, COPD, Emphysema, or URI <2 weeks ago. CARD: Patient denies any dyspnea, recent IN, angina, arrhythmias, or valvular disease. GI: Patient [...] known coagulopathy. Denies h/o DVT or PE. SUBSTANCE ADDICTION COORDINATOR: Negative for abnormal vaginal bleeding, abnormal vaginal [...] edited as appropriate. Signature: Martin Hameed MD [facility] PROGRESS HNO ID: [id number] Author: Kathia Bourne Mamm-T Service: Radiology Author [...] Bourne Mamm-T January 01, 2019 2:48 PM [facility] CNOVon 09-03-2018 CNOV Office Visit (BRCRMN ) KATELYNN MELENDREZ ([id number]) 1960 F Date Time Provider Department 09/03/18 [...] any prior breast problems or breast surgery. BIOSTATISTICS TEACHER RELATED HISTORY:Obstetric History T0 L2 SAB0 TAB0 [...] weight loss, malaise or fevers., SEE HPI DIE ASSEMBLER: +stroke - 39 yo felt to be due to use of BCP. Denies any residual problem. HEENT: Negative for significant headaches. No changes in hearing or vision. Denies frequent nose bleeds. RESP: +H/O frequent bronchitis CARD: +HTN: Pt reports controlled on Rx. +SVT and has loop monitor embedded in Left chest. Denies h/o DVT or PE. Patient denies any dyspnea, recent IN, angina, or valvular disease, GI: +GERD. Patient [...] No h/o prior transfusion. Denies known coagulopathy. SUBSTANCE ADDICTION COORDINATOR: Negative for abnormal vaginal bleeding, abnormal vaginal [...] Patient. Excerpts from Breast Imaging Studies RESULT: #[id number] - [facility] RT #[id number] - [facility] US BREAST LTD RT UNILATERAL RIGHT DIGITAL [...] Martin Leary MD cc: LUKE BOBO [address] [facility] [address] Referring Provider: LUKE BOBO [[id number]] Allergies As of Date: 09/03/2018 (Not on File) Date Reviewed: Never Reviewed Reason for Visit: New Patient [172] Primary Visit Diagnosis:Posttraumatic hematoma of right breast, initial encounter [S20.01XA] Order(s):US BREAST LTD RT [[id number]] Order #: [id number] FUTURE Problem List As Of Date: 09/03/2018 (None) Encounter Status:Closed by MARTIN LEARY MD on 09/12/18 Normal [facility] DIAGNOSTIC RTon 09-04-19 [facility] RT * * *Final Report* * * DATE OF EXAM: Sep 03 2018 2:29PM [facility] 0626 - [facility] RT / PROCEDURE REASON: Disorder of breast * * * * Physician Interpretation * * * * RESULT: #[id number] - [facility] RT #[id number] - [facility] US BREAST LTD RT UNILATERAL RIGHT DIGITAL [...] Medicine, and Medical/Surgical Oncology, the [facility] has carefully reviewed the data and reached [...] their providers when to stop screening mammograms. Loft Worker Head(s): RT Nhan(R)(M), [facility] OVERALL STUDY BIRADS: 3 Probably benign finding - short term interval follow-up recommended Demi Chef: Aj Transcribe Date/Time: Sep 03 2018 2:29P Dictated by : MARJORIE DOHERTY MD This examination was interpreted and the report reviewed and electronically signed by: MARJORIE DOHERTY MD on Sep 03 2018 4:07PM EST [id number] Normal [facility] US BREAST LTD RTon 09-03 [facility] US BREAST LTD RT * * *Final Report* * * DATE OF EXAM: Sep 03 2018 2:50PM [facility] 0594 - [facility] US BREAST LTD RT / PROCEDURE REASON: Disorder of breast * * * * Physician Interpretation * * * * RESULT: #[id number] - [facility] RT #[id number] - [facility] US BREAST LTD RT UNILATERAL RIGHT DIGITAL [...] Medicine, and Medical/Surgical Oncology, the [facility] has carefully reviewed the data and reached [...] their providers when to stop screening mammograms. Loft Worker Head(s): RT Nhan(R)(M), [facility] OVERALL STUDY BIRADS: 3 Probably benign finding - short term interval follow-up recommended Demi Chef: Aj Transcribe Date/Time: Sep 03 2018 2:29P Dictated by : MARJORIE DOHERTY MD This examination was interpreted and the report reviewed and electronically signed by: MARJORIE DOHERTY MD on Sep 03 2018 4:07PM EST [id number] Normal [facility] PROGRESSon 09-03-2018 PROGRESS HNO ID: [id number] Author: Martin Leary Service: ? Author Type: [...] any prior breast problems or breast surgery. BIOSTATISTICS TEACHER RELATED HISTORY:Obstetric History T0 L2 SAB0 TAB0 [...] weight loss, malaise or fevers., SEE HPI DIE ASSEMBLER: +stroke - 39 yo felt to be due to use of BCP. Denies any residual problem. HEENT: Negative for significant headaches. No changes in hearing or vision. Denies frequent nose bleeds. RESP: +H/O frequent bronchitis CARD: +HTN: Pt reports controlled on Rx. +SVT and has loop monitor embedded in Left chest. Denies h/o DVT or PE. Patient denies any dyspnea, recent IN, angina, or valvular disease, GI: +GERD. Patient [...] No h/o prior transfusion. Denies known coagulopathy. SUBSTANCE ADDICTION COORDINATOR: Negative for abnormal vaginal bleeding, abnormal vaginal [...] Patient. Excerpts from Breast Imaging Studies RESULT: #[id number] - [facility] RT #[id number] - [facility] US BREAST LTD RT UNILATERAL RIGHT DIGITAL [...] Leary MD cc: LUKE BOBO [address] [facility] [address] Normal [facility] US OUTSIDE CD DICOM IMPORT - NBNRon 08-20-2018 US OUTSIDE CD DICOM IMPORT -NBNR Images were obtained outside of [facility] [id number] Normal [facility] Vital Signs Date Time Vital Sign Value Performing Clinician Ludwin cain 07-16-2023 14:58-0500 Blood Pressure Location Pippa NILL [facility] 07-16-2023 14:58-0500 Diastolic blood pressure 84 mm[Hg] Pippa NILL [facility] 07-16-2023 14:58-0500 Heart rate 76 /min Pippa NILL [facility] 07-16-2023 14:58-0500 Respiratory rate 16 /min Pippa NILL [facility] 07-16-2023 14:58-0500 Systolic blood pressure 126 mm[Hg] Pippa NILL [facility] 11-21-2021 09:32-0400 Diastolic blood pressure 72 mm[Hg] Pippa NILL [facility] [place] 11-21-2021 09:32-0400 Mean blood pressure 87 mm[Hg] Pippa NILL [facility] [place] 11-21-2021 09:32-0400 Systolic blood pressure 116 mm[Hg] Pippa NILL [facility] [place] 11-21-2021 08:46-0400 Blood Pressure Location Pippa NILL [facility] [place] 11-21-2021 08:46-0400 Diastolic blood pressure 78 mm[Hg] Pippa NILL [facility] [place] 11-21-2021 08:46-0400 Heart rate 52 /min Pippa NILL [facility] [place] 11-21-2021 08:46-0400 Respiratory rate 16 /min Pippa NILL [facility] [place] 11-21-2021 08:46-0400 Systolic blood pressure 161 mm[Hg] Pippa NILL [facility] [place] Encounters Encounter Date Encounter Type Care Provider Facility Start: 07-24-2023 End: 07-25-2023 ambulatory Pippa R NILL Facility:CD:[id number] Start: 07-16-2023 End: 07-17-2023 ambulatory Pippa R NILL Facility: [facility] Start: 07-16-2023 End: 07-16-2023 Patient encounter procedure Pippa R NILL [facility] Start: 12-12-2022 End: 12-12-2022 ambulatory [facility] Start: 09-26-2022 End: 09-27-[address] AMPARO ROSS . Facility:[facility] Start: 06-27-2022 Encounter for genera l adult medical examination without abnormal findings DR AMPARO ROSS . [facility] Start: 06-26-2022 End: 06-27-[address] [...] End: 12-26-2021 Patient encounter procedure Pippa R[facility] Start: 12-13-2021 ambulatory KYLE MALONEY Facility:[facility] Start: 11-30-2021 End: 11-30-2021 ambulatory LUKE JERAMIE Facility:[facility] Start: 11-27-2021 End: 11-28-[address] AMPARO ROSS . Facility:[facility] Start: 11-21-2021 End: 11-21-2021 Patient encounter procedure Pippa RAY [facility] [place] Start: 11-10-2021 End: 11-11-[address] AMPARO ROSS . Facility:[facility] Start: 11-07-2021 End: 11-08-[address] AMPARO ROSS . Facility:[facility] Procedures Date Procedure Procedure Detail Performing Clinician Start: 01-30-2022 Stereotactically wendy ded core needle biopsy of breast Pippa SANZL Start: 06-03-2018 Biopsy of breast Michae alyson RAY Start: 09-29-2009 Stereotactically wendy ded core needle biopsy of breast Pippa SANZL Decompression of median nerve Pippa SANZL Excision of lumbar intervertebral disc Pippa SANZL Open reduction of fr acture of ankle with internal fixation Pippa YVONL Repair of right ingu inal hernia Pippa RAY Total hysterectomy v ia vaginal approach Pippa RAY Immunizations Immunization Date Immunization Notes Care Provider Fa cili 03-03-2023 influenza virus vaccine, unspecified formulation Pippa RAY [facility] [place] 04-03-2022 SARS-CoV-2 (COVID-19 ) mRNA-1273 vaccine Pippa RAY [facility] [place] 03-24-2021 SARS-CoV-2 (COVID-19 ) mRNA-1273 vaccine Pippa RAY [facility] [place] 06-30-2020 SARS-CoV-2 (COVID-19 ) mRNA-1273 vaccine Pippa RAY [facility] [place] 06-01-2020 SARS-CoV-2 (COVID-19 ) mRNA-1273 vaccine Pippa RAY [facility] [place] Payers Date Payer Category Payer Unknown [id number] 2022 Unknown [id number] 2019 Unknown [id number] 1960 Unknown [id number] 2.16.84 [id number] 1960 Unknown [id number] 2.16.84 [id number] 1960 Unknown [id number] 2.16.84 [id number] 1960 Unknown [id number] 2.16.84 [id number] 1960 Unknown [id number] 2.16.84 [id number] 1960 Unknown [id number] 2.16.84 [id number] 1960 Unknown [id number] 2.16.84 [id number] 1960 Unknown [id number] 2.16.84 [id number] 1960 Unknown [id number] 2.16.84 [id number] 1960 Unknown [id number] 1960 Unknown [id number] 1958 Self-pay [id number] Unknown [id number] Social History Date Type Detail Facility Start: 11-21-2021 End: 07-16-2023 Tobacco smoking status Never smoked tobacco (finding) [facility] Tobacco smoking status Never [facility] Sex Assigned At Female [facility] Functional Status Date Assessment Result Facility 07-16-2023 Functional Status N/A [facility] 11-21-2021 Functional Status N/A [facility] Clinical Note 07-16-2023 Note Date & Type [...] biopsy of breast (01/30/2022), Biopsy of breast (2018), Stereotactically guided core needle biopsy of breast [...] Never (less than (more content not included)... [facility] Comment on above: Result Comment: Elec tronically Signed By: ROBBIN ACSTRO, Pippa Jenkins\Date and Time Signed: 07/16/23 15:21 EST Progress note 12-17-2022 Note Date & Type Note Facility 12-17-2022 Note - continue flecainid e 100 mg twice daily, atenolol 37.5 mg twice daily [facility] Progress note 12-12-2022 Note Date & Type [...] 12/12/2022 sinus bradycardia with first-degree AV block, DE interval 232 ms, QRS <120 ---- --- [...] wheezing, no co (more content not included)... [facility] Progress note 12-12-2022 Note Date & Type Note Facility 12-12-2022 Note Patient here for 1 y ear follow up PVC's, palpitations, and hyperlipidemia. Has rare palpitations. Feels good. Denies chest pain and SOB. Review of Systems Cardiovascular: Positive for palpitations ( rare ). All other systems reviewed and are negative. [facility] Evaluation + Plan note Radiology Note Date & Type Note Facility Evaluation + Plan note Future Appointments Appointment Date:12/26/2021 01:00:00 PM Scheduled Provider: Location:.MRI Appointment Type:MRI Breast (FT) Future Scheduled TestsMRI Breast w/o and w/ Contrast, Bilat 12/26/21 [facility] Hospital course Narrative Note Date & Type Note Facility Hospital course Narrative No data available for this section [facility] Hospital Discharge instructions Note Date & Type Note Facility Hospital Discharge instructions No data available for this section [facility] Progress note Note Date & Type Note Facility Progress note No data available for this section [facility] Summary Purpose Family History No Family History Records FoundNo Family History Records FoundNo Family History Records Found No data available for this section No Family History Records Found Advance Directives No Advanced Directives Records FoundNo Advanced Directives Records FoundNo Advanced Directives Records FoundNo Advanced Directives Records Found Additional Source Comments INFORMATION SOURCE (unrecogn ized section and content) DATE CREATED AUTHOR 01/13/2019 [facility] DATE CREATED AUTHOR AUTHOR'S ORGANIZ ATION 09/29/2022 [facility] DATE CREATED AUTHOR AUTHOR'S ORGANIZ ATION 12/18/2022 [facility] DATE CREATED AUTHOR AUTHOR'S ORGANIZ ATION 08/02/2023 [facility] Care Team (unrecognized sect ion and content) Personnel Name: Amparo Ross MD Address: [address] [place] [address] Personnel Name: Amparo Ross MD Address: [address] [address] Personnel Name: Amparo Ross MD Address: [address] [place] [address] Personnel Name: Amparo Ross MD Address: Address: [address] [place] [address] FOR RECORDS PERTAINING TO PATIENTS WHO ARE [...] BE BASED ON THE PRIMARY CLINICAL RECORDS. [facility]. provides no warranty or guarantee of the accuracy or completeness of information in this document.
== END 2023-11-11 11:42 | disposition home or self-care (01) ==
LOC: EC 11:41
PROVIDERS: PCP Family Medicine; Visit Provider Orthopaedic Surgery
DX: M79.642 Pain in left hand (principal); M19.042 Primary osteoarthritis, left hand
CPT/HCPCS: 73130

== ENCOUNTER 2023-11-27 08:54 | Outpatient (OUT) | payer BC, SELFPAY ==
--- NOTE | 2023-11-27 | MM_ITS ---
Patient Name: NA MELENDREZ MR#: [id number] : 1960 Exam Date: 11/27/2023 Ordering Doctor: DR AMPARO DOWELL . RADIOLOGY REPORT PROCEDURE: MM TOMOSYNTHESIS SCREENING BI COMPARISON: MG MAMM DIAGNOSTIC 3D SERA CAD, 09/26/2022. MAMMO POST BIOPSY RIGHT, 01/30/2022. INDICATIONS: SCREENING FOR MALIGNANT NEOPLASM Calculator Name NCI Breast Cancer Risk Assessment Tool 5 Year Breast Cancer Risk 2.30% Lifetime Breast Cancer Risk 10.30% Personal Breast Cancer No Personal Ovarian Cancer No Treatments None Family Cancers Grandfather-maternal with liver cancer at age ~69; Grandfather-maternal with prostate cancer at age ~72. LOCATION: [facility] BREAST COMPOSITION: The breasts are heterogeneously dense,which may obscure small masses. FINDINGS: DIAGNOSTIC CATEGORY 2--BENIGN FINDING. NO CHANGE FROM COMPARISON. Scattered benign-appearing calcifications are present. Scattered benign-appearing lymph nodes are present. Scattered benign-appearing nodules are present. RIGHT BREAST: Stable geographic calcifications 9 o'clock anterior right breast LEFT BREAST: No significant suspicious finding. Loop recorder RECOMMENDATIONS: ROUTINE MAMMOGRAM AND CLINICAL EVALUATION IN 12 MONTHS. PLEASE NOTE: A NORMAL MAMMOGRAM DOES NOT EXCLUDE THE POSSIBILITY OF BREAST CANCER. A CLINICALLY SUSPICIOUS PALPABLE LUMP SHOULD BE BIOPSIED. Dictated by: Pablo Mahmood MD on 11/27/2023 at 16:06 Approved by: Pablo Mahmood MD on 11/27/2023 at 16:08
--- OUTSIDE RECORDS SUMMARY | 2023-11-27 09:12 | XMS_ITS | CCD ---
Author Organization [facility] Providers Care Dump Motorman Name Role Phone Amparo Ross Primary Care [...] DR CHRISTENSEN Attending Unavailable HOY ., DR AMPARO Lu Unavailable HOY ., DR CHRISTENSEN Primary Care Unavailable WEST, DR KATIE Mario Consulting Unavailable MIRIAN ZEPEDA Attending Unavailable Pippa RAY Attending Unavailable Amparo Ross Referring Unavailable Pippa RAY Attending Unavailable Allergies Allergy Classification Reported Allergen(s) Allergy Type Date of Onset Reaction(s) Facility (6 sources) HYDROmorphone; Translations: [hydromorphone] Drug Allergy 4 Itching (finding) [facility] (5 sources) Penicillin; Translations: [penicillin] Drug Allergy Unknown (qualifier value), Weal (disorder) [facility] (2 sources) HYDROmorphone Drug Allergy 5 [facility] (3 sources) Penicillins; Translations: [PENICILLINS] Drug allergy (disorder) 4 [facility] Medications Current Medications Medication Drug Class(es) [...] Range Facility Outside Colonoscopyon 2023 Outside Colonoscopy [id number]#1.00T IFF [facility] Reminderson 07-25-2023 Reminders - From: Ginger Young LPN To: N - Clinical; Sent: 07/25/2023 13:55:05 EST Show up: 06/23/2033 07:00:00 EST Subject: colonoscopy recall Due Date/Time: 07/24/2033 07:00:00 EST Reminder/Recall Patient due for screening colonoscopy 07/24/2033. [facility] Insurance Correspondenceon 0 07-18-2023 Insurance Correspondence [id number] IFF [facility] Consent for Procedure/Surger yon 07-17-2023 Consent for Procedure/Surgery [id number] IFF [facility] Facesheeton 07-17-2023 Facesheet [id number] TIFF [facility] Ambulatory Visit Summaryon 0 07-16-2023 Ambulatory [...] for choosing us for your care. Normal [facility] Physician Referralon 024 Physician Referral [id number] IFF Normal [facility] Office Visiton 12-12-2022 Follow-up visit [id number] Katelynn Melendrez 1960 F Date Provider Department Center 12/12/2022 Mikey-MIRIAN ZEPEDA [facility] No family history on file Level of Service:61259 MO OFFICE/OUTPATIENT ESTABLISHED LOW MDM 20-29 MIN Normal [facility] MG MAMM DIAGNOSTIC 3D SERA CA Don 09-26-2022 MG MAMM DIAGNOSTIC 3D SERA CAD Patient: KATELYNN MELENDREZ. Exam Date: 09/26/2022 : 1960 Gender:F Ordering : DR AMPARO ROSS . Admission #: [id number] Family : Order #: [id number] CLICK HERE TO VIEW EXAM RADIOLOGY REPORT [...] prostate cancer at age 73. LOCATION: [facility] BREAST COMPOSITION: Heterogeneously dense,which may obscure small [...] MD on 09/26/2022 at 10:00 Normal [facility] CBC AUTO DIFFon 06-26-2022 BASO # 0.0 103/ul Normal 0.0-0.1 [facility] Comment on above: Performed By: #### C MP, LIPID, TSH #### [facility] [address] [place] [address] Dr. Jamia Albrecht Basophils/100 WBC (Bld) 0.5 % Normal 0.2-2.0 [facility] Comment on above: Performed By: #### C MP, LIPID, TSH #### [facility] [address] [place] [address] Dr. Jamia Albrecht EO # 0.3 103/ul Normal 0.0-0.7 [facility] Comment on above: Performed By: #### C MP, LIPID, TSH #### [facility] [address] [place] [address] Dr. Jamia Albrecht Eosinophils/100 WBC (Bld) 4.7 % Normal 0.9-7.0 [facility] Comment on above: Performed By: #### C MP, LIPID, TSH #### [facility] [address] [place] [address] Dr. Jamia Albrecht Erythrocyte distribution width (RBC) [Ratio] 14.3 % Normal 11.0-15.0 [facility] Comment on above: Performed By: #### C MP, LIPID, TSH #### [facility] [address] [place] [address] Dr. Jamia Albercht Hematocrit (Bld) [Volume fraction] 37.5 % Normal 36.0-48.0 [facility] Comment on above: Performed By: #### C MP, LIPID, TSH #### [facility] [address] [place] [address] Dr. Jamia Albrecht Hemoglobin (Bld) [Mass/Vol] 12.1 g/dL Normal 12.0-16.0 [facility] Comment on above: Performed By: #### C MP, LIPID, TSH #### [facility] [address] [place] [address] Dr. Jamia Albrecht IG # 0.01 10e3/ul Normal 0.00-0.03 [facility] Comment on above: Performed By: #### C MP, LIPID, TSH #### [facility] [address] [place] [address] Dr. Jamia Albrecht IG % 0.2 % Normal 0.0-0.5 [facility] Comment on above: Performed By: #### C MP, LIPID, TSH #### [facility] [address] [place] [address] Dr. Jamia Albrecht LYMPH # 1.9 103/ul Normal 1.2-3.8 [facility] Comment on above: Performed By: #### C MP, LIPID, TSH #### [facility] [address] [place] [address] Dr. Jamia Albrecht Lymphocytes/100 WBC (Bld) 34.5 % Normal 20.5-60.0 [facility] Comment on above: Performed By: #### C MP, LIPID, TSH #### [facility] [address] [place] [address] Dr. Jamia Albrecht MANUAL DIFF REQ NO Normal [facility] Comment on above: Performed By: #### C MP, LIPID, TSH #### [facility] [address] [place] [address] Dr. Jamia Albrecht MCH (RBC) [Entitic mass] 26.8 pg Normal 26.7-34.0 [facility] Comment on above: Performed By: #### C MP, LIPID, TSH #### [facility] [address] [place] [address] Dr. Jamia Albrecht MCHC (RBC) [Mass/Vol] 32.3 g/dL Normal 29.9-35.2 [facility] Comment on above: Performed By: #### C MP, LIPID, TSH #### [facility] [address] [place] [address] Dr. Jamia Albrecht MCV (RBC) [Entitic vol] 83.0 fL Normal 81.0-99.0 [facility] Comment on above: Performed By: #### C MP, LIPID, TSH #### [facility] [address] [place] [address] Dr. Jamia Albrecht MONO # 0.4 103/ul Normal 0.3-0.8 [facility] Comment on above: Performed By: #### C MP, LIPID, TSH #### [facility] [address] [place] [address] Dr. Jamia Albrecht Monocytes/100 WBC (Bld) 6.8 % Normal 1.7-12.0 [facility] Comment on above: Performed By: #### C MP, LIPID, TSH #### [facility] [address] [place] [address] Dr. Jamia Albrecht NEUT # 2.9 103/ul Normal 1.4-6.5 [facility] Comment on above: Performed By: #### C MP, LIPID, TSH #### [facility] [address] [place] [address] Dr. Jamia Albrecht Neutrophils/100 WBC (Bld) 53.3 % Normal 43.0-75.0 [facility] Comment on above: Performed By: #### C MP, LIPID, TSH #### [facility] [address] [place] [address] Dr. Jamia Albrecht Platelet mean volume (Bld) [Entitic vol] 9.6 fL Normal 9.5-13.5 [facility] Comment on above: Performed By: #### C MP, LIPID, TSH #### [facility] [address] [address] [address] Jamia Albrecht PLT 296 103/ul Normal 150-450 [facility] Comment on above: Performed By: #### C MP, LIPID, TSH #### [facility] [address] [address] [address] Jamia Albrecht RBC 4.52 106/ul Normal 4.20-5.40 [facility] Comment on above: Performed By: #### C MP, LIPID, TSH #### [facility] [address] [address] [address] Jamia Albrecht WBC 5.5 103/ul Normal 4.0-11.0 [facility] Comment on above: Performed By: #### C MP, LIPID, TSH #### [facility] [address] [address] [address] Jamia Albrehct GLYCOHEMOGLOBIN A1Con 2022 ADA RECOMMENDATION SEE BELOW Normal [facility] Comment on above: Result Comment: ADA RECOMMENDED LIMIT 4.0 - 6.0 ADA THERAPEUTIC TARGET < 7.0 ACTION SUGGESTED > 7.0 Performed By: #### C MP, LIPID, TSH #### [facility] [address] [address] [address] Jamia Albrecht Glucose [Mass/Vol] 131 mg/dL Normal [facility] Comment on above: Performed By: #### C MP, LIPID, TSH #### [facility] [address] [address] [address] Jamia Albrecht HbA1c (Bld) [Mass fraction] 6.2 % Normal 4.5-6.2 [facility] Comment on above: Performed By: #### C MP, LIPID, TSH #### [facility] [address] [address] [address] Jamia Albrecht LIPID PROFILEon 06-26-2022 CHOL-HDL RATIO NORM SEE BELOW Normal [facility] Comment on above: Result Comment: 3.3 - 4.4 LOW RISK 4.4 - 7.1 AVERAGE RISK 7.1 - 11.0 MODERATE RISK >11.0 HIGH RISK Performed By: #### C MP, LIPID, TSH #### [facility] [address] [address] [address] Jamia Albrecht Cholesterol [Mass/Vol] 134 mg/dL Normal <=200 [facility] Comment on above: Performed By: #### C MP, LIPID, TSH #### [facility] [address] [address] [address] Jamia Albrecht Cholesterol in HDL [Mass/Vol] 58 mg/dL Normal 40-60 [facility] Comment on above: Performed By: #### C MP, LIPID, TSH #### [facility] [address] [address] [address] Jamia Albrecht Cholesterol in LDL [Mass/Vol] 60.6 mg/dL Normal [facility] Comment on above: Performed By: #### C MP, LIPID, TSH #### [facility] [address] [address] [address] Jamia Albrecht Cholesterol.total/Ch olesterol in HDL [Mass ratio] 2.3 {ratio} Normal [facility] Comment on above: Performed By: #### C MP, LIPID, TSH #### [facility] [address] [address] [address] Jamia Albrecht HDL NORMAL > or = 60 mg/dl - LO W CARDIOVASCULAR RISK <40 mg/dl - HIGH CARDIOVASCULAR RISK Normal [facility] Comment on above: Performed By: #### C MP, LIPID, TSH #### [facility] [address] [address] [address] Jamia Albrecht LDL CALC NORMAL SEE BELOW Normal [facility] Comment on above: Result Comment: <100 mg/dl OPTIMAL 100 - 129 mg/dl NEAR OR ABOVE OPTIMAL 130 - 159 mg/dl BORDERLINE HIGH 160 - 189 mg/dl HIGH >190 mg/dl VERY HIGH Performed By: #### C MP, LIPID, TSH #### [facility] [address] [address] [address] Jamia Albrecht Triglyceride [Mass/Vol] 77 mg/dL Normal <=150 [facility] Comment on above: Performed By: #### C MP, LIPID, TSH #### [facility] [address] [address] [address] Jamia Albrecht VLDL CALC 15.4 mg/dL Normal [facility] Comment on above: Performed By: #### C MP, LIPID, TSH #### [facility] [address] [address] [address] Jamia Albrecht PROF 14(COMP METB)on 023 Albumin [Mass/Vol] 3.5 g/dL Normal 3.4-5.0 [facility] Comment on above: Performed By: #### C MP, LIPID, TSH #### [facility] [address] [place] [address] Dr. Jamia Albrecht Albumin/Globulin [Mass ratio] 1.0 {ratio} Normal [facility] Comment on above: Performed By: #### C MP, LIPID, TSH #### [facility] [address] [place] [address] Dr. Jamia Albrecht ALP [Catalytic activity/Vol] 104 U/L Normal 46-116 [facility] Comment on above: Performed By: #### C MP, LIPID, TSH #### [facility] [address] [place] [address] Dr. Jamia Albrecht ALT [Catalytic activity/Vol] 30 U/L Normal 14-59 [facility] Comment on above: Performed By: #### C MP, LIPID, TSH #### [facility] [address] [place] [address] Dr. Jamia Albrecht Anion gap [Moles/Vol] 12.5 mmol/L Normal [facility] Comment on above: Performed By: #### C MP, LIPID, TSH #### [facility] [address] [place] [address] Dr. Jamia Albrecht AST [Catalytic activity/Vol] 21 U/L Normal 15-37 [facility] Comment on above: Performed By: #### C MP, LIPID, TSH #### [facility] [address] [place] [address] Dr. Jamia Albrecht Bilirubin [Mass/Vol] 0.2 mg/dL Normal 0.2-1.0 [facility] Comment on above: Performed By: #### C MP, LIPID, TSH #### [facility] [address] [address] [address] Jamia Albrecht Calcium [Mass/Vol] 8.8 mg/dL Normal 8.5-10.1 [facility] Comment on above: Performed By: #### C MP, LIPID, TSH #### [facility] [address] [address] [address] Jamia Albrecht Chloride [Moles/Vol] 102 mmol/L Normal 98-107 [facility] Comment on above: Performed By: #### C MP, LIPID, TSH #### [facility] [address] [address] [address] Jamia Albrecht CO2 [Moles/Vol] 28.5 mmol/L Normal 21.0-32.0 [facility] Comment on above: Performed By: #### C MP, LIPID, TSH #### [facility] [address] [place] [address] Dr. Jamia Albrecht Creatinine [Mass/Vol] 0.69 mg/dL Normal 0.55-1.02 [facility] Comment on above: Performed By: #### C MP, LIPID, TSH #### [facility] [address] [place] [address] Dr. Jamia Albrecht EGFR-AF ETHIOPIAN >60 Normal >=60 [facility] Comment on above: Performed By: #### C MP, LIPID, TSH #### [facility] [address] [place] [address] Dr. Jamia Albrecht EGFR-NON AF ETHIOPIAN >60 Normal >=60 [facility] Comment on above: Performed By: #### C MP, LIPID, TSH #### [facility] [address] [place] [address] Dr. Jamia Albrecht Globulin (S) [Mass/Vol] 3.5 g/dL Normal [facility] Comment on above: Performed By: #### C MP, LIPID, TSH #### [facility] [address] [place] [address] Dr. Jamia Albrecht Glucose [Mass/Vol] 125 mg/dL Critically high 74-106 T [facility] Comment on above: Performed By: #### C MP, LIPID, TSH #### [facility] [address] [address] [address] Jamia Albrecht Potassium [Moles/Vol] 4.0 mmol/L Normal 3.5-5.1 [facility] Comment on above: Performed By: #### C MP, LIPID, TSH #### [facility] [address] [address] [address] Jamia Albrecht Protein [Mass/Vol] 7.0 g/dL Normal 6.4-8.2 [facility] Comment on above: Performed By: #### C MP, LIPID, TSH #### [facility] [address] [address] [address] Jamia Albrecht Sodium [Moles/Vol] 139 mmol/L Normal 136-145 [facility] Comment on above: Performed By: #### C MP, LIPID, TSH #### [facility] [address] [place] [address] Dr. Jamia Albrecht Urea nitrogen [Mass/Vol] 12.0 mg/dL Normal 7.0-18.0 [facility] Comment on above: Performed By: #### C MP, LIPID, TSH #### [facility] [address] [address] [address] Jamia Albrecht Urea nitrogen/Creatinine [Mass ratio] 17.4 mg/mg Normal [facility] Comment on above: Performed By: #### C MP, LIPID, TSH #### [facility] [address] [address] [address] Jamia Albrecht TSHon 06-26-2022 TSH 2.856 uIU/mL Normal 0.358-3.740 [facility] Comment on above: Performed By: #### C MP, LIPID, TSH #### [facility] [address] [place] [address] Dr. Jamia Albrecht MAMMO POST BIOPSY RIGHTon MAMMO POST BIOPSY RIGHT Patient: KATELYNN MELENDREZ Exam Date: 01/30/2022 : 1960 Gender:F Ordering : DR PIPPA RAY . Admission #: [id number] Family : Order #: [id number] CLICK HERE TO VIEW EXAM This report [...] James M.D. on 02/08/2022 at 08:06 Normal [facility] MG STEREO CORE NDL W CLP RTo n 01-30-2022 MG STEREO CORE NDL W CLP RT Patient: KATELYNN MELENDREZ Exam Date: 01/30/2022 : 1960 Gender:F Ordering : DR PIPPA RAY . Admission #: [id number] Family : Order #: [id number] CLICK HERE TO VIEW EXAM This report [...] James M.D. on 02/08/2022 at 08:08 Normal [facility] CHEMISTRYOrdered By: SYSTEM SYSTEM on 12-26-2021 Creatinine [Mass/Vol] 0.5 mg/dL Normal 0.5 - 1.3 mg/dL [facility] Remisol GFR/1.73 sq M.predicted among blacks MDRD (S/P/Bld) [Vol rate/Area] mL/min/1.73 m2 Normal >=59mL/min/1 .73 m2 [facility] Chem S GFR/1.73 sq M.predicted among non-blacks MDRD (S/P/Bld) [Vol rate/Area] mL/min/1.73 m2 Normal >=59mL/min/1 .73 m2 [facility] Chem S SYMPTOMATIC COVID-19 ANTIGEN on 11-30-2021 EUA Statement SEE BELOW Normal [facility] Comment on above: Result Comment: [...] By: #### C MP, LIPID, TSH #### [facility] [address] [place] [address] Dr. Jamia Albrecht SARS-CoV-2 (COVID-19) RNA TONIE+probe Ql (Unsp spec) Positive Critically abnormal NEGATIVE [facility] Comment on above: Performed By: #### C MP, LIPID, TSH #### [facility] [address] [place] [address] Dr. Jamia Albrecht CBC AUTO DIFFon 11-27-2021 BASO # 0.0 103/ul Normal 0.0-0.1 [facility] Comment on above: Performed By: #### C MP, LIPID, TSH #### [facility] [address] [place] [address] Dr. Jamia Albrecht Basophils/100 WBC (Bld) 0.5 % Normal 0.2-2.0 [facility] Comment on above: Performed By: #### C MP, LIPID, TSH #### [facility] [address] [place] [address] Dr. Jamia Albrecht EO # 0.2 103/ul Normal 0.0-0.7 [facility] Comment on above: Performed By: #### C MP, LIPID, TSH #### [facility] [address] [place] [address] Dr. Jamia Albrecht Eosinophils/100 WBC (Bld) 3.7 % Normal 0.9-7.0 [facility] Comment on above: Performed By: #### C MP, LIPID, TSH #### [facility] [address] [address] [address] Jamia Albrecht Erythrocyte distribution width (RBC) [Ratio] 14.1 % Normal 11.0-15.0 [facility] Comment on above: Performed By: #### C MP, LIPID, TSH #### [facility] [address] [address] [address] Jamia Albrecht Hematocrit (Bld) [Volume fraction] 39.8 % Normal 36.0-48.0 [facility] Comment on above: Performed By: #### C MP, LIPID, TSH #### [facility] [address] [address] [address] Jamia Albrecht Hemoglobin (Bld) [Mass/Vol] 12.6 g/dL Normal 12.0-16.0 [facility] Comment on above: Performed By: #### C MP, LIPID, TSH #### [facility] [address] [place] [address] Dr. Jamia Albrecht IG # 0.01 10e3/ul Normal 0.00-0.03 [facility] Comment on above: Performed By: #### C MP, LIPID, TSH #### [facility] [address] [address] [address] Jamia Albrecht IG % 0.2 % Normal 0.0-0.5 [facility] Comment on above: Performed By: #### C MP, LIPID, TSH #### [facility] [address] [address] [address] Jamia Albrecht LYMPH # 0.7 103/ul Critically low 1.2-3.8 [facility] Comment on above: Performed By: #### C MP, LIPID, TSH #### [facility] [address] [address] [address] Jamia Albrecht Lymphocytes/100 WBC (Bld) 16.1 % Critically low 20.5-60.0 [facility] Comment on above: Performed By: #### C MP, LIPID, TSH #### [facility] [address] [address] [address] Jamia Albrecht MANUAL DIFF REQ NO Normal [facility] Comment on above: Performed By: #### C MP, LIPID, TSH #### [facility] [address] [place] [address] Dr. Jamia Albrecht MCH (RBC) [Entitic mass] 27.2 pg Normal 26.7-34.0 [facility] Comment on above: Performed By: #### C MP, LIPID, TSH #### [facility] [address] [place] [address] Dr. Jamia Albrecht MCHC (RBC) [Mass/Vol] 31.7 g/dL Normal 29.9-35.2 [facility] Comment on above: Performed By: #### C MP, LIPID, TSH #### [facility] [address] [place] [address] Dr. Jamia Albrecht MCV (RBC) [Entitic vol] 86.0 fL Normal 81.0-99.0 [facility] Comment on above: Performed By: #### C MP, LIPID, TSH #### [facility] [address] [place] [address] Dr. Jamia Albrecht MONO # 0.5 103/ul Normal 0.3-0.8 [facility] Comment on above: Performed By: #### C MP, LIPID, TSH #### [facility] [address] [place] [address] Dr. Jamia Albrecht Monocytes/100 WBC (Bld) 11.7 % Normal 1.7-12.0 [facility] Comment on above: Performed By: #### C MP, LIPID, TSH #### [facility] [address] [place] [address] Dr. Jamia Albrecht NEUT # 3.0 103/ul Normal 1.4-6.5 [facility] Comment on above: Performed By: #### C MP, LIPID, TSH #### [facility] [address] [place] [address] Dr. Jamia Albrecht Neutrophils/100 WBC (Bld) 67.8 % Normal 43.0-75.0 [facility] Comment on above: Performed By: #### C MP, LIPID, TSH #### [facility] [address] [place] [address] Dr. Jamia Albrecht Platelet mean volume (Bld) [Entitic vol] 9.4 fL Critically low 9.5-13.5 [facility] Comment on above: Performed By: #### C MP, LIPID, TSH #### [facility] [address] [place] [address] Dr. Jamia Albrecht PLT 276 103/ul Normal 150-450 [facility] Comment on above: Performed By: #### C MP, LIPID, TSH #### [facility] [address] [address] [address] Jamia Albrecht RBC 4.63 106/ul Normal 4.20-5.40 [facility] Comment on above: Performed By: #### C MP, LIPID, TSH #### [facility] [address] [place] [address] Dr. Jamia Albrecht WBC 4.4 103/ul Normal 4.0-11.0 [facility] Comment on above: Performed By: #### C MP, LIPID, TSH #### [facility] [address] [place] [address] Dr. Jamia Albrecht LIPID PROFILEon 11-27-2021 CHOL-HDL RATIO NORM SEE BELOW Normal [facility] Comment on above: Result Comment: 3.3 - 4.4 LOW RISK 4.4 - 7.1 AVERAGE RISK 7.1 - 11.0 MODERATE RISK >11.0 HIGH RISK Performed By: #### C MP, LIPID, TSH #### [facility] [address] [place] [address] Dr. Jamia Albrecht Cholesterol [Mass/Vol] 216 mg/dL Critically high <=200 [facility] Comment on above: Performed By: #### C MP, LIPID, TSH #### [facility] [address] [address] [address] Jamia Albrecht Cholesterol in HDL [Mass/Vol] 57 mg/dL Normal 40-60 [facility] Comment on above: Performed By: #### C MP, LIPID, TSH #### [facility] [address] [place] [address] Dr. Jamia Albrecht Cholesterol in LDL [Mass/Vol] 134.2 mg/dL Normal [facility] Comment on above: Performed By: #### C MP, LIPID, TSH #### [facility] [address] [address] [address] Jamia Albrecht Cholesterol.total/Ch olesterol in HDL [Mass ratio] 3.8 {ratio} Normal [facility] Comment on above: Performed By: #### C MP, LIPID, TSH #### [facility] [address] [address] [address] Jamia Albrecht HDL NORMAL > or = 60 mg/dl - LO W CARDIOVASCULAR RISK <40 mg/dl - HIGH CARDIOVASCULAR RISK Normal [facility] Comment on above: Performed By: #### C MP, LIPID, TSH #### [facility] [address] [address] [address] Jamia Albrecht LDL CALC NORMAL SEE BELOW Normal [facility] Comment on above: Result Comment: <100 mg/dl OPTIMAL 100 - 129 mg/dl NEAR OR ABOVE OPTIMAL 130 - 159 mg/dl BORDERLINE HIGH 160 - 189 mg/dl HIGH >190 mg/dl VERY HIGH Performed By: #### C MP, LIPID, TSH #### [facility] [address] [address] [address] Jamia Albrecht Triglyceride [Mass/Vol] 124 mg/dL Normal <=150 [facility] Comment on above: Performed By: #### C MP, LIPID, TSH #### [facility] [address] [place] [address] Dr. Jamia Albrecht VLDL CALC 24.8 mg/dL Normal [facility] Comment on above: Performed By: #### C MP, LIPID, TSH #### [facility] [address] [address] [address] Jamia Albrecht PROF 14(COMP METB)on 022 Albumin [Mass/Vol] 3.7 g/dL Normal 3.4-5.0 [facility] Comment on above: Performed By: #### C MP, LIPID, TSH #### [facility] [address] [place] [address] Dr. Jamia Albrecht Albumin/Globulin [Mass ratio] 1.1 {ratio} Normal [facility] Comment on above: Performed By: #### C MP, LIPID, TSH #### [facility] [address] [address] [address] Jamia Albrecht ALP [Catalytic activity/Vol] 102 U/L Normal 46-116 [facility] Comment on above: Performed By: #### C MP, LIPID, TSH #### [facility] [address] [address] [address] Jamai Albrecht ALT [Catalytic activity/Vol] 26 U/L Normal 14-59 [facility] Comment on above: Performed By: #### C MP, LIPID, TSH #### [facility] [address] [address] [address] Jamia Albrecht Anion gap [Moles/Vol] 10.1 mmol/L Normal [facility] Comment on above: Performed By: #### C MP, LIPID, TSH #### [facility] [address] [address] [address] Jamia Albrecht AST [Catalytic activity/Vol] 19 U/L Normal 15-37 [facility] Comment on above: Performed By: #### C MP, LIPID, TSH #### [facility] [address] [address] [address] Jamia Albrecht Bilirubin [Mass/Vol] 0.3 mg/dL Normal 0.2-1.0 [facility] Comment on above: Performed By: #### C MP, LIPID, TSH #### [facility] [address] [address] [address] Jamia Albrecht Calcium [Mass/Vol] 8.8 mg/dL Normal 8.5-10.1 [facility] Comment on above: Performed By: #### C MP, LIPID, TSH #### [facility] [address] [address] [address] Jamia Albrecht Chloride [Moles/Vol] 103 mmol/L Normal 98-107 [facility] Comment on above: Performed By: #### C MP, LIPID, TSH #### [facility] [address] [address] [address] Jamia Albrecht CO2 [Moles/Vol] 30.4 mmol/L Normal 21.0-32.0 [facility] Comment on above: Performed By: #### C MP, LIPID, TSH #### [facility] [address] [address] [address] Jamia Albrecht Creatinine [Mass/Vol] 0.83 mg/dL Normal 0.55-1.02 [facility] Comment on above: Performed By: #### C MP, LIPID, TSH #### [facility] [address] [address] [address] Jamia Albrecht EGFR-AF ETHIOPIAN >=60 Normal >=60 [facility] Comment on above: Performed By: #### C MP, LIPID, TSH #### [facility] [address] [address] [address] Jamia Albrecht EGFR-NON AF ETHIOPIAN >=60 Normal >=60 [facility] Comment on above: Performed By: #### C MP, LIPID, TSH #### [facility] [address] [address] [address] Jamia Albrecht Globulin (S) [Mass/Vol] 3.4 g/dL Normal [facility] Comment on above: Performed By: #### C MP, LIPID, TSH #### [facility] [address] [place] [address] Dr. Jamia Albrecht Glucose [Mass/Vol] 106 mg/dL Normal 74-106 [facility] Comment on above: Performed By: #### C MP, LIPID, TSH #### [facility] [address] [address] [address] Jamia Albrecht Potassium [Moles/Vol] 4.5 mmol/L Normal 3.5-5.1 [facility] Comment on above: Performed By: #### C MP, LIPID, TSH #### [facility] [address] [address] [address] Jamia Albrecht Protein [Mass/Vol] 7.1 g/dL Normal 6.4-8.2 [facility] Comment on above: Performed By: #### C MP, LIPID, TSH #### [facility] [address] [address] [address] Jamia Albrecht Sodium [Moles/Vol] 139 mmol/L Normal 136-145 [facility] Comment on above: Performed By: #### C SATISH, LIPID, TSH #### [facility] [address] [address] [address] Jamia Albrecht Urea nitrogen [Mass/Vol] 10.0 mg/dL Normal 7.0-18.0 [facility] Comment on above: Performed By: #### C SATISH LIPID, TSH #### [facility] [address] [address] [address] Jamia Albrecht Urea nitrogen/Creatinine [Mass ratio] 12.0 mg/mg Normal [facility] Comment on above: Performed By: #### C SATISH LIPID, TSH #### [facility] [address] [place] [address] Dr. Jamia Albrecht TSHon 11-27-2021 TSH 1.179 uIU/mL Normal 0.358-3.740 [facility] Comment on above: Performed By: #### C SATISH LIPID, TSH #### [facility] [address] [place] [address] Dr. Jamia Albrecht MG MAMM RT DIAG FUon 022 MG MAMM RT DIAG Patient: KATELYNN MELENDREZ Exam Date: 11/10/2021 : 1960 Gender:F Ordering : DR AMPARO ROSS . Admission #: [id number] Family : DR MARTÍNEZ HARRELL . Order #: [id number] CLICK HERE TO VIEW EXAM RADIOLOGY REPORT [...] prostate cancer at age 73. LOCATION: [facility] BREAST COMPOSITION: Heterogeneously dense,which may obscure small [...] MD on 11/10/2021 at 10:24 Normal [facility] US BREAST RIGHT LIMITEDon US BREAST RIGHT LIMITED Patient: KATELYNN MELENDREZ Exam Date: 11/10/2021 : 1960 Gender:F Ordering : DR AMPARO ROSS . Admission #: [id number] Family : DR MARTÍNEZ HARRELL . Order #: [id number] CLICK HERE TO VIEW EXAM RADIOLOGY REPORT [...] prostate cancer at age 73. LOCATION: [facility] BREAST COMPOSITION: Heterogeneously dense,which may obscure small [...] MD on 11/10/2021 at 10:24 Normal [facility] MAMM SCREEN 3D SERA CADon 11-07-2021 MG MAMM SCREEN 3D SERA CAD Patient: KATELYNN MELENDREZ Exam Date: 11/07/2021 : 1960 Gender:F Ordering : DR MARTÍNEZ HARRELL . Admission #: [id number] Family : DR AMPARO ROSS . Order #: [id number] CLICK HERE TO VIEW EXAM RADIOLOGY REPORT [...] prostate cancer at age 73. LOCATION: [facility] BREAST COMPOSITION: Heterogeneously dense,which may obscure small [...] MD on 11/07/2021 at 14:30 Normal [facility] DIAGNOSTIC RTon 01-10-20 [facility] DIAGNOSTIC RT * * *Final Report* * * * * * SEE BOTTOM OF REPORT FOR ADDENDED TEXT * * * DATE OF EXAM: Jan 09 2019 3:31PM W 0626 - [facility] DIAGNOSTIC RT / PROCEDURE REASON: Abnormal ultrasound of breast * * * * Physician Interpretation * * * * RESULT: FINAL REPORT #[id number] - [facility] US BIOPSY BREAST RT #[id number] - [facility] DIAGNOSTIC RT ULTRASOUND GUIDED BIOPSY RIGHT BREAST [...] [facility] An ultrasound guided biopsy using real-time ultrasound [...] location, four passes were made using a [employer] biopsy device. A skin closure strip and [...] 01/01/2019 ultrasound, and 01/09/2019 ultrasound - [facility]. There are scattered fibroglandular elements in right [...] follow up. Shannen Merino M.D., mc,fa/aj:01/13/2019 08:09:24 Staffing Executive(s): RT An(Josh)(M), [facility] Mammogram BI-RADS: Post-procedure mammogram for marker placement [...] Family Medicine, and Medical/Surgical Oncology, the [facility] has carefully reviewed the data and [...] their providers when to stop screening mammograms. Spinneret Cleaner: Aj Transcribe Date/Time: Jan 09 2019 2:43P Dictated by : JENNIFER MERINO MD This examination was interpreted and the report reviewed and electronically signed by: SHANNEN LUIS MD on Jan 09 2019 3:56PM EST This document has been addended by: SHANNEN LUIS MD on Jan 13 2019 8:09AM EST [id number] Normal [facility] US BIOPSY BREAST RTon [facility] US BIOPSY BREAST RT * * *Final Report* * * * * * SEE BOTTOM OF REPORT FOR ADDENDED TEXT * * * DATE OF EXAM: Jan 09 2019 3:31PM [facility] 0598 - [facility] US BIOPSY BREAST RT / PROCEDURE REASON: Abnormal ultrasound of breast * * * * Physician Interpretation * * * * RESULT: FINAL REPORT #[id number] - [facility] US BIOPSY BREAST RT #[id number] - [facility] DIAGNOSTIC RT ULTRASOUND GUIDED BIOPSY RIGHT BREAST [...] 01/01/2019 ultrasound, and 01/09/2019 [facility] - [facility]. An ultrasound guided biopsy using real-time ultrasound [...] 01/01/2019 ultrasound, and 01/09/2019 ultrasound - [facility]. There are scattered fibroglandular [...] follow up. Shannen Merino M.D. leigh,madan/aj:01/13/2019 08:09:24 Staffing Executive(s): RT An(R)(M), [facility] [...] Family Medicine, and Medical/Surgical Oncology, the [facility] has carefully reviewed the data and [...] their providers when to stop screening mammograms. Spinneret Cleaner: Aj Transcribe Date/Time: Jan 09 2019 2:43P Dictated by : JENNIFER MERINO MD This examination was interpreted and the report reviewed and electronically signed by: SHANNEN LUIS MD on Jan 09 2019 3:56PM EST This document has been addended by: SHANNEN LUIS MD on Jan 13 2019 8:09AM EST [id number] Normal [facility] US BREAST LTD RTon 01-09 [facility] US BREAST LTD RT * * *Final Report* * * DATE OF EXAM: Jan 09 2019 3:31PM W 0594 - [facility] US BREAST LTD RT / PROCEDURE REASON: Lump of right breast * * * * Physician Interpretation * * * * RESULT: #[id number] - [facility] US BREAST LTD RT ULTRASOUND OF RIGHT [...] is recommended. Shannen Luis M.D., mc/aj:01/09/2019 15:40:59 Staffing Executive(s): RT An(R)(M), [facility] Ultrasound BI-RADS: 2 Benign finding Multiple national [...] Family Medicine, and Medical/Surgical Oncology, the [facility] has carefully reviewed the data and [...] their providers when to stop screening mammograms. Spinneret Cleaner: Aj Transcribe Date/Time: Jan 09 2019 2:43P Dictated by : SHANNEN LUIS MD This examination was interpreted and the report reviewed and electronically signed by: SHANNEN LUIS MD on Jan 09 2019 3:40PM EST [id number] Normal [facility] PROGRESSon 01-09-2019 PROGRESS HNO ID: [id number] Author: Victoria Lynch Rt Service: ? Author [...] Out: N/A Sign Out Discussion: Completed Normal [facility] PROGRESS HNO ID: [id number] Author: Victoria Lynch Rt Service: ? Author [...] MATERIAL: Homegoing instructions REFERRAL (RECOMMENDATION): None Normal [facility] PROGRESS HNO ID: [id number] Author: Victoria Holley Service: ? Author Type: [...] Holley January 09, 2019 3:40 PM Normal [facility] SURGICAL PATHOLOGYon 019 SURGICAL PATHOLOGY Specimen originated from [facility] Specimen #: [id number] Submitting Physician: SHANNEN COLLAZO ([id number]) FINAL DIAGNOSIS [...] Not documented Gross examination performed at [facility], [address] [place] [address] 01/10/2019 2:03:09 AM Date of Report: 01/12/2019 Date of Procedure: 01/09/2019 Date of Receipt: 01/09/2019 Submitted by: SHANNEN COLLAZO ([email or web address]) Location: A10 Diagnostic interpretation performed at [address] [place] [address]. IA Number: [id number] Normal [facility] CNOVon 01-01-2019 CNOV Office Visit (BRCRMN ) KATELYNN MELENDREZ ([id number]) 1960 F Date Time Provider Department 01/01/19 3:30 PM MARTIN LEARY [facility] During your visit today, we recorded the [...] BCP for 10-12 years previously. Never breastfed. 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 No focal symptoms. Denies significant headaches. EENT: Denies changes in hearing or vision. Denies frequent nose bleeds. RESP: Denies dyspnea, chronic cough, Asthma, Bronchitis, COPD, Emphysema, or URI <2 weeks ago. CARD: Patient denies any dyspnea, recent DC, angina, arrhythmias, or valvular disease. GI: Patient [...] known coagulopathy. Denies h/o DVT or PE. APPEALS EXAMINER: Negative for abnormal vaginal bleeding, abnormal vaginal [...] Martin Hameed MD Referring Provider: MARTIN LEARY [[id number]] Allergies As of Date: 01/01/2019 (Not on File) Date Reviewed: 09/12/2018 Reviewed by: Martin Leary - Fully Assessed Primary Visit Diagnosis:Posttraumatic hematoma of right breast, initial encounter [S20.01XA] Other Visit Diagnosis:Abnormal mammogram [R92.8] Problem List As Of Date: 01/01/2019 (None) Encounter Status:Closed by MARTIN LEARY MD on 01/11/19 Normal [facility] [employer] BREAST [employer] RTon 01-01 [employer] BRE[employer] RT * * *Final Report* * * DATE OF EXAM: Jan 01 2019 3:12PM [facility] 0594 - [employer] RT / PROCEDURE REASON: Posttraumatic hematoma of right breast, initial encounter * * * * Physician Interpretation * * * * RESULT: #[id number] - [employer] RT ULTRASOUND OF RIGHT BREAST: 01/01/2019 HISTORY: [...] signed by the patient. Marjorie yao/aj:01/01/2019 15:27:37 Staffing Executive(s): RT Nhan(Josh)(M), [facility] Ultrasound BI-RADS: 4 Suspicious [...] Family Medicine, and Medical/Surgical Oncology, the [facility] has carefully reviewed the data and [...] their providers when to stop screening mammograms. Spinneret Cleaner: Aj Transcribe Date/Time: Jan 01 2019 2:47P Dictated by : MARJORIE DOHERTY MD This examination was interpreted and the report reviewed and electronically signed by: MARJORIE DOHERTY MD on Jan 01 2019 3:27PM EST [id number] Normal [facility] PROGRESSon 01-01-2019 PROGRESS HNO ID: [id number] Author: Martin Leary Service: ? Author Type: [...] BCP for 10-12 years previously. Never breastfed. 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 No focal symptoms. Denies significant headaches. EENT: Denies changes in hearing or vision. Denies frequent nose bleeds. RESP: Denies dyspnea, chronic cough, Asthma, Bronchitis, COPD, Emphysema, or URI <2 weeks ago. CARD: Patient denies any dyspnea, recent DC, angina, arrhythmias, or valvular disease. GI: Patient [...] known coagulopathy. Denies h/o DVT or PE. APPEALS EXAMINER: Negative for abnormal vaginal bleeding, abnormal vaginal [...] edited as appropriate. Signature: Martin Hameed MD [facility] PROGRESS HNO ID: [id number] Author: Kathia Bourne Mamm-T Service: Radiology Author [...] Bourne Mamm-T January 01, 2019 2:48 PM [facility] CNOVon 09-03-2018 CNOV Office Visit (BRCRMN ) KATELYNN MELENDREZ ([id number]) 1960 F Date Time Provider Department 09/03/18 [...] any prior breast problems or breast surgery. 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 Denies any residual problem. HEENT: Negative for significant headaches. No changes in hearing or vision. Denies frequent nose bleeds. RESP: +H/O frequent bronchitis CARD: +HTN: Pt reports controlled on Rx. +SVT and has loop monitor embedded in Left chest. Denies h/o DVT or PE. Patient denies any dyspnea, recent DC, angina, or valvular disease, GI: +GERD. Patient [...] No h/o prior transfusion. Denies known coagulopathy. APPEALS EXAMINER: Negative for abnormal vaginal bleeding, abnormal vaginal [...] Patient. Excerpts from Breast Imaging Studies RESULT: #[id number] - [facility] DIAGNOSTIC RT #[id number] - [facility] US BREAST LTD RT UNILATERAL RIGHT DIGITAL [...] Leary MD cc: LUKE BOBO [address] [facility] [address] Referring Provider: LUKE BOBO [[id number]] Allergies As of Date: 09/03/2018 (Not on File) Date Reviewed: Never Reviewed Reason for Visit: New Patient [[id number]] Primary Visit Diagnosis:Posttraumatic hematoma of right breast, initial encounter [S20.01XA] Order(s):US BREAST LTD RT [[id number]] Order #: [id number] FUTURE Problem List As Of Date: 09/03/2018 (None) Encounter Status:Closed by MARTIN LEARY MD on 09/12/18 Normal [facility] DIAGNOSTIC RTon 09-04-19 [facility] DIAGNOSTIC RT * * *Final Report* * * DATE OF EXAM: Sep 03 2018 2:29PM MCW 0626 - [facility] DIAGNOSTIC RT / PROCEDURE REASON: Disorder of breast * * * * Physician Interpretation * * * * RESULT: #[id number] - [facility] DIAGNOSTIC RT #[id number] - [facility] US BREAST LTD RT UNILATERAL RIGHT DIGITAL [...] Family Medicine, and Medical/Surgical Oncology, the [facility] has carefully reviewed the data and [...] their providers when to stop screening mammograms. Staffing Executive(s): RT Nhan(R)(M), [facility] OVERALL STUDY BIRADS: 3 Probably benign finding - short term interval follow-up recommended Spinneret Cleaner: Aj Transcribe Date/Time: Sep 03 2018 2:29P Dictated by : MARJORIE DOHERTY MD This examination was interpreted and the report reviewed and electronically signed by: MARJORIE DOHERTY MD on Sep 03 2018 4:07PM EST [id number] Normal [facility] US BREAST LTD RTon 09-03 [facility] [employer] BREAST LTD RT * * *Final Report* * * DATE OF EXAM: Sep 03 2018 2:50PM [facility]W 0594 - [facility] US BREAST LTD RT / PROCEDURE REASON: Disorder of breast * * * * Physician Interpretation * * * * RESULT: #[id number] - [facility] DIAGNOSTIC RT #[id number] - [facility] US BREAST LTD RT UNILATERAL RIGHT DIGITAL [...] Family Medicine, and Medical/Surgical Oncology, the [facility] has carefully reviewed the data and [...] their providers when to stop screening mammograms. Staffing Executive(s): RT Nhan(R)(M), [facility] OVERALL STUDY BIRADS: 3 Probably benign finding - short term interval follow-up recommended Spinneret Cleaner: Aj Transcribe Date/Time: Sep 03 2018 2:29P Dictated by : MARJORIE DOHERTY MD This examination was interpreted and the report reviewed and electronically signed by: MARJORIE DOHERTY MD on Sep 03 2018 4:07PM EST [id number] Normal [facility] PROGRESSon 09-03-2018 PROGRESS HNO ID: [id number] Author: Martin DickTerencegilda Service: ? Author Type: Physician Type: Progress [...] any prior breast problems or breast surgery. 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 Denies any residual problem. HEENT: Negative for significant headaches. No changes in hearing or vision. Denies frequent nose bleeds. RESP: +H/O frequent bronchitis CARD: +HTN: Pt reports controlled on Rx. +SVT and has loop monitor embedded in Left chest. Denies h/o DVT or PE. Patient denies any dyspnea, recent DC, angina, or valvular disease, GI: +GERD. Patient [...] No h/o prior transfusion. Denies known coagulopathy. APPEALS EXAMINER: Negative for abnormal vaginal bleeding, abnormal vaginal [...] Patient. Excerpts from Breast Imaging Studies RESULT: #[id number] - [facility] DIAGNOSTIC RT #[id number] - [facility] US BREAST LTD RT UNILATERAL RIGHT DIGITAL [...] Leary MD cc: LUKE BOBO [address] [facility] [address] Normal [facility] US OUTSIDE CD DICOM IMPORT - NBNRon 08-20-2018 US OUTSIDE CD DICOM IMPORT -NBNR Images were obtained outside of [facility] [id number] Normal [facility] Vital Signs Date Time Vital Sign Value Performing Clinician Ludwin cain 07-16-2023 14:58-0500 Blood Pressure Location Pippa NILL [facility] 07-16-2023 14:58-0500 Diastolic blood pressure 84 mm[Hg] Pippa NILL [facility] 07-16-2023 14:58-0500 Heart rate 76 /min Pippa NILL [facility] 07-16-2023 14:58-0500 Respiratory rate 16 /min Pippa NILL [facility] 07-16-2023 14:58-0500 Systolic blood pressure 126 mm[Hg] Pippa NILL [facility] 11-21-2021 09:32-0400 Diastolic blood pressure 72 mm[Hg] Pippa NILL [facility] [place] 11-21-2021 09:32-0400 Mean blood pressure 87 mm[Hg] Pippa NILL [facility] [place] 11-21-2021 09:32-0400 Systolic blood pressure 116 mm[Hg] Pippa NILL [facility] [place] 11-21-2021 08:46-0400 Blood Pressure Location Pippa NILL [facility] [place] 11-21-2021 08:46-0400 Diastolic blood pressure 78 mm[Hg] Pippa NILL [facility] [place] 11-21-2021 08:46-0400 Heart rate 52 /min Pippa NILL [facility] [place] 11-21-2021 08:46-0400 Respiratory rate 16 /min Pippa NILL [facility] [place] 11-21-2021 08:46-0400 Systolic blood pressure 161 mm[Hg] Pippa NILL [facility] [place] Encounters Encounter Date Encounter Type Care Provider Facility Start: 07-24-2023 End: 07-25-2023 ambulatory Pippa R YVONL Facility:CD:[id number] Start: 07-16-2023 End: 07-17-2023 [facility] Start: 07-16-2023 End: 07-16-2023 Patient encounter procedure Pippa R NILL [facility] Start: 12-12-2022 End: 12-12-2022 ambulatory [facility] Start: 09-26-2022 End: 09-27-[address] AMPARO ROSS . Facility:[facility] Start: 06-27-2022 Encounter for genera l adult medical examination without abnormal findings DR AMPARO ROSS . [facility] Start: 06-26-2022 End: 06-27-[address] AMPARO [...] End: 12-26-2021 Patient encounter procedure Pippa RAY [facility] Start: 12-13-2021 ambulatory KYLE MALONEY Facility:[facility] Start: 11-30-2021 End: 11-30-2021 ambulatory LUKE JERAMIE Facility:[facility] Start: 11-27-2021 End: 11-28-[address] AMPARO ROSS . Facility:[facility] Start: 11-21-2021 End: 11-21-2021 Patient encounter procedure Pippa RAY [facility] [place] Start: 11-10-2021 End: 11-11-[address] AMPARO ROSS . Facility:[facility] Start: 11-07-2021 End: 11-08-[address] AMAPRO ROSS . Facility:[facility] Procedures Date Procedure Procedure Detail Performing Clinician Start: 01-30-2022 Stereotactically wendy ded core needle biopsy of breast Pippa SANZL Start: 06-03-2018 Biopsy of breast Michae alyson RAY Start: 09-29-2009 Stereotactically wendy ded core needle biopsy of breast Pippa SANZL Decompression of median nerve Pippa SANZAlyson Excision of lumbar intervertebral disc Pippa SANZL Open reduction of fr acture of ankle with internal fixation Pippa YVONL Repair of right ingu inal hernia Pippa RAY Total hysterectomy v ia vaginal approach Pippa RAY Immunizations Immunization Date Immunization Notes Care Provider Fa cility 03-03-2023 influenza virus vaccine, unspecified formulation Pippa RAY [facility] [place] 04-03-2022 SARS-CoV-2 (COVID-19 ) mRNA-1273 vaccine Pippa RAY [facility] [place] 03-24-2021 SARS-CoV-2 (COVID-19 ) mRNA-1273 vaccine Pippa RAY [facility] [place] 06-30-2020 SARS-CoV-2 (COVID-19 ) mRNA-1273 vaccine [facility] [place] 06-01-2020 SARS-CoV-2 (COVID-19 ) mRNA-1273 vaccine [facility] [place] Payers Date Payer Category Payer Unknown [id number] 2022 Unknown [id number] 2019 Unknown [id number] 1961 Unknown [id number] 2.16.84 0.1.041091.3.579.2.593 1961 Unknown [id number] 2.16.84 0.1.112921.3.579.2.593 1961 Unknown [id number] 2.16.84 0.1.336736.3.579.2.593 1961 Unknown [id number] 2.16.84 0.1.276774.3.579.2.593 1961 Unknown [id number] 2.16.84 0.1.061365.3.579.2.593 1961 Unknown [id number] 2.16.84 0.1.224447.3.579.2.593 1961 Unknown [id number] 2.16.84 0.1.995255.3.579.2.593 1961 Unknown [id number] 2.16.84 0.1.068155.3.579.2.593 1961 Unknown [id number] 2.16.84 0.1.388352.3.579.2.593 1961 Unknown [id number] 2.16.8 40.1.408466.3.579.2.727 1961 Unknown [id number] 2.16.8 40.1.031971.3.579.2.727 1959 Self-pay [id number] Unknown [id number] 2.16.84 0.1.389328.3.579.2.593 Social History Date Type Detail Facility Start: 11-21-2021 End: 07-16-2023 Tobacco smoking status Never smoked tobacco (finding) [facility] Tobacco smoking status Never [facility] Sex Assigned At Female [facility] Functional Status Date Assessment Result Facility 07-16-2023 Functional Status N/A [facility] 11-21-2021 Functional Status N/A [facility] Clinical Note 07-16-2023 Note Date & Type [...] Never (less than (more content not included)... [facility] [place] Comment on above: Result Comment: Elec tronically Signed By: ROBBIN CASTRO, Pippa Jenkins\Date and Time Signed: 07/16/23 15:21 EST Progress note 12-17-2022 Note Date & Type Note Facility 12-17-2022 Note - continue flecainid e 100 mg twice daily, atenolol 37.5 mg twice daily [facility] Progress note 12-12-2022 Note Date & Type [...] 12/12/2022 sinus bradycardia with first-degree AV block, MO interval 232 ms, QRS <120 ---- --- [...] wheezing, no co (more content not included)... [facility] Progress note 12-12-2022 Note Date & Type Note Facility 12-12-2022 Note Patient here for 1 y ear follow up PVC's, palpitations, and hyperlipidemia. Has rare palpitations. Feels good. Denies chest pain and SOB. Review of Systems Cardiovascular: Positive for palpitations ( rare ). All other systems reviewed and are negative. [facility] Evaluation + Plan note Radiology Note Date & Type Note Facility Evaluation + Plan note Future Appointments Appointment Date:12/26/2021 01:00:00 PM Scheduled Provider: Location:.MRI Appointment Type:MRI Breast (FT) Future Scheduled TestsMRI Breast w/o and w/ Contrast, Bilat 12/26/21 [facility] Hospital course Narrative Note Date & Type Note Facility Hospital course Narrative No data available for this section [facility] Hospital Discharge instructions Note Date & Type Note Facility Hospital Discharge instructions No data available for this section [facility] Progress note Note Date & Type Note Facility Progress note No data available for this section [facility] Summary Purpose Family History No Family History Records FoundNo Family History Records FoundNo Family History Records Found No data available for this section No Family History Records Found Advance Directives No Advanced Directives Records FoundNo Advanced Directives Records FoundNo Advanced Directives Records FoundNo Advanced Directives Records Found Additional Source Comments INFORMATION SOURCE (unrecogn ized section and content) DATE CREATED AUTHOR 01/13/2019 [facility] DATE CREATED AUTHOR AUTHOR'S ORGANIZ ATION 09/29/2022 [facility] DATE CREATED AUTHOR AUTHOR'S ORGANIZ ATION 12/18/2022 [facility] DATE CREATED AUTHOR AUTHOR'S ORGANIZ ATION 08/02/2023 [facility] Care Team (unrecognized sect ion and content) Personnel Name: Amparo Ross MD Address: [address] [place] [address] Personnel Name: Amparo Ross MD Address: [address] [place] [address] Personnel Name: Amparo Ross MD Address: [address] [place] [address] Personnel Name: Amparo Ross MD Address: Address: [address] [place] [address] FOR RECORDS PERTAINING TO PATIENTS WHO ARE [...] BE BASED ON THE PRIMARY CLINICAL RECORDS. [facility] [employer] [facility] provides no warranty or guarantee of the accuracy or completeness of information in this document.
== END 2023-11-27 08:55 | disposition home or self-care (01) ==
LOC: MAMMO 08:54
PROVIDERS: PCP Family Medicine; Visit Provider Family Medicine
DX: Z12.31 Encounter for screening mammogram for malignant neoplasm of breast (principal); Z80.42 Family history of malignant neoplasm of prostate; Z80.0 Family history of malignant neoplasm of digestive organs
CPT/HCPCS: 77063; 77067

== ENCOUNTER 2024-02-12 06:07 | Outpatient (OUT) | payer BC, SELFPAY ==
--- OUTSIDE RECORDS SUMMARY | 2024-02-12 06:10 | XMS_ITS | CCD ---
Author Organization [facility] Team Providers Care Emissions Testing And Repair Technician Name Role Phone Amparo Ross Primary Care [...] SOLIZ Consulting Unavailabl e WEST, DR KATIE aMrio Consulting Unavailable HOY ., DR CHRISTENSEN Primary [...] Unavailable WEST, DR KATIE Mario Consulting Unavailable Pippa RAY Attending Unavailable Amparo Ross Referring Unavailable Pippa RAY Attending Unavailable BOSSMAN MARIN Attending Unavailable Allergies Allergy Classification Reported Allergen(s) Allergy Type Date of Onset Reaction(s) Facility (6 sources) HYDROmorphone; Translations: [hydromorphone] Drug Allergy 4 Itching (finding) [facility] (5 sources) Penicillin; Translations: [penicillin] Drug Allergy Unknown (qualifier value), Weal (disorder) [facility] (2 sources) HYDROmorphone Drug Allergy 5 [facility] (3 sources) Penicillins; Translations: [PENICILLINS] Drug allergy (disorder) 4 [facility] Medications Current Medications Medication Drug [...] calculus of kidney 06-27-2023 Episodic Cardiac dysrhythmias (12 sources) Premature atrial contraction; Translations: [Supraventricular tachycardia] 11-17-2021 Chronic Disorders of lipid metabolism (5 [...] breast, lower outer quadrant] Onset: 2 Episodic Nonspecific chest pain (2 sources) Chest pain, unspecified; Translations: [Chest pain, unspecified] Onset: 4 Episodic Other circulatory disease (4 sources) History of cerebrovascular accident 11-17-2021 Episodic Other gastrointestinal disorders (4 sources) H/O: gastrointestinal disease 11-17-2021 Episodic Other injuries and conditions due to external causes (5 sources) H/O: injury; Translations: [Personal history of other (healed) physical injury and trauma] Onset: 2 Episodic Other lower respiratory disease (2 sources) Other forms of dyspnea; Translations: [Other forms of dyspnea] Onset: 4 Episodic Other nutritional; endocrine; and metabolic disorders [...] Test Name Value Interpretation Reference Range Facility Office Visiton 01-20-2024 Follow-up visit [id number] Katelynn Melendrez 1960 F Date Provider Department Center 01/20/2024 00186-NTOYLYBOSSMAN MARIN ROZINA [facility] Family History Problem Relation Age of Onset Heart disease Mother Comments: Had permanent pacemaker Arrhythmia Father Comments: A-fib Heart disease Father 50 Comments: Had CABG in his 50s Family Status - Relation Status Age at Mother Father Level of Service:[address] [place] OFFICE/OUTPATIENT ESTABLISHED MOD MDM 30 MIN Reason for Visit and Comments: Chest Pain [516926] Shortness of Breath [335418] Normal [facility] Outside Colonoscopyon 2023 Outside Colonoscopy [id number]#1.00T IFF Normal [facility] Reminderson 07-25-2023 Reminders - From: Ginger Young LPN To: N - Clinical; Sent: 07/25/2023 13:55:05 EST Show up: 06/23/2033 07:00:00 EST Subject: colonoscopy recall Due Date/Time: 07/24/2033 07:00:00 EST Reminder/Recall Patient due for screening colonoscopy 07/24/2033. Normal [facility] Insurance Correspondenceon 0 07-18-2023 Insurance Correspondence [id number] IFF Normal [facility] Consent for Procedure/Surger yon 07-17-2023 Consent for Procedure/Surgery [id number] IFF Normal [facility] Facesheeton 07-17-2023 Facesheet [id number]#1.00 TIFF [facility] Ambulatory Visit Summaryon 0 07-16-2023 Ambulatory Visit [...] for choosing us for your care. Normal [facility] Physician Referralon 024 Physician Referral [id number] IFF Normal [facility] MG MAMM DIAGNOSTIC 3D SERA CA Don 09-26-2022 MG MAMM DIAGNOSTIC 3D SERA CAD Patient: ANEESH KATELYNN Pilo. Exam Date: 09/26/2022 : 1960 Gender:F Ordering : DR AMPARO ROSS . Admission #: [id number] Family : Order #: [id number] CLICK HERE TO VIEW EXAM RADIOLOGY REPORT [...] prostate cancer at age 73. LOCATION: [facility] BREAST COMPOSITION: Heterogeneously dense,which may obscure [...] MD on 09/26/2022 at 10:00 Normal [facility] CBC AUTO DIFFon 06-26-2022 BASO # 0.0 103/ul Normal 0.0-0.1 [facility] Comment on above: Performed By: #### C MP, LIPID, TSH #### [facility] [address] [place] [address] Dr. Jamia Albrecht Basophils/100 WBC (Bld) 0.5 % Normal 0.2-2.0 [facility] Comment on above: Performed By: #### C MP, LIPID, TSH #### [facility] [address] [place] [address] Dr. Jamia Albrecht EO # 0.3 103/ul Normal 0.0-0.7 [facility] Comment on above: Performed By: #### C MP, LIPID, TSH #### [facility] [address] [place] [address] Dr. Jamia Albrecht Eosinophils/100 WBC (Bld) 4.7 % Normal 0.9-7.0 [facility] Comment on above: Performed By: #### C MP, LIPID, TSH #### [facility] [address] [place] [address] Dr. Jamia Albrecht Erythrocyte distribution width (RBC) [Ratio] 14.3 % Normal 11.0-15.0 [facility] Comment on above: Performed By: #### C MP, LIPID, TSH #### [facility] [address] [place] [address] Dr. Jamia Albrecht Hematocrit (Bld) [Volume fraction] 37.5 % Normal 36.0-48.0 [facility] Comment on above: Performed By: #### C MP, LIPID, TSH #### [facility] [address] [place] [address] Dr. Jamia Albrecht Hemoglobin (Bld) [Mass/Vol] 12.1 g/dL Normal 12.0-16.0 [facility] Comment on above: Performed By: #### C MP, LIPID, TSH #### [facility] [address] [place] [address] Dr. Jamia Albrecht IG # 0.01 10e3/ul Normal 0.00-0.03 [facility] Comment on above: Performed By: #### C MP, LIPID, TSH #### [facility] [address] [place] [address] Dr. Jamia Albrecht IG % 0.2 % Normal 0.0-0.5 [facility] Comment on above: Performed By: #### C MP, LIPID, TSH #### [facility] [address] [place] [address] Dr. Jamia Albrecht LYMPH # 1.9 103/ul Normal 1.2-3.8 [facility] Comment on above: Performed By: #### C MP, LIPID, TSH #### [facility] [address] [place] [address] Dr. Jamia Albrecht Lymphocytes/100 WBC (Bld) 34.5 % Normal 20.5-60.0 [facility] Comment on above: Performed By: #### C MP, LIPID, TSH #### [facility] [address] [place] [address] Dr. Jamia Albrecht MANUAL DIFF REQ NO Normal [facility] Comment on above: Performed By: #### C MP, LIPID, TSH #### [facility] [address] [place] [address] Dr. Jamia lAbrecht MCH (RBC) [Entitic mass] 26.8 pg Normal 26.7-34.0 [facility] Comment on above: Performed By: #### C MP, LIPID, TSH #### [facility] [address] [place] [address] Dr. Jamia Albrecht MCHC (RBC) [Mass/Vol] 32.3 g/dL Normal 29.9-35.2 [facility] Comment on above: Performed By: #### C MP, LIPID, TSH #### [facility] [address] [place] [address] Dr. Jamia Albrecht MCV (RBC) [Entitic vol] 83.0 fL Normal 81.0-99.0 [facility] Comment on above: Performed By: #### C MP, LIPID, TSH #### [facility] [address] [place] [address] Dr. Jamia Albrecht MONO # 0.4 103/ul Normal 0.3-0.8 [facility] Comment on above: Performed By: #### C MP, LIPID, TSH #### [facility] [address] [place] [address] Dr. Jamia Albrecht Monocytes/100 WBC (Bld) 6.8 % Normal 1.7-12.0 [facility] Comment on above: Performed By: #### C MP, LIPID, TSH #### [facility] [address] [place] [address] Dr. Jamia Albrecht NEUT # 2.9 103/ul Normal 1.4-6.5 [facility] Comment on above: Performed By: #### C MP, LIPID, TSH #### [facility] [address] [place] [address] Dr. Jamia Albrecht Neutrophils/100 WBC (Bld) 53.3 % Normal 43.0-75.0 [facility] Comment on above: Performed By: #### C MP, LIPID, TSH #### [facility] [address] [address] [address] Jamia Albrecht Platelet mean volume (Bld) [Entitic vol] 9.6 fL Normal 9.5-13.5 [facility] Comment on above: Performed By: #### C MP, LIPID, TSH #### [facility] [address] [address] [address] Jamia Albrecht PLT 296 103/ul Normal 150-450 [facility] Comment on above: Performed By: #### C MP, LIPID, TSH #### [facility] [address] [address] [address] Jamia Albrecht RBC 4.52 106/ul Normal 4.20-5.40 [facility] Comment on above: Performed By: #### C MP, LIPID, TSH #### [facility] [address] [address] [address] Jamia Albrecht WBC 5.5 103/ul Normal 4.0-11.0 [facility] Comment on above: Performed By: #### C MP, LIPID, TSH #### [facility] [address] [place] [address] Dr. Jamia Albrecht GLYCOHEMOGLOBIN A1Con 2022 ADA RECOMMENDATION SEE BELOW Normal [facility] Comment on above: Result Comment: ADA RECOMMENDED LIMIT 4.0 - 6.0 ADA THERAPEUTIC TARGET < 7.0 ACTION SUGGESTED > 7.0 Performed By: #### C MP, LIPID, TSH #### [facility] [address] [place] [address] Dr. Jamia Albrecht Glucose [Mass/Vol] 131 mg/dL Normal [facility] Comment on above: Performed By: #### C MP, LIPID, TSH #### [facility] [address] [place] [address] Dr. Jamia Albrecht HbA1c (Bld) [Mass fraction] 6.2 % Normal 4.5-6.2 [facility] Comment on above: Performed By: #### C MP, LIPID, TSH #### [facility] [address] [address] [address] Jamia Albrecht LIPID PROFILEon 06-26-2022 CHOL-HDL RATIO NORM SEE BELOW Normal [facility] Comment on above: Result Comment: 3.3 - 4.4 LOW RISK 4.4 - 7.1 AVERAGE RISK 7.1 - 11.0 MODERATE RISK >11.0 HIGH RISK Performed By: #### C MP, LIPID, TSH #### [facility] [address] [address] [address] Jamia Albrecht Cholesterol [Mass/Vol] 134 mg/dL Normal <=200 [facility] Comment on above: Performed By: #### C MP, LIPID, TSH #### [facility] [address] [address] [address] Jamia Albrecht Cholesterol in HDL [Mass/Vol] 58 mg/dL Normal 40-60 [facility] Comment on above: Performed By: #### C MP, LIPID, TSH #### [facility] [address] [address] [address] Jamia Albrecht Cholesterol in LDL [Mass/Vol] 60.6 mg/dL Normal [facility] Comment on above: Performed By: #### C MP, LIPID, TSH #### [facility] [address] [address] [address] Jamia Albrecht Cholesterol.total/Ch olesterol in HDL [Mass ratio] 2.3 {ratio} Normal [facility] Comment on above: Performed By: #### C MP, LIPID, TSH #### [facility] [address] [address] [address] Jamia Albrecht HDL NORMAL > or = 60 mg/dl - LO W CARDIOVASCULAR RISK <40 mg/dl - HIGH CARDIOVASCULAR RISK Normal [facility] Comment on above: Performed By: #### C MP, LIPID, TSH #### [facility] [address] [place] [address] Dr. Jamia Albrecht LDL CALC NORMAL SEE BELOW Normal [facility] Comment on above: Result Comment: <100 mg/dl OPTIMAL 100 - 129 mg/dl NEAR OR ABOVE OPTIMAL 130 - 159 mg/dl BORDERLINE HIGH 160 - 189 mg/dl HIGH >190 mg/dl VERY HIGH Performed By: #### C MP, LIPID, TSH #### [facility] [address] [place] [address] Dr. Jamia Albrecht Triglyceride [Mass/Vol] 77 mg/dL Normal <=150 [facility] Comment on above: Performed By: #### C MP, LIPID, TSH #### [facility] [address] [place] [address] Dr. Jamia Albrecht VLDL CALC 15.4 mg/dL Normal [facility] Comment on above: Performed By: #### C MP, LIPID, TSH #### [facility] [address] [place] [address] Dr. Jamia Albrecht PROF 14(COMP METB)on 023 Albumin [Mass/Vol] 3.5 g/dL Normal 3.4-5.0 [facility] Comment on above: Performed By: #### C MP, LIPID, TSH #### [facility] [address] [place] [address] Dr. Jamia Albrecht Albumin/Globulin [Mass ratio] 1.0 {ratio} Normal [facility] Comment on above: Performed By: #### C MP, LIPID, TSH #### [facility] [address] [place] [address] Dr. Jamia Albrecht ALP [Catalytic activity/Vol] 104 U/L Normal 46-116 [facility] Comment on above: Performed By: #### C MP, LIPID, TSH #### [facility] [address] [place] [address] Dr. Jamia Albrecht ALT [Catalytic activity/Vol] 30 U/L Normal 14-59 [facility] Comment on above: Performed By: #### C MP, LIPID, TSH #### [facility] [address] [place] [address] Dr. Jamia Albrecht Anion gap [Moles/Vol] 12.5 mmol/L Normal [facility] Comment on above: Performed By: #### C MP, LIPID, TSH #### [facility] [address] [place] [address] Dr. Jamia Albrecht AST [Catalytic activity/Vol] 21 U/L Normal 15-37 [facility] Comment on above: Performed By: #### C MP, LIPID, TSH #### [facility] [address] [address] [address] Jamia Albrecht Bilirubin [Mass/Vol] 0.2 mg/dL Normal 0.2-1.0 [facility] Comment on above: Performed By: #### C MP, LIPID, TSH #### [facility] [address] [address] [address] Jamia Albrecht Calcium [Mass/Vol] 8.8 mg/dL Normal 8.5-10.1 [facility] Comment on above: Performed By: #### C MP, LIPID, TSH #### [facility] [address] [place] [address] Dr. Jamia Albrecht Chloride [Moles/Vol] 102 mmol/L Normal 98-107 [facility] Comment on above: Performed By: #### C MP, LIPID, TSH #### [facility] [address] [place] [address] Dr. Jamia Albrecht CO2 [Moles/Vol] 28.5 mmol/L Normal 21.0-32.0 [facility] Comment on above: Performed By: #### C MP, LIPID, TSH #### [facility] [address] [place] [address] Dr. Jamia Albrecht Creatinine [Mass/Vol] 0.69 mg/dL Normal 0.55-1.02 [facility] Comment on above: Performed By: #### C MP, LIPID, TSH #### [facility] [address] [place] [address] Dr. Jamia Albrecht EGFR-AF ALGERIAN >60 Normal >=60 [facility] Comment on above: Performed By: #### C MP, LIPID, TSH #### [facility] [address] [place] [address] Dr. Jamia Albrecht EGFR-NON AF ALGERIAN >60 Normal >=60 [facility] Comment on above: Performed By: #### C MP, LIPID, TSH #### [facility] [address] [place] [address] Dr. Jamia Albrecht Globulin (S) [Mass/Vol] 3.5 g/dL Normal [facility] Comment on above: Performed By: #### C MP, LIPID, TSH #### [facility] [address] [address] [address] Jamia Albrecht Glucose [Mass/Vol] 125 mg/dL Critically high 74-106 [facility] Comment on above: Performed By: #### C MP, LIPID, TSH #### [facility] [address] [place] [address] Dr. Jaima Albrecht Potassium [Moles/Vol] 4.0 mmol/L Normal 3.5-5.1 [facility] Comment on above: Performed By: #### C MP, LIPID, TSH #### [facility] [address] [place] [address] Dr. Jamia Albrecht Protein [Mass/Vol] 7.0 g/dL Normal 6.4-8.[address] [facility] Comment on above: Performed By: #### C MP, LIPID, TSH #### [facility] [address] [place] [address] Dr. Jamia Albrecht Sodium [Moles/Vol] 139 mmol/L Normal 136-[address] [facility] Comment on above: Performed By: #### C MP, LIPID, TSH #### [facility] [address] [place] [address] Dr. Jamia Albrecht Urea nitrogen [Mass/Vol] 12.0 mg/dL Normal 7.0-18.0 [facility] Comment on above: Performed By: #### C MP, LIPID, TSH #### [facility] [address] [place] [address] Dr. Jamia Albrecht Urea nitrogen/Creatinine [Mass ratio] 17.4 mg/mg Normal [facility] Comment on above: Performed By: #### C MP, LIPID, TSH #### [facility] [address] [place] [address] Dr. Jamia Albrecht TSHon 06-26-2022 TSH 2.856 uIU/mL Normal 0.358-3.740 [facility] Comment on above: Performed By: #### C MP, LIPID, TSH #### [facility] [address] [address] [address] Jamia Albrecht MAMMO POST BIOPSY RIGHTon MAMMO POST BIOPSY RIGHT Patient: KATELYNN MELENDREZ Exam Date: 01/30/2022 : 1960 Gender:F Ordering : DR PIPPA RAY . Admission #: [id number] Family : Order #: [id number] CLICK HERE TO VIEW EXAM This report [...] James M.D. on 02/08/2022 at 08:06 Normal [facility] MG STEREO CORE NDL W CLP RTo n 01-30-2022 MG STEREO CORE NDL W CLP RT Patient: KATELYNN MELENDREZ Exam Date: 01/30/2022 : 1960 Gender:F Ordering : DR PIPPA RAY . Admission #: [id number] Family : Order #: [id number] CLICK HERE TO VIEW EXAM This report [...] James M.D. on 02/08/2022 at 08:08 Normal [facility] CHEMISTRYOrdered By: SYSTEM SYSTEM on 12-26-2021 [...] 11-30-2021 EUA Statement SEE BELOW Normal [facility] Comment on above: Result Comment: This [...] By: #### C MP, LIPID, TSH #### [facility] [address] [place] [address] Dr. Jamia Albrecht SARS-CoV-2 (COVID-19) RNA TONIE+probe Ql (Unsp spec) Positive Critically abnormal NEGATIVE [facility] Comment on above: Performed By: #### C MP, LIPID, TSH #### [facility] [address] [place] [address] Dr. Jamia Albrecht CBC AUTO DIFFon 11-27-2021 BASO # 0.0 103/ul Normal 0.0-0.1 [facility] Comment on above: Performed By: #### C MP, LIPID, TSH #### [facility] [address] [place] [address] Dr. Jamia Albrecht Basophils/100 WBC (Bld) 0.5 % Normal 0.2-2.0 [facility] Comment on above: Performed By: #### C MP, LIPID, TSH #### [facility] [address] [place] [address] Dr. Jamia Albrecht EO # 0.2 103/ul Normal 0.0-0.7 [facility] Comment on above: Performed By: #### C MP, LIPID, TSH #### [facility] [address] [place] [address] Dr. Jamia Albrecht Eosinophils/100 WBC (Bld) 3.7 % Normal 0.9-7.0 [facility] Comment on above: Performed By: #### C MP, LIPID, TSH #### [facility] [address] [place] [address] Dr. Jamia Albrecht Erythrocyte distribution width (RBC) [Ratio] 14.1 % Normal 11.0-15.0 [facility] Comment on above: Performed By: #### C MP, LIPID, TSH #### [facility] [address] [place] [address] Dr. Jamia Albrecht Hematocrit (Bld) [Volume fraction] 39.8 % Normal 36.0-48.0 [facility] Comment on above: Performed By: #### C MP, LIPID, TSH #### [facility] [address] [place] [address] Dr. Jamia Albrecht Hemoglobin (Bld) [Mass/Vol] 12.6 g/dL Normal 12.0-16.0 [facility] Comment on above: Performed By: #### C MP, LIPID, TSH #### [facility] [address] [place] [address] Dr. Jamia Albrecht IG # 0.01 10e3/ul Normal 0.00-0.03 [facility] Comment on above: Performed By: #### C MP, LIPID, TSH #### [facility] [address] [place] [address] Dr. Jamia Albrecht IG % 0.2 % Normal 0.0-0.5 [facility] Comment on above: Performed By: #### C MP, LIPID, TSH #### [facility] [address] [place] [address] Dr. Jamia Albrecht LYMPH # 0.7 103/ul Critically low 1.2-3.8 [facility] Comment on above: Performed By: #### C MP, LIPID, TSH #### [facility] [address] [address] [address] Jamia Albrecht Lymphocytes/100 WBC (Bld) 16.1 % Critically low 20.5-60.0 [facility] Comment on above: Performed By: #### C MP, LIPID, TSH #### [facility] [address] [address] [address] Jamia Albrecht MANUAL DIFF REQ NO Normal [facility] Comment on above: Performed By: #### C MP, LIPID, TSH #### [facility] [address] [place] [address] Dr. Jamia Albrecht MCH (RBC) [Entitic mass] 27.2 pg Normal 26.7-34.0 [facility] Comment on above: Performed By: #### C MP, LIPID, TSH #### [facility] [address] [place] [address] Dr. Jamia Albrecht MCHC (RBC) [Mass/Vol] 31.7 g/dL Normal 29.9-35.2 [facility] Comment on above: Performed By: #### C MP, LIPID, TSH #### [facility] [address] [address] [address] Jamia Albrecht MCV (RBC) [Entitic vol] 86.0 fL Normal 81.0-99.0 [facility] Comment on above: Performed By: #### C MP, LIPID, TSH #### [facility] [address] [place] [address] Dr. Jamia Albrecht MONO # 0.5 103/ul Normal 0.3-0.8 [facility] Comment on above: Performed By: #### C MP, LIPID, TSH #### [facility] [address] [place] [address] Dr. Jamia Albrecht Monocytes/100 WBC (Bld) 11.7 % Normal 1.7-12.0 [facility] Comment on above: Performed By: #### C MP, LIPID, TSH #### [facility] [address] [place] [address] Dr. Jamia Albrecht NEUT # 3.0 103/ul Normal 1.4-6.5 [facility] Comment on above: Performed By: #### C MP, LIPID, TSH #### [facility] [address] [place] [address] Dr. Jamia Albrecht Neutrophils/100 WBC (Bld) 67.8 % Normal 43.0-75.0 [facility] Comment on above: Performed By: #### C MP, LIPID, TSH #### [facility] [address] [place] [address] Dr. Jamia Albrecht Platelet mean volume (Bld) [Entitic vol] 9.4 fL Critically low 9.5-13.5 [facility] Comment on above: Performed By: #### C MP, LIPID, TSH #### [facility] [address] [place] [address] Dr. Jamia Albrecht PLT 276 103/ul Normal 150-450 [facility] Comment on above: Performed By: #### C MP, LIPID, TSH #### [facility] [address] [place] [address] Dr. Jamia Albrecht RBC 4.63 106/ul Normal 4.20-5.40 [facility] Comment on above: Performed By: #### C MP, LIPID, TSH #### [facility] [address] [place] [address] Dr. Jamia Albrecht WBC 4.4 103/ul Normal 4.0-11.0 [facility] Comment on above: Performed By: #### C MP, LIPID, TSH #### [facility] [address] [place] [address] Dr. Jamia Albrecht LIPID PROFILEon 11-27-2021 CHOL-HDL RATIO NORM SEE BELOW Normal [facility] Comment on above: Result Comment: 3.3 - 4.4 LOW RISK 4.4 - 7.1 AVERAGE RISK 7.1 - 11.0 MODERATE RISK >11.0 HIGH RISK Performed By: #### C MP, LIPID, TSH #### [facility] [address] [place] [address] Dr. Jamia Albrecht Cholesterol [Mass/Vol] 216 mg/dL Critically high <=200 [facility] Comment on above: Performed By: #### C MP, LIPID, TSH #### [facility] [address] [address] [address] Jamia Albrecht Cholesterol in HDL [Mass/Vol] 57 mg/dL Normal 40-60 [facility] Comment on above: Performed By: #### C MP, LIPID, TSH #### [facility] [address] [address] [address] Jamia Albrecht Cholesterol in LDL [Mass/Vol] 134.2 mg/dL Normal [facility] Comment on above: Performed By: #### C MP, LIPID, TSH #### [facility] [address] [address] [address] Jamia Albrecht Cholesterol.total/Ch olesterol in HDL [Mass ratio] 3.8 {ratio} Normal [facility] Comment on above: Performed By: #### C MP, LIPID, TSH #### [facility] [address] [address] [address] Jamia Albrecht HDL NORMAL > or = 60 mg/dl - LO W CARDIOVASCULAR RISK <40 mg/dl - HIGH CARDIOVASCULAR RISK [facility] Comment on above: Performed By: #### C MP, LIPID, TSH #### [facility] [address] [address] [address] Jamia Albrecht LDL CALC NORMAL SEE BELOW Normal [facility] Comment on above: Result Comment: <100 mg/dl OPTIMAL 100 - 129 mg/dl NEAR OR ABOVE OPTIMAL 130 - 159 mg/dl BORDERLINE HIGH 160 - 189 mg/dl HIGH >190 mg/dl VERY HIGH Performed By: #### C MP, LIPID, TSH #### [facility] [address] [address] [address] Jamia Albrecht Triglyceride [Mass/Vol] 124 mg/dL Normal <=150 [facility] Comment on above: Performed By: #### C MP, LIPID, TSH #### [facility] [address] [address] [address] Jamia Albrecht VLDL CALC 24.8 mg/dL Normal [facility] Comment on above: Performed By: #### C MP, LIPID, TSH #### [facility] [address] [address] [address] Jamia Albrecht PROF 14(COMP METB)on 022 Albumin [Mass/Vol] 3.7 g/dL Normal 3.4-5.0 [facility] Comment on above: Performed By: #### C MP, LIPID, TSH #### [facility] [address] [address] [address] Jamia Albrecht Albumin/Globulin [Mass ratio] 1.1 {ratio} Normal [facility] Comment on above: Performed By: #### C MP, LIPID, TSH #### [facility] [address] [address] [address] Jamia Albrecht ALP [Catalytic activity/Vol] 102 U/L Normal 46-116 [facility] Comment on above: Performed By: #### C MP, LIPID, TSH #### [facility] [address] [address] [address] Jamia Albrecht ALT [Catalytic activity/Vol] 26 U/L Normal 14-59 [facility] Comment on above: Performed By: #### C MP, LIPID, TSH #### [facility] [address] [address] [address] Jamia Albrecht Anion gap [Moles/Vol] 10.1 mmol/L [facility] Comment on above: Performed By: #### C MP, LIPID, TSH #### [facility] [address] [address] [address] Jamia Albrecht AST [Catalytic activity/Vol] 19 U/L Normal 15-37 [facility] Comment on above: Performed By: #### C MP, LIPID, TSH #### [facility] [address] [address] [address] Jamia Albrecht Bilirubin [Mass/Vol] 0.3 mg/dL Normal 0.2-1.0 [facility] Comment on above: Performed By: #### C MP, LIPID, TSH #### [facility] [address] [address] [address] Jamia Albrecht Calcium [Mass/Vol] 8.8 mg/dL Normal 8.5-10.[address] [facility] Comment on above: Performed By: #### C MP, LIPID, TSH #### [facility] [address] [address] [address] Jamia Albrecht Chloride [Moles/Vol] 103 mmol/L Normal 98-107 [facility] Comment on above: Performed By: #### C MP, LIPID, TSH #### [facility] [address] [address] [address] Jamia Albrecht CO2 [Moles/Vol] 30.4 mmol/L Normal 21.0-32.0 [facility] Comment on above: Performed By: #### C MP, LIPID, TSH #### [facility] [address] [address] [address] Jamia Albrecht Creatinine [Mass/Vol] 0.83 mg/dL Normal 0.55-1.02 [facility] Comment on above: Performed By: #### C MP, LIPID, TSH #### [facility] [address] [place] [address] Dr. Jamia Albrecht EGFR-AF ALGERIAN >=60 Normal >=60 [facility] Comment on above: Performed By: #### C MP, LIPID, TSH #### [facility] [address] [place] [address] Dr. Jamia Albrecht EGFR-NON AF ALGERIAN >=60 Normal >=60 [facility] Comment on above: Performed By: #### C MP, LIPID, TSH #### [facility] [address] [place] [address] Dr. Jamia Albrecht Globulin (S) [Mass/Vol] 3.4 g/dL [facility] Comment on above: Performed By: #### C MP, LIPID, TSH #### [facility] [address] [address] [address] Jamia Albrecht Glucose [Mass/Vol] 106 mg/dL Normal 74-106 [facility] Comment on above: Performed By: #### C MP, LIPID, TSH #### [facility] [address] [address] [address] Jamia Albrecht Potassium [Moles/Vol] 4.5 mmol/L Normal 3.5-5.1 [facility] Comment on above: Performed By: #### C MP, LIPID, TSH #### [facility] [address] [address] [address] Jamia Albrecht Protein [Mass/Vol] 7.1 g/dL Normal 6.4-8.2 [facility] Comment on above: Performed By: #### C MP, LIPID, TSH #### [facility] [address] [place] [address] Dr. Jamia Albrecht Sodium [Moles/Vol] 139 mmol/L Normal 136-145 [facility] Comment on above: Performed By: #### C MP, LIPID, TSH #### [facility] [address] [place] [address] Dr. Jamia Albrecht Urea nitrogen [Mass/Vol] 10.0 mg/dL Normal 7.0-18.0 [facility] Comment on above: Performed By: #### C MP, LIPID, TSH #### [facility] [address] [place] [address] Dr. Jamia Albrecht Urea nitrogen/Creatinine [Mass ratio] 12.0 mg/mg Normal [facility] Comment on above: Performed By: #### C MP, LIPID, TSH #### [facility] [address] [place] [address] Dr. Jamia Albrecht TSHon 11-27-2021 TSH 1.179 uIU/mL Normal 0.358-3.740 [facility] Comment on above: Performed By: #### C MP, LIPID, TSH #### [facility] [address] [place] [address] Dr. Jamia Albrecht MG MAMM RT DIAG FUon 11-10- 022 MG MAMM RT DIAG FU Patient: KATELYNN MELENDREZ Exam Date: 11/10/2021 : 1960 Gender:F Ordering : DR AMPARO ROSS . Admission #: [id number] Family : DR MARTÍNEZ HARRELL . Order #: [id number] CLICK HERE TO VIEW EXAM RADIOLOGY REPORT [...] prostate cancer at age 73. LOCATION: [facility] BREAST COMPOSITION: Heterogeneously dense,which may obscure [...] MD on 11/10/2021 at 10:24 Normal [facility] US BREAST RIGHT LIMITEDon US BREAST RIGHT LIMITED Patient: KATELYNN MELENDREZ Exam Date: 11/10/2021 : 1960 Gender:F Ordering : DR AMPARO ROSS . Admission #: [id number] Family : DR MARTÍNEZ HARRELL . Order #: [id number] CLICK HERE TO VIEW EXAM RADIOLOGY REPORT [...] prostate cancer at age 73. LOCATION: [facility] BREAST COMPOSITION: Heterogeneously dense,which may obscure [...] MD on 11/10/2021 at 10:24 Normal [facility] MAMM SCREEN 3D SERA CADon 11-07-2021 MG MAMM SCREEN 3D SERA CAD Patient: KATELYNN MELENDREZ Exam Date: 11/07/2021 : 1960 Gender:F Ordering : DR MARTÍNEZ HARRELL . Admission #: [id number] Family : DR AMPARO ROSS . Order #: [id number] CLICK HERE TO VIEW EXAM RADIOLOGY REPORT [...] prostate cancer at age 73. LOCATION: [facility] BREAST COMPOSITION: Heterogeneously dense,which may obscure [...] on 11/07/2021 at 14:30 Normal [facility] DIAGNOSTIC RTon 01-10-20 [facility] DIAGNOSTIC RT * * *Final Report* * * * * * SEE BOTTOM OF REPORT FOR ADDENDED TEXT * * * DATE OF EXAM: Jan 09 2019 3:31PM W 0626 - [facility] DIAGNOSTIC RT / PROCEDURE REASON: Abnormal ultrasound of breast * * * * Physician Interpretation * * * * RESULT: FINAL REPORT #[id number] - [facility] US BIOPSY BREAST RT #[id number] - [facility] DIAGNOSTIC RT ULTRASOUND GUIDED BIOPSY RIGHT BREAST [...] - [facility]. There are scattered [...] for imaging follow up. Shannen Merino M.D. madan/aj:01/13/2019 08:09:24 Guest Room Inspector(s): RT An(R)(M), [facility] [...] Health, Family Medicine, and Medical/Surgical Oncology, the [facility] has carefully reviewed the data and [...] their providers when to stop screening mammograms. Fireworks Inspector: Aj Transcribe Date/Time: Jan 09 2019 2:43P Dictated by : JENNIFER MERINO MD This examination was interpreted and the report reviewed and electronically signed by: SHANNEN LUIS MD on Jan 09 2019 3:56PM EST This document has been addended by: SHANNEN LUIS MD on Jan 13 2019 8:09AM EST [id number] Normal [facility] US BIOPSY BREAST RTon [facility] US BIOPSY BREAST RT * * *Final Report* * * * * * SEE BOTTOM OF REPORT FOR ADDENDED TEXT * * * DATE OF EXAM: Jan 09 2019 3:31PM [facility] 0598 - [facility] US BIOPSY BREAST RT / PROCEDURE REASON: Abnormal ultrasound of breast * * * * Physician Interpretation * * * * RESULT: FINAL REPORT #[id number] - [facility] US BIOPSY BREAST RT #[id number] - [facility] DIAGNOSTIC RT ULTRASOUND GUIDED BIOPSY RIGHT BREAST [...] ultrasound, and 01/09/2019 ultrasound - [facility]. There are scattered fibroglandular [...] follow up. Shannen Merino M.D., mc,madan/aj:01/13/2019 08:09:24 Guest Room Inspector(s): RT An(R)(M), [facility] Mammogram BI-RADS: Post-procedure mammogram for marker placement [...] Health, Family Medicine, and Medical/Surgical Oncology, the [facility] has carefully reviewed the data and [...] their providers when to stop screening mammograms. Fireworks Inspector: Aj Transcribe Date/Time: Jan 09 2019 2:43P Dictated by : JENNIFER MERINO MD This examination was interpreted and the report reviewed and electronically signed by: SHANNEN LUIS MD on Jan 09 2019 3:56PM EST This document has been addended by: SHANNEN LUIS MD on Jan 13 2019 8:09AM EST [id number] Normal [facility] US BREAST LTD RTon 01-09 [facility] US BREAST LTD RT * * *Final Report* * * DATE OF EXAM: Jan 09 2019 3:31PM [facility] 0594 - [facility] US BREAST LTD RT / PROCEDURE REASON: Lump of right breast * * * * Physician Interpretation * * * * RESULT: #[id number] - [facility] US BREAST LTD RT ULTRASOUND OF RIGHT [...] screening mammogram is recommended. Shannen Luis M.D., mc/penrad:01/09/2019 15:40:59 Guest Room Inspector(s): RT An(R)(M), [facility] Ultrasound BI-RADS: 2 Benign finding Multiple national specialty organizations have released breast cancer screening guidelines for women at average risk for developing breast cancer - guidelines that are based on both evidence and opinion, yet differ on when to start and how often to screen for breast cancer. With representation from Breast Imaging, Internal Medicine, Women's Health, Family Medicine, and Medical/Surgical Oncology, the [facility] has carefully reviewed the data and [...] their providers when to stop screening mammograms. Fireworks Inspector: Aj Transcribe Date/Time: Jan 09 2019 2:43P Dictated by : SHANNEN LUIS MD This examination was interpreted and the report reviewed and electronically signed by: SHANNEN LUIS MD on Jan 09 2019 3:40PM EST [id number] [facility] PROGRESSon 01-09-2019 PROGRESS HNO ID: [id number] Author: Victoria Lynch Rt Service: ? Author [...] Out: N/A Sign Out Discussion: Completed [facility] PROGRESS HNO ID: [id number] Author: Victoria Holley Service: ? Author Type: [...] MATERIAL: Homegoing instructions REFERRAL (RECOMMENDATION): None [facility] PROGRESS HNO ID: [id number] Author: Victoria Holley Service: ? Author Type: [...] Holley January 09, 2019 3:40 PM [facility] SURGICAL PATHOLOGYon 019 SURGICAL PATHOLOGY Specimen originated from [facility] Specimen #: [id number] Submitting Physician: SHANNEN COLLAZO ([id number]) FINAL DIAGNOSIS [...] time: Not documented Gross examination performed at [facility], [address] [place] [address] 01/10/2019 2:03:09 AM Date of Report: 01/12/2019 Date of Procedure: 01/09/2019 Date of Receipt: 01/09/2019 Submitted by: SHANNEN COLLAZO ([email or web address]) Location: A10 Diagnostic interpretation performed at [address] [address]. [facility] Number: [id number] [facility] CNOVon 01-01-2019 CNOV Office Visit (BRCRMN ) ANEESHKATELYNN ([id number]) 1960 F Date Time Provider Department 01/01/19 3:30 PM MARTIN LEARY BRJOCELINEMN During your visit today, we recorded the [...] BCP for 10-12 years previously. Never breastfed. 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 No focal symptoms. Denies significant headaches. EENT: Denies changes in hearing or vision. Denies frequent nose bleeds. RESP: Denies dyspnea, chronic cough, Asthma, Bronchitis, COPD, Emphysema, or URI <2 weeks ago. CARD: Patient denies any dyspnea, recent AL, angina, arrhythmias, or valvular disease. GI: Patient [...] known coagulopathy. Denies h/o DVT or PE. ARTISAN PLASTERER: Negative for abnormal vaginal bleeding, abnormal vaginal [...] Martin Hameed MD Referring Provider: MARTIN LEARY [[id number]] Allergies As of Date: 01/01/2019 (Not on File) Date Reviewed: 09/12/2018 Reviewed by: Martin Leary - Fully Assessed Primary Visit Diagnosis:Posttraumatic hematoma of right breast, initial encounter [S20.01XA] Other Visit Diagnosis:Abnormal mammogram [R92.8] Problem List As Of Date: 01/01/2019 (None) Encounter Status:Closed by MARTIN LEARY MD on 01/11/19 Normal [facility] BREAST LTD RTon 01-01 [employer] BREAST LTD RT * * *Final Report* * * DATE OF EXAM: Jan 01 2019 3:12PM [facility] 0594 - [employer] [facility] BREAST [employer] RT / PROCEDURE REASON: Posttraumatic hematoma of right breast, initial encounter * * * * Physician Interpretation * * * * RESULT: #[id number] - [facility] BREAST [employer] RT ULTRASOUND OF RIGHT BREAST: 01/01/2019 HISTORY: [...] signed by the patient. Marjorie yao/aj:01/01/2019 15:27:37 Guest Room Inspector(s): RT Nhan(R)(M), The [facility] Ultrasound BI-RADS: 4 Suspicious finding - Biopsy [...] Health, Family Medicine, and Medical/Surgical Oncology, the [facility] has carefully reviewed the data and [...] their providers when to stop screening mammograms. Fireworks Inspector: Aj Transcribe Date/Time: Jan 01 2019 2:47P Dictated by : MARJORIE DOHERTY MD This examination was interpreted and the report reviewed and electronically signed by: MARJORIE DOHERTY MD on Jan 01 2019 3:27PM EST [id number] [facility] PROGRESSon 01-01-2019 PROGRESS HNO ID: [id number] Author: Martin Leary Service: ? Author Type: [...] BCP for 10-12 years previously. Never breastfed. 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 No focal symptoms. Denies significant headaches. EENT: Denies changes in hearing or vision. Denies frequent nose bleeds. RESP: Denies dyspnea, chronic cough, Asthma, Bronchitis, COPD, Emphysema, or URI <2 weeks ago. CARD: Patient denies any dyspnea, recent AL, angina, arrhythmias, or valvular disease. GI: Patient [...] known coagulopathy. Denies h/o DVT or PE. ARTISAN PLASTERER: Negative for abnormal vaginal bleeding, abnormal vaginal [...] edited as appropriate. Signature: Martin Hameed MD [facility] PROGRESS HNO ID: [id number] Author: Kathia Bourne Mamm-T Service: Radiology Author [...] Bourne Mamm-T January 01, 2019 2:48 PM [facility] CNOVon 09-03-2018 CNOV Office Visit (BRCRMN ) KATELYNN MELENDREZ ([id number]) 1960 F Date Time Provider Department 09/03/18 [...] any prior breast problems or breast surgery. 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 Denies any residual problem. HEENT: Negative for significant headaches. No changes in hearing or vision. Denies frequent nose bleeds. RESP: +H/O frequent bronchitis CARD: +HTN: Pt reports controlled on Rx. +SVT and has loop monitor embedded in Left chest. Denies h/o DVT or PE. Patient denies any dyspnea, recent AL, angina, or valvular disease, GI: +GERD. Patient [...] No h/o prior transfusion. Denies known coagulopathy. ARTISAN PLASTERER: Negative for abnormal vaginal bleeding, abnormal vaginal [...] Patient. Excerpts from Breast Imaging Studies RESULT: #[id number] - [facility] DIAGNOSTIC RT #[id number] - [facility] US BREAST LTD RT UNILATERAL RIGHT DIGITAL [...] Leary MD cc: LUKE BOBO [address] [facility] [address] Referring Provider: LUKE BOBO [[id number]] Allergies As of Date: 09/03/2018 (Not on File) Date Reviewed: Never Reviewed Reason for Visit: New Patient [[id number]] Primary Visit Diagnosis:Posttraumatic hematoma of right breast, initial encounter [S20.01XA] Order(s):US BREAST LTD RT [[id number]] Order #: [id number] FUTURE Problem List As Of Date: 09/03/2018 (None) Encounter Status:Closed by MARTIN LEARY MD on 09/12/18 Normal [facility] DIAGNOSTIC RTon 09-04-19 [facility] DIAGNOSTIC RT * * *Final Report* * * DATE OF EXAM: Sep 03 2018 2:29PM [facility] 0626 - [facility] DIAGNOSTIC RT / PROCEDURE REASON: Disorder of breast * * * * Physician Interpretation * * * * RESULT: #[id number] - [facility] DIAGNOSTIC RT #[id number] - [facility] US BREAST LTD RT UNILATERAL RIGHT DIGITAL [...] Health, Family Medicine, and Medical/Surgical Oncology, the [facility] has carefully reviewed the data and [...] their providers when to stop screening mammograms. Guest Room Inspector(s): RT Nhan(R)(M), [facility] OVER[facility] BIRADS: 3 Probably benign finding - short term interval follow-up recommended Fireworks Inspector: Aj Transcribe Date/Time: Sep 03 2018 2:29P Dictated by : MARJORIE DOHERTY MD This examination was interpreted and the report reviewed and electronically signed by: MARJORIE DOHERTY MD on Sep 03 2018 4:07PM EST [id number] Normal [facility] US BREAST LTD RTon 09-03 [facility] US BREAST LTD RT * * *Final Report* * * DATE OF EXAM: Sep 03 2018 2:50PM [facility] 0594 - [facility] US BREAST LTD RT / PROCEDURE REASON: Disorder of breast * * * * Physician Interpretation * * * * RESULT: #[id number] - [facility] DIAGNOSTIC RT #[id number] - [facility] US BREAST LTD RT UNILATERAL RIGHT DIGITAL [...] Health, Family Medicine, and Medical/Surgical Oncology, the [facility] has carefully reviewed the data and [...] their providers when to stop screening mammograms. Guest Room Inspector(s): RT Nhan(R)(M), [facility] OVERALL STUDY BIRADS: 3 Probably benign finding - short term interval follow-up recommended Fireworks Inspector: Aj Transcribe Date/Time: Sep 03 2018 2:29P Dictated by : MARJORIE DOHERTY MD This examination was interpreted and the report reviewed and electronically signed by: MARJORIE DOHERTY MD on Sep 03 2018 4:07PM EST [id number] [facility] PROGRESSon 09-03-2018 PROGRESS HNO ID: [id number] Author: Martin Leary Service: ? Author Type: [...] any prior breast problems or breast surgery. 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 Denies any residual problem. HEENT: Negative for significant headaches. No changes in hearing or vision. Denies frequent nose bleeds. RESP: +H/O frequent bronchitis CARD: +HTN: Pt reports controlled on Rx. +SVT and has loop monitor embedded in Left chest. Denies h/o DVT or PE. Patient denies any dyspnea, recent AL, angina, or valvular disease, GI: +GERD. Patient [...] No h/o prior transfusion. Denies known coagulopathy. ARTISAN PLASTERER: Negative for abnormal vaginal bleeding, abnormal vaginal [...] Patient. Excerpts from Breast Imaging Studies RESULT: #[id number] - [facility] DIAGNOSTIC RT #[id number] - [facility] US BREAST LTD RT UNILATERAL RIGHT DIGITAL [...] Martin Leary MD cc: LUKE BOBO [address] [facility] [address] [facility] US OUTSIDE CD DICOM IMPORT - NBNRon 08-20-2018 US OUTSIDE CD DICOM IMPORT -NBNR Images were obtained outside of [facility] [id number] [facility] Vital Signs Date Time Vital Sign Value Performing Clinician Ludwin cain 07-16-2023 14:58-0500 Blood Pressure Location Pippa NILL [facility] 07-16-2023 14:58-0500 Diastolic blood pressure 84 mm[Hg] Pippa NILL [facility] 07-16-2023 14:58-0500 Heart rate 76 /min Pippa NILL [facility] 07-16-2023 14:58-0500 Respiratory rate 16 /min Pippa NILL [facility] 07-16-2023 14:58-0500 Systolic blood pressure 126 mm[Hg] Pippa NILL [facility] 11-21-2021 09:32-0400 Diastolic blood pressure 72 mm[Hg] Pippa NILL [facility] [place] 11-21-2021 09:32-0400 Mean blood pressure 87 mm[Hg] Pippa NILL [facility] [place] 11-21-2021 09:32-0400 Systolic blood pressure 116 mm[Hg] Pippa NILL [facility] [place] 11-21-2021 08:46-0400 Blood Pressure Location Pippa NILL [facility] [place] 11-21-2021 08:46-0400 Diastolic blood pressure 78 mm[Hg] Pippa NILL [facility] [place] 11-21-2021 08:46-0400 Heart rate 52 /min Pippa NILL [facility] [place] 11-21-2021 08:46-0400 Respiratory rate 16 /min Pippa NILL [facility] [place] 11-21-2021 08:46-0400 Systolic blood pressure 161 mm[Hg] Pippa NILL [facility] [place] Encounters Encounter Date Encounter Type Care Provider Facility Start: 01-20-2024 End: 01-20-2024 ambulatory [facility] Start: 07-24-2023 End: 07-25-2023 ambulatory Pippa R NILL Facility:CD:[id number] Start: 07-16-2023 End: 07-17-2023 ambulatory Pippa R NILL Facility:[facility] Start: 07-16-2023 End: 07-16-2023 Patient encounter procedure Pippa R NILL General [facility] Start: 09-26-2022 End: 09-27-[address] AMPARO ROSS . Facility:[facility] Start: 06-27-2022 Encounter for genera l adult medical examination without abnormal findings DR AMPARO ROSS . [facility] Start: 06-26-2022 End: 06-27-[address] AMPARO ROSS . Facility:[facility] Start: 06-26-2022 End: 06-27-2022 Encounter for general adult medical examination without abnormal findings DR AMPARO ROSS . Facility:[facility] Start: 03-29-2022 End: 03-30-[address] AMPARO ROSS . Facility:[facility] Start: 02-07-2022 End: 02-07-2022 Patient encounter procedure Pippa RAY General Surgery [facility] Start: 01-31-2022 ambulatory KYLE MALONEY Facility:[facility] Start: 01-30-2022 End: 01-30-[address] PIPPA RAY . Facility:[facility] Start: 12-26-2021 End: 12-26-2021 Patient encounter procedure Pippa RAY [facility] Start: 12-13-2021 ambulatory KYLE MALONEY Facility:[facility] Start: 11-30-2021 End: 11-30-2021 ambulatory LUKE JERAMIE Facility:[facility] Start: 11-27-2021 End: 11-28-[address] AMPARO ROSS . Facility:[facility] Start: 11-21-2021 End: 11-21-2021 Patient encounter procedure Pippa RAY [facility] [place] Start: 11-10-2021 End: 11-11-[address] AMPARO ROSS . Facility:[facility] Start: 11-07-2021 End: 11-08-[address] AMPARO ROSS . Facility:[facility] Procedures Date Procedure Procedure Detail Performing Clinician Start: 01-30-2022 Stereotactically wendy ded core needle biopsy of breast Pippa RAY Start: 06-03-2018 Biopsy of breast Ron RAY Start: 09-29-2009 Stereotactically wendy ded core needle biopsy of breast Pippa RAY Decompression of median nerve Pippa RAY Excision of lumbar intervertebral disc Pippa SANZL Open reduction of fr acture of ankle with internal fixation Pippa RAY Repair of right ingu inal hernia Pippa SANZL Total hysterectomy v ia vaginal approach Pippa RAY Immunizations Immunization Date Immunization Notes Care Provider [facility] 03-03-2023 influenza virus vaccine, unspecified formulation Pippa RAY [facility] [place] 04-03-2022 SARS-CoV-2 (COVID-19 ) mRNA-1273 vaccine Pippa RAY [facility] [place] 03-24-2021 SARS-CoV-2 (COVID-19 ) mRNA-1273 vaccine Pippa SANZ [facility] [place] 06-30-2020 SARS-CoV-2 (COVID-19 ) mRNA-1273 vaccine Pippa RAY [facility] [place] 06-01-2020 SARS-CoV-2 (COVID-19 ) mRNA-1273 vaccine Pippa SANZ [facility] [place] Payers Date Payer Category Payer Unknown [id number] 2019 Unknown [id number] 1960 Unknown [id number] 2.16.84 [id number] 1960 Unknown [id number] 2.16.84 [id number] 1960 Unknown [id number] 2.16.84 [id number] 1960 Unknown [id number] 2.16.84 [id number] 1960 Unknown [id number] 2.16.84 [id number] 1960 Unknown [id number] 2.16.84 [id number] 1961 Unknown [id number] 2.16.84 [id number] 1961 Unknown [id number] 2.16.84 [id number] 1960 Unknown [id number] 2.16.84 [id number] 1961 Unknown [id number] 2.16.8 [id number] 1960 Unknown [id number] 2.16.8 [id number] 1958 Self-pay [id number] Unknown [id number] 2.16.84 [id number] Social History Date Type Detail Facility Start: 11-21-2021 End: 07-16-2023 Tobacco smoking status Never smoked tobacco (finding) [facility] Tobacco smoking status Never [facility] Sex Assigned At Female [facility] Functional Status Date Assessment Result Facility 07-16-2023 Functional Status N/A [facility] [place] 11-21-2021 Functional Status N/A [facility] [place] Progress note 01-20-2024 Note Date & Type Note Facility 01-20-2024 Note [place] [facility] - [facility] Subjective Katelynn Daigle Aneesh is a 63 y.o. year old female patient being seen for Chest Pain and Shortness of Breath Patient Active Problem List Diagnosis Well adult health check Palpitations History of stroke without residual deficits Blood coagulation disorder (CMS/HCC) PVC (premature ventricular contraction) Abnormal mammogram of right breast Abnormal ultrasound of breast Aortic valve regurgitation Depression Disc disorder of lumbar region History of nephrolithiasis History of rectal fissure History of trauma of breast BMI 30.0-30.9,adult Obesity Premature atrial contractions Pure hypercholesterolemia Seasonal allergic rhinitis Supraventricular tachycardia (CMS/HCC) HPI Patient has history of CVA which was considered cryptogenic and she had loop implant in 2013 which did not show any evidence of A-fib. Holter monitor after that showed PVCs with burden less than 2% in association with palpitation for which she has been on flecainide. She has mild to moderate mitral regurgitation on prior echoes. She has history of hypertension and hyperlipidemia Patient is complaining of chest pain which is located on the right side she describes it as sharp with little pressure and she feels that she needs to take a deep breath which usually helps. It has been occurring on and off for 2 years, it occurs randomly and not related to exertion, duration varies and sometimes it lasts up to 1 hour, no change of the severity of the pain with exertion, is not affected by inspiration, chest wall is not tender to palpation. It occurs 1-2 times a month. Otherwise patient denies orthopnea or paroxysmal nocturnal dyspnea or dizziness or palpitations or legs edema. 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 She never smoked, she denies alcohol or illicit drugs next Regarding family history her father had CABG in his 50s and he has atrial fibrillation. Mother had third-degree AV block and permanent pacemaker implantation ROS All systems were reviewed and they were negative except for the positive findings noted above in the history Past Medical History: Diagnosis Date Hyperlipidemia No past surgical history on file. Family History Problem Relation Name Age of Onset Heart disease Mother Had permanent pacemaker Arrhythmia Father A-fib Heart disease Father 50 Had CABG in his 50s Social History Tobacco Use Smoking status: Never Smokeless tobacco: Never Substance Use Topics Alcohol use: Never Drug use: Never Allergies Allergies Allergen Reactions Hydromorphone Other Penicillins Other Medications Current Outpatient Medications: aspirin 81 mg chewable tablet, Chew 1 tablet every day by oral route., Disp: , Rfl: atenolol (Tenormin) 25 mg tablet, Take 37.5 mg by mouth in the morning., Disp: , Rfl: atorvastatin (Lipitor) 40 mg tablet, TAKE 1 TABLET BY MOUTH EVERYDAY AT BEDTIME, Disp: , Rfl: desvenlafaxine (Pristiq) 100 mg 24 hr tablet, Take 1 tablet by mouth in the morning., Disp: , Rfl: diclofenac (Voltaren) 75 mg EC tablet, Take 75 mg by mouth two times daily. Do not crush, chew, or split., Disp: , Rfl: flecainide (Tambocor) 100 mg tablet, TAKE 1 TABLET BY MOUTH IN THE MORNING AND AT BEDTIME, Disp: 180 tablet, Rfl: 3 Objective Visit Vitals BP 132/82 (BP Location: Left arm, Patient Position: Sitting) Pulse (!) 48 Ht 1.651 m (5' 5 ) Wt 81.2 kg (179 lb) SpO2 99% BMI 29.79 kg/m??? Smoking Status Never BSA 1.93 m??? Physical exam: GENERAL: alert and oriented x3, well developed, in no acute distress. HEAD: atraumatic, normocephalic. EYES: JER, EOMI. NECK: trachea midline, no JVD present, no carotid bruits present. CARDIAC: S1, S2 present. RRR. No murmur, rubs, or gallops. RESPIRATORY: CTAB, no increased effort of breathing, no rales, rhonchi, or wheezing. ABDOMEN: soft, nontender, nondistended. EXTREMITIES: no lower extremity edema, peripheral pulses are 2+ bilaterally. No rash/skin discoloration present. NEURO: strength/sensation equal and symmetric in bilateral upper and lower extremities. PSYCH: appropriate mood, affect, and judgement. Recent Labs No results found for: GLUCOSE , CALCIUM , NA , K , CO2 , CL , BUN , CREATININE No results found for: WBC , HGB , HCT , MCV , PLT No results found for: CHOL No results found for: HDL No results found for: LDLCALC No results found for: TRIG No components found for: CHOLHDL No results found for: ALT , AST , GGT , ALKPHOS , BILITOT No results found for: TSH Imaging and other tests EKG: Today 01/20/2024 showed sinus bradycardia, heart rate 49 bpm borderline first-degree AV block, nonspecific T wave abnormalities, QTc 435 ms, no significant changes in comparison to EKG from 08/15/2021. Echo: 04/26/2021 at (more content not included)... [facility] Clinical Note 07-16-2023 Note Date & [...] Never (less than (more content not included)... [facility] Comment on above: Result Comment: Elec tronically Signed By: ROBBIN CASTRO, Pippa Jenkins\Date and Time Signed: 07/16/23 15:21 EST Evaluation + Plan note Radiology Note Date & Type Note Facility Evaluation + Plan note Future Appointments Appointment Date:12/26/2021 01:00:00 PM Scheduled Provider: Location:[facility].MRI Appointment Type:MRI Breast ([facility]) Future Scheduled TestsMRI Breast w/o and w/ Contrast, Bilat 12/26/21 [facility] [place] Hospital course Narrative Note Date & Type Note Facility Hospital course Narrative No data available for this section [facility] [place] Hospital Discharge instructions Note Date & Type Note Facility Hospital Discharge instructions No data available for this section [facility] [place] Progress note Note Date & Type Note Facility Progress note No data available for this section [facility] [place] Summary Purpose Family History No Family History Records FoundNo Family History Records Found No data available for this section No Family History Records FoundNo Family History Records Found Advance Directives No Advanced Directives Records FoundNo Advanced Directives Records FoundNo Advanced Directives Records FoundNo Advanced Directives Records Found Additional Source Comments INFORMATION SOURCE (unrecogn ized section and content) DATE CREATED AUTHOR 01/13/2019 [facility] DATE CREATED AUTHOR AUTHOR'S ORGANIZ ATION 09/29/2022 [facility] DATE CREATED AUTHOR AUTHOR'S ORGANIZ ATION 08/02/2023 Rod Mendenhall [facility] DATE CREATED AUTHOR AUTHOR'S ORGANIZ ATION 01/23/2024 [facility] Care Team (unrecognized sect ion and content) Personnel Name: Amparo Ross MD Address: [address] [place] [address] Personnel Name: Amparo Ross MD Address: [address] [place] [address] Personnel Name: Amparo Ross MD Address: [address] [place] [address] Personnel Name: Amparo Ross MD Address: Address: [address] [place] [address] FOR RECORDS PERTAINING TO PATIENTS WHO ARE [...] BE BASED ON THE PRIMARY CLINICAL RECORDS. [facility] [facility]. provides no warranty or guarantee of the accuracy or completeness of information in this document.
--- NOTE | 2024-02-12 06:15 | NM_ITS ---
Patient Name: NA MELENDREZ MR#: [id number] : 1960 Exam Date: 02/12/2024 Ordering Doctor: DR. BOSSMAN MARIN M.D. RADIOLOGY REPORT PROCEDURE: NM YVONNE PERF SPECT REST STR COMPARISON: None. INDICATIONS: CHEST PAIN, DYSPNEA TECHNIQUE: Exam Description: Stress/Rest one day protocol gated SPECT Rest Imagin.3 mCi Tc-99m Cardiolite IV on 02/12/2024 Stress Imaging 30.7 mCi Tc-99m Cardiolite IV on 02/12/2024 Exercise Protocol: [place] Heart Rate (bpm): Rest: 45 Max: 134 PMHR: 85 Blood Pressure: Rest: 130/74 Max: 156/84 Exercise Time: Minutes: 9 Seconds: 12 Stage Reached: Stage: 3 Mets 10.1 Symptoms: Rest and peak stress ECG findings were pending and the exercise portion of the study was pending per attending physician Dr. BARBA . For more details please see separate cardiac stress test report. FINDINGS: QUALITY OF STUDY: Good. PERFUSION DEFECT: LOCATION: Apical anterior. [place]. SIZE: Small (1-2 segments). SEVERITY: Mild. TYPE: Persistent. WALL MOTION: Normal. LV SIZE: Normal. 70 mL. TID / TCD: None; 1.0 LVEF: Normal. Calculated EF 72%. SUMMARY: Myocardial perfusion imaging study has ABNORMAL findings. CONCLUSION: 1. Small area of decreased uptake in the apex, LAD distribution, I favor a focal thinning 2. No reversible ischemia 3. Pending exercise test result Dictated by: Pablo Mahmood MD on 02/12/2024 at 15:43 Approved by: Pablo Mahmood MD on 02/12/2024 at 15:44
--- NOTE | 2024-02-12 08:53 | PC.NURSE ---
Nursing Note Cardiac Stress Test Reviewed: Medication, allergies and patient history reviewed. Stress Test: [ x] Patient tolerated stress test well. [ ] Patient unable to tolerate walking on treadmill. Switched to Lexiscan stress test. [x ] No chest pain noted per patient [ ] Chest pain that resolved prior to leaving stress lab. [ ] No dyspnea noted. [x ] Dyspnea that resolved prior to leaving stress lab. [x ] Patient left stress lab asymptomatic and hemodynamically stable. [ ] Patient taken to the Emergency Room due to non-resolving symptoms following stress test. [ x] Patient achieved target heart rate. [ ] Patient unable to achieve target heart rate. [ ] Aminophylline administered as reversal agent to Lexiscan (Regadenoson). [ ] Nitro administered. Nursing Comments:Pt had cardiolite stress test done and tolerated well. Pt's only complaint was peripheral muscle fatigue. Pt had no chest pain noted.
== END 2024-02-12 06:08 | disposition home or self-care (01) ==
LOC: NM 06:07
PROVIDERS: PCP Family Medicine; Visit Provider Internal Medicine Cardiovascular Disease
DX: R07.9 Chest pain, unspecified (principal); R06.09 Other forms of dyspnea
CPT/HCPCS: 78452; 93017; A9500

== ENCOUNTER 2024-03-09 13:45 | Outpatient (OUT) | payer BC, SELFPAY ==
--- NOTE | 2024-03-09 13:47 | CA_ITS ---
Patient Name: NA MELENDREZ MR#: [id number] : 1960 Exam Date: 03/09/2024 Ordering Doctor: DR. BOSSMAN MARIN M.D. ECHOCARDIOGRAM REPORT PROCEDURE: CA ECHO DOPPLER COMPLETE INDICATIONS: Chest pain COMPARISON: None. DESCRIPTION: COMPLETE ECHOCARDIOGRAM Real-time transthoracic echocardiography with 2D, M-mode, spectral and color flow Doppler performed. QUALITY: Technical quality was good. LEFT VENTRICLE: Normal chamber size. Borderline left ventricular hypertrophy. Global left ventricular systolic function is normal. LV EF: Estimated left ventricular ejection fraction is 55-60 % DIASTOLIC: Diastolic function is indeterminate. ATRIAL SEPTUM: LEFT ATRIUM: Severe dilatation. RIGHT ATRIUM: Moderate dilatation. RIGHT VENTRICLE: Normal chamber size. Normal right ventricular systolic function. TRICUSPID VALVE: Normal mobility and thickness. No stenosis with mild regurgitation. No evidence of pulmonary hypertension. RVSP 33 mmHg MITRAL VALVE: Normal mobility and thickness. No evidence of mitral valve stenosis. There is no mitral annular calcification. Trivial mitral regurgitation. AORTIC VALVE: Normal trileaflet appearance. No visible sclerosis. Normal leaflet mobility. No evidence of aortic valve stenosis. Mild to moderate aortic regurgitation. AORTIC ROOT: Normal diameter and appearance, measuring 3.3 cm. The ascending aorta is normal in size measuring 3.0 cm. PULMONIC VALVE: Normal thickness and mobility. No stenosis. Trivial regurgitation. PERICARDIUM: No evidence of pericardial effusion. IVC: Collapses with inspirations. Normal size. PLEURA: CONCLUSION: 1. Normal left ventricular size and systolic function. LVEF is estimated at 55 to 60%. 2. Normal right ventricular size and systolic function. 3. Moderate to severe biatrial dilatation. 4. Mild to moderate aortic regurgitation. 5. Mild tricuspid regurgitation. 6. Normal right-sided pressures. Adult Echocardiography Procedure Report Left Ventricle LVEDD (3.7 - 5.6 cm): 4.60 cm LVESD (2.2 - 4.0 cm): 2.98 cm LVIVS thickness (0.6 - 1.2 cm): 1.03 cm LVPW thickness (0.5 - 1.0 cm): 0.82 cm e': 0.07 m/s E - e': 7.26 LVOT Max Gradient: 5.20 mm[Hg] LVOT Area (cm2): 1.14 m/s Peak Velocity (LVOT): 1.14 m/s Mean Velocity (LVOT): 0.66 m/s LVOT Diameter 1.89 cm Left Ventricular Ejection Fraction: 55-60% Left Atrium LA Volume Index (2D A2C): 55.85 ml/m2 Left Atrium Systolic Dimension: 4.13 cm Mitral Valve MV E to A Ratio: 0.81 Mitral Valve A-Wave Peak Velocity: 0.66 m/s Mitral Valve E-Wave Peak Velocity: 0.54 m/s Right Ventricle RV Internal Diastolic Dimension: 3.85 cm Aorta AO Root Diam: 3.33 cm Ascending Ao Diam: 2.98 cm Aortic Valve AoV Area (Peak Daniel): 2.35 cm2, 2.35 cm2 AoV Area (VTI): 2.15 cm2, 2.15 cm2 Deceleration Ness: 1.78 m/s2 Pressure Half-Time: 653.57 ms Peak Velocity(Antegrade Flow): 1.36 m/s Peak Gradient(Antegrade Flow): 7.44 mm[Hg] Mean Velocity(Antegrade Flow): 0.88 m/s Mean Gradient(Antegrade Flow): 3.60 mm[Hg] Velocity Time Integral: 37.56 cm Tricuspid Valve Peak Velocity (Regurgitant Flow): 2.37 m/s, 2.49 m/s, 2.75 m/s Pulmonic Valve Peak Velocity: 0.92 m/s Peak Gradient: 3.74 mm[Hg], 3.08 mm[Hg] Right Atrium Right Atrium Systolic Pressure: 36.53 ml, 36.53 ml Dictated by: Mc Newton M.D. on 03/09/2024 at 17:42 Approved by: Mc Newton M.D. on 03/09/2024 at 17:56
--- OUTSIDE RECORDS SUMMARY | 2024-03-09 14:06 | XMS_ITS | CCD ---
Author Organization [facility] Care Team Providers Care Counselor Marriage And Family Name Role Phone Amparo Ross Primary Care Physician [phone] V[address] ., DR CHRISTENSEN Consulting Unavailable HOY [...] [hydromorphone] Drug Allergy 4 Itching (finding) [facility] (5 sources) Penicillin; Translations: [penicillin] Drug Allergy Unknown (qualifier value), Weal (disorder) [facility] (2 sources) HYDROmorphone Drug Allergy 5 [facility] (3 sources) Penicillins; Translations: [PENICILLINS] Drug allergy (disorder) 4 [facility] Medications Current Medications Medication Drug Class(es) [...] Test Name Value Interpretation Reference Range Facility 36on 03-06-2024 36 Regarding stress jeff t result from 02/12/2024: MD Desi De La Vega MA Please inform patient that her stress test is normal at good level of exercise. Patient made aware via text message. Waiting on echo results. Normal [facility] Office Visiton 01-20-2024 Follow-up visit [id number] Katelynn Melendrez 1960 F Date Provider Department Center 01/20/2024 [id number] MARIN CARD [facility] Family History Problem Relation Age of Onset Heart disease Mother Comments: Had permanent pacemaker Arrhythmia Father Comments: A-fib Heart disease Father 50 Comments: Had CABG in his 50s Family Status - Relation Status Age at Mother Father Level of Service:90771 LA OFFICE/OUTPATIENT ESTABLISHED MOD MDM 30 MIN Reason for Visit and Comments: Chest Pain [015240] Shortness of Breath [227586] Normal [facility] Outside Colonoscopyon 2023 Outside Colonoscopy [id number] IFF Normal [facility] Reminderson 07-25-2023 Reminders - From: Ginger Young LPN To: N - Clinical; Sent: 07/25/2023 13:55:05 EST Show up: 06/23/2033 07:00:00 EST Subject: colonoscopy recall Due Date/Time: 07/24/2033 07:00:00 EST Reminder/Recall Patient due for screening colonoscopy 07/24/2033. Normal [facility] Insurance Correspondenceon 0 07-18-2023 Insurance Correspondence [id number] IFF [facility] Consent for Procedure/Surger yon 07-17-2023 Consent for Procedure/Surgery [id number] IFF [facility] Facesheeton 07-17-2023 Facesheet [id number] TIFF [facility] Ambulatory Visit Summaryon 0 07-16-2023 [...] for choosing us for your care. Normal [facility] Physician Referralon 024 Physician Referral [id number] IFF Normal [facility] MG MAMM DIAGNOSTIC 3D SERA CA Don 09-26-2022 MG MAMM DIAGNOSTIC 3D SERA CAD Patient: KATELYNN MELENDREZ Exam Date: 09/26/2022 : 1960 Gender:F Ordering : DR AMPARO ROSS . Admission #: [id number] Family : Order #: [id number] CLICK HERE TO VIEW EXAM RADIOLOGY REPORT [...] prostate cancer at age 73. LOCATION: [facility] BREAST COMPOSITION: Heterogeneously dense,which may obscure small [...] MD on 09/26/2022 at 10:00 Normal [facility] CBC AUTO DIFFon 06-26-2022 BASO # 0.0 103/ul Normal 0.0-0.1 [facility] Comment on above: Performed By: #### C MP, LIPID, TSH #### [facility] [address] [address] [address] Jamia Albrecht Basophils/100 WBC (Bld) 0.5 % Normal 0.2-2.0 [facility] Comment on above: Performed By: #### C MP, LIPID, TSH #### [facility] [address] [place] [address] Dr. Jamia Albrecht EO # 0.3 103/ul Normal 0.0-0.7 [facility] Comment on above: Performed By: #### C MP, LIPID, TSH #### [facility] [address] [place] [address] Dr. Jamia Albrecht Eosinophils/100 WBC (Bld) 4.7 % Normal 0.9-7.0 [facility] Comment on above: Performed By: #### C MP, LIPID, TSH #### [facility] [address] [place] [address] Dr. Jamia Albrecht Erythrocyte distribution width (RBC) [Ratio] 14.3 % Normal 11.0-15.0 [facility] Comment on above: Performed By: #### C MP, LIPID, TSH #### [facility] [address] [place] [address] Dr. Jamia Albrecht Hematocrit (Bld) [Volume fraction] 37.5 % Normal 36.0-48.0 [facility] Comment on above: Performed By: #### C MP, LIPID, TSH #### [facility] [address] [place] [address] Dr. Jamia Albrecht Hemoglobin (Bld) [Mass/Vol] 12.1 g/dL Normal 12.0-16.0 [facility] Comment on above: Performed By: #### C MP, LIPID, TSH #### [facility] [address] [place] [address] Dr. Jamia Albrecht IG # 0.01 10e3/ul Normal 0.00-0.03 [facility] Comment on above: Performed By: #### C MP, LIPID, TSH #### [facility] [address] [place] [address] Dr. Jamia Albrecht IG % 0.2 % Normal 0.0-0.5 [facility] Comment on above: Performed By: #### C MP, LIPID, TSH #### [facility] [address] [place] [address] Dr. Jamia Albrecht LYMPH # 1.9 103/ul Normal 1.2-3.8 [facility] Comment on above: Performed By: #### C MP, LIPID, TSH #### [facility] [address] [place] [address] Dr. Jamia Albrecht Lymphocytes/100 WBC (Bld) 34.5 % Normal 20.5-60.0 [facility] Comment on above: Performed By: #### C MP, LIPID, TSH #### [facility] [address] [place] [address] Dr. Jamia Albrecht MANUAL DIFF REQ NO Normal [facility] Comment on above: Performed By: #### C MP, LIPID, TSH #### [facility] [address] [place] [address] Dr. Jamia Albrecht MCH (RBC) [Entitic mass] 26.8 pg Normal 26.7-34.0 [facility] Comment on above: Performed By: #### C MP, LIPID, TSH #### [facility] [address] [place] [address] Dr. Jamia Albrecht MCHC (RBC) [Mass/Vol] 32.3 g/dL Normal 29.9-35.2 [facility] Comment on above: Performed By: #### C MP, LIPID, TSH #### [facility] [address] [place] [address] Dr. Jamia Albrecht MCV (RBC) [Entitic vol] 83.0 fL Normal 81.0-99.0 [facility] Comment on above: Performed By: #### C MP, LIPID, TSH #### [facility] [address] [place] [address] Dr. Jamia Albrecht MONO # 0.4 103/ul Normal 0.3-0.8 [facility] Comment on above: Performed By: #### C MP, LIPID, TSH #### [facility] [address] [place] [address] Dr. Jamia Albrecht Monocytes/100 WBC (Bld) 6.8 % Normal 1.7-12.0 [facility] Comment on above: Performed By: #### C MP, LIPID, TSH #### [facility] [address] [place] [address] Dr. Jamia Albrecht NEUT # 2.9 103/ul Normal 1.4-6.5 [facility] Comment on above: Performed By: #### C MP, LIPID, TSH #### [facility] [address] [address] [address] Jamia Albrecht Neutrophils/100 WBC (Bld) 53.3 % Normal 43.0-75.0 [facility] Comment on above: Performed By: #### C MP, LIPID, TSH #### [facility] [address] [place] [address] Dr. Jamia Albrecht Platelet mean volume (Bld) [Entitic vol] 9.6 fL Normal 9.5-13.5 [facility] Comment on above: Performed By: #### C MP, LIPID, TSH #### [facility] [address] [place] [address] Dr. Jamia Ablrecht PLT 296 103/ul Normal 150-450 [facility] Comment on above: Performed By: #### C MP, LIPID, TSH #### [facility] [address] [place] [address] Dr. Jamia Albrecht RBC 4.52 106/ul Normal 4.20-5.40 [facility] Comment on above: Performed By: #### C MP, LIPID, TSH #### [facility] [address] [place] [address] Dr. Jamia Albrecht WBC 5.5 103/ul Normal 4.0-11.0 [facility] Comment on above: Performed By: #### C MP, LIPID, TSH #### [facility] [address] [place] [address] Dr. Jamia Albrecht GLYCOHEMOGLOBIN A1Con 2022 ADA RECOMMENDATION SEE BELOW Normal [facility] Comment on above: Result Comment: ADA RECOMMENDED LIMIT 4.0 - 6.0 ADA THERAPEUTIC TARGET < 7.0 ACTION SUGGESTED > 7.0 Performed By: #### C MP, LIPID, TSH #### [facility] [address] [place] [address] Dr. Jamia Albrecht Glucose [Mass/Vol] 131 mg/dL Normal [facility] Comment on above: Performed By: #### C MP, LIPID, TSH #### [facility] [address] [address] [address] Jamia Albrecht HbA1c (Bld) [Mass fraction] 6.2 % Normal 4.5-6.2 [facility] Comment on above: Performed By: #### C MP, LIPID, TSH #### [facility] [address] [address] [address] Jamia Albrecht LIPID PROFILEon 06-26-2022 CHOL-HDL RATIO NORM SEE BELOW Normal [facility] Comment on above: Result Comment: 3.3 - 4.4 LOW RISK 4.4 - 7.1 AVERAGE RISK 7.1 - 11.0 MODERATE RISK >11.0 HIGH RISK Performed By: #### C MP, LIPID, TSH #### [facility] [address] [place] [address] Dr. Jamia Albrecht Cholesterol [Mass/Vol] 134 mg/dL Normal <=200 [facility] Comment on above: Performed By: #### C MP, LIPID, TSH #### [facility] [address] [place] [address] Dr. Jamia Albrecht Cholesterol in HDL [Mass/Vol] 58 mg/dL Normal 40-60 [facility] Comment on above: Performed By: #### C MP, LIPID, TSH #### [facility] [address] [place] [address] Dr. Jamia Albrecht Cholesterol in LDL [Mass/Vol] 60.6 mg/dL Normal [facility] Comment on above: Performed By: #### C MP, LIPID, TSH #### [facility] [address] [address] [address] Jamia Albrecht Cholesterol.total/Ch olesterol in HDL [Mass ratio] 2.3 {ratio} Normal [facility] Comment on above: Performed By: #### C MP, LIPID, TSH #### [facility] [address] [place] [address] Dr. Jamia Albrecht HDL NORMAL > or = 60 mg/dl - LO W CARDIOVASCULAR RISK <40 mg/dl - HIGH CARDIOVASCULAR RISK Normal [facility] Comment on above: Performed By: #### C MP, LIPID, TSH #### [facility] [address] [place] [address] Dr. Jamia Albrecht LDL CALC NORMAL SEE BELOW Normal [facility] Comment on above: Result Comment: <100 mg/dl OPTIMAL 100 - 129 mg/dl NEAR OR ABOVE OPTIMAL 130 - 159 mg/dl BORDERLINE HIGH 160 - 189 mg/dl HIGH >190 mg/dl VERY HIGH Performed By: #### C MP, LIPID, TSH #### [facility] [address] [address] [address] Jamia Albrecht Triglyceride [Mass/Vol] 77 mg/dL Normal <=150 [facility] Comment on above: Performed By: #### C MP, LIPID, TSH #### [facility] [address] [place] [address] Dr. Jamia Albrecht VLDL CALC 15.4 mg/dL Normal [facility] Comment on above: Performed By: #### C MP, LIPID, TSH #### [facility] [address] [place] [address] Dr. Jamia Albrecht PROF 14(COMP METB)on 023 Albumin [Mass/Vol] 3.5 g/dL Normal 3.4-5.0 [facility] Comment on above: Performed By: #### C MP, LIPID, TSH #### [facility] [address] [place] [address] Dr. Jamia Albrecht Albumin/Globulin [Mass ratio] 1.0 {ratio} Normal [facility] Comment on above: Performed By: #### C MP, LIPID, TSH #### [facility] [address] [place] [address] Dr. Jamia Albrecht ALP [Catalytic activity/Vol] 104 U/L Normal 46-116 [facility] Comment on above: Performed By: #### C MP, LIPID, TSH #### [facility] [address] [place] [address] Dr. Jamia Albrecht ALT [Catalytic activity/Vol] 30 U/L Normal 14-59 [facility] Comment on above: Performed By: #### C MP, LIPID, TSH #### [facility] [address] [place] [address] Dr. Jamia Albrecht Anion gap [Moles/Vol] 12.5 mmol/L Normal [facility] Comment on above: Performed By: #### C MP, LIPID, TSH #### [facility] [address] [address] [address] Jamia Albrecht AST [Catalytic activity/Vol] 21 U/L Normal 15-37 [facility] Comment on above: Performed By: #### C MP, LIPID, TSH #### [facility] [address] [address] [address] Jamia Albrecht Bilirubin [Mass/Vol] 0.2 mg/dL Normal 0.2-1.0 [facility] Comment on above: Performed By: #### C MP, LIPID, TSH #### [facility] [address] [place] [address] Dr. Jamia Albrecht Calcium [Mass/Vol] 8.8 mg/dL Normal 8.5-10.1 [facility] Comment on above: Performed By: #### C MP, LIPID, TSH #### [facility] [address] [address] [address] Jamia Albrecht Chloride [Moles/Vol] 102 mmol/L Normal 98-107 [facility] Comment on above: Performed By: #### C MP, LIPID, TSH #### [facility] [address] [address] [address] Jamia Albrecht CO2 [Moles/Vol] 28.5 mmol/L Normal 21.0-32.0 [facility] Comment on above: Performed By: #### C MP, LIPID, TSH #### [facility] [address] [place] [address] Dr. Jamia Albrecht Creatinine [Mass/Vol] 0.69 mg/dL Normal 0.55-1.02 [facility] Comment on above: Performed By: #### C MP, LIPID, TSH #### [facility] [address] [address] [address] Jamia Albrecht EGFR-AF MAURITIAN >60 Normal >=60 [facility] Comment on above: Performed By: #### C MP, LIPID, TSH #### [facility] [address] [address] [address] Jamia Albrecht EGFR-NON AF MAURITIAN >60 Normal >=60 [facility] Comment on above: Performed By: #### C MP, LIPID, TSH #### [facility] [address] [address] [address] Jamia Albrecht Globulin (S) [Mass/Vol] 3.5 g/dL Normal [facility] Comment on above: Performed By: #### C MP, LIPID, TSH #### [facility] [address] [address] [address] Jamia Albrecht Glucose [Mass/Vol] 125 mg/dL Critically high 74-106 T [facility] Comment on above: Performed By: #### C MP, LIPID, TSH #### [facility] [address] [place] [address] Dr. Jamia Albrecht Potassium [Moles/Vol] 4.0 mmol/L Normal 3.5-5.1 [facility] Comment on above: Performed By: #### C MP, LIPID, TSH #### [facility] [address] [address] [address] Jamia Albrecht Protein [Mass/Vol] 7.0 g/dL Normal 6.4-8.2 [facility] Comment on above: Performed By: #### C MP, LIPID, TSH #### [facility] [address] [address] [address] Jamia Albrecht Sodium [Moles/Vol] 139 mmol/L Normal 136-145 [facility] Comment on above: Performed By: #### C MP, LIPID, TSH #### [facility] [address] [address] [address] Jamia Albrecht Urea nitrogen [Mass/Vol] 12.0 mg/dL Normal 7.0-18.0 [facility] Comment on above: Performed By: #### C MP, LIPID, TSH #### [facility] [address] [address] [address] Jamia Albrecht Urea nitrogen/Creatinine [Mass ratio] 17.4 mg/mg Normal [facility] Comment on above: Performed By: #### C MP, LIPID, TSH #### [facility] [address] [place], [place] [address] Dr. Jamia Albrecht TSHon 06-26-2022 TSH 2.856 uIU/mL Normal 0.358-3.740 [facility] Comment on above: Performed By: #### C MP, LIPID, TSH #### [facility] [address] [place], [place] [address] Dr. Jamia Albrecht MAMMO POST BIOPSY RIGHTon MAMMO POST BIOPSY RIGHT Patient: KATELYNN MELENDREZ Exam Date: 01/30/2022 : 1960 Gender:F Ordering : DR PIPPA RAY . Admission #: [id number] Family : Order #: [id number] CLICK HERE TO VIEW EXAM This report [...] M.D. on 02/08/2022 at 08:06 Normal [facility] MG STEREO CORE NDL W CLP RTo n 01-30-2022 MG STEREO CORE NDL W CLP RT Patient: KATELYNN MELENDREZ Exam Date: 01/30/2022 : 1960 Gender:F Ordering : DR PIPPA RAY . Admission #: [id number] Family : Order #: [id number] CLICK HERE TO VIEW EXAM This report [...] James M.D. on 02/08/2022 at 08:08 Normal [facility] CHEMISTRYOrdered By: [employer] on 12-26-2021 Creatinine [Mass/Vol] 0.5 mg/dL [...] 11-30-2021 EUA Statement SEE BELOW Normal [facility] Comment on above: Result Comment: This [...] By: #### C MP, LIPID, TSH #### [facility] [address] [place] [address] Dr. Jamia Albrecht SARS-CoV-2 (COVID-19) RNA TONIE+probe Ql (Unsp spec) Positive Critically abnormal NEGATIVE [facility] Comment on above: Performed By: #### C MP, LIPID, TSH #### [facility] [address] [place] [address] Dr. Jamia Albrecht CBC AUTO DIFFon 11-27-2021 BASO # 0.0 103/ul Normal 0.0-0.1 [facility] Comment on above: Performed By: #### C MP, LIPID, TSH #### [facility] [address] [place] [address] Dr. Jamia Albrecht Basophils/100 WBC (Bld) 0.5 % Normal 0.2-2.0 [facility] Comment on above: Performed By: #### C MP, LIPID, TSH #### [facility] [address] [place] [address] Dr. Jamia Albrecht EO # 0.2 103/ul Normal 0.0-0.7 [facility] Comment on above: Performed By: #### C MP, LIPID, TSH #### [facility] [address] [place] [address] Dr. Jamia Albrecht Eosinophils/100 WBC (Bld) 3.7 % Normal 0.9-7.0 [facility] Comment on above: Performed By: #### C MP, LIPID, TSH #### [facility] [address] [place] [address] Dr. Jamia Albrecht Erythrocyte distribution width (RBC) [Ratio] 14.1 % Normal 11.0-15.0 [facility] Comment on above: Performed By: #### C MP, LIPID, TSH #### [facility] [address] [place] [address] Dr. Jamia Albrecht Hematocrit (Bld) [Volume fraction] 39.8 % Normal 36.0-48.0 [facility] Comment on above: Performed By: #### C MP, LIPID, TSH #### [facility] [address] [place] [address] Dr. Jamia Albrecht Hemoglobin (Bld) [Mass/Vol] 12.6 g/dL Normal 12.0-16.0 [facility] Comment on above: Performed By: #### C MP, LIPID, TSH #### [facility] [address] [place] [address] Dr. Jamia Albrecht IG # 0.01 10e3/ul Normal 0.00-0.03 [facility] Comment on above: Performed By: #### C MP, LIPID, TSH #### [facility] [address] [place] [address] Dr. Jamia Albrecht IG % 0.2 % Normal 0.0-0.5 [facility] Comment on above: Performed By: #### C MP, LIPID, TSH #### [facility] [address] [address] [address] Jamia Albrecht LYMPH # 0.7 103/ul Critically low 1.2-3.[address] [facility] Comment on above: Performed By: #### C MP, LIPID, TSH #### [facility] [address] [address] [address] Jamia Albrecht Lymphocytes/100 WBC (Bld) 16.1 % Critically low 20.5-60.0 [facility] Comment on above: Performed By: #### C MP, LIPID, TSH #### [facility] [address] [address] [address] Jamia Albrecht MANUAL DIFF REQ NO Normal [facility] Comment on above: Performed By: #### C MP, LIPID, TSH #### [facility] [address] [place] [address] Dr. Jamia Albrecht MCH (RBC) [Entitic mass] 27.2 pg Normal 26.7-34.0 [facility] Comment on above: Performed By: #### C MP, LIPID, TSH #### [facility] [address] [address] [address] Jamia Albrecht MCHC (RBC) [Mass/Vol] 31.7 g/dL Normal 29.9-35.2 [facility] Comment on above: Performed By: #### C MP, LIPID, TSH #### [facility] [address] [place] [address] Dr. Jamia Albrecht MCV (RBC) [Entitic vol] 86.0 fL Normal 81.0-99.0 [facility] Comment on above: Performed By: #### C MP, LIPID, TSH #### [facility] [address] [place] [address] Dr. Jamia Albrecht MONO # 0.5 103/ul Normal 0.3-0.8 [facility] Comment on above: Performed By: #### C MP, LIPID, TSH #### [facility] [address] [address] [address] Jamia Albrecht Monocytes/100 WBC (Bld) 11.7 % Normal 1.7-12.0 [facility] Comment on above: Performed By: #### C MP, LIPID, TSH #### [facility] [address] [place] [address] Dr. Jamia Albrecht NEUT # 3.0 103/ul Normal 1.4-6.5 [facility] Comment on above: Performed By: #### C MP, LIPID, TSH #### [facility] [address] [place] [address] Dr. aJmia Albrecht Neutrophils/100 WBC (Bld) 67.8 % Normal 43.0-75.0 [facility] Comment on above: Performed By: #### C MP, LIPID, TSH #### [facility] [address] [place] [address] Dr. Jamia Albrecht Platelet mean volume (Bld) [Entitic vol] 9.4 fL Critically low 9.5-13.5 [facility] Comment on above: Performed By: #### C MP, LIPID, TSH #### [facility] [address] [place] [address] Dr. Jamia Albrecht PLT 276 103/ul Normal 150-450 [facility] Comment on above: Performed By: #### C MP, LIPID, TSH #### [facility] [address] [place] [address] Dr. Jamia Albrecht RBC 4.63 106/ul Normal 4.20-5.40 [facility] Comment on above: Performed By: #### C MP, LIPID, TSH #### [facility] [address] [place] [address] Dr. Jamia Albrecht WBC 4.4 103/ul Normal 4.0-11.0 [facility] Comment on above: Performed By: #### C MP, LIPID, TSH #### [facility] [address] [place] [address] Dr. Jaima Albrecht LIPID PROFILEon 11-27-2021 CHOL-HDL RATIO NORM SEE BELOW Normal [facility] Comment on above: Result Comment: 3.3 - 4.4 LOW RISK 4.4 - 7.1 AVERAGE RISK 7.1 - 11.0 MODERATE RISK >11.0 HIGH RISK Performed By: #### C MP, LIPID, TSH #### [facility] [address] [address] [address] Jamia Albrecht Cholesterol [Mass/Vol] 216 mg/dL Critically high <=200 [facility] Comment on above: Performed By: #### C MP, LIPID, TSH #### [facility] [address] [address] [address] Jamia Albrecht Cholesterol in HDL [Mass/Vol] 57 mg/dL Normal 40-60 [facility] Comment on above: Performed By: #### C MP, LIPID, TSH #### [facility] [address] [address] [address] Jamia Albrecht Cholesterol in LDL [Mass/Vol] 134.2 mg/dL Normal [facility] Comment on above: Performed By: #### C MP, LIPID, TSH #### [facility] [address] [address] [address] Jamia Albrecht Cholesterol.total/Ch olesterol in HDL [Mass ratio] 3.8 {ratio} Normal [facility] Comment on above: Performed By: #### C MP, LIPID, TSH #### [facility] [address] [address] [address] Jamia Albrecht HDL NORMAL > or = 60 mg/dl - LO W CARDIOVASCULAR RISK <40 mg/dl - HIGH CARDIOVASCULAR RISK Normal [facility] Comment on above: Performed By: #### C MP, LIPID, TSH #### [facility] [address] [address] [address] Jamia Albrecht LDL CALC NORMAL SEE BELOW Normal [facility] Comment on above: Result Comment: <100 mg/dl OPTIMAL 100 - 129 mg/dl NEAR OR ABOVE OPTIMAL 130 - 159 mg/dl BORDERLINE HIGH 160 - 189 mg/dl HIGH >190 mg/dl VERY HIGH Performed By: #### C MP, LIPID, TSH #### [facility] [address] [address] [address] Jamia Albrecht Triglyceride [Mass/Vol] 124 mg/dL Normal <=150 [facility] Comment on above: Performed By: #### C MP, LIPID, TSH #### [facility] [address] [address] [address] Jamia Albrecht VLDL CALC 24.8 mg/dL Normal [facility] Comment on above: Performed By: #### C MP, LIPID, TSH #### [facility] [address] [address] [address] Jamia Albrecht PROF 14(COMP METB)on 022 Albumin [Mass/Vol] 3.7 g/dL Normal 3.4-5.0 [facility] Comment on above: Performed By: #### C MP, LIPID, TSH #### [facility] [address] [address] [address] Jamia Albrecht Albumin/Globulin [Mass ratio] 1.1 {ratio} Normal [facility] Comment on above: Performed By: #### C MP, LIPID, TSH #### [facility] [address] [place] [address] Dr. Jamia Albrecht ALP [Catalytic activity/Vol] 102 U/L Normal 46-116 [facility] Comment on above: Performed By: #### C MP, LIPID, TSH #### [facility] [address] [place] [address] Dr. Jamia Albrecht ALT [Catalytic activity/Vol] 26 U/L Normal 14-59 [facility] Comment on above: Performed By: #### C MP, LIPID, TSH #### [facility] [address] [address] [address] Jamia Albrecht Anion gap [Moles/Vol] 10.1 mmol/L Normal [facility] Comment on above: Performed By: #### C MP, LIPID, TSH #### [facility] [address] [place] [address] Dr. Jamia Albrecht AST [Catalytic activity/Vol] 19 U/L Normal 15-37 [facility] Comment on above: Performed By: #### C MP, LIPID, TSH #### [facility] [address] [address] [address] Jamia Albrecht Bilirubin [Mass/Vol] 0.3 mg/dL Normal 0.2-1.0 [facility] Comment on above: Performed By: #### C MP, LIPID, TSH #### [facility] [address] [address] [address] Jamia Albrecht Calcium [Mass/Vol] 8.8 mg/dL Normal 8.5-10.1 [facility] Comment on above: Performed By: #### C MP, LIPID, TSH #### [facility] [address] [address] [address] Jamia Albrecht Chloride [Moles/Vol] 103 mmol/L Normal 98-107 [facility] Comment on above: Performed By: #### C MP, LIPID, TSH #### [facility] [address] [address] [address] Jamia Albrecht CO2 [Moles/Vol] 30.4 mmol/L Normal 21.0-32.0 [facility] Comment on above: Performed By: #### C MP, LIPID, TSH #### [facility] [address] [address] [address] Jamia Albrecht Creatinine [Mass/Vol] 0.83 mg/dL Normal 0.55-1.02 [facility] Comment on above: Performed By: #### C MP, LIPID, TSH #### [facility] [address] [place] [address] Dr. Jamia Albrecht EGFR-AF MAURITIAN >=60 Normal >=60 [facility] Comment on above: Performed By: #### C MP, LIPID, TSH #### [facility] [address] [address] [address] Jamia Albrecht EGFR-NON AF MAURITIAN >=60 Normal >=60 [facility] Comment on above: Performed By: #### C MP, LIPID, TSH #### [facility] [address] [address] [address] Jamia Albrecht Globulin (S) [Mass/Vol] 3.4 g/dL Normal [facility] Comment on above: Performed By: #### C MP, LIPID, TSH #### [facility] [address] [address] [address] Jamia Albrecht Glucose [Mass/Vol] 106 mg/dL Normal 74-106 [facility] Comment on above: Performed By: #### C MP, LIPID, TSH #### [facility] [address] [address] [address] Jamia Albrecht Potassium [Moles/Vol] 4.5 mmol/L Normal 3.5-5.1 [facility] Comment on above: Performed By: #### C MP, LIPID, TSH #### [facility] [address] [address] [address] Jamia Albrecht Protein [Mass/Vol] 7.1 g/dL Normal 6.4-8.2 [facility] Comment on above: Performed By: #### C MP, LIPID, TSH #### [facility] [address] [place] [address] Dr. Jamia Albrecht Sodium [Moles/Vol] 139 mmol/L Normal 136-145 [facility] Comment on above: Performed By: #### C MP, LIPID, TSH #### [facility] [address] [place] [address] Dr. Jamia Albrecht Urea nitrogen [Mass/Vol] 10.0 mg/dL Normal 7.0-18.0 [facility] Comment on above: Performed By: #### C MP, LIPID, TSH #### [facility] [address] [place] [address] Dr. Jamia Albrecht Urea nitrogen/Creatinine [Mass ratio] 12.0 mg/mg Normal [facility] Comment on above: Performed By: #### C MP, LIPID, TSH #### [facility] [address] [place] [address] Dr. Jamia Albrecht TSHon 11-27-2021 TSH 1.179 uIU/mL Normal 0.358-3.[address] [facility] Comment on above: Performed By: #### C MP, LIPID, TSH #### [facility] [address] [place] [address] Dr. Jamia Albrecht MG MAMM RT DIAG FUon 022 MG MAMM RT DIAG FU Patient: KATELYNN MELENDREZ Exam Date: 11/10/2021 : 1960 Gender:F Ordering : DR AMPARO ROSS . Admission #: [id number] Family : DR MARTÍNEZ HARRELL . Order #: [id number] CLICK HERE TO VIEW EXAM RADIOLOGY REPORT [...] prostate cancer at age 73. LOCATION: [facility] BREAST COMPOSITION: Heterogeneously dense,which may obscure small [...] MD on 11/10/2021 at 10:24 Normal [facility] US BREAST RIGHT LIMITEDon US BREAST RIGHT LIMITED Patient: KATELYNN MELENDREZ Exam Date: 11/10/2021 : 1960 Gender:F Ordering : DR AMPARO ROSS . Admission #: [id number] Family : DR MARTÍNEZ HARRELL . Order #: [id number] CLICK HERE TO VIEW EXAM RADIOLOGY REPORT [...] prostate cancer at age 73. LOCATION: [facility] BREAST COMPOSITION: Heterogeneously dense,which may obscure small [...] MD on 11/10/2021 at 10:24 Normal [facility] MAMM SCREEN 3D SERA CADon 11-07-2021 MG MAMM SCREEN 3D SERA CAD Patient: KATELYNN MELENDREZOrly Exam Date: 11/07/2021 : 1960 Gender:F Ordering : DR MARTÍNEZ HARRELL . Admission #: [id number] Family : DR AMPARO ROSS . Order #: [id number] CLICK HERE TO VIEW EXAM RADIOLOGY REPORT [...] prostate cancer at age 73. LOCATION: [facility] BREAST COMPOSITION: Heterogeneously dense,which may obscure small [...] MD on 11/07/2021 at 14:30 Normal [facility] DIAGNOSTIC RTon 01-10-20 19 [facility] DIAGNOSTIC RT * * *Final Report* * * * * * SEE BOTTOM OF REPORT FOR ADDENDED TEXT * * * DATE OF EXAM: Jan 09 2019 3:31PM [facility] - [facility] DIAGNOSTIC RT / PROCEDURE REASON: Abnormal ultrasound of breast * * * * Physician Interpretation * * * * RESULT: FINAL REPORT #[id number] - [facility] US BIOPSY BREAST RT #[id number] - [facility] DIAGNOSTIC RT ULTRASOUND GUIDED BIOPSY RIGHT [...] ultrasound, and 01/09/2019 ultrasound - [facility]. An ultrasound guided biopsy [...] location, four passes were made using a Audience biopsy device. A skin closure strip and [...] ultrasound, and 01/09/2019 ultrasound - [facility]. There are scattered [...] necrosis with chronic inflammation and histiocytic reaction. J. Sang Boggs, M.D. The patient was notified of the concordant pathology results by phone on 01/13/2019 by Kathia Casarez RN (Breast imaging navigator). She should return in six months for imaging follow up. Shannen Merino M.D. leigh,madan/aj:01/13/2019 08:09:24 Railroad Operating Engineer(s): RT An(R)(M), [facility] [...] Family Medicine, and Medical/Surgical Oncology, the [facility] has carefully reviewed the data and [...] their providers when to stop screening mammograms. Production Supervisor Trainee: Aj Transcribe Date/Time: Jan 09 2019 2:43P Dictated by : JENNIFER MERINO MD This examination was interpreted and the report reviewed and electronically signed by: SHANNEN LUIS MD on Jan 09 2019 3:56PM EST This document has been addended by: SHANNEN LUIS MD on Jan 13 2019 8:09AM EST [id number] Normal [facility] US BIOPSY BREAST RTon [facility] US BIOPSY BREAST RT * * *Final Report* * * * * * SEE BOTTOM OF REPORT FOR ADDENDED TEXT * * * DATE OF EXAM: Jan 09 2019 3:31PM [facility] [place] - [facility] US BIOPSY BREAST RT / PROCEDURE REASON: Abnormal ultrasound of breast * * * * Physician Interpretation * * * * RESULT: FINAL REPORT #[id number] - [facility] US BIOPSY BREAST RT #[id number] - [facility] DIAGNOSTIC RT ULTRASOUND GUIDED BIOPSY RIGHT [...] ultrasound, and 01/09/2019 ultrasound - [facility] There are scattered fibroglandular elements in right [...] follow up. Shannen Merino M.D. madan/aj:01/13/2019 08:09:24 Railroad Operating Engineer(s): RT An(R)(M), The [facility] Mammogram BI-RADS: Post-procedure mammogram for marker placement [...] Family Medicine, and Medical/Surgical Oncology, the [facility] has carefully reviewed the data and [...] their providers when to stop screening mammograms. Production Supervisor Trainee: Aj Transcribe Date/Time: Jan 09 2019 2:43P Dictated by : JENNIFER MERINO MD This examination was interpreted and the report reviewed and electronically signed by: SHANNEN LUIS MD on Jan 09 2019 3:56PM EST This document has been addended by: SHANNEN LUIS MD on Jan 13 2019 8:09AM EST [id number] Normal [facility] US BREAST LTD RTon 01-09 [facility] Feedtrace BREAST LTD RT * * *Final Report* * * DATE OF EXAM: Jan 09 2019 3:31PM [facility] 0594 - [facility] Feedtrace BREAST LTD RT / PROCEDURE REASON: Lump of right breast * * * * Physician Interpretation * * * * RESULT: #[id number] - [facility] Feedtrace BREAST LTD RT ULTRASOUND OF RIGHT BREAST: [...] is recommended. Shannen Luis M.D., mc/aj:01/09/2019 15:40:59 Railroad Operating Engineer(s): RT An(R)(M), [facility] [place] Ultrasound BI-RADS: 2 Benign finding Multiple national [...] Family Medicine, and Medical/Surgical Oncology, the [facility] has carefully reviewed the data and [...] their providers when to stop screening mammograms. Production Supervisor Trainee: Aj Transcribe Date/Time: Jan 09 2019 2:43P Dictated by : SHANNEN LUIS MD This examination was interpreted and the report reviewed and electronically signed by: SHANNEN LUIS MD on Jan 09 2019 3:40PM EST [id number] Normal [facility] PROGRESSon 01-09-2019 PROGRESS HNO ID: [id number] Author: Victoria Holley Service: ? Author Type: [...] Out: N/A Sign Out Discussion: Completed Normal [facility] PROGRESS HNO ID: [id number] Author: Victoria Holley Service: ? Author Type: [...] MATERIAL: Homegoing instructions REFERRAL (RECOMMENDATION): None Normal [facility] PROGRESS HNO ID: [id number] Author: Victoria Holley Service: ? Author Type: [...] Holley January 09, 2019 3:40 PM Normal [facility] SURGICAL PATHOLOGYon 019 SURGICAL PATHOLOGY Specimen originated from [facility] Specimen #: [id number] Submitting Physician: SHANNEN COLLAZO ([id number]) FINAL DIAGNOSIS [...] Not documented Gross examination performed at [facility], [address] [place] [address] 01/10/2019 2:03:09 AM Date of Report: 01/12/2019 Date of Procedure: 01/09/2019 Date of Receipt: 01/09/2019 Submitted by: SHANNEN COLLAZO ([id number]) Location: A10 Diagnostic interpretation performed at [address] [address]. CLIA Number: [id number] Normal [facility] CNOVon 01-01-2019 CNOV Office Visit (BRCRMN ) KATELYNN MELENDREZ ([id number]) 1960 F Date Time Provider Department 01/01/19 [...] BCP for 10-12 years previously. Never breastfed. BIZTALK SOFTWARE DEVELOPER HISTORY:Obstetric History T0 L2 SAB0 TAB0 Ectopic0 [...] weight loss, malaise or fevers., SEE HPI SEWER AND DRAIN TECHNICIAN: Denies history of stroke, TIAs, seizures, or dementia. No focal symptoms. Denies significant headaches. EENT: Denies changes in hearing or vision. Denies frequent nose bleeds. RESP: Denies dyspnea, chronic cough, Asthma, Bronchitis, COPD, Emphysema, or URI <2 weeks ago. CARD: Patient denies any dyspnea, recent OH, angina, arrhythmias, or valvular disease. GI: Patient [...] known coagulopathy. Denies h/o DVT or PE. LOADING MACHINE ADJUSTER: Negative for abnormal vaginal bleeding, abnormal vaginal [...] Martin Hameed MD Referring Provider: MARTIN LEARY [[id number]] Allergies As of Date: 01/01/2019 (Not on File) Date Reviewed: 09/12/2018 Reviewed by: Martin Leary - Fully Assessed Primary Visit Diagnosis:Posttraumatic hematoma of right breast, initial encounter [S20.01XA] Other Visit Diagnosis:Abnormal mammogram [R92.8] Problem List As Of Date: 01/01/2019 (None) Encounter Status:Closed by MARTIN LEARY MD on 01/11/19 Normal [facility] US BREAST LTD RTon 01-01 [employer] BREAST LTD RT * * *Final Report* * * DATE OF EXAM: Jan 01 2019 3:12PM [facility] 0594 - [employer] BREAST LTD RT / PROCEDURE REASON: Posttraumatic hematoma of right breast, initial encounter * * * * Physician Interpretation * * * * RESULT: #[id number] - [employer] BREAST [place] RT ULTRASOUND OF RIGHT BREAST: 01/01/2019 HISTORY: 3 month follow-up of the right breast. History of previous trauma. RESULT: Comparison is made to exams dated: 09/03/2018 mammogram, 09/03/2018 ultrasound - [facility], and 08/20/2018 ultrasound. Color [...] signed by the patient. Marjorie yao/aj:01/01/2019 15:27:37 Railroad Operating Engineer(s): RT Nhan(R)(M), [facility] [place] Ultrasound BI-RADS: 4 Suspicious finding - Biopsy [...] Family Medicine, and Medical/Surgical Oncology, the [facility] has carefully reviewed the data and [...] their providers when to stop screening mammograms. Production Supervisor Trainee: Aj Transcribe Date/Time: Jan 01 2019 2:47P Dictated by : MARJORIE DOHERTY MD This examination was interpreted and the report reviewed and electronically signed by: MARJORIE DOHERTY MD on Jan 01 2019 3:27PM EST [id number] Normal [facility] PROGRESSon 01-01-2019 PROGRESS HNO ID: [id number] Author: Martin Leary Service: ? Author Type: [...] BCP for 10-12 years previously. Never breastfed. BIZTALK SOFTWARE DEVELOPER HISTORY:Obstetric History T0 L2 SAB0 TAB0 Ectopic0 [...] weight loss, malaise or fevers., SEE HPI SEWER AND DRAIN TECHNICIAN: Denies history of stroke, TIAs, seizures, or dementia. No focal symptoms. Denies significant headaches. EENT: Denies changes in hearing or vision. Denies frequent nose bleeds. RESP: Denies dyspnea, chronic cough, Asthma, Bronchitis, COPD, Emphysema, or URI <2 weeks ago. CARD: Patient denies any dyspnea, recent OH, angina, arrhythmias, or valvular disease. GI: Patient [...] known coagulopathy. Denies h/o DVT or PE. LOADING MACHINE ADJUSTER: Negative for abnormal vaginal bleeding, abnormal vaginal [...] edited as appropriate. Signature: Martin Hameed MD [facility] PROGRESS HNO ID: [id number] Author: Kathia Bourne Mamm-T Service: Radiology Author [...] Bourne Mamm-T January 01, 2019 2:48 PM [facility] CNOVon 09-03-2018 CNOV Office Visit (BRCRMN ) KATELYNN MELENDREZ ([id number]) 1960 F Date Time Provider Department 09/03[facility]18 [facility], we recorded [...] any prior breast problems or breast surgery. BIZTALK SOFTWARE DEVELOPER RELATED HISTORY:Obstetric History T0 L2 SAB0 TAB0 [...] weight loss, malaise or fevers., SEE HPI SEWER AND DRAIN TECHNICIAN: +stroke - 39 yo felt to be due to use of BCP. Denies any residual problem. HEENT: Negative for significant headaches. No changes in hearing or vision. Denies frequent nose bleeds. RESP: +H/O frequent bronchitis CARD: +HTN: Pt reports controlled on Rx. +SVT and has loop monitor embedded in Left chest. Denies h/o DVT or PE. Patient denies any dyspnea, recent OH, angina, or valvular disease, GI: +GERD. Patient [...] No h/o prior transfusion. Denies known coagulopathy. LOADING MACHINE ADJUSTER: Negative for abnormal vaginal bleeding, abnormal vaginal [...] Patient. Excerpts from Breast Imaging Studies RESULT: #[id number] - [facility] DIAGNOSTIC RT #[id number] - [facility] US BREAST LTD RT UNILATERAL RIGHT [...] Leary MD cc: LUKE BOBO [address] [facility] [address] Referring Provider: LUKE BOBO [[id number]] Allergies As of Date: 09/03/2018 (Not on File) Date Reviewed: Never Reviewed Reason for Visit: New Patient [172] Primary Visit Diagnosis:Posttraumatic hematoma of right breast, initial encounter [S20.01XA] Order(s):US BREAST LTD RT [[id number]] Order #: [id number] FUTURE Problem List As Of Date: 09/03/2018 (None) Encounter Status:Closed by MARTIN LEARY MD on 09/12/18 Normal [facility] DIAGNOSTIC RTon 09-04-19 [facility] DIAGNOSTIC RT * * *Final Report* * * DATE OF EXAM: Sep 03 2018 2:29PM [facility] - [facility] DIAGNOSTIC RT / PROCEDURE REASON: Disorder of breast * * * * Physician Interpretation * * * * RESULT: #[id number] - [facility] DIAGNOSTIC RT #[id number] - [facility] US BREAST LTD RT UNILATERAL RIGHT [...] Family Medicine, and Medical/Surgical Oncology, the [facility] has carefully reviewed the data and [...] their providers when to stop screening mammograms. Railroad Operating Engineer(s): RT Nhan(R)(M), [facility] OVERALL STUDY BIRADS: 3 Probably benign finding - short term interval follow-up recommended Production Supervisor Trainee: Aj Transcribe Date/Time: Sep 03 2018 2:29P Dictated by : MARJORIE DOHERTY MD This examination was interpreted and the report reviewed and electronically signed by: MARJORIE DOHERTY MD on Sep 03 2018 4:07PM EST [id number] Normal [facility] US BREAST LTD RTon 09-03 [facility] US BREAST LTD RT * * *Final Report* * * DATE OF EXAM: Sep 03 2018 2:50PM [facility] 0594 - [facility] US BREAST LTD RT / PROCEDURE REASON: Disorder of breast * * * * Physician Interpretation * * * * RESULT: #[id number] - [facility] DIAGNOSTIC RT #[id number] - [facility] US BREAST LTD RT UNILATERAL RIGHT [...] Family Medicine, and Medical/Surgical Oncology, the [facility] has carefully reviewed the data and [...] their providers when to stop screening mammograms. Railroad Operating Engineer(s): RT Nhan(R)(M), [facility] OVERALL STUDY BIRADS: 3 Probably benign finding - short term interval follow-up recommended Production Supervisor Trainee: Aj Transcribe Date/Time: Sep 03 2018 2:29P Dictated by : MARJORIE DOHERTY MD This examination was interpreted and the report reviewed and electronically signed by: MARJORIE DOHERTY MD on Sep 03 2018 4:07PM EST [id number] Normal [facility] PROGRESSon 09-03-2018 PROGRESS HNO ID: [id number] Author: Martin Leary Service: ? Author Type: [...] any prior breast problems or breast surgery. BIZTALK SOFTWARE DEVELOPER RELATED HISTORY:Obstetric History T0 L2 SAB0 TAB0 [...] weight loss, malaise or fevers., SEE HPI SEWER AND DRAIN TECHNICIAN: +stroke - 39 yo felt to be due to use of BCP. Denies any residual problem. HEENT: Negative for significant headaches. No changes in hearing or vision. Denies frequent nose bleeds. RESP: +H/O frequent bronchitis CARD: +HTN: Pt reports controlled on Rx. +SVT and has loop monitor embedded in Left chest. Denies h/o DVT or PE. Patient denies any dyspnea, recent OH, angina, or valvular disease, GI: +GERD. Patient [...] No h/o prior transfusion. Denies known coagulopathy. LOADING MACHINE ADJUSTER: Negative for abnormal vaginal bleeding, abnormal vaginal [...] Patient. Excerpts from Breast Imaging Studies RESULT: #[id number] - [facility] DIAGNOSTIC RT #[id number] - [facility] US BREAST LTD RT UNILATERAL RIGHT [...] Martin Leary MD cc: LUKE BOBO [address] [address] Normal [facility] US OUTSIDE CD DICOM IMPORT - NBNRon 08-20-2018 US OUTSIDE CD DICOM IMPORT -NBNR Images were obtained outside of [facility] [id number] Normal [facility] Vital Signs Date Time Vital Sign Value Performing Clinician Ludwin cain 07-16-2023 14:58-0500 Blood Pressure Location [facility] 07-16-2023 14:58-0500 Diastolic blood pressure 84 mm[Hg] Pippa NILL [facility] 07-16-2023 14:58-0500 Heart rate 76 /min [facility] 07-16-2023 14:58-0500 Respiratory rate 16 /min [facility] 07-16-2023 14:58-0500 Systolic blood pressure 126 mm[Hg] [employer] [facility] 11-21-2021 09:32-0400 Diastolic blood pressure 72 mm[Hg] [employer] [facility] 11-21-2021 09:32-0400 Mean blood pressure 87 mm[Hg] Pippa NILL [facility] 11-21-2021 09:32-0400 Systolic blood pressure 116 mm[Hg] Pippa NILL [facility] 11-21-2021 08:46-0400 Blood Pressure Location Pippa NILL [facility] 11-21-2021 08:46-0400 Diastolic blood pressure 78 mm[Hg] Pippa NILL [facility] 11-21-2021 08:46-0400 Heart rate 52 /min Pippa NILL [facility] 11-21-2021 08:46-0400 Respiratory rate 16 /min Pippa NILL [facility] 11-21-2021 08:46-0400 Systolic blood pressure 161 mm[Hg] Pippa NILL [facility] Encounters Encounter Date Encounter Type Care Provider Facility Start: 01-20-2024 End: 01-20-2024 ambulatory [facility] Start: 07-24-2023 End: 07-25-2023 ambulatory Pippa R NILL Facility:CD:[id number] Start: 07-16-2023 End: 07-17-2023 ambulatory Pippa R NILL Facility:[facility] Start: 07-16-2023 End: 07-16-2023 Patient encounter procedure Pippa RAY [facility] Start: 09-26-2022 End: 09-27-[address] AMPARO ROSS . Facility:[facility] Start: 06-27-2022 Encounter for genera l adult medical examination without abnormal findings DR AMPARO ROSS . [facility] Start: 06-26-2022 End: 06-27-[address] AMPARO [...] Patient encounter procedure Pippa RAY [facility] Start: 12-13-2021 ambulatory KYLE MALONEY Facility:[facility] Start: 11-30-2021 End: 11-30-2021 ambulatory LUKE BOBO Facility:[facility] Start: 11-27-2021 End: 11-28-[address] AMPARO ROSS . Facility:[facility] Start: 11-21-2021 End: 11-21-2021 Patient encounter procedure Pippa RAY [facility] Start: 11-10-2021 End: 11-11-[address] AMPARO ROSS . Facility:[facility] Start: 11-07-2021 End: 11-08-[address] AMPARO ROSS . Facility:[facility] Procedures Date Procedure Procedure Detail Performing Clinician Start: 01-30-2022 Stereotactically w[place]y ded core needle biopsy of breast Pippa SANZL Start: 06-03-2018 Biopsy of breast Michae alyson SANZL Start: 09-29-2009 Stereotactically wendy ded core needle biopsy of breast Pippa SANZL Decompression of median nerve Pippa NILL Excision of lumbar intervertebral disc Pippa NILL Open reduction of fr acture of ankle with internal fixation Pippa NILL Repair of right ingu inal hernia Pippa NILL Total hysterectomy v ia vaginal approach Pippa NILL Immunizations Immunization Date Immunization Notes Care Provider [facility] 03-03-2023 influenza virus vaccine, unspecified formulation Pippa SANZL [facility] [place] 04-03-2022 SARS-CoV-2 (COVID-19 ) mRNA-1273 vaccine Pippa SANZL [facility] [place] 03-24-2021 SARS-CoV-2 (COVID-19 ) mRNA-1273 vaccine Pippa SANZL [facility] [place] 06-30-2020 SARS-CoV-2 (COVID-19 ) mRNA-1273 vaccine Pippa SANZL [facility] [place] 06-01-2020 SARS-CoV-2 (COVID-19 ) mRNA-1273 vaccine Pippa NILL [facility] [place] Payers Date Payer Category Payer Unknown [id number] 2019 Unknown [id number] 1960 Unknown [id number] 2.16.84 0.1.295537.3.579.2.593 1961 Unknown [id number] 2.16.84 0.1.434066.3.579.2.593 1961 Unknown [id number] 2.16.84 0.1.636201.3.579.2.593 1961 Unknown [id number] 2.16.84 0.1.498945.3.579.2.593 1961 Unknown [id number] 2.16.84 0.1.085336.3.579.2.593 1961 Unknown [id number] 2.16.84 0.1.076861.3.579.2.593 1961 Unknown [id number] 2.16.84 0.1.237251.3.579.2.593 1961 Unknown [id number] 2.16.84 0.1.465868.3.579.2.593 1961 Unknown [id number] 2.16.84 0.1.124051.3.579.2.593 1961 Unknown [id number] 2.16.8 40.1.542768.3.579.2.727 1961 Unknown [id number] 2.16.8 40.1.156189.3.579.2.727 1959 Self-pay [id number] Unknown [id number] 2.16.84 0.1.387107.3.579.2.593 Social History Date Type Detail Facility Start: 11-21-2021 End: 07-16-2023 Tobacco smoking status Never smoked tobacco (finding) [facility] Tobacco smoking status Never [facility] Sex Assigned At Female [facility] Functional Status Date Assessment Result Facility 07-16-2023 Functional Status N/A [facility] 11-21-2021 Functional Status N/A [facility] General Surgery [place] Progress note 01-20-2024 Note Date & Type Note Facility 01-20-2024 Note [place] [facility] - [facility] Subjective Katelynn Melendrez is a 63 y.o. year old female [...] edema. 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 [facility] Clinical Note 07-16-2023 Note Date [...] Never (less than (more content not included)... [facility] Comment on above: Result Comment: Elec tronically Signed By: ROBBIN CASTRO, Pippa Jenkins\Date and Time Signed: 07/16/23 15:21 EST Evaluation + Plan note Radiology Note Date & Type Note Facility Evaluation + Plan note Future Appointments Appointment Date:12/26/2021 01:00:00 PM Scheduled Provider: Location:[facility].MRI Appointment Type:MRI Breast ([facility]) Future Scheduled TestsMRI Breast w/o and w/ Contrast, Bilat 12/26/21 [facility] General [facility] course Narrative Note Date & Type Note Facility Hospital course Narrative No data available for this section [facility] Hospital Discharge instructions Note Date & Type Note Facility Hospital Discharge instructions No data available for this section [facility] Progress note Note Date & Type Note Facility Progress note No data available for this section [facility] Summary Purpose Family History No Family History Records FoundNo Family History Records Found No data available for this section No Family History Records FoundNo Family History Records Found Advance Directives No Advanced Directives Records FoundNo Advanced Directives Records FoundNo Advanced Directives Records FoundNo Advanced Directives Records Found Additional Source Comments INFORMATION SOURCE (unrecogn ized section and content) DATE CREATED AUTHOR 01/13/2019 [facility] DATE CREATED AUTHOR AUTHOR'S ORGANIZ ATION 09/29/2022 [facility] DATE CREATED AUTHOR AUTHOR'S ORGANIZ ATION 08/02/2023 [facility] DATE CREATED AUTHOR AUTHOR'S ORGANIZ ATION 03/08/2024 [facility] Care Team (unrecognized sect ion and content) Personnel Name: Amparo Ross MD Address: [address] [place] [address] Personnel Name: Amparo Ross MD Address: [address] [place] [address] Personnel Name: Amparo Ross MD Address: [address] [place] [address] Personnel Name: Amparo Ross MD Address: Address: [address] [place] [address] FOR RECORDS PERTAINING TO PATIENTS WHO ARE [...] BE BASED ON THE PRIMARY CLINICAL RECORDS. [employer] provides no warranty or guarantee of the accuracy or completeness of information in this document.
== END 2024-03-09 13:46 | disposition home or self-care (01) ==
LOC: CARD 13:46
PROVIDERS: PCP Family Medicine; Visit Provider Internal Medicine Cardiovascular Disease
DX: R07.89 Other chest pain (principal); R06.09 Other forms of dyspnea
CPT/HCPCS: 93306

== ENCOUNTER 2024-10-12 08:41 | Outpatient (OUT) | payer BC, SELFPAY ==
--- OUTSIDE RECORDS SUMMARY | 2024-10-12 08:48 | XMS_ITS | CCD ---
Author Organization [facility] Care Team Providers Care Tennis Professional Name Role Phone Amparo Ross Primary Care Physician [phone] CHRISTENSEN Consulting Unavailable HOY [...] RAY Attending Unavailable BOSSMAN MARIN Attending Unavailable BOSSMAN MARIN Attending Unavailable BOSSMAN MARIN Attending Unavailable Allergies Allergy Classification Reported Allergen(s) Allergy Type Date of Onset Reaction(s) Facility (6 sources) HYDROmorphone; Translations: [hydromorphone] Drug Allergy 4 Itching (finding) [facility] (5 sources) Penicillin; Translations: [penicillin] Drug Allergy Unknown (qualifier value), Weal (disorder) [facility] (2 sources) HYDROmorphone Drug Allergy 5 [facility] Rep[facility] (3 sources) Penicillins; Translations: [PENICILLINS] Drug allergy (disorder) 4 [facility] Medications Current Medications Medication Drug Class(es) [...] 3 11-17-2021 Chronic Disorders of lipid metabolism (7 sources) Pure hypercholesterolemia; Translations: [Mixed hyperlipidemia] Onset: 2 11-17-2021 Chronic Heart valve disorders (6 sources) Aortic valve regurgitation; Translations: [Nonrheumatic aortic (valve) insufficiency] Onset: 4 11-17-2021 Chronic Mood disorders (4 sources) Depressive [...] Unclassified (2 sources) Patient encounter status 06-27-2023 Unclassified (2 sources) 6 month follow up Onset: 5 Unclassified (1 source) Supraventricular tachycardia, unspecified; Translations: [Supraventricular tachycardia, unspecified] Onset: 4 Viral infection (1 source) COVID-19; Translations: [COVID-19] Onset: 2 Past or Other Problems Problem Classification Problem Date Documented Date Episodic/Chronic Cardiac dysrhythmias (4 sources) Palpitations; Translations: [PALPITATIONS] Onset: 11-27-2021 Episodic Nonspecific chest pain (4 sources) Precordial pain; Translations: [Chest pain, unspecified] Onset: 01-20-2024 Episodic Other circulatory disease (2 sources) Personal history of transient ischemic attack (TIA), and cerebral infarction without residual deficits; Translations: [Personal history of transient ischemic attack (TIA), and cerebral infarction without residual deficits] Onset: 12-12-2022 Episodic Other lower respiratory disease (2 sources) Other forms of dyspnea; Translations: [Other forms of dyspnea] Onset: 01-20-2024 Episodic Residual codes; unclassified (1 source) Family history of malignant neoplasm of prostate; Translations: [FAMILY HX MALIG NEOPLASM PROSTATE] Onset: 11-10-2021 Episodic Residual codes; unclassified (1 source) Family history of malignant neoplasm of other organs or systems; Translations: [FAM HX MALIG NEOPLASM OTH ORGN/SYS] Onset: 11-10-2021 Episodic Unclassified (1 source) CONTACT W/AND (SUSP) EXPOS COVID-19; Translations: [CONTACT W/AND (SUSP) EXPOS COVID-19] Onset: 11-30-2021 Unclassified (1 source) Supraventricular tachycardia, unspecified; Translations: [Supraventricular tachycardia, unspecified] Onset: 03-23-2024 Results Test Name Value Interpretation Reference Range Facility Office Visiton 09-21-2024 Follow-up visit [id number] Katelynn Melendrez 1960 F Date Provider Department Center 09/21/2024 [id number] MARIN ROZINA [facility] Family History Problem Relation Age of Onset Heart disease Mother Comments: Had permanent pacemaker Arrhythmia Father Comments: A-fib Heart disease Father 50 Comments: Had CABG in his 50s Family Status - Relation Status Age at Mother Father Sister Alive Brother Alive Level of Service:63073 MD OFFICE/OUTPATIENT ESTABLISHED MOD MDM 30 MIN Reason for Visit and Comments: 6 month follow up [Other] Normal [facility] Office Visiton 03-23-2024 Follow-up visit [id number] Chano Melendrezfrederick Daigle 1960 F Date Provider Department Center 03/23/2024 BOSSMAN HAWTHORNE Family History Problem Relation Age of Onset Heart disease Mother Comments: Had permanent pacemaker Arrhythmia Father Comments: A-fib Heart disease Father 50 Comments: Had CABG in his 50s Family Status - Relation Status Age at Mother Father Level of Service:84680 MD OFFICE/OUTPATIENT ESTABLISHED MOD MDM 30 MIN Reason for Visit and Comments: follow up echo [Other] [facility] 36on 03-06-2024 36 Regarding stress jeff t result from 02/12/2024: MD Desi De La Vega MA Please inform patient that her stress test is normal at good level of exercise. Patient made aware via text message. Waiting on echo results. Normal [facility] Office Visiton 01-20-2024 Follow-up visit [id number] Chano Melendrezfrederick Daigle 1960 F Date Provider Department Center 01/20/2024 BOSSMAN HAWTHORNE Family History Problem Relation Age of Onset Heart disease Mother Comments: Had permanent pacemaker Arrhythmia Father Comments: A-fib Heart disease Father 50 Comments: Had CABG in his 50s Family Status - Relation Status Age at Mother Father Level of Service:50199 MD OFFICE/OUTPATIENT ESTABLISHED MOD MDM 30 MIN Reason for Visit and Comments: Chest Pain [701254] Shortness of Breath [595856] [facility] Outside Colonoscopyon 2023 Outside Colonoscopy [id number] IFF [facility] Reminderson 07-25-2023 Reminders - From: Ginger Young LPN To: N - Clinical; Sent: 07/25/2023 13:55:05 EST Show up: 06/23/2033 07:00:00 EST Subject: colonoscopy recall Due Date/Time: 07/24/2033 07:00:00 EST Reminder/Recall Patient due for screening colonoscopy 07/24/2033. Normal [facility] Insurance Correspondenceon 0 07-18-2023 Insurance Correspondence [id number] IFF Normal [facility] Consent for Procedure/Surger yon 07-17-2023 Consent for Procedure/Surgery [id number] IFF Normal [facility] Facesheeton 07-17-2023 Facesheet [id number] TIFF Normal [facility] Ambulatory Visit Summaryon 0 07-16-2023 Ambulatory Visit Summary KATELYNN MELENDREZ :1960 Visit Date:07/16/2023 Ambulatory Visit Instructions Your Care Team Attending Physician - ROBBIN CASTRO, Pippa Moreno Primary Care Physician - Amparo Ross MD Referring Physician - Amparo Ross MD This [...] for choosing us for your care. Normal [facility] Physician Referralon 024 Physician Referral [id number] IFF Normal [facility] MG MAMM DIAGNOSTIC 3D SERA CA Don 09-26-2022 MG MAMM DIAGNOSTIC 3D SERA CAD Patient: KATELYNN MELENDREZ Exam Date: 09/26/2022 : 1960 Gender:F Ordering : DR AMPARO ROSS . Admission #: [id number] Family : Order #: [id number] CLICK HERE TO VIEW EXAM RADIOLOGY REPORT [...] prostate cancer at age 73. LOCATION: [facility] BREAST COMPOSITION: Heterogeneously dense,which may obscure small [...] MD on 09/26/2022 at 10:00 Normal [facility] CBC AUTO DIFFon 06-26-2022 BASO # 0.0 103/ul Normal 0.0-0.1 [facility] Comment on above: Performed By: #### C MP, LIPID, TSH #### [facility] [address] [address] [address] Jamia Albrecht Basophils/100 WBC (Bld) 0.5 % Normal 0.2-2.0 [facility] Comment on above: Performed By: #### C MP, LIPID, TSH #### [facility] [address] [address] [address] Jamia Albrecht EO # 0.3 103/ul Normal 0.0-0.7 [facility] Comment on above: Performed By: #### C MP, LIPID, TSH #### [facility] [address] [place] [address] Dr. Jamia Albrecht Eosinophils/100 WBC (Bld) 4.7 % Normal 0.9-7.0 [facility] Comment on above: Performed By: #### C MP, LIPID, TSH #### [facility] [address] [place] [address] Dr. Jamia Albrecht Erythrocyte distribution width (RBC) [Ratio] 14.3 % Normal 11.0-15.0 [facility] Comment on above: Performed By: #### C MP, LIPID, TSH #### [facility] [address] [place] [address] Dr. Jamia Albrecht Hematocrit (Bld) [Volume fraction] 37.5 % Normal 36.0-48.0 [facility] Comment on above: Performed By: #### C MP, LIPID, TSH #### [facility] [address] [place] [address] Dr. Jamia Albrecht Hemoglobin (Bld) [Mass/Vol] 12.1 g/dL Normal 12.0-16.0 [facility] Comment on above: Performed By: #### C MP, LIPID, TSH #### [facility] [address] [place] [address] Dr. Jamia Albrecht IG # 0.01 10e3/ul Normal 0.00-0.03 [facility] Comment on above: Performed By: #### C MP, LIPID, TSH #### [facility] [address] [place] [address] Dr. Jamia Albrecht IG % 0.2 % Normal 0.0-0.5 [facility] Comment on above: Performed By: #### C MP, LIPID, TSH #### [facility] [address] [place] [address] Dr. Jamia Albrecht LYMPH # 1.9 103/ul Normal 1.2-3.8 [facility] Comment on above: Performed By: #### C MP, LIPID, TSH #### [facility] [address] [place] [address] Dr. Jamia Albrecht Lymphocytes/100 WBC (Bld) 34.5 % Normal 20.5-60.0 [facility] Comment on above: Performed By: #### C MP, LIPID, TSH #### [facility] [address] [place] [address] Dr. Jamia Albrecht MANUAL DIFF REQ NO Normal [facility] Comment on above: Performed By: #### C MP, LIPID, TSH #### [facility] [address] [place] [address] Dr. Jamia Albrecht MCH (RBC) [Entitic mass] 26.8 pg Normal 26.7-34.0 [facility] Comment on above: Performed By: #### C MP, LIPID, TSH #### [facility] [address] [place] [address] Dr. Jamia Albrecht MCHC (RBC) [Mass/Vol] 32.3 g/dL Normal 29.9-35.2 [facility] Comment on above: Performed By: #### C MP, LIPID, TSH #### [facility] [address] [place] [address] Dr. Jamia Albrecht MCV (RBC) [Entitic vol] 83.0 fL Normal 81.0-99.0 [facility] Comment on above: Performed By: #### C MP, LIPID, TSH #### [facility] [address] [place] [address] Dr. Jamia Albrecht MONO # 0.4 103/ul Normal 0.3-0.8 [facility] Comment on above: Performed By: #### C MP, LIPID, TSH #### [facility] [address] [place] [address] Dr. Jamia Albrecht Monocytes/100 WBC (Bld) 6.8 % Normal 1.7-12.0 [facility] Comment on above: Performed By: #### C MP, LIPID, TSH #### [facility] [address] [place] [address] Dr. Jamia Albrecht NEUT # 2.9 103/ul Normal 1.4-6.5 [facility] Comment on above: Performed By: #### C MP, LIPID, TSH #### [facility] [address] [address] [address] Jamia Albrecht Neutrophils/100 WBC (Bld) 53.3 % Normal 43.0-75.0 [facility] Comment on above: Performed By: #### C MP, LIPID, TSH #### [facility] [address] [address] [address] Jamia Albrecht Platelet mean volume (Bld) [Entitic vol] 9.6 fL Normal 9.5-13.5 [facility] Comment on above: Performed By: #### C MP, LIPID, TSH #### [facility] [address] [address] [address] Jamia Albrecht PLT 296 103/ul Normal 150-450 [facility] Comment on above: Performed By: #### C MP, LIPID, TSH #### [facility] [address] [place] [address] Dr. Jamia Albrecht RBC 4.52 106/ul Normal 4.20-5.40 [facility] Comment on above: Performed By: #### C MP, LIPID, TSH #### [facility] [address] [place] [address] Dr. Jamia Albrecht WBC 5.5 103/ul Normal 4.0-11.0 [facility] Comment on above: Performed By: #### C MP, LIPID, TSH #### [facility] [address] [place] [address] Dr. Jamia Albrecht GLYCOHEMOGLOBIN A1Con 2022 ADA RECOMMENDATION SEE BELOW Normal [facility] Comment on above: Result Comment: ADA RECOMMENDED LIMIT 4.0 - 6.0 ADA THERAPEUTIC TARGET < 7.0 ACTION SUGGESTED > 7.0 Performed By: #### C MP, LIPID, TSH #### [facility] [address] [place] [address] Dr. Jamia Albrecht Glucose [Mass/Vol] 131 mg/dL Normal [facility] Comment on above: Performed By: #### C MP, LIPID, TSH #### [facility] [address] [place] [address] Dr. Jamia Albrecht HbA1c (Bld) [Mass fraction] 6.2 % Normal 4.5-6.2 [facility] Comment on above: Performed By: #### C MP, LIPID, TSH #### [facility] [address] [address] [address] Jamia Albrecht LIPID PROFILEon 06-26-2022 CHOL-HDL RATIO NORM SEE BELOW Normal [facility] Comment on above: Result Comment: 3.3 - 4.4 LOW RISK 4.4 - 7.1 AVERAGE RISK 7.1 - 11.0 MODERATE RISK >11.0 HIGH RISK Performed By: #### C MP, LIPID, TSH #### [facility] [address] [address] [address] Jamia Albrecht Cholesterol [Mass/Vol] 134 mg/dL Normal <=200 [facility] Comment on above: Performed By: #### C MP, LIPID, TSH #### [facility] [address] [address] [address] Jamia Albrecht Cholesterol in HDL [Mass/Vol] 58 mg/dL Normal 40-60 [facility] Comment on above: Performed By: #### C MP, LIPID, TSH #### [facility] [address] [address] [address] Jamia Albrecht Cholesterol in LDL [Mass/Vol] 60.6 mg/dL Normal [facility] Comment on above: Performed By: #### C MP, LIPID, TSH #### [facility] [address] [address] [address] Jamia Albrecht Cholesterol.total/Ch olesterol in HDL [Mass ratio] 2.3 {ratio} Normal [facility] Comment on above: Performed By: #### C MP, LIPID, TSH #### [facility] [address] [address] [address] Jamia Albrecht HDL NORMAL > or = 60 mg/dl - LO W CARDIOVASCULAR RISK <40 mg/dl - HIGH CARDIOVASCULAR RISK Normal [facility] Comment on above: Performed By: #### C MP, LIPID, TSH #### [facility] [address] [address] [address] Jamia Albrecht LDL CALC NORMAL SEE BELOW Normal [facility] Comment on above: Result Comment: <100 mg/dl OPTIMAL 100 - 129 mg/dl NEAR OR ABOVE OPTIMAL 130 - 159 mg/dl BORDERLINE HIGH 160 - 189 mg/dl HIGH >190 mg/dl VERY HIGH Performed By: #### C MP, LIPID, TSH #### [facility] [address] [address] [address] Jamia Albrecht Triglyceride [Mass/Vol] 77 mg/dL Normal <=150 [facility] Comment on above: Performed By: #### C MP, LIPID, TSH #### [facility] [address] [address] [address] Jamia Albrecht VLDL CALC 15.4 mg/dL Normal [facility] Comment on above: Performed By: #### C MP, LIPID, TSH #### [facility] [address] [place] [address] Dr. Jamia Albrecht PROF 14(COMP METB)on 023 Albumin [Mass/Vol] 3.5 g/dL Normal 3.4-5.0 [facility] Comment on above: Performed By: #### C MP, LIPID, TSH #### [facility] [address] [address] [address] Jamia Albrecht Albumin/Globulin [Mass ratio] 1.0 {ratio} Normal [facility] Comment on above: Performed By: #### C MP, LIPID, TSH #### [facility] [address] [place] [address] Dr. Jamia Albrecht ALP [Catalytic activity/Vol] 104 U/L Normal 46-116 [facility] Comment on above: Performed By: #### C MP, LIPID, TSH #### [facility] [address] [address] [address] Jamia Albrecht ALT [Catalytic activity/Vol] 30 U/L Normal 14-59 [facility] Comment on above: Performed By: #### C MP, LIPID, TSH #### [facility] [address] [address] [address] Jamia Albrecht Anion gap [Moles/Vol] 12.5 mmol/L Normal [facility] Comment on above: Performed By: #### C MP, LIPID, TSH #### [facility] [address] [address] [address] Jamia Albrecht AST [Catalytic activity/Vol] 21 U/L Normal 15-37 [facility] Comment on above: Performed By: #### C MP, LIPID, TSH #### [facility] [address] [address] [address] Jamia Albrecht Bilirubin [Mass/Vol] 0.2 mg/dL Normal 0.2-1.0 [facility] Comment on above: Performed By: #### C MP, LIPID, TSH #### [facility] [address] [address] [address] Jamia Albrecht Calcium [Mass/Vol] 8.8 mg/dL Normal 8.5-10.1 [facility] Comment on above: Performed By: #### C MP, LIPID, TSH #### [facility] [address] [place] [address] Dr. Jamia Albrecht Chloride [Moles/Vol] 102 mmol/L Normal 98-107 [facility] Comment on above: Performed By: #### C MP, LIPID, TSH #### [facility] [address] [address] [address] Jamia Albrecht CO2 [Moles/Vol] 28.5 mmol/L Normal 21.0-32.0 [facility] Comment on above: Performed By: #### C MP, LIPID, TSH #### [facility] [address] [address] [address] Jamia Albrecht Creatinine [Mass/Vol] 0.69 mg/dL Normal 0.55-1.02 [facility] Comment on above: Performed By: #### C MP, LIPID, TSH #### [facility] [address] [address] [address] Jamia Albrecht EGFR-AF BELIZEAN >60 Normal >=60 [facility] Comment on above: Performed By: #### C MP, LIPID, TSH #### [facility] [address] [place] [address] Dr. Jamia Albrecht EGFR-NON AF BELIZEAN >60 Normal >=60 [facility] Comment on above: Performed By: #### C MP, LIPID, TSH #### [facility] [address] [address] [address] Jamia Albrecht Globulin (S) [Mass/Vol] 3.5 g/dL Normal [facility] Comment on above: Performed By: #### C MP, LIPID, TSH #### [facility] [address] [place] [address] Dr. Jamia Albrecht Glucose [Mass/Vol] 125 mg/dL Critically high 74-106 [facility] Comment on above: Performed By: #### C MP, LIPID, TSH #### [facility] [address] [place] [address] Dr. Jamia Albrecht Potassium [Moles/Vol] 4.0 mmol/L Normal 3.5-5.1 [facility] Comment on above: Performed By: #### C MP, LIPID, TSH #### [facility] [address] [place] [address] Dr. Jamia Albrecht Protein [Mass/Vol] 7.0 g/dL Normal 6.4-8.2 [facility] Comment on above: Performed By: #### C MP, LIPID, TSH #### [facility] [address] [place] [address] Dr. Jamia Albrecht Sodium [Moles/Vol] 139 mmol/L Normal 136-145 [facility] Comment on above: Performed By: #### C MP, LIPID, TSH #### [facility] [address] [place] [address] Dr. Jamia Albrecht Urea nitrogen [Mass/Vol] 12.0 mg/dL Normal 7.0-18.0 [facility] Comment on above: Performed By: #### C MP, LIPID, TSH #### [facility] [address] [place] [address] Dr. Jamia Albrecht Urea nitrogen/Creatinine [Mass ratio] 17.4 mg/mg Normal [facility] Comment on above: Performed By: #### C MP, LIPID, TSH #### [facility] [address] [place] [address] Dr. Jamia Albrecht TSHon 06-26-2022 TSH 2.856 uIU/mL Normal 0.358-3.740 [facility] Comment on above: Performed By: #### C MP, LIPID, TSH #### [facility] [id number] Jamia Albrecht MAMMO POST BIOPSY RIGHTon MAMMO POST BIOPSY RIGHT Patient: KATELYNN MELENDREZ Exam Date: 01/30/2022 : 1960 Gender:F Ordering : DR PIPPA RAY . Admission #: [id number] Family : Order #: [id number] CLICK HERE TO VIEW EXAM This report [...] on 02/08/2022 at 08:06 Normal [facility] MG STEREO CORE NDL W CLP RTo n 01-30-2022 MG STEREO CORE NDL W CLP RT Patient: KATELYNN MELENDREZ Exam Date: 01/30/2022 : 1960 Gender:F Ordering : DR PIPPA RAY . Admission #: [id number] Family : Order #: [id number] CLICK HERE TO VIEW EXAM This report [...] on 02/08/2022 at 08:08 Normal [facility] CHEMISTRYOrdered By: SYSTEM SYSTEM on 12-26-2021 Creatinine [Mass/Vol] 0.5 mg/dL Normal 0.5 - 1.3 mg/dL [facility] Remisol GFR/1.73 sq M.predicted among blacks MDRD (S/P/Bld) [Vol rate/Area] mL/min/1.73 m2 Normal >=59mL/min/1 .73 m2 [facility] Chem S GFR/1.73 sq M.predicted among non-blacks MDRD (S/P/Bld) [Vol rate/Area] mL/min/1.73 m2 Normal >=59mL/min/1 .73 m2 [facility] Chem S SYMPTOMATIC COVID-19 ANTIGEN on 11-30-2021 EUA Statement SEE BELOW Normal [facility] Comment on above: Result Comment: This [...] By: #### C MP, LIPID, TSH #### [facility] [address] [place] [address] Dr. Jamia Albrecht SARS-CoV-2 (COVID-19) RNA TONIE+probe Ql (Unsp spec) Positive Critically abnormal NEGATIVE [facility] Comment on above: Performed By: #### C MP, LIPID, TSH #### [facility] [address] [place] [address] Dr. Jamia Albrecht CBC AUTO DIFFon 11-27-2021 BASO # 0.0 103/ul Normal 0.0-0.1 [facility] Comment on above: Performed By: #### C MP LIPID, TSH #### [facility] [address] [place] [address] Dr. Jamia Albrecht Basophils/100 WBC (Bld) 0.5 % Normal 0.2-2.0 [facility] Comment on above: Performed By: #### C MP, LIPID, TSH #### [facility] [address] [address] [address] Jamia Albrecht EO # 0.2 103/ul Normal 0.0-0.7 [facility] Comment on above: Performed By: #### C MP, LIPID, TSH #### [facility] [address] [place] [address] Dr. Jamia Albrecht Eosinophils/100 WBC (Bld) 3.7 % Normal 0.9-7.0 [facility] Comment on above: Performed By: #### C MP, LIPID, TSH #### [facility] [address] [place] [address] Dr. Jamia Albrecht Erythrocyte distribution width (RBC) [Ratio] 14.1 % Normal 11.0-15.0 [facility] Comment on above: Performed By: #### C MP, LIPID, TSH #### [facility] [address] [place] [address] Dr. Jamia Albrecht Hematocrit (Bld) [Volume fraction] 39.8 % Normal 36.0-48.0 [facility] Comment on above: Performed By: #### C MP, LIPID, TSH #### [facility] [address] [place] [address] Dr. Jamia Albrecht Hemoglobin (Bld) [Mass/Vol] 12.6 g/dL Normal 12.0-16.0 [facility] Comment on above: Performed By: #### C MP, LIPID, TSH #### [facility] [address] [place] [address] Dr. Jamia Albrecht IG # 0.01 10e3/ul Normal 0.00-0.03 [facility] Comment on above: Performed By: #### C MP, LIPID, TSH #### [facility] [address] [place] [address] Dr. Jamia Albrecht IG % 0.2 % Normal 0.0-0.5 [facility] Comment on above: Performed By: #### C MP, LIPID, TSH #### [facility] [address] [place] [address] Dr. Jamia Albrecht LYMPH # 0.7 103/ul Critically low 1.2-3.8 [facility] Comment on above: Performed By: #### C MP, LIPID, TSH #### [facility] [address] [place] [address] Dr. Jamia Albrecht Lymphocytes/100 WBC (Bld) 16.1 % Critically low 20.5-60.0 [facility] Comment on above: Performed By: #### C MP, LIPID, TSH #### [facility] [address] [place] [address] Dr. Jamia Albrecht MANUAL DIFF REQ NO Normal [facility] Comment on above: Performed By: #### C MP, LIPID, TSH #### [facility] [address] [place] [address] Dr. Jamia Albrecht MCH (RBC) [Entitic mass] 27.2 pg Normal 26.7-34.0 [facility] Comment on above: Performed By: #### C MP, LIPID, TSH #### [facility] [address] [place] [address] Dr. Jamia Albrecht MCHC (RBC) [Mass/Vol] 31.7 g/dL Normal 29.9-35.2 [facility] Comment on above: Performed By: #### C MP, LIPID, TSH #### [facility] [address] [place] [address] Dr. Jamia Albrecht MCV (RBC) [Entitic vol] 86.0 fL Normal 81.0-99.0 [facility] Comment on above: Performed By: #### C MP, LIPID, TSH #### [facility] [address] [place] [address] Dr. Jamia Albrecht MONO # 0.5 103/ul Normal 0.3-0.8 [facility] Comment on above: Performed By: #### C MP, LIPID, TSH #### [facility] [address] [place] [address] Dr. aJmia Albrecht Monocytes/100 WBC (Bld) 11.7 % Normal 1.7-12.0 [facility] Comment on above: Performed By: #### C MP, LIPID, TSH #### [facility] [address] [place] [address] Dr. Jamia Albrecht NEUT # 3.0 103/ul Normal 1.4-6.5 [facility] Comment on above: Performed By: #### C MP, LIPID, TSH #### [facility] [address] [place] [address] Dr. Jamia Albrecht Neutrophils/100 WBC (Bld) 67.8 % Normal 43.0-75.0 [facility] Comment on above: Performed By: #### C MP, LIPID, TSH #### [facility] [address] [place] [address] Dr. Jamia Albrecht Platelet mean volume (Bld) [Entitic vol] 9.4 fL Critically low 9.5-13.5 [facility] Comment on above: Performed By: #### C MP, LIPID, TSH #### [facility] [address] [place] [address] Dr. Jamia Albrecht PLT 276 103/ul Normal 150-450 [facility] Comment on above: Performed By: #### C MP, LIPID, TSH #### [facility] [address] [place] [address] Dr. Jaima Albrecht RBC 4.63 106/ul Normal 4.20-5.40 [facility] Comment on above: Performed By: #### C MP, LIPID, TSH #### [facility] [address] [place] [address] Dr. Jamia Albrecht WBC 4.4 103/ul Normal 4.0-11.0 [facility] Comment on above: Performed By: #### C MP, LIPID, TSH #### [facility] [address] [place] [address] Dr. Jamia Albrecht LIPID PROFILEon 11-27-2021 CHOL-HDL RATIO NORM SEE BELOW Normal [facility] Comment on above: Result Comment: 3.3 - 4.4 LOW RISK 4.4 - 7.1 AVERAGE RISK 7.1 - 11.0 MODERATE RISK >11.0 HIGH RISK Performed By: #### C MP, LIPID, TSH #### [facility] [address] [place] [address] Dr. Jamia Albrecht Cholesterol [Mass/Vol] 216 mg/dL Critically high <=200 [facility] Comment on above: Performed By: #### C MP, LIPID, TSH #### [facility] [address] [address] [address] Jamia Albrecht Cholesterol in HDL [Mass/Vol] 57 mg/dL Normal 40-60 [facility] Comment on above: Performed By: #### C MP, LIPID, TSH #### [facility] [address] [address] [address] Jamia Albrecht Cholesterol in LDL [Mass/Vol] 134.2 mg/dL Normal [facility] Comment on above: Performed By: #### C MP, LIPID, TSH #### [facility] [address] [address] [address] Jamia Albrecht Cholesterol.total/Ch olesterol in HDL [Mass ratio] 3.8 {ratio} Normal [facility] Comment on above: Performed By: #### C MP, LIPID, TSH #### [facility] [address] [address] [address] Jamia Albrecht HDL NORMAL > or = 60 mg/dl - LO W CARDIOVASCULAR RISK <40 mg/dl - HIGH CARDIOVASCULAR RISK Normal [facility] Comment on above: Performed By: #### C MP, LIPID, TSH #### [facility] [address] [address] [address] Jamia Albrecht LDL CALC NORMAL SEE BELOW Normal [facility] Comment on above: Result Comment: <100 mg/dl OPTIMAL 100 - 129 mg/dl NEAR OR ABOVE OPTIMAL 130 - 159 mg/dl BORDERLINE HIGH 160 - 189 mg/dl HIGH >190 mg/dl VERY HIGH Performed By: #### C MP, LIPID, TSH #### [facility] [address] [address] [address] Jamia Albrecht Triglyceride [Mass/Vol] 124 mg/dL Normal <=150 [facility] Comment on above: Performed By: #### C MP, LIPID, TSH #### [facility] [address] [address] [address] Jamia Albrecht VLDL CALC 24.8 mg/dL Normal [facility] Comment on above: Performed By: #### C MP, LIPID, TSH #### [facility] [address] [address] [address] Jamia Albrecht PROF 14(COMP METB)on 022 Albumin [Mass/Vol] 3.7 g/dL Normal 3.4-5.0 [facility] Comment on above: Performed By: #### C MP, LIPID, TSH #### [facility] [address] [place] [address] Dr. Jamia lAbrecht Albumin/Globulin [Mass ratio] 1.1 {ratio} Normal [facility] Comment on above: Performed By: #### C MP, LIPID, TSH #### [facility] [address] [place] [address] Dr. Jamia Albrecht ALP [Catalytic activity/Vol] 102 U/L Normal 46-116 [facility] Comment on above: Performed By: #### C MP, LIPID, TSH #### [facility] [address] [place] [address] Dr. Jamia Albrecht ALT [Catalytic activity/Vol] 26 U/L Normal 14-59 [facility] Comment on above: Performed By: #### C MP, LIPID, TSH #### [facility] [address] [place] [address] Dr. Jamia Albrecht Anion gap [Moles/Vol] 10.1 mmol/L Normal [facility] Comment on above: Performed By: #### C MP, LIPID, TSH #### [facility] [address] [place] [address] Dr. Jamia Albrecht AST [Catalytic activity/Vol] 19 U/L Normal 15-37 [facility] Comment on above: Performed By: #### C MP, LIPID, TSH #### [facility] [address] [place] [address] Dr. Jamia Albrecht Bilirubin [Mass/Vol] 0.3 mg/dL Normal 0.2-1.0 [facility] Comment on above: Performed By: #### C MP, LIPID, TSH #### [facility] [address] [place] [address] Dr. Jamia Albrecht Calcium [Mass/Vol] 8.8 mg/dL Normal 8.5-10.1 [facility] Comment on above: Performed By: #### C MP, LIPID, TSH #### [facility] [address] [place] [address] Dr. Jamia Albrecht Chloride [Moles/Vol] 103 mmol/L Normal 98-107 [facility] Comment on above: Performed By: #### C MP, LIPID, TSH #### [facility] [address] [place] [address] Dr. Jamia Albrecht CO2 [Moles/Vol] 30.4 mmol/L Normal 21.0-32.0 [facility] Comment on above: Performed By: #### C MP, LIPID, TSH #### [facility] [address] [place] [address] Dr. Jamia Albrecht Creatinine [Mass/Vol] 0.83 mg/dL Normal 0.55-1.02 [facility] Comment on above: Performed By: #### C MP, LIPID, TSH #### [facility] [address] [place] [address] Dr. Jamia Albrecht EGFR-AF BELIZEAN >=60 Normal >=60 [facility] Comment on above: Performed By: #### C MP, LIPID, TSH #### [facility] [address] [place] [address] Dr. Jamia Albrecht EGFR-NON AF BELIZEAN >=60 Normal >=60 [facility] Comment on above: Performed By: #### C MP, LIPID, TSH #### [facility] [address] [place] [address] Dr. Jamia Albrecht Globulin (S) [Mass/Vol] 3.4 g/dL Normal [facility] Comment on above: Performed By: #### C MP, LIPID, TSH #### [facility] [address] [place] [address] Dr. Jamia Albrecht Glucose [Mass/Vol] 106 mg/dL Normal 74-106 [facility] Comment on above: Performed By: #### C MP, LIPID, TSH #### [facility] [address] [place] [address] Dr. Jamia Albrecht Potassium [Moles/Vol] 4.5 mmol/L Normal 3.5-5.1 [facility] Comment on above: Performed By: #### C MP, LIPID, TSH #### [facility] [address] [address] [address] Jamia Albrecht Protein [Mass/Vol] 7.1 g/dL Normal 6.4-8.2 [facility] Comment on above: Performed By: #### C MP, LIPID, TSH #### [facility] [address] [address] [address] Jamia Albrecht Sodium [Moles/Vol] 139 mmol/L Normal 136-145 [facility] Comment on above: Performed By: #### C SATISH, LIPID, TSH #### [facility] [address] [place] [address] Dr. Jamia Albrecht Urea nitrogen [Mass/Vol] 10.0 mg/dL Normal 7.0-18.0 [facility] Comment on above: Performed By: #### C SATISH, LIPID, TSH #### [facility] [address] [place] [address] Dr. Jamia Albrecht Urea nitrogen/Creatinine [Mass ratio] 12.0 mg/mg Normal [facility] Comment on above: Performed By: #### C SATISH, LIPID, TSH #### [facility] [address] [place] [address] Dr. Jamia Albrecht TSHon 11-27-2021 TSH 1.179 uIU/mL Normal 0.358-3.740 [facility] Comment on above: Performed By: #### C MP, LIPID, TSH #### [facility] [address] [place] [address] Dr. Jamia Albrecht MG MAMM RT DIAG FUon 11-10- 022 MG MAMM RT DIAG FU Patient: KATELYNN MELENDREZ Exam Date: 11/10/2021 : 1960 Gender:F Ordering : DR AMPARO ROSS . Admission #: [id number] Family : DR MARTÍNEZ HARRELL . Order #: [id number] CLICK HERE TO VIEW EXAM RADIOLOGY REPORT PROCEDURE: MAMMOGRAM RIGHT DIAGNOSTIC DIGITAL FOLLOW UP, 11/10/2021, 09:27 ULTRASOUND BREAST RIGHT LIMITED, 11/10/2021, 10:10 COMPARISON: MG MAMM DX 3D RT CAD, 12/28/2020. MG MAMM SCREEN 3D SERA CAD, 11/07/2021. INDICATIONS: Abnormal findings on diagnostic imaging of breast Calculator Name [facility] Breast Cancer Risk Assessment Tool 5 Year Breast Cancer Risk 1.70% Lifetime Breast Cancer Risk 8.70% Personal Breast Cancer No Personal Ovarian Cancer No Treatments None Family Cancers Grandfather-maternal with liver cancer at age 69; Grandfather-maternal with prostate cancer at age 72. LOCATION: [facility] BREAST COMPOSITION: Heterogeneously dense,which may obscure small [...] MD on 11/10/2021 at 10:24 Normal [facility] US BREAST RIGHT LIMITEDon US BREAST RIGHT LIMITED Patient: KATELYNN MELENDREZ. Exam Date: 11/10/2021 : 1960 Gender:F Ordering : DR AMPARO ROSS . Admission #: [id number] Family : DR MARTÍNEZ HARRELL . Order #: [id number] CLICK HERE TO VIEW EXAM RADIOLOGY REPORT [...] prostate cancer at age 72. LOCATION: [facility] BREAST COMPOSITION: Heterogeneously dense,which may obscure small [...] MD on 11/10/2021 at 10:24 Normal [facility] MAMM SCREEN 3D SERA CADon 11-07-2021 MG MAMM SCREEN 3D SERA CAD Patient: KATELYNN MELENDREZ Exam Date: 11/07/2021 : 1960 Gender:F Ordering : DR MARTÍNEZ HARRELL . Admission #: [id number] Family : DR AMPARO ROSS . Order #: [id number] CLICK HERE TO VIEW EXAM RADIOLOGY REPORT [...] prostate cancer at age 73. LOCATION: [facility] BREAST COMPOSITION: Heterogeneously dense,which may obscure small [...] Mahmood MD on 11/07/2021 at 14:30 Normal [facility] DIAGNOSTIC RTon 01-10-20 [facility] DIAGNOSTIC RT * * *Final Report* * * * * * SEE BOTTOM OF REPORT FOR ADDENDED TEXT * * * DATE OF EXAM: Jan 09 2019 3:31PM [facility] 0626 - [facility] DIAGNOSTIC RT / PROCEDURE REASON: Abnormal ultrasound of breast * * * * Physician Interpretation * * * * RESULT: FINAL REPORT #[id number] - [facility] US BIOPSY BREAST RT #[id number] - [facility] DIAGNOSTIC RT ULTRASOUND GUIDED BIOPSY RIGHT [...] 01/01/2019 ultrasound, and 01/09/2019 ultrasound - [facility] [place]. An ultrasound guided biopsy using real-time ultrasound [...] location, four passes were made using a [employer] biopsy device. A skin closure strip and [...] 01/01/2019 ultrasound, and 01/09/2019 ultrasound - [facility]. There are scattered fibroglandular elements in right [...] results by phone on 01/13/2019 by Kathia Greve RN (Breast imaging navigator). She should return in six months for imaging follow up. Shannen Merino M.D. madan abraham/aj:01/13/2019 08:09:24 Photo Graphics Librarian(s): RT An(R)(M), [facility] [...] Health, Family Medicine, and Medical/Surgical Oncology, the [facility] has carefully reviewed the data and reached [...] their providers when to stop screening mammograms. Rn Baby: Aj Transcribe Date/Time: Jan 09 2019 2:43P Dictated by : JENNIFER MERINO MD This examination was interpreted and the report reviewed and electronically signed by: SHANNEN LUIS MD on Jan 09 2019 3:56PM EST This document has been addended by: SHANNEN LUIS MD on Jan 13 2019 8:09AM EST [id number] Normal [facility] US BIOPSY BREAST RTon [facility] US BIOPSY BREAST RT * * *Final Report* * * * * * SEE BOTTOM OF REPORT FOR ADDENDED TEXT * * * DATE OF EXAM: Jan 09 2019 3:31PM [facility] 0598 - [facility] US BIOPSY BREAST RT / PROCEDURE REASON: Abnormal ultrasound of breast * * * * Physician Interpretation * * * * RESULT: FINAL REPORT #[id number] - [facility] US BIOPSY BREAST RT #[id number] - [facility] DIAGNOSTIC RT ULTRASOUND GUIDED BIOPSY RIGHT [...] ultrasound - [facility] An ultrasound guided biopsy using real-time ultrasound [...] 01/01/2019 ultrasound, and 01/09/2019 ultrasound - [facility]. There are scattered fibroglandular elements in right [...] for imaging follow up. Shannen Merino M.D. ,madan/aj:01/13/2019 08:09:24 Photo Graphics Librarian(s): RT An(R)(M), The [facility] Mammogram BI-RADS: Post-procedure mammogram for marker placement [...] Health, Family Medicine, and Medical/Surgical Oncology, the [facility] has carefully reviewed the data and reached [...] their providers when to stop screening mammograms. Rn Baby: Aj Transcribe Date/Time: Jan 09 2019 2:43P Dictated by : JENNIFER MERINO MD This examination was interpreted and the report reviewed and electronically signed by: SHANNEN LUIS MD on Jan 09 2019 3:56PM EST This document has been addended by: SHANNEN LUIS MD on Jan 13 2019 8:09AM EST [id number] Normal [facility] US BREAST LTD RTon 01-09 [facility] US BREAST LTD RT * * *Final Report* * * DATE OF EXAM: Jan 09 2019 3:31PM [facility] 0594 - [facility] US BREAST LTD RT / PROCEDURE REASON: Lump of right breast * * * * Physician Interpretation * * * * RESULT: #[id number] - [facility] US BREAST LTD RT ULTRASOUND OF [...] is recommended. Shannen Luis M.D., mc/aj:01/09/2019 15:40:59 Photo Graphics Librarian(s): Victoria Lynch RT(R)(M), [facility] Ultrasound BI-RADS: 2 Benign finding Multiple [...] Health, Family Medicine, and Medical/Surgical Oncology, the [facility] has carefully reviewed the data and reached [...] their providers when to stop screening mammograms. Rn Baby: Aj Transcribe Date/Time: Jan 09 2019 2:43P Dictated by : SHANNEN LUIS MD This examination was interpreted and the report reviewed and electronically signed by: SHANNEN LUIS MD on Jan 09 2019 3:40PM EST [id number] Normal [facility] PROGRESSon 01-09-2019 PROGRESS HNO ID: [id number] Author: Victoria Lynch Rt Service: ? Author [...] Out: N/A Sign Out Discussion: Completed Normal [facility] PROGRESS HNO ID: [id number] Author: Victoria Syed Rt Service: ? Author [...] MATERIAL: Homegoing instructions REFERRAL (RECOMMENDATION): None Normal [facility] PROGRESS HNO ID: [id number] Author: Victoria Lynch Rt Service: ? Author [...] [place] January 09, 2019 3:40 PM Normal [facility] SURGICAL PATHOLOGYon 019 SURGICAL PATHOLOGY Specimen originated from [facility] Specimen #: [id number] Submitting Physician: SHANNEN COLLAZO ([id number]) FINAL DIAGNOSIS [...] time: Not documented Gross examination performed at [facility], [address] [place] [address] 01/10/2019 2:03:09 AM Date of Report: 01/12/2019 Date of Procedure: 01/09/2019 Date of Receipt: 01/09/2019 Submitted by: SHANNEN COLLAZO ([id number]) Location: A10 Diagnostic interpretation performed at [place] [address]. [place] Number: [id number] [facility] CNOVon 01-01-2019 CNOV Office Visit (BRCRMN ) KATELYNN MELENDREZ ([id number]) 1960 F Date Time Provider Department 01/01/19 3:30 PM MARTIN LEARY During your visit today, [...] BCP for 10-12 years previously. Never breastfed. 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 Denies h/o DVT or PE. 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: Negative for abnormal vaginal bleeding, abnormal vaginal [...] Martin Hameed MD Referring Provider: MARTIN LEARY [[id number]] Allergies As of Date: 01/01/2019 (Not on File) Date Reviewed: 09/12/2018 Reviewed by: Martin Leary - Fully Assessed Primary Visit Diagnosis:Posttraumatic hematoma of right breast, initial encounter [S20.01XA] Other Visit Diagnosis:Abnormal mammogram [R92.8] Problem List As Of Date: 01/01/2019 (None) Encounter Status:Closed by MARTIN LEARY MD on 01/11/19 Normal [facility] [email or web address] BREAST LTD RTon 01-01 [email or web address] [facility] RT * * *Final Report* * * DATE OF EXAM: Jan 01 2019 3:12PM [facility] 0594 - [email or web address] BRE[facility] RT / PROCEDURE REASON: Posttraumatic hematoma of right breast, initial encounter * * * * Physician Interpretation * * * * RESULT: #[id number] - [email or web address] BREAST [facility] RT ULTRASOUND OF RIGHT BREAST: 01/01/2019 HISTORY: [...] signed by the patient. Marjorie yao/aj:01/01/2019 15:27:37 Photo Graphics Librarian(s): RT Nhan(R)(M), The [facility] [place] Ultrasound BI-RADS: 4 Suspicious finding - Biopsy [...] Health, Family Medicine, and Medical/Surgical Oncology, the [facility] has carefully reviewed the data and reached [...] their providers when to stop screening mammograms. Rn Baby: Aj Transcribe Date/Time: Jan 01 2019 2:47P Dictated by : MARJORIE DOHERTY MD This examination was interpreted and the report reviewed and electronically signed by: MARJORIE DOHERTY MD on Jan 01 2019 3:27PM EST [id number] Normal [facility] PROGRESSon 01-01-2019 PROGRESS HNO ID: [id number] Author: Martin Leary Service: ? Author Type: [...] BCP for 10-12 years previously. Never breastfed. 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 Denies h/o DVT or PE. 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: Negative for abnormal vaginal bleeding, abnormal vaginal [...] edited as appropriate. Signature: Martin Hameed MD [facility] PROGRESS HNO ID: [id number] Author: Kathia Bourne Mamm-T Service: Radiology Author [...] Bourne Mamm-T January 01, 2019 2:48 PM [facility] CNOVon 09-03-2018 CNOV Office Visit (BRCRMN ) KATELYNN MELENDREZ ([id number]) 1960 F Date Time Provider Department 09/03/18 [...] any prior breast problems or breast surgery. 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 Denies known coagulopathy. 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 Excerpts from Breast Imaging Studies RESULT: #[id number] - [facility] DIAGNOSTIC RT #[id number] - [facility] US BREAST LTD RT UNILATERAL RIGHT [...] Leary MD cc: LUKE BOBO [address] [facility] [address] Referring Provider: LUKE BOBO [[id number]] Allergies As of Date: 09/03/2018 (Not on File) Date Reviewed: Never Reviewed Reason for Visit: New Patient [[id number]] Primary Visit Diagnosis:Posttraumatic hematoma of right breast, initial encounter [S20.01XA] Order(s):US BREAST LTD RT [[id number]] Order #: [id number] FUTURE Problem List As Of Date: 09/03/2018 (None) Encounter Status:Closed by MARTIN LEARY MD on 09/12/18 Normal [facility] DIAGNOSTIC RTon 09-04-19 [facility] DIAGNOSTIC RT * * *Final Report* * * DATE OF EXAM: Sep 03 2018 2:29PM [facility] 0626 - [facility] DIAGNOSTIC RT / PROCEDURE REASON: Disorder of breast * * * * Physician Interpretation * * * * RESULT: #[id number] - [facility] DIAGNOSTIC RT #[id number] - [facility] US BREAST LTD RT UNILATERAL RIGHT [...] Health, Family Medicine, and Medical/Surgical Oncology, the [facility] has carefully reviewed the data and reached [...] their providers when to stop screening mammograms. Photo Graphics Librarian(s): RT Nhan(R)(M), [facility] [place] OVERALL STUDY BIRADS: 3 Probably benign finding - short term interval follow-up recommended Rn Baby: Aj Transcribe Date/Time: Sep 03 2018 2:29P Dictated by : MARJORIE DOHERTY MD This examination was interpreted and the report reviewed and electronically signed by: MARJORIE DOHERTY MD on Sep 03 2018 4:07PM EST [id number] Normal [facility] US BREAST LTD RTon 09-03 [facility] US BREAST LTD RT * * *Final Report* * * DATE OF EXAM: Sep 03 2018 2:50PM [facility] 0594 - [facility] US BREAST LTD RT / PROCEDURE REASON: Disorder of breast * * * * Physician Interpretation * * * * RESULT: #[id number] - [facility] DIAGNOSTIC RT #[id number] - [facility] US BREAST LTD RT UNILATERAL RIGHT [...] Health, Family Medicine, and Medical/Surgical Oncology, the [facility] has carefully reviewed the data and reached [...] their providers when to stop screening mammograms. Photo Graphics Librarian(s): Kathia Bourne RT(R)(M), [facility] OVERALL STUDY BIRADS: 3 Probably benign finding - short term interval follow-up recommended Rn Baby: Aj Transcribe Date/Time: Sep 03 2018 2:29P Dictated by : MARJORIE DOHERTY MD This examination was interpreted and the report reviewed and electronically signed by: MARJORIE DOHERTY MD on Sep 03 2018 4:07PM EST [id number] Normal [facility] PROGRESSon 09-03-2018 PROGRESS HNO ID: [id number] Author: Martin Leary Service: ? Author Type: [...] any prior breast problems or breast surgery. 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 Denies known coagulopathy. 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 Excerpts from Breast Imaging Studies RESULT: #[id number] - [facility] DIAGNOSTIC RT #[id number] - [facility] US BREAST LTD RT UNILATERAL RIGHT [...] Martin Leary MD cc: LUKE BOBO [address] [facility] [id number] Normal [facility] US OUTSIDE CD DICOM IMPORT - NBNRon 08-20-2018 US OUTSIDE CD DICOM IMPORT -NBNR Images were obtained outside of [facility] [id number] Normal [facility] Vital Signs Date Time Vital Sign Value Performing Clinician Ludwin cain 07-16-2023 14:58-0500 Blood Pressure Location ConnectemL [facility] [place] 07-16-2023 14:58-0500 Diastolic blood pressure 84 mm[Hg] Pippa NILL [facility] 07-16-2023 14:58-0500 Heart rate 76 /min Pippa NILL [facility] 07-16-2023 14:58-0500 Respiratory rate 16 /min Pippa NILL [facility] 07-16-2023 14:58-0500 Systolic blood pressure 126 mm[Hg] Pippa NILL [facility] 11-21-2021 09:32-0400 Diastolic blood pressure 72 mm[Hg] Pippa NILL [facility] [place] 11-21-2021 09:32-0400 Mean blood pressure 87 mm[Hg] Pippa NILL [facility] [place] 11-21-2021 09:32-0400 Systolic blood pressure 116 mm[Hg] Pippa NILL [facility] [place] 11-21-2021 08:46-0400 Blood Pressure Location Pippa NILL [facility] [place] 11-21-2021 08:46-0400 Diastolic blood pressure 78 mm[Hg] Pippa NILL [facility] [place] 11-21-2021 08:46-0400 Heart rate 52 /min Pippa NILL [facility] [place] 11-21-2021 08:46-0400 Respiratory rate 16 /min Pippa NILL [facility] [place] 11-21-2021 08:46-0400 Systolic blood pressure 161 mm[Hg] Pippa NILL [facility] [place] Encounters Encounter Date Encounter Type Care Provider Facility Start: 09-21-2024 End: 09-21-[address] [facility] Start: 03-23-2024 End: 03-23-[address] [facility] Start: 01-20-2024 End: 01-20-[address] [facility] Start: 07-24-2023 End: 07-25-2023 ambulatory Pippa SANZL Facility:CD:[id number] Start: 07-16-2023 End: 07-17-2023 ambulatory Pippa RAY Facility:[facility] Start: 07-16-2023 End: 07-16-2023 Patient encounter procedure Pippa RAY [facility] Start: 09-26-2022 End: 09-27-[address] AMPARO ROSS . Facility:[facility] Start: 06-27-2022 Encounter for genera l adult medical examination without abnormal findings DR AMPARO ROSS . [facility] Start: 06-26-2022 End: 06-27-[address] [...] End: 12-26-2021 Patient encounter procedure Pippa RAY [facility] Start: 12-13-2021 ambulatory KYLE HAIDER Facility:[facility] 1 Start: 11-30-2021 End: 11-30-2021 ambulatory LUKE BOBO Facility:[facility] Start: 11-27-2021 End: 11-28-[address] AMPARO ROSS . Facility:[facility] Start: 11-21-2021 End: 11-21-2021 Patient encounter procedure Pippa RAY [facility] [place] Start: 11-10-2021 End: 11-11-[address] AMPARO ROSS . Facility: Start: 11-07-2021 End: 11-08-[address] AMPARO ROSS . Facility: Procedures Date Procedure Procedure Detail Performing Clinician Start: 01-30-2022 Stereotactically wendy ded core needle biopsy of breast Pippa SANZL Start: 06-03-2018 Biopsy of breast Michae alyson RAY Start: 09-29-2009 Stereotactically wendy ded core needle biopsy of breast Pippa SANZL Decompression of median nerve Pippa NILL Excision of lumbar intervertebral disc Pippa SANZL Open reduction of fr acture of ankle with internal fixation Pippa SANZL Repair of right ingu inal hernia Pippa SANZL Total hysterectomy v ia vaginal approach Pippa SANZL Immunizations Immunization Date Immunization Notes Care Provider [facility] 03-03-2023 influenza virus vaccine, unspecified formulation Pippa SANZL [facility] [place] 04-03-2022 SARS-CoV-2 (COVID-19 ) mRNA-1273 vaccine Pippa SANZL [facility] [place] 03-24-2021 SARS-CoV-2 (COVID-19 ) mRNA-1273 vaccine Pippa SANZL [facility] [place] 06-30-2020 SARS-CoV-2 (COVID-19 ) mRNA-1273 vaccine Pippa SANZL [facility] [place] 06-01-2020 SARS-CoV-2 (COVID-19 ) mRNA-1273 vaccine Pippa SANZL [facility] [place] Payers Date Payer Category Payer Unknown [id number] 2019 Unknown [id number] 1960 Unknown [id number] 2.16.84 [id number] 1960 Unknown [id number] 2.16.84 [id number] 1960 Unknown [id number] 2.16.84 [id number] 1960 Unknown [id number] 2.16.84 [id number] 1960 Unknown [id number] 2.16.84 [id number] 1960 Unknown [id number] 2.16.84 [id number] 1960 Unknown [id number] 2.16.84 [id number] 1960 Unknown [id number] 2.16.84 [id number] 1960 Unknown [id number] 2.16.84 [id number] 1960 Unknown [id number] 2.16.8 [id number] 1960 Unknown [id number] 2.16.8 [id number] 1958 Self-pay [id number] Unknown [id number] 2.16.84 [id number] Social History Date Type Detail Facility Start: 11-21-2021 End: 07-16-2023 Tobacco smoking status Never smoked tobacco (finding) [facility] Tobacco smoking status Never Fishe [facility] Sex Assigned At Female [facility] Functional Status Date Assessment Result Facility 07-16-2023 Functional Status N/A General Echevarria luo Mancilla 11-21-2021 Functional Status N/A Amberly [facility] General Surgery [place] Progress note 09-21-2024 Note Date & Type Note Facility 09-21-2024 Note [place] [facility] - [facility] Subjective Katelynn Melendrez is a 64 y.o. year old female patient being seen for follow-up on PVCs, hypertension, and hyperlipidemia Patient Active Problem List Diagnosis Well adult health check Palpitations History of stroke without residual deficits Blood coagulation disorder PVC (premature ventricular contraction) Abnormal mammogram of right breast Abnormal ultrasound of breast Aortic valve regurgitation Depression Disc disorder of lumbar region History of nephrolithiasis History of rectal fissure History of trauma of breast BMI 30.0-30.9,adult Obesity Premature atrial contractions Pure hypercholesterolemia Seasonal allergic rhinitis Supraventricular tachycardia Chest pain HASSAN (dyspnea on exertion) HPI 09/21/2024 Patient is here today for follow-up visit. She reports that lately she noticed that she is short of breath when she goes up and down the stairs. She denies any chest discomfort at all. She denies orthopnea or paroxysmal nocturnal dyspnea. She denies any palpitations. She reports that occasionally when she bends over and stands up she feels little dizzy but no syncope or near syncope. No legs edema or legs comfort on exertion. Her weight goes up and down few pounds. She does not exercise on regular basis. 03/23/2024 The patient is here today for follow-up visit. She states that she has been doing well. She denies any further chest discomfort at rest or with exertion. She denies exertional dyspnea, orthopnea or paroxysmal nocturnal dyspnea. She denies dizziness or palpitations or legs edema. 01/20/2024 Patient has history of CVA which was considered cryptogenic and she had loop implant in 2014 which did not show any evidence of [...] edema. 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 No pertinent surgical history. Family History Problem Relation Name Age of [...] TABLET BY MOUTH IN THE MORNING AND IN THE EVENING, Disp: 180 tablet, Rfl: 3 Objective Visit Vitals BP 110/71 (BP Location: Left arm, Patient Position: Sitting) Pulse 56 Ht 1.651 m (5' 5 ) Wt 82.6 kg (182 lb) SpO2 98% BMI 30.29 kg/m??? Smoking Status Never BSA 1.95 m??? Physical exam: GENERAL: alert and oriented x3, well developed, in no acute distress. HEAD: atraumatic, normocephalic. EYES: JER, EOMI. NECK: trachea midline, no JVD present, no carotid bruits present. CARDIAC: S1, S2 present. RRR. No murmur, rubs, or gallops. RESPIRATORY: CTAB, no increased effort of breathing, no rales, rhonchi, or wheezing. ABDOMEN: soft, nontender, nondistended. EXTREMITIES: no lower extremity edema (more content not included)... [facility] Progress note 03-23-2024 Note Date & Type Note Facility 03-23-2024 Note [place] [facility] - [facility] Subjective Katelynn Melendrez is a 63 y.o. year old female patient being seen for follow-up after testing Patient Active Problem List Diagnosis Well adult [...] hypercholesterolemia Seasonal allergic rhinitis Supraventricular tachycardia (CMS/HCC) Chest pain HASSAN (dyspnea on exertion) HPI 03/23/2024 The patient is here today for follow-up visit. She states that she has been doing well. She denies any further chest discomfort at rest or with exertion. She denies exertional dyspnea, orthopnea or paroxysmal nocturnal dyspnea. She denies dizziness or palpitations or legs edema. 01/20/2024 Patient has history of CVA which was [...] edema. 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 HEAD: atraumatic, normocephalic. EYES: JER, EOMI. NECK: trachea midline, no JVD present, no carotid bruits present. CARDIAC: S1, S2 present. RRR. No murmur, rubs, or gallops. RESPIRATORY: CTAB, no increased effort of breathing, no rales, rhonchi, or wheezing. ABDOMEN: soft, nontender, nondistended. EXTREMITIES: no lower extremity edema. No rash/skin discoloration present. NEURO: strength/sensation equal and symmetric in bilateral upper and lower extremities. PSYCH: appropriate mood, affect, and judgement. Recent Labs Labs 06/17/2023 white blood count 6, hemoglobin 11.7, hematocrit 37.4, platelets 337 Sodium 140, potassium 4.6, BUN 11, creatinine 0.74, GFR above 60, glucose 105, calcium 8.8 HbA1c 6.3% Total bilirubin 0.2, AST 20, ALT 27, alk phos 95, total protein 7.1, albumin 3.4 Triglyceride 82, cholesterol 147, LDL 70.6, HDL 60 Vitamin D 8.5 TSH 1.51, free T45.6, free T32.7 Imaging and other tests EKG: Today 01/20/2024 showed sinus bradycardia, heart rate 49 bpm borderline first-degree AV block, nonspecific T wave ab (more content not included)... [facility] Progress note 01-20-2024 Note Date & Type Note Facility 01-20-2024 Note [place] [facility] - [facility] Subjective Katelynn Melendrez is a [...] cryptogenic and she had loop implant in 2014 which did not show any evidence of [...] edema. 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 [facility] Clinical Note 07-16-2023 Note Date & [...] Never (less than (more content not included)... [facility] Comment on above: Result Comment: Elec tronically Signed By: ROBBIN CASTRO, Pippa Jenkins\Date and Time Signed: 07/16/23 15:21 EST Evaluation + Plan note Radiology Note Date & Type Note Facility Evaluation + Plan note Future Appointments Appointment Date:12/26/2021 01:00:00 PM Scheduled Provider: Location:[facility].MRI Appointment Type:MRI Breast ([facility]) Future Scheduled TestsMRI Breast w/o and w/ Contrast, Bilat 12/26/21 [facility] [place] Hospital course Narrative Note Date & Type Note Facility Hospital course Narrative No data available for this section [facility] [place] [facility] Discharge instructions Note Date & Type Note Facility Hospital Discharge instructions No data available for this section [facility] [place] Progress note Note Date & Type Note Facility Progress note No data available for this section [facility] [place] Summary Purpose Family History No Family History Records FoundNo Family History Records Found No data available for this section No Family History Records FoundNo Family History Records Found Advance Directives No Advanced Directives Records FoundNo Advanced Directives Records FoundNo Advanced Directives Records FoundNo Advanced Directives Records Found Additional Source Comments INFORMATION SOURCE (unrecogn ized section and content) DATE CREATED AUTHOR 01/13/2019 [facility] DATE CREATED AUTHOR AUTHOR'S ORGANIZ ATION 09/29/2022 [facility] DATE CREATED AUTHOR AUTHOR'S ORGANIZ ATION 08/02/2023 [facility] DATE CREATED AUTHOR AUTHOR'S ORGANIZ ATION 09/25/2024 [facility] Care Team (unrecognized sect ion and content) Personnel Name: Amparo Ross MD Address: [address] [place] [address] Personnel Name: Amparo Ross MD Address: [address] [place] [address] Personnel Name: Amparo Ross MD Address: [address] [place] [address] Personnel Name: Amparo Ross MD Address: Address: [address] [place] [address] FOR RECORDS PERTAINING TO PATIENTS WHO ARE [...] BE BASED ON THE PRIMARY CLINICAL RECORDS. [facility]. provides no warranty or guarantee of the accuracy or completeness of information in this document.
[2024-10-12 09:03] LABS: Basophils Percent Auto 0.6 % (0.2-2.0); Eosinophils Absolute Auto 0.4 10^3/uL (0.0-0.7); Eosinophils Percent Auto 7.6 % (0.9-7.0); Hematocrit 33.1 % (36.0-48.0); Hemoglobin 10.5 g/dL (12.0-16.0); Immature Granulocytes Abs Auto 0.01 10^3/uL (0.00-0.03); Immature Granulocytes Pct Auto 0.2 % (0.0-0.5); Lymphocytes Absolute Auto 1.6 10^3/uL (1.2-3.8); Lymphocytes Percent Auto 30.2 % (20.5-60.0); Mean Corpuscular HGB Conc 31.7 g/dL (29.9-35.2); Mean Corpuscular Hemoglobin 26.8 pg (26.7-34.0); Mean Corpuscular Volume 84.4 fL (81.0-99.0); Mean Platelet Volume 9.7 fL (9.5-13.5); Monocytes Absolute Auto 0.4 10^3/uL (0.3-0.8); Neutrophils Absolute Auto 2.9 10^3/uL (1.4-6.5); Neutrophils Percent Auto 53.4 % (43.0-75.0); Platelet Count 335 10^3/uL (150-450); Red Blood Count 3.92 10^6/uL (4.20-5.40); Red Cell Distribution Width 15.3 % (11.0-15.0); White Blood Count 5.4 10^3/uL (4.0-11.0)
--- NOTE | 2024-10-12 09:08 | CA_ITS ---
Patient Name Site Name NA MELENDREZ [facility] Account No Medical Record Number Age Sex Date Time [id number] [facility]:[id number] F 10/12/2024 09:20 At the Request Of AMPARO DOWELL ECHOCARDIOGRAM REPORT PROCEDURE: CA ECHO DOPPLER COMPLETE INDICATIONS: Bilateral atrial enlargement COMPARISON: None. DESCRIPTION: COMPLETE ECHOCARDIOGRAM Real-time transthoracic echocardiography with 2D, M-mode, spectral and color flow Doppler performed. QUALITY: Technical quality was good. LEFT VENTRICLE: Normal chamber size. Mild concentric left ventricular hypertrophy. Global left ventricular systolic function is normal. LV EF: Estimated left ventricular ejection fraction is 65-70%. DIASTOLIC: Normal diastolic function. ATRIAL SEPTUM: LEFT ATRIUM: Moderate dilatation. RIGHT ATRIUM: Mild dilatation. RIGHT VENTRICLE: Mild dilatation. Borderline right ventricular systolic function. TRICUSPID VALVE: Normal mobility and thickness. No stenosis with mild regurgitation. No evidence of pulmonary hypertension. RVSP 24mmHg MITRAL VALVE: Normal mobility and thickness. No evidence of mitral valve stenosis. There is no mitral annular calcification. Trivial mitral regurgitation. AORTIC VALVE: Normal trileaflet appearance. Thickened aortic valve. Normal leaflet mobility. No evidence of aortic valve stenosis. Mild to moderate aortic regurgitation. AORTIC ROOT: Normal diameter and appearance, measuring 3.2 cm. Normal size ascending aorta measuring 3.1 cm. PULMONIC VALVE: Normal thickness and mobility. No stenosis. Mild regurgitation. PERICARDIUM: No evidence of pericardial effusion. IVC: Collapses with inspirations. Normal size PLEURA: CONCLUSION: 1. Mild concentric ventricular hypertrophy with normal systolic function. Estimated LVEF is 65 to 70%. 2. The right ventricle is mildly dilated with borderline systolic function. 3. Normal diastolic function. 4. Mild to moderate biatrial dilatation. 5. Mild to moderate aortic regurgitation. 6. Mild tricuspid regurgitation. 7. Normal right-sided pressures. Adult Echocardiography Procedure Report Left Ventricle LVEDD (3.7 - 5.6 cm): 4.44 cm LVESD (2.2 - 4.0 cm): 3.00 cm LVIVS thickness (0.6 - 1.2 cm): 1.27 cm LVPW thickness (0.5 - 1.0 cm): 1.25 cm e': 0.10 m/s E - e': 6.83 LVOT Max Gradient: 4.06 mm[Hg] LVOT Area (cm2): 1.01 m/s Peak Velocity (LVOT): 1.01 m/s Mean Velocity (LVOT): 0.63 m/s LVOT Diameter 1.93 cm Left Ventricular Ejection Fraction: 65-70% Left Atrium LA Volume Index (2D A2C): 46.13 ml/m2 Left Atrium Systolic Dimension: 4.00 cm Mitral Valve MV E to A Ratio: 1.18 Mitral Valve A-Wave Peak Velocity: 0.55 m/s Mitral Valve E-Wave Peak Velocity: 0.65 m/s Right Ventricle RV Internal Diastolic Dimension: 4.30 cm Aorta AO Root Diam: 3.21 cm Ascending Ao Diam: 3.06 cm Aortic Valve AoV Area (Peak Daniel): 2.15 cm2, 2.15 cm2 AoV Area (VTI): 2.71 cm2, 2.71 cm2 Deceleration Bay: 1.60 m/s2 Pressure Half-Time: 687.13 ms Peak Velocity(Antegrade Flow): 1.37 m/s Peak Gradient(Antegrade Flow): 7.51 mm[Hg] Mean Velocity(Antegrade Flow): 0.82 m/s Mean Gradient(Antegrade Flow): 3.22 mm[Hg] Velocity Time Integral: 28.86 cm Tricuspid Valve Peak Velocity (Regurgitant Flow): 2.12 m/s, 2.30 m/s Pulmonic Valve Peak Velocity: 0.83 m/s Peak Gradient: 2.76 mm[Hg] Right Atrium Right Atrium Systolic Pressure: 62.33 ml, 62.33 ml Dictated by: Mc Newton M.D. on 10/12/2024 at 11:41 Approved by: Mc Newton M.D. on 10/12/2024 at 11:50
[2024-10-12 09:12] LABS: Estimated Average Glucose 146 mg/dL; Glycohemoglobin A1C 6.7 % (4.5-6.2)
[2024-10-12 11:41] LABS: Anion Gap 9.7; BUN Creatinine Ratio 23.9; Calcium 8.2 mg/dL (8.5-10.1); Carbon Dioxide 28.5 mmol/L (21.0-32.0); Chloride 105 mmol/L (98-107); Estimated GFR (African America >60 (>=60 mL/min/1.73m^2); Estimated GFR (Non-African Ame >60 (>=60 mL/min/1.73m^2); Glucose 114 mg/dL (74-106); Potassium 4.2 mmol/L (3.5-5.1); Sodium 139 mmol/L (136-145)
[2024-10-12 11:42] LABS: Alanine Aminotransferase 25 U/L (14-59); Albumin Globulin Ratio 0.9; Alkaline Phosphatase 91 U/L (46-116); Aspartate Amino Transferase 19 U/L (15-37); Bilirubin Total 0.2 mg/dL (0.2-1.0); Cholesterol 133 mg/dL (<=200); Globulin 3.2 g/dL; HDL Cholesterol 57 mg/dL (40-60); Total Protein 6.2 g/dL (6.4-8.2); Triglycerides 73 mg/dL (<=150); VLDL CHOLESTEROL 14.6 mg/dL
[2024-10-12 11:43] LABS: Chol HDL Ratio 2.3; Thyroid Stimulating Hormone 1.838 uIU/mL (0.358-3.740)
== END 2024-10-12 08:42 | disposition home or self-care (01) ==
LOC: CARD 08:43
PROVIDERS: PCP Family Medicine; Visit Provider Family Medicine
DX: Z00.00 Encounter for general adult medical examination without abnormal findings (principal); I51.7 Cardiomegaly
CPT/HCPCS: 36415; 80053; 80061; 83036; 84443; 85025; 93306

== ENCOUNTER 2024-12-01 10:52 | Outpatient (OUT) | payer BC, SELFPAY ==
--- OUTSIDE RECORDS SUMMARY | 2024-12-01 10:54 | XMS_ITS | Clinical Summary ---
Author Organization [facility] Address [address] [place] [id number] Care Team Providers Care Associate Pathologist Name Role Phone Unavailable Primary Care Provider Unavailabl e Medications No known medications Family History Medical History Relation Comments Heart Attack Father Liver Cancer Maternal Grandfather Osteoporosis Mother Breast Cancer Paternal Aunt of unrelate d disease Prostate Cancer Paternal Grandfather Kidney Cancer Paternal Uncle Relation Status Comments Father Alive Maternal Grandfather Mother Paternal Aunt Paternal Grandfather Paternal Uncle Social History Tobacco Use Types Packs/Day Years Used Date Smoking Tobacco: Never Assessed Area Deprivation Index Answer Date Jose rded National Score (1-100), lower number is lower ri sk Not on file 05/10/2020 State Score (1-10), lower number is lower risk N ot on file 05/10/2020 Data from: https://www.neighborhoodatlas.medicine.[facility].edu/. Last address used for calculation Not on file 05/10/2020 Comments Unknown Sex and Gender Information Value Date Recorded Sex Assigned at Not on file Legal Sex Female 1:56 PM EDT Gender Identity Not on file Sexual Orientation Not on file Last Filed Vital Signs Vital Sign Reading Time Taken Comments Blood Pressure - - Pulse - - Temperature - - Respiratory Rate - - Oxygen Saturation - - Inhaled Oxygen Concentration - - Weight 92.1 kg (203 lb) 09/03/2018 3:12 PM EDT Height 165.1 cm (5' 5 ) 09/03/2018 3:12 PM EDT Body Mass Index 33.78 09/03/2018 3:12 PM EDT Plan of Treatment Health Maintenance Due Date Last Done Comments Anxiety Screening 08/10/1979 Depression Screening 08/10/1979 HIV Screening 08/10/1979 Hepatitis C Screening 08/10/1979 DTaP,Tdap,Td Vaccine (1 - Tdap) 1980 Cervical Cancer Screening [address] Colonography 2006 Cologuard (FIT-DNA) 2006 Colonoscopy 2006 Colorectal Cancer Screening 2006 Diabetes Screening 2006 Fecal Occult Blood 2006 Lipid Screening 2006 Sigmoidoscopy 2006 Pneumococcal Vaccine: 50+ (1 of 1 - PCV) 08/10/2011 Shingrix Vaccine (1 of 2) 08/10/2011 Covid-19 Vaccine (1 - 2023-25 season) 2024 Influenza Vaccine (Season Ended) 2025 RSV Vaccine (1 - 1-dose 75+ series) 2036 Insurance [facility]
--- OUTSIDE RECORDS SUMMARY | 2024-12-01 10:54 | XMS_ITS | Clinical Summary ---
Author Organization [facility] Address [address] [place] [address] Care Team Providers Care Beaming Machine Operator Name Role Phone Unavailable Primary Care Provider Unavailabl e Social History Tobacco Use Types Packs/Day Years Used Date Smoking Tobacco: Never Assessed Comments Unknown Sex and Gender Information Value Date Recorded Sex Assigned at Not on file Legal Sex Female 6:37 PM EDT Gender Identity Not on file Sexual Orientation Not on file Plan of Treatment Not on file
--- NOTE | 2024-12-01 10:57 | MM_ITS ---
Patient Name: NA MELENDREZ MR#: [id number] : 1960 Exam Date: 12/01/2024 Ordering Doctor: DR AMPARO DOWELL . RADIOLOGY REPORT PROCEDURE: MM TOMOSYNTHESIS SCREENING BI COMPARISON: MM TOMOSYNTHESIS SCREENING BI, 11/27/2023. MG MAMM DIAGNOSTIC 3D SERA CAD, 09/26/2022. MAMMO POST BIOPSY RIGHT, 01/30/2022. MG MAMM SERA SCRN W CAD DIG, 12/03/2012. INDICATIONS: Screening for malignant neoplasm Calculator Name [facility] Breast Cancer Risk Assessment Tool 5 Year Breast Cancer Risk 2.40% Lifetime Breast Cancer Risk 10.00% Personal Breast Cancer No Personal Ovarian Cancer No Treatments None Family Cancers Grandfather-maternal with liver cancer at age ~69; Grandfather-maternal with prostate cancer at age ~72. LOCATION: [facility] BREAST COMPOSITION: There are scattered areas of fibroglandular density. FINDINGS: DIAGNOSTIC CATEGORY 0--INCOMPLETE: NEED ADDITIONAL IMAGING EVALUATION. RIGHT BREAST: Focal asymmetry upper-outer quadrant right breast, middle depth. LEFT BREAST: No significant suspicious finding. RECOMMENDATIONS: ADDITIONAL MAMMOGRAPHIC VIEWS REQUIRED: RIGHT BREAST - spot-compression/true lateral views, possible ultrasound recommended.cc PLEASE NOTE: A NORMAL MAMMOGRAM DOES NOT EXCLUDE THE POSSIBILITY OF BREAST CANCER. A CLINICALLY SUSPICIOUS PALPABLE LUMP SHOULD BE BIOPSIED. Dictated by: Dane Rueda DO on 12/01/2024 at 15:31 Approved by: Dane Rueda DO on 12/01/2024 at 15:34
== END 2024-12-01 10:53 | disposition home or self-care (01) ==
LOC: MAMMO 10:52
PROVIDERS: PCP Family Medicine; Visit Provider Family Medicine
DX: Z00.00 Encounter for general adult medical examination without abnormal findings (principal); Z80.8 Family history of malignant neoplasm of other organs or systems; Z80.42 Family history of malignant neoplasm of prostate; R92.8 Other abnormal and inconclusive findings on diagnostic imaging of breast
CPT/HCPCS: 77063; 77067

== ENCOUNTER 2025-04-14 08:02 | Outpatient (OUT) | payer BC, SELFPAY ==
--- OUTSIDE RECORDS SUMMARY | 2025-04-14 08:04 | XMS_ITS | Clinical Summary ---
Author Organization [facility] Address [address] [place] [address] Care Team Providers Care Roofing Apprentice Name Role Phone Jalen Ross MD Primary Care Provider [phone] Allergies Active AllergyReactionsCriticalityNoted RcywMyadgbnfYhclpjnlvzgqgBtldy53/19/2014 GbqjdsjreomGhiyu50/19/2014 Medications MedicationSigDispense QuantityRefillsLast FilledStart DateEnd DateStatus aspirin 81 mg chewable tablet Chew 1 tablet every day by oral route.Active atenolol (Tenormin) 25 mg tablet Take 37.5 mg by mouth in the morning.11/24/2021ctive atorvastatin (Lipitor) 40 mg tablet TAKE 1 TABLET BY MOUTH EVERYDAY AT VSTARAY8009/19/2022ctive desvenlafaxine (Pristiq) 100 mg 24 hr tablet Take 1 tablet by mouth in the morning.Active diclofenac (Voltaren) 75 mg EC tablet Take 75 mg by mouth two times daily. Do not crush, chew, or split.Active flecainide (Tambocor) 100 mg tablet Indications:PalpitationsTAKE 1 TABLET BY MOUTH IN THE MORNING AND IN THE EVENING 180 tablet ctive Active Problems ProblemNoted DateDiagnosed DateChest pain01/21/2024OE (dyspnea on exertion) 01/21/2024bnormal mammogram of right iacfgs1201/20/2024bnormal ultrasound of scteby6501/20/2024ortic valve zmqdudphpolfg58/19/6490Dkjmhaebyx30/19/2024isc disorder of lumbar nonwfu6701/20/2024History of lwmqusbazqjvxzp25/19/2024History of rectal pndtany9601/20/2024History of trauma of zvhztf9801/20/2024MI 30.0-30.9,adult01/20/20240559Rtmngxd47/19/2024remature atrial contractions 01/20/2024ure vhinllrvrcemgcwaqaat90/19/2024Seasonal allergic rhinitis 01/20/2024Supraventricular scmszgkblis61/19/2024VC (premature ventricular contraction)12/17/2022 Assessment & Plan (12/17/2022 3:55 PM EDT): - continue flecainide 100 mg twice daily, atenolol 37.5 mg twice daily Wqzazvzxtbix47/11/202207/05/2023Well adult health check History of stroke without residual hauurwex18lood coagulation wxwfvqed74 Family History Medical HistoryRelationNameCommentsArrhythmiaFatherA-fibHeart diseaseFatherHad CABG in his 50sHeart diseaseMotherHad permanent pacemakerRelationNameStatus CommentsBrotherAliveFatherDeceasedMotherDeceasedSisterAlive Social History Tobacco UseTypesPacks/DayYears UsedDateSmoking Tobacco: NeverSmokeless Tobacco: Never Tobacco Cessation:Counseling Given: Not Answered Alcohol UseStandard Drinks/WeekCommentsNever0 (1 standard drink = 0.6 oz pure alcohol)UT Safety & EnvironmentAnswerDate RecordedFear of Current or Ex-Partner Not on file07/25/2023Emotionally AbusedNot on file07/25/2023hysically AbusedNot on 07/25/2023Sexually AbusedNot on file07/25/2023hysically or Sexually AbusedNot on file07/25/2023CommentsUnknownSex and Gender Information ValueDate RecordedSex Assigned at PiwjsCugoja45/10/2025 2:09 PM ESTLegal Sex Kdivrr3411/29/2021 10:00 PM EDTGender XjopvgtdXmjrdj76/10/2025 2:09 PM ESTSexual OrientationHeterosexual or Iscizyjn73/10/2025 2:09 PM EST Last Filed Vital Signs Vital SignReadingTime TakenCommentsBlood Leyffzvr695/7104 12:54 PM EDT Xjpts0597 12:54 PM EDTTemperature--Respiratory Rate--Oxygen Saturation 98%09/21/2024 12:54 PM EDTInhaled Oxygen Concentration--Byyful07.6 kg (182 lb) 09/21/2024 12:54 PM UTXDmuwoq217.1 cm (5' 5 )09/21/2024 12:54 PM EDTBody Mass Index30.29009/21/2024 12:54 PM EDT Plan of Treatment DateTypeDepartmentCare Team (Latest Contact Info)Capdeyhkaoi98/17/2025 1:20 PM ESTOffice Visit [facility] [address] [place] [address] Reji Horner MD [address] [place] [address] Health MaintenanceDue DateLast DoneCommentsCT Nxmxtcdszjgp82/09/1962Colonoscopy 2Colorectal Cancer Vcmzvcfnx85/09/1962FIT-DNA1961FIT1961 FOBT0539Qwpqqeqxbhhbc77/09/1962Depression Wwjjqhpsm19/09/1974Pap Smear 1982Adult Rtmlzfb1108/10/1983Cervical Cancer Twkvvqunw59/09/1992HPV/Cotest 08/10/19919121Jlizripnr82/09/2002Zoster Vaccines (1 of 2)08/10/2011COVID-19 Vaccine ( season), 04/03/2022, 03/24/2021, Additional history existsInfluenza Vaccine (#1)509/, 03/21/2020, 04/09/2017, Additional history existsPneumococcal Vaccine: Pediatrics (0 to 5 Years) and At-Risk Patients (6 to 64 Years)Vzbflflsy36/26/2024HIB VaccinesAged OutNo longer eligible based on patient's age to complete this topicHPV Vaccines Aged OutNo longer eligible based on patient's age to complete this topicIPV VaccinesAged OutNo longer eligible based on patient's age to complete this topic Meningococcal B VaccineAged OutNo longer eligible based on patient's age to complete this topicMeningococcal VaccineAged OutNo longer eligible based on patient's age to complete this topicRotavirus VaccinesAged OutNo longer eligible based on patient's age to complete this topic Insurance Care Teams Team MemberRelationshipSpecialtyStart DateEnd Date Jalen Ross MD [address] [place] [address] [facility]11/22/22
--- NOTE | 2025-04-14 08:05 | CA_ITS ---
Patient Name: NA MELENDREZ MR#: [id number] : 1960 Exam Date: 04/14/2025 Ordering Doctor: DR. BOSSMAN MARIN M.D. ECHOCARDIOGRAM REPORT PROCEDURE: CA ECHO DOPPLER COMPLETE INDICATIONS: Nonrheumatic aortic valve insufficiency COMPARISON: None. DESCRIPTION: COMPLETE ECHOCARDIOGRAM Real-time transthoracic echocardiography with 2D, M-mode, spectral and color flow Doppler performed. QUALITY: Technical quality was good. LEFT VENTRICLE: Normal chamber size. Mild concentric left ventricular hypertrophy. LV EF: Global left ventricular systolic function is normal; visually estimated ejection fraction is 55%. No significant wall motion abnormalities. DIASTOLIC: Grade 1 diastolic dysfunction. ATRIAL SEPTUM: Inadequately seen. LEFT ATRIUM: Mild dilatation. RIGHT ATRIUM: Mild dilatation. RIGHT VENTRICLE: Normal chamber size. Normal right ventricular systolic function. TRICUSPID VALVE: Normal mobility and thickness. No stenosis with mild regurgitation. No evidence of pulmonary hypertension. RVSP 24mmHg. MITRAL VALVE: Normal mobility and thickness. No evidence of mitral valve stenosis. There is no mitral annular calcification. Trivial mitral regurgitation. AORTIC VALVE: Normal trileaflet appearance. Thickened aortic valve. Normal leaflet mobility. No evidence of aortic valve stenosis. Mild aortic regurgitation. AORTIC ROOT: Normal diameter and appearance. PULMONIC VALVE: Normal thickness and mobility. No stenosis. Trivial regurgitation. PERICARDIUM: Anterior free space; trivial effusion versus fat pad. IVC: Collapses with inspiration. The IVS is normal in size measuring 1.5cm. CONCLUSION: 1. Global left ventricular systolic function is normal; visually estimated ejection fraction is 55% 2. Normal right ventricular size and systolic function 3. Mild left ventricular hypertrophy 4. Grade 1 diastolic dysfunction 5. Biatrial dilatation 6. Mild tricuspid regurgitation 7. Mild aortic valve regurgitation 8. Anterior free space; trivial effusion versus fat pad Adult Echocardiography Procedure Report Left Ventricle LVEDD (3.7 - 5.6 cm): 4.17 cm LVESD (2.2 - 4.0 cm): 2.77 cm LVIVS thickness (0.6 - 1.2 cm): 1.08 cm LVPW thickness (0.5 - 1.0 cm): 1.07 cm e': 0.08 m/s E - e': 8.20 LVOT Max Gradient: 3.68 mm[Hg] LVOT Area (cm2): 0.96 m/s Peak Velocity (LVOT): 0.96 m/s Mean Velocity (LVOT): 0.66 m/s LVOT Diameter 2.05 cm Left Ventricular Ejection Fraction: 65.13 % Left Atrium LA Volume Index (2D A2C): 35.69 ml/m2 Left Atrium Systolic Dimension: 4.47 cm Mitral Valve MV E to A Ratio: 1 Mitral Valve A-Wave Peak Velocity: 0.66 m/s Mitral Valve E-Wave Peak Velocity: 0.66 m/s Right Ventricle RV Internal Diastolic Dimension: 3.90 cm Aorta AO Root Diam: 3.05 cm Ascending Ao Diam: 3.07 cm Aortic Valve AoV Area (Peak Daniel): 2.76 cm2, 2.76 cm2 AoV Area (VTI): 2.99 cm2, 2.99 cm2 Deceleration Lyman: 1.54 m/s2 Pressure Half-Time: 776.68 ms Peak Velocity(Antegrade Flow): 1.15 m/s Peak Gradient(Antegrade Flow): 5.26 mm[Hg] Mean Velocity(Antegrade Flow): 0.79 m/s Mean Gradient(Antegrade Flow): 2.92 mm[Hg] Velocity Time Integral: 27.34 cm Tricuspid Valve Peak Velocity (Regurgitant Flow): 2.07 m/s, 2.31 m/s, 2.10 m/s Pulmonic Valve Peak Velocity: 0.84 m/s Peak Gradient: 2.77 mm[Hg], 2.82 mm[Hg] Right Atrium Right Atrium Systolic Pressure: 60.73 ml, 60.73 ml Dictated by: Jessica Benitez M.D. on 04/14/2025 at 16:11 Approved by: Jessica Benitez M.D. on 04/14/2025 at 16:15
--- OUTSIDE RECORDS SUMMARY | 2025-04-14 08:05 | XMS_ITS | Clinical Summary ---
Author Organization [facility] Address [address] [place] [address] Care Team Providers Care Bottled Beverage Inspector Name Role Phone Unavailable Primary Care Provider Unavailabl e Social History Tobacco UseTypesPacks/DayYears UsedDateSmoking Tobacco: Never Assessed CommentsUnknownSex and Gender InformationValueDate RecordedSex Assigned at Not on fileLegal EprFabrcc86/15/2023 6:37 PM EDTGender IdentityNot on fileSexual OrientationNot on file Plan of Treatment Not on file
--- OUTSIDE RECORDS SUMMARY | 2025-04-14 08:10 | XMS_ITS | CCD ---
Author Organization [facility] CliniSytn Care Team Providers Care Care Consultant Name Role Phone Amparo Dowell Primary Care Physician [phone] VANDANA ., DR CHRISTENSEN Consulting Unavailable HOY [...] Attending Unavailable JERAMIE, LUKE Admitting Unavailable JERAMIELUKE ZAVALA Consulting Unavailable HOY ., DR CHRISTENSEN Primary Care Unavailable HOY ., DR CHRISTENSEN Attending Unavailable HOY ., DR CHRISTENSEN Admitting Unavailable HOY ., DR CHRISTENSEN Consulting Unavailable HOY ., DR CHRISTENSEN Primary Care Unavailable HOY ., DR CHRISTENSEN Consulting Unavailable HOY ., DR CHRISTENSEN Attending Unavailable HOY ., DR AMPARO Lu Unavailable HOY ., DR CHRISTENSEN Primary Care Unavailable WEST, DR KATIE Mario Consulting Unavailable Pippa SIEGEL Attending Unavailable Amparo Dowell Referring Unavailable Pippa SIEGEL Attending Unavailable BOSSMAN HORNER Attending Unavailable BOSSMAN HORNER Attending Unavailable BOSSMAN HORNER Attending Unavailable Amparo Dowell MD Primary Care Provider Amparo Dowell MD Attending Provider [phone] Amparo Dowell Attending Unavailable Amparo Dowell Primary Care Unavailable Amparo Dowell Admitting Unavailable Allergies Allergy ClassificationReported Allergen(s)Allergy TypeDate of OnsetReaction(s) Facility (7 sources)HYDROmorphone; Translations: [hydromorphone]Drug Cxcusrl79-66-0420 Itching (finding)[facility] (5 sources)Penicillin; Translations: [penicillin]Drug AllergyUnknown (qualifier value), Weal (disorder)[facility] (2 sources)HYDROmorphoneDrug Lvnfkjs52-39-7957[facility] (3 sources)Penicillins; Translations: [PENICILLINS]Drug allergy (disorder) 32-09-4477[facility] (2 sources)penicillAMINE; Translations: [penicillamine]Drug Pjywadw47-36-9348 [facility] (1 source)HYDROmorphoneDrug Uayjqju61-45-2414[facility] Medications Current Medications MedicationDrug Class(es)DatesSig (Normalized)Sig (Original)albuterol HFA 90 mcg/inh MDI (4 sources)Start: 84-49-5885bvqm 2 puff(s) by inhalation four times daily albuterol HFA 90 mcg/inh MDI 2 puff(s), Inhalation, QID Shortness of breath or wheezing, Refill(s) 0 Start Date: 11/17/21 Status: Orderedaspirin 81 mg delayed release oral tablet (4 sources)Platelet Aggregation Inhibitor, Nonsteroidal Anti-inflammatory Drug Start: 12-75-5366uktj 1 tablet by mouth once dailyaspirin 81 mg Oral EC Tab 81 mg = 1 tab(s), Oral, Daily, Refills(s) 0 Start Date: 06/27/23 Status: Ordered Start: 92-53-5991qdvtyyn 81 mg Chew Tab 81 mg = 1 tab(s), Chewed, Daily, Refills(s) 0 Start Date: 11/17/21 Status: Orderedatenolol 25 mg oral tablet (4 sources)beta-Adrenergic BlockerStart: 57-93-5269gkbclmfv 25 mg Tab 37.5 mg = 1.5 tab(s), Oral, Daily, Refills(s) 0 Start Date: 11/17/21 Status: Ordered atorvastatin 40 mg oral tablet (1 source)HMG-CoA Reductase InhibitorStart: 92-99-9498tjbx 1 tablet by mouth once dailyatorvastatin 40 mg Tab 40 mg = 1 tab(s), Oral, Daily, Refills(s) 0 Start Date: 06/27/23 Status: Faqhfgm01 hr desvenlafaxine succinate 100 mg extended release oral tablet (4 sources)Serotonin and Norepinephrine Reuptake InhibitorStart: 42-78-8887fidp 1 tablet by mouth once dailydesvenlafaxine 100 mg Tab- 100 mg = 1 tab(s), Oral, Daily, Refills(s) 0 Start Date: 11/17/21 Status:OrderedStart: 54-99-1798xlyw 1 tablet by mouth once dailydesvenlafaxine 100 mg Tab- 100 mg = 1 tab(s), Oral, Daily, Refills(s) 0 Start Date: 11/17/21 Status:Orderedesomeprazole 40 mg delayed release oral capsule (3 sources)Proton Pump InhibitorStart: 10-43-1138tzin 1 capsule by mouth once dailyNexium 40 mg Cap-EC 40 mg = 1 cap(s), Oral, Daily, Refills(s) 0 Start Date: 11/17/21 Status: Orderedflecainide acetate 100 mg oral tablet (4 sources)AntiarrhythmicStart: 33-98-4370gprv 1 tablet by mouth every twelve hoursflecainide 100 mg Tab 100 mg = 1 tab(s), Oral, q12hr, Refills(s) 0 Start Date: 11/21/21 Status: Orderedmagnesium oxide 500 mg oral tablet (3 sources)Start: 68-42-6194mmlg 1 tablet by mouth once dailymagnesium oxide 500 mg oral tablet 500 mg = 1 tab(s), Oral, Daily, Refills(s) 0 Start Date: 11/21/21 Status: OrderedVitamin D3 1999 intl units oral Tab (1 source)Start: 05-42-5159xevt 1 tablet by mouth once dailyVitamin D3 1999 intl units oral Tab = 1 tab(s), Oral, Daily, tab(s), Refills(s) 0 Start Date: 4 Status: Ordered Problems Active Problems Problem ClassificationProblemDateDocumented DateEpisodic/ChronicCalculus of urinary tract (1 source)History of calculus of -31-9379IgxmczcjKeajozn dysrhythmias (14 sources)Premature atrial contraction; Translations: [Supraventricular tachycardia]Onset: 309552-37-0781ZyggnddIjmylvxxx of lipid metabolism (7 sources)Pure hypercholesterolemia; Translations: [Mixed hyperlipidemia]Onset: 865133-17-6280DlicupiUmdjj valve disorders (6 sources)Aortic valve regurgitation; Translations: [Nonrheumatic aortic (valve) insufficiency]Onset: 774815-01-2108BgxtpjpOviz disorders (4 sources)Depressive yiixuxtu83-01-2064UcknuckLewercvmgeaf breast conditions (1 source)Fibrosclerosis of right breast; Translations: [FIBROSCLEROSIS OF RIGHT BREAST]Onset: 37-98-7575WezwocuAochssfjknjo breast conditions (6 sources)Mammographic microcalcification found on diagnostic imaging of breast; Translations: [Unspecified lump in the right breast, lower outer quadrant]Onset: 30-41-5213HejvjossCdndy circulatory disease (4 sources)History of cerebrovascular -17-1405GinmszkoKxxfq gastrointestinal disorders (4 sources)H/O: gastrointestinal zlvyjpc65-39-9320IdzflugfLzvpe injuries and conditions due to external causes (5 sources)H/O: injury; Translations: [Personal history of other (healed) physical injury and trauma]Onset: 25-82-5535KszfkltaYtipt nutritional; endocrine; and metabolic disorders (1 source)Body mass index 30+ - -69-5153LprdnzkXxlck nutritional; endocrine; and metabolic disorders (1 source)Mrjleuf68-51-6076IothpkfAtbgk nutritional; endocrine; and metabolic disorders (3 sources)Body mass index 25-29 - rfeivfcqpg33-72-0064DweakvtlMlpix screening for suspected conditions (not mental disorders or infectious disease) (20 sources)Abnormal findings on diagnostic imaging of breast; Translations: [Other abnormal and inconclusive findings on diagnostic imaging of breast]Onset: 39-38-1830ZzjvorcjBhibs upper respiratory disease (4 sources)Seasonal allergic rxcdlulo37-44-1589AhkefxgBcwrfbrzruj; intervertebral disc disorders; other back problems (4 sources)Disorder of lumbar molb85-82-1466MjpgwhuXihsppeigcor (2 sources)CONTACT W/AND (SUSP) EXPOS COVID-19; Translations: [CONTACT W/AND (SUSP) EXPOS COVID-19]Onset: 36-82-3768Amnqeehgqkqw (2 sources)Patient encounter bejdzg42-59-3162Wryyyjzztanu (2 sources)6 month follow upOnset: 53-63-7304Cysofcilzirx (1 source)Supraventricular tachycardia, unspecified; Translations: [Supraventricular tachycardia, unspecified]Onset: 38-33-5813Xtben infection (1 source)COVID-19; Translations: [COVID-19]Onset: 12-01-2021 Past or Other Problems Problem ClassificationProblemDateDocumented DateEpisodic/ChronicCardiac dysrhythmias (4 sources)Palpitations; Translations: [PALPITATIONS]Onset: 73-61-8549Wkixiugj Nonspecific chest pain (4 sources)Precordial pain; Translations: [Chest pain, unspecified]Onset: 84-50-1527YymbzxrdBurbl circulatory disease (2 sources)Personal history of transient ischemic attack (TIA), and cerebral infarction without residual deficits; Translations: [Personal history of transient ischemic attack (TIA), and cerebral infarction without residual deficits]Onset: 27-04-0477EktxgzilPmwwe lower respiratory disease (2 sources)Other forms of dyspnea; Translations: [Other forms of dyspnea]Onset: 20-93-6263YpbhfxqhYerfsbea codes; unclassified (1 source)Family history of malignant neoplasm of prostate; Translations: [FAMILY HX MALIG NEOPLASM PROSTATE]Onset: 68-44-3586AcxbksfoNtqgnstj codes; unclassified (1 source)Family history of malignant neoplasm of other organs or systems; Translations: [FAM HX MALIG NEOPLASM OTH ORGN/SYS]Onset: 67-53-0984Yanmejby Unclassified (1 source)CONTACT W/AND (SUSP) EXPOS COVID-19; Translations: [CONTACT W/AND (SUSP) EXPOS COVID-19]Onset: 74-47-8551Fepyymzqqqil (1 source)Supraventricular tachycardia, unspecified; Translations: [Supraventricular tachycardia, unspecified]Onset: 03-23-2024 Results Test NameValueInterpretationReference RangeFacilityMM special view RT w/CADon 53-03-0734QT special view RT w/CADPREMIER [facility] [address] [place] [address] Mammography Report Signed Patient: Katelynn Melendrez MR#: [id number] : 1960 Acct:[id number] Age/Sex: 64 / F Adm Date: 12/21/24 Loc: [place] Room: Type: [facility] Attending Dr: Amparo Dowell MD Ordering Provider: Amparo Dowell MD Date of Service: 12/21/24 Procedure(s): MM special view RT w/CAD Accession Number(s): ([id number]) MM/MM special view RT w/CAD: R92.8 Copies to: Amparo Dowell MD DIAGNOSTIC RIGHT MAMMOGRAM - FULL FIELD DIGITAL WITH TOMOSYNTHESIS CLINICAL DATA: Focal asymmetry on screening Craniocaudal and mediolateral oblique views of the right breast were obtained using low-dose digital technique. Comparison is made to prior studies dating back to 23 This examination was reviewed with the aid of CAD. Scattered fibroglandular densities. There are no dominant masses, typically malignant calcifications or architectural distortion. The asymmetry appears less distinct with a central fatty lucency which may represent normal breast tissue versus a small lipoma measuring 1.4 cm. MM/MM special view RT w/CAD IMPRESSION: NO MAMMOGRAPHIC EVIDENCE OF MALIGNANCY. ROUTINE SCREENING FOLLOW-UP IS RECOMMENDED IN ONE YEAR. RESULT CODE: 2 Benign Findings(s) DENSITY CODE: 2 (approximately 25-50% glandular) There are scattered areas of fibroglandular density. FOLLOW UP: 1YR The false-negative rate of mammography is approximately 10-percent. Management of a palpable abnormality must be based on clinical grounds. Impression dictated by: Emigdio Tamayo M.D. 12/21/2024 9:36 AM Dictation Location: [facility] Dictated By: Emigdio Tamayo MD 12/21/24 0933 Signed By: 12/21/24 0936[facility] Physician GroupMammography reportOrdered By: Emigdio Tamayo on 96-66-0971Nqpbjwjvad imaging studyPREMIER [facility] [address] [place] [address] Mammography Report Signed Patient: Katelynn Melendrez MR#: [id number] : 1960 Acct:[id number] Age/Sex: 64 / F Adm Date: 5 Loc: [place] Room: Type: [facility] Attending Dr: Amparo Dowell MD Ordering Provider: Amparo Dowell MD Date of Service: 12/21/24 Procedure(s): MM special view RT w/CAD Accession Number(s): ([id number]) MM/MM special view RT w/CAD: R92.8 Copies to: Amparo Dowell MD~ DIAGNOSTIC RIGHT MAMMOGRAM - FULL FIELD DIGITAL WITH TOMOSYNTHESIS CLINICAL DATA: Focal asymmetry on screening Craniocaudal and mediolateral oblique views of the right breast were obtained using low-dose digital technique. Comparison is made to prior studies dating back to 23 This examination was reviewed with the aid of CAD. Scattered fibroglandular densities. There are no dominant masses, typically malignant calcifications or architectural distortion. The asymmetry appears lessdistinct with a central fatty lucency whichmay represent normal breast tissue versus a small lipoma measuring 1.4 cm. MM/MM special view RT w/CAD IMPRESSION: NO MAMMOGRAPHIC EVIDENCE OF MALIGNANCY. ROUTINE SCREENING FOLLOW-UP IS RECOMMENDED IN ONE YEAR. RESULT CODE: 2 Benign Findings(s) DENSITY CODE: 2 (approximately 25-50% glandular) There are scattered areas of fibroglandular density. FOLLOW UP: 1YR The false-negative rate of mammography is approximately 10-percent. Management of a palpable abnormality must be based on clinical grounds. Impression dictated by: Emigdio Tamayo M.D. 12/21/2024 9:36 AM Dictation Location: [facility] Dictated By: Emigdio Tamayo MD 12/21/24932 Signed By: 12/21/24 0936 [facility] Work Phone: [phone] [phone]: Bossman Horner MD Sent: 11/01/2024 3:21 PM EDT To: Desi Tobin MA Subject: RE: Import Aortic regurgitation is stable. Left ventricle size and function is normal. Continue current management ----- Message ----- Advised patient of Dr. Horner's findings. Patient verbalized understanding. [facility] 84-08-0033Ezpzvb-up [id number] Katelynn Melendrez 1960 F Date Provider Department Center 09/21/2024 BOSSMAN HAWTHORNE Family History Problem Relation Age of Onset Heart disease Mother Comments: Had permanent pacemaker Arrhythmia Father Comments: A-fib Heart disease Father 50 Comments: Had CABG in his 50s Family Status - Relation Status Age at Mother Father Sister Alive Brother Alive Level of Service:28771 SC OFFICE/OUTPATIENT ESTABLISHED MOD MDM 30 MIN Reason for Visit and Comments: 6 month follow up [Other][facility] 47-75-8729Tmpqrx-up [id number] Katelynn Melendrez 1960 F Date Provider Department Center 03/23/2024 BOSSMAN HAWTHORNE Family History Problem Relation Age of Onset Heart disease Mother Comments: Had permanent pacemaker Arrhythmia Father Comments: A-fib Heart disease Father 50 Comments: Had CABG in his 50s Family Status - Relation Status Age at Mother Father Level of Service:93243 SC OFFICE/OUTPATIENT ESTABLISHED MOD MDM 30 MIN Reason for Visit and Comments: follow up echo [Other][facility] Regarding stress test result from 02/12/2024: MD Desi De La Vega MA Please inform patient that her stress test is normal at good level of exercise. Patient made aware via text message. Waiting on echo results.NormalShelby Memorial HospitalOffice Visiton 73-57-4691Ubipim-up [id number] Katelynn Melendrez 1960 F Date Provider Department Center 01/20/2024 29962-SJTEIG JOANNESAMRA BH CARD [facility] Family History Problem Relation Age of Onset Heart disease Mother Comments: Had permanent pacemaker Arrhythmia Father Comments: A-fib Heart disease Father 50 Comments: Had CABG in his 50s Family Status - Relation Status Age at Mother Father Level of Service:68103 SC OFFICE/OUTPATIENT ESTABLISHED MOD MDM 30 MIN Reason for Visit and Comments: Chest Pain [097232] Shortness of Breath [733824]NormalShelby Memorial HospitalOutside Colonoscopyon 11-56-5925Dkxjvys Colonoscopy [id number]#1.00[facility] CenterReminderson 61-93-0214Zfaxcbsqz From: Ginger Young LPN To: GSN - Clinical; Sent: 07/25/2023 13:55:05 EST Show up: 06/23/2033 07:00:00 EST Subject: colonoscopy recall Due Date/Time: 07/24/2033 07:00:00 EST Reminder/Recall Patient due for screening colonoscopy 07/24/2033.[facility] HealthInsurance Correspondenceon 19-25-1202Lcnmzkhfv Correspondence [id number]#1.00TIFFParkview HealthConsent for Procedure/Surgeryon 39-68-3067Xtjlqzw for Procedure/Surgery [id number]#1.00[facility] Health CenterFacesheeton 41-51-5308Npjonopff [id number]#1.00[facility] CenterAmbulatory Visit Summaryon 71-79-4491Nafuuqizae Visit Summary KATELYNN MELENDREZ :1960 Visit Date:07/16/2023 Ambulatory Visit Instructions Your Care Team Attending Physician - ROBIBN CASTRO, Pippa Moreno Primary Care Physician - Vandana CASTRO, Amparo Referring Physician - Vandana CASTRO, Amparo This Is Your Medications List Contact prescribing [...] you for choosing us for your care. [facility] HealthPhysician Referralon 06-19-2023 Physician [id number]#1.00TIFFNoFirelands Regional Medical CenterMG MAMM DIAGNOSTIC 3D SERA CADon 82-27-7025CE MAMM DIAGNOSTIC 3D SERA CADPatient: KATELYNN MELENDREZ Exam Date: 09/26/2022 : 1960 Gender:F Ordering : DR AMPARO DOWELL . Admission #: [id number] Family : Order #: [id number] CLICK HERE TO VIEW EXAM RADIOLOGY REPORT [...] prostate cancer at age 73. LOCATION: [facility] BREAST COMPOSITION: Heterogeneously dense,which may obscure [...] by: Katie Mahmood MD on 09/26/2022 at 10:00NoOhioHealth Mansfield Hospital AUTO DIFFon 12-80-5993QAUC #0.0 103/ulNormal0.0-0.1[facility] HospitalComment on above:Performed By: #### CMP, LIPID, TSH #### [facility] [address] [place] [address] Dr. Jamia AlbrechtBasophils/100 WBC (Bld)0.5 %Normal0.2-2.0[facility] Comment on above:Performed By: #### CMP, LIPID, TSH #### [facility] [address] [place] [address] Dr. Jamia Salgado #0.3 103/ulNormal0.0-0.7ThMercy Health Defiance HospitalComment on above: Performed By: #### CMP, LIPID, TSH #### [facility] [address] [place] [address] Dr. Jamia Omalleyosinophils/100 WBC (Bld)4.7 %Normal0.9-7.0[facility] Comment on above:Performed By: #### CMP, LIPID, TSH #### [facility] [address] [place] [address] Dr. Jamia Omalleyrythrocyte distribution width (RBC) [Ratio]14.3 %Giazen94.0-15.0 [facility] HospitalComment on above:Performed By: #### CMP, LIPID, TSH #### [facility] [address] [place] [address] Dr. Jamia AlbrechtHematocrit (Bld) [Volume fraction]37.5 %Wsydhq75.0-48.0The [facility] HospitalComment on above:Performed By: #### CMP, LIPID, TSH #### [facility] [address] [place] [address] Dr. Jamia AlbrechtHemoglobin (Bld) [Mass/Vol]12.1 g/eSUdltbn43.0-16.0The [facility] HospitalComment on above:Performed By: #### CMP, LIPID, TSH #### [facility] [address] [place] [address] Dr. Jamia Rees #0.01 10e3/ulNormal0.00-0.03The [facility] HospitalCommarshfield medical center on above:Performed By: #### CMP, LIPID, TSH #### [facility] [address] [place] [address] Dr. Jamia Rees %0.2 %Normal0.0-0.5The [facility] HospitalComment on above: Performed By: #### CMP, LIPID, TSH #### [facility] [address] [place] [address] Dr. Jamia Mcconnell #1.9 103/ulNormal1.2-3.8The [facility] HospitalComment on above:Performed By: #### CMP, LIPID, TSH #### [facility] [address] [place] [address] Dr. Jamia Jacomehocytes/100 WBC (Bld)34.5 %Cwewbx32.5-60.0The [facility] HospitalCommarshfield medical center on above:Performed By: #### CMP, LIPID, TSH #### [facility] [address] [place] [address] Dr. Jamia SandovalUAL DIFF REQNONormalThe Protestant HospitalComment on above: Performed By: #### CMP, LIPID, TSH #### [facility] [address] [place] [address] Dr. Jamia Dey (RBC) [Entitic mass]26.8 xkNjbxho53.7-34.0The [facility] HospitalComment on above:Performed By: #### CMP, LIPID, TSH #### [facility] [address] [place] [address] Dr. Jamia Bae (RBC) [Mass/Vol]32.3 g/lOKjqgjs99.9-35.2The [facility] HospitalComment on above:Performed By: #### CMP, LIPID, TSH #### [facility] [address] [place] [address] Dr. Jamia Bae (RBC) [Entitic vol]83.0 dIGuzobu72.0-99.0The [facility] HospitalComment on above:Performed By: #### CMP, LIPID, TSH #### [facility] [address] [place] [address] Dr. Jamia Archuleta #0.4 103/ulNormal0.3-0.8The [facility] HospitalComment on above:Performed By: #### CMP, LIPID, TSH #### [facility] [address] [place] [address] Dr. Jamia Batemanocytes/100 WBC (Bld)6.8 %Normal1.7-12.0[facility] Comment on above:Performed By: #### CMP, LIPID, TSH #### [facility] [address] [place] [address] Dr. Jamia Estrada #2.9 103/ulNormal1.4-6.5The [facility] HospitalComment on above:Performed By: #### CMP, LIPID, TSH #### [facility] [address] [place] [address] Dr. Jamia Macedoophils/100 WBC (Bld)53.3 %Rkbbvw97.0-75.0The [facility] HospitalComment on above:Performed By: #### CMP, LIPID, TSH #### [facility] [address] [place] [address] Dr. Jamia Ayala mean volume (Bld) [Entitic vol]9.6 fLNormal9.5-13.5The [facility] HospitalComment on above:Performed By: #### CMP, LIPID, TSH #### [facility] [address] [place] [address] Dr. Jamia JayT296 103/ivUropvg219-170Psp [facility] on above: Performed By: #### CMP, LIPID, TSH #### [facility] [address] [address] [address] Jamia AlbrechtRBC4.52 106/ulNormal4.20-5.40The [facility] on above:Performed By: #### CMP, LIPID, TSH #### [facility] [address] [address] [address] Jamia AlbrechtWBC5.5 103/ulNormal4.0-11.0The [facility] on above: Performed By: #### CMP, LIPID, TSH #### [facility] [address] [address] [address] Jamia AlbrechtGLYCOHEMOGLOBIN A1Con 27-52-1936LJC RECOMMENDATIONSEE BELOWGrant HospitalCommarshfield medical center on above:Result Comment: ADA RECOMMENDED LIMIT 4.0 - 6.0 ADA THERAPEUTIC TARGET < 7.0 ACTION SUGGESTED > 7.0Performed By: #### CMP, LIPID, TSH #### [facility] [address] [address] [address] Jamia AlbrechtGlucose [Mass/Vol]131 mg/dLNoGrand Lake Joint Township District Memorial Hospital on above:Performed By: #### CMP, LIPID, TSH #### [facility] [address] [address] [address] Jamia AlbrechtHbA1c (Bld) [Mass fraction]6.2 %Normal4.5-6.2The [facility] on above:Performed By: #### CMP, LIPID, TSH #### [facility] [address] [address] [address] Jamia AlbrechtLIPID PROFILEon 01-87-3406HLGL-HDL RATIO NORMSEE [facility] on above:Result Comment: 3.3 - 4.4 LOW RISK 4.4 - 7.1 AVERAGE RISK 7.1 - 11.0 MODERATE RISK >11.0 HIGH RISKPerformed By: #### CMP, LIPID, TSH #### [facility] [address] [address] [address] Jamia AlbrechtCholesterol [Mass/Vol]134 mg/dLNormal<=200[facility] Comment on above:Performed By: #### CMP, LIPID, TSH #### [facility] [address] [address] [address] Jamia AlbrechtCholesterol in HDL [Mass/Vol]58 mg/gUBwiasv97-37Gjl [facility] HospitalComment on above:Performed By: #### CMP, LIPID, TSH #### [facility] [address] [address] [address] Jamia AlbrechtCholesterol in LDL [Mass/Vol]60.6 mg/dLNoRegency Hospital Cleveland EastComment on above:Performed By: #### CMP, LIPID, TSH #### [facility] [address] [place] [address] Dr. Jamia Arauzestermoriah.total/Cholesterol in HDL [Mass ratio]2.3 {ratio} NormalThe Protestant HospitalComment on above:Performed By: #### CMP, LIPID, TSH #### [facility] [address] [address] [address] Jamia Magdaleno NORMAL> or = 60 mg/dl - LOW CARDIOVASCULAR RISK <40 mg/dl - HIGH CARDIOVASCULAR RISKWilson HealthComment on above:Performed By: #### CMP, LIPID, TSH #### [facility] [address] [address] [address] Jamia AlbrechtLDL CALC NORMALSEE BELOWWilson HealthComment on above:Result Comment: <100 mg/dl OPTIMAL 100 - 129 mg/dl NEAR OR ABOVE OPTIMAL 130 - 159 mg/dl BORDERLINE HIGH 160 - 189 mg/dl HIGH >190 mg/dl VERY HIGH Performed By: #### CMP, LIPID, TSH #### [facility] [address] [address] [address] Jamia AlbrechtTriglyceride [Mass/Vol]77 mg/dLNormal<=150[facility] Comment on above:Performed By: #### CMP, LIPID, TSH #### [facility] [address] [address] [address] Jamia SalehLDL CALC15.4 mg/dLNormalThe Protestant HospitalComment on above: Performed By: #### CMP, LIPID, TSH #### [facility] [address] [address] [address] Jamia AlbrechtPROF 14(COMP METB)on 93-79-0878Dgmqadc [Mass/Vol]3.5 g/dLNormal 3.4-5.0The [facility] HospitalComment on above:Performed By: #### CMP, LIPID, TSH #### [facility] [address] [address] [address] Jamia AlbrechtAlbumin/Globulin [Mass ratio]1.0 {ratio}NormalThe Protestant HospitalComment on above:Performed By: #### CMP, LIPID, TSH #### [facility] [address] [address] [address] Jamia Padron [Catalytic activity/Vol]104 U/WPvfrds22-613Plc Protestant HospitalComment on above:Performed By: #### CMP, LIPID, TSH #### [facility] [address] [address] [address] Jamia Cutler [Catalytic activity/Vol]30 U/WXzzbcd14-48Bxk Protestant HospitalComment on above:Performed By: #### CMP, LIPID, TSH #### [facility] [address] [address] [address] Jamia Ni gap [Moles/Vol]12.5 mmol/LNormalThe [facility] Comment on above:Performed By: #### CMP, LIPID, TSH #### [facility] [address] [address] [address] Jamia Parra [Catalytic activity/Vol]21 U/CFsitlr24-67Mkj [facility] Center[facility] on above:Performed By: #### CMP, LIPID, TSH #### [facility] [address] [address] [address] Jamia AlbrechtBilirubin [Mass/Vol]0.2 mg/dLNormal0.2-1.0[facility] Comment on above:Performed By: #### CMP, LIPID, TSH #### [facility] [address] [address] [address] Jamia AlbrechtCalcium [Mass/Vol]8.8 mg/dLNormal8.5-10.1[facility] Comment on above:Performed By: #### CMP, LIPID, TSH #### [facility] [address] [address] [address] Jamia AlbrechtChloride [Moles/Vol]102 mmol/CLgaczd94-618Dzw [facility] Comment on above:Performed By: #### CMP, LIPID, TSH #### [facility] [address] [place] [address] Dr. Jamia AlbrechtCO2 [Moles/Vol]28.5 mmol/DPqacwj59.0-32.0[facility] Comment on above:Performed By: #### CMP, LIPID, TSH #### [facility] [address] [place] [address] Dr. Jamia AlbrechtCreatinine [Mass/Vol]0.69 mg/dLNormal0.55-1.02[facility] HospitalComment on above:Performed By: #### CMP, LIPID, TSH #### [facility] [address] [place] [address] Dr. Jamia OmalleyGFR-AF ZIMBABWEAN>60Normal>=60The Protestant HospitalComment on above:Performed By: #### CMP, LIPID, TSH #### [facility] [address] [place] [address] Dr. Jamia Frost-NON AF ZIMBABWEAN>60Normal>=60[facility] HospitalComment on above:Performed By: #### CMP, LIPID, TSH #### [facility] [address] [place] [address] Dr. Jamia AlbrechtGlobulin (S) [Mass/Vol]3.5 g/dLNormalThe Protestant HospitalComment on above:Performed By: #### CMP, LIPID, TSH #### [facility] [address] [place] [address] Dr. Yilan ChangGlucose [Mass/Vol]125 mg/dLCritically qbeu70-411Gpx [facility] HospitalComment on above:Performed By: #### CMP, LIPID, TSH #### [facility] [address] [place] [address] Dr. Jamia AlbrechtPotassium [Moles/Vol]4.0 mmol/LNormal3.5-5.1[facility] Comment on above:Performed By: #### CMP, LIPID, TSH #### [facility] [address] [address] [address] Jamia AlbrechtProtein [Mass/Vol]7.0 g/dLNormal6.4-8.2[facility] Comment on above:Performed By: #### CMP, LIPID, TSH #### [facility] [address] [place] [address] Dr. Jamia AlbrechtSodium [Moles/Vol]139 mmol/TPhqpxv687-890Svo [facility] Comment on above:Performed By: #### CMP, LIPID, TSH #### [facility] [address] [place] [address] Dr. Jamia AlbrechtUrea nitrogen [Mass/Vol]12.0 mg/dLNormal7.0-18.0The Protestant HospitalComment on above:Performed By: #### CMP, LIPID, TSH #### [facility] [address] [place] [address] Dr. Jamia Barbour nitrogen/Creatinine [Mass ratio]17.4 mg/mgNormalThe Protestant HospitalComment on above:Performed By: #### CMP, LIPID, TSH #### [facility] [address] [place] [address] Dr. Jamia Hood 99-42-6963AIP1.856 uIU/mLNormal0.358-3.740The [facility] HospitalComment on above:Performed By: #### CMP, LIPID, TSH #### [facility] [address] [place] [address] Dr. Jamia Liang POST BIOPSY RIGHTon 13-98-7972FAMZZ POST BIOPSY RIGHT Patient: KATELYNN MELENDREZ Exam Date: 01/30/2022 : 1960 Gender:F Ordering : DR PIPPA SIEGEL . Admission #: [id number] Family : Order #: [id number] CLICK HERE TO VIEW EXAM This report [...] by: Titus James M.D. on 02/08/2022 at 08:06[facility]MG STEREO CORE NDL W CLP RTon [id number] STEREO CORE NDL W CLP RT Patient: KATELYNN MELENDREZ Exam Date: 01/30/2022 : 1960 Gender:F Ordering : DR PIPPA SIEGEL . Admission #: [id number] Family : Order #: [id number] CLICK HERE TO VIEW EXAM This report [...] malignancy. Reported faxed to office of Dr. Siegel and verified on 02/02/22 Dictated by: Titus James M.D. on 02/08/2022 at 08:06 Approved by: Titus James M.D. on 02/08/2022 at 08:08[facility] HealthCHEMISTRYOrdered By: SYSTEM SYSTEM on 57-70-1307Ngmsyxjhpu [Mass/Vol]0.5 mg/dLNormal0.5 - 1.3 mg/dLFTMC RemisolGFR/1.73 sq M.predicted among blacks MDRD (S/P/Bld) [Vol rate/Area]mL/min/1.73 z6Hbitjk>=59mL/min/1.73 m2[facility] Chem S GFR/1.73 sq M.predicted among non-blacks MDRD (S/P/Bld) [Vol rate/Area] mL/min/1.73 c8Xvwlic>=59mL/min/1.73 m2FT Chem SSYMPTOMATIC COVID-19 ANTIGENon 21-34-6664NHT StatementSEE BELOWWilson HealthComment on above: Result Comment: This test has [...] declaration is terminated or authorization is revoked sooner.Performed By: #### CMP, LIPID, TSH #### [facility] [address] [place] [address] Dr. Jamia Goldstein-CoV-2 (COVID-19) RNA TONIE+probe Ql (Unsp spec)Positive Critically abnormalNEGATIVEThe Protestant HospitalComment on above:Performed By: #### CMP, LIPID, TSH #### [facility] [address] [place] [address] Dr. Jamia Ulloa AUTO DIFFon 07-12-2772KQNG #0.0 103/ulNormal0.0-0.1The Protestant HospitalComment on above:Performed By: #### CMP, LIPID, TSH #### [facility] [address] [place] [address] Dr. Jamia AlbrechtBasophils/100 WBC (Bld)0.5 %Normal0.2-2.0[facility] Comment on above:Performed By: #### CMP, LIPID, TSH #### [facility] [address] [place] [address] Dr. Blandon ChangEChristian #0.2 103/ulNormal0.0-0.7The Protestant HospitalComment on above: Performed By: #### CMP, LIPID, TSH #### [facility] [address] [place] [address] Dr. Jamia Omalleyosinophils/100 WBC (Bld)3.7 %Normal0.9-7.0[facility] Comment on above:Performed By: #### CMP, LIPID, TSH #### [facility] [address] [place] [address] Dr. Jamia Omalleyrythrocyte distribution width (RBC) [Ratio]14.1 %Uwhctc45.0-15.0 The Protestant HospitalComment on above:Performed By: #### CMP, LIPID, TSH #### [facility] [address] [place] [address] Dr. Jamia AlbrechtHematocrit (Bld) [Volume fraction]39.8 %Bjwusc65.0-48.0The Protestant HospitalComment on above:Performed By: #### CMP, LIPID, TSH #### [facility] [address] [place] [address] Dr. Jamia AlbrechtHemoglobin (Bld) [Mass/Vol]12.6 g/aEIsbyxw68.0-16.0The Protestant HospitalComment on above:Performed By: #### CMP, LIPID, TSH #### [facility] [address] [place] [address] Dr. Jamia Rees #0.01 10e3/ulNormal0.00-0.03The Protestant HospitalComment on above:Performed By: #### CMP, LIPID, TSH #### [facility] [address] [place] [address] Dr. Jamia Rees %0.2 %Normal0.0-0.5The Protestant HospitalComment on above: Performed By: #### CMP, LIPID, TSH #### [facility] [address] [place] [address] Dr. Jamia Mcconnell #0.7 103/ulCritically low1.2-3.8[facility] Comment on above:Performed By: #### CMP, LIPID, TSH #### [facility] [address] [place] [address] Dr. Jamia Jacomehocytes/100 WBC (Bld)16.1 %Critically low20.5-60.0The Protestant HospitalComment on above:Performed By: #### CMP, LIPID, TSH #### [facility] [address] [place] [address] Dr. Jamia Landrum DIFF REQNONormalThe Protestant HospitalComment on above: Performed By: #### CMP, LIPID, TSH #### [facility] [address] [place] [address] Dr. Jamia Bae (RBC) [Entitic mass]27.2 dmWbcvht48.7-34.0The Protestant HospitalComment on above:Performed By: #### CMP, LIPID, TSH #### [facility] [address] [place] [address] Dr. Jamia Bae (RBC) [Mass/Vol]31.7 g/zROrjzmm59.9-35.2The Protestant HospitalComment on above:Performed By: #### CMP, LIPID, TSH #### [facility] [address] [place] [address] Dr. Jamia Bae (RBC) [Entitic vol]86.0 qCZloupy52.0-99.0The [facility] HospitalComment on above:Performed By: #### CMP, LIPID, TSH #### [facility] [address] [place] [address] Dr. Jamia Archuleta #0.5 103/ulNormal0.3-0.8The [facility] HospitalComment on above:Performed By: #### CMP, LIPID, TSH #### [facility] [address] [place] [address] Dr. Jamia Batemanocytes/100 WBC (Bld)11.7 %Normal1.7-12.0[facility] Comment on above:Performed By: #### CMP, LIPID, TSH #### [facility] [address] [place] [address] Dr. Jamia Estrada #3.0 103/ulNormal1.4-6.5The [facility] HospitalComment on above:Performed By: #### CMP, LIPID, TSH #### [facility] [address] [place] [address] Dr. Jamia Mclaughlinutrophils/100 WBC (Bld)67.8 %Erusdk54.0-75.0The [facility] on above:Performed By: #### CMP, LIPID, TSH #### [facility] [address] [place] [address] Dr. Jamia AlbrechtPlatelet mean volume (Bld) [Entitic vol]9.4 fLCritically low 9.5-13.5The [facility] on above:Performed By: #### CMP, LIPID, TSH #### [facility] [address] [place] [address] Dr. Jamia AlbrechtPLT276 103/tvXxiqbi865-696Rbl [facility] on above: Performed By: #### CMP, LIPID, TSH #### [facility] [address] [place] [address] Dr. Jamia AlbrechtRBC4.63 106/ulNormal4.20-5.40The [facility] on above:Performed By: #### CMP, LIPID, TSH #### [facility] [address] [place] [address] Dr. Jamia AlbrechtWBC4.4 103/ulNormal4.0-11.0[facility] on above: Performed By: #### CMP, LIPID, TSH #### [facility] [address] [place] [address] Dr. Jamia ArellanoID PROFILEon 20-86-3176JDNL-HDL RATIO [facility] on above:Result Comment: 3.3 - 4.4 LOW RISK 4.4 - 7.1 AVERAGE RISK 7.1 - 11.0 MODERATE RISK >11.0 HIGH RISKPerformed By: #### CMP, LIPID, TSH #### [facility] [address] [place] [address] Dr. Jamia AlbrechtCholesterol [Mass/Vol]216 mg/dLCritically high<=200The [facility] on above:Performed By: #### CMP, LIPID, TSH #### [facility] [address] [address] [address] Jamia Arauzesterol in HDL [Mass/Vol]57 mg/uOBznxsn62-82Hka [facility] on above:Performed By: #### CMP, LIPID, TSH #### [facility] [address] [place] [address] Dr. Jamia AlbrechtCholesterol in LDL [Mass/Vol]134.2 mg/dLNoRegency Hospital Cleveland EastComment on above:Performed By: #### CMP, LIPID, TSH #### [facility] [address] [place] [address] Dr. Jamia Goodwin.total/Cholesterol in HDL [Mass ratio]3.8 {ratio} NormalGrant HospitalComment on above:Performed By: #### CMP, LIPID, TSH #### [facility] [address] [place] [address] Dr. Jamia Magdaleno NORMAL> or = 60 mg/dl - LOW CARDIOVASCULAR RISK <40 mg/dl - HIGH CARDIOVASCULAR RISKWilson HealthComment on above:Performed By: #### CMP, LIPID, TSH #### [facility] [address] [place] [address] Dr. Jamia Polanco CALC NORMALSEE BELOWWilson HealthComment on above:Result Comment: <100 mg/dl OPTIMAL 100 - 129 mg/dl NEAR OR ABOVE OPTIMAL 130 - 159 mg/dl BORDERLINE HIGH 160 - 189 mg/dl HIGH >190 mg/dl VERY HIGH Performed By: #### CMP, LIPID, TSH #### [facility] [address] [place] [address] Dr. Jamia AlbrechtTriglyceride [Mass/Vol]124 mg/dLNormal<=150[facility] Comment on above:Performed By: #### CMP, LIPID, TSH #### [facility] [address] [place] [address] Dr. Jamia SalehLDL CALC24.8 mg/dLNoRegency Hospital Cleveland EastComment on above: Performed By: #### CMP, LIPID, TSH #### [facility] [address] [address] [address] Jamia Lancaster 14(COMP METB)on 53-98-7993Ydomptf [Mass/Vol]3.7 g/dLNormal 3.4-5.0Grant HospitalComment on above:Performed By: #### CMP, LIPID, TSH #### [facility] [address] [address] [address] Jamia AlbrechtAlbumin/Globulin [Mass ratio]1.1 {ratio}NormalThe Protestant HospitalComment on above:Performed By: #### CMP, LIPID, TSH #### [facility] [address] [place] [address] Dr. Jamia Padron [Catalytic activity/Vol]102 U/GIcpcre68-597Xib [facility] HospitalComment on above:Performed By: #### CMP, LIPID, TSH #### [facility] [address] [place] [address] Dr. Jamia Cutler [Catalytic activity/Vol]26 U/ZMpjtvy12-18Xhh [facility] HospitalComment on above:Performed By: #### CMP, LIPID, TSH #### [facility] [address] [place] [address] Dr. Jamia Ni gap [Moles/Vol]10.1 mmol/LNormalThe [facility] Comment on above:Performed By: #### CMP, LIPID, TSH #### [facility] [address] [place] [address] Dr. Jamia Parra [Catalytic activity/Vol]19 U/TXeiidg42-73Ymf [facility] Centerment on above:Performed By: #### CMP, LIPID, TSH #### [facility] [address] [place] [address] Dr. Jamia AlbrechtBilirubin [Mass/Vol]0.3 mg/dLNormal0.2-1.0[facility] Comment on above:Performed By: #### CMP, LIPID, TSH #### [facility] [address] [place] [address] Dr. Jamia AlbrechtCalcium [Mass/Vol]8.8 mg/dLNormal8.5-10.1[facility] Comment on above:Performed By: #### CMP, LIPID, TSH #### [facility] [address] [place] [address] Dr. Jamia AlbrechtChloride [Moles/Vol]103 mmol/JVclcjf00-284Znn [facility] Comment on above:Performed By: #### CMP, LIPID, TSH #### [facility] [address] [place] [address] Dr. Jamia AlbrechtCO2 [Moles/Vol]30.4 mmol/IOswtoo41.0-32.0[facility] Comment on above:Performed By: #### CMP, LIPID, TSH #### [facility] [address] [place] [address] Dr. Jamia AlbrechtCreatinine [Mass/Vol]0.83 mg/dLNormal0.55-1.02The [facility] HospitalComment on above:Performed By: #### CMP, LIPID, TSH #### [facility] [address] [place] [address] Dr. Jamia OmalleyGFR-AF ZIMBABWEAN>=60Normal>=60The [facility] HospitalComment on above:Performed By: #### CMP, LIPID, TSH #### [facility] [address] [place] [address] Dr. Jamia Frost-NON AF ZIMBABWEAN>=60Normal>=60The [facility] HospitalComment on above:Performed By: #### CMP, LIPID, TSH #### [facility] [address] [place] [address] Dr. Jamia AlbrechtGlobulin (S) [Mass/Vol]3.4 g/dLNormalThe Protestant HospitalComment on above:Performed By: #### CMP, LIPID, TSH #### [facility] [address] [place] [address] Dr. Jamia AlbrechtGlucose [Mass/Vol]106 mg/rNPzaapa14-749Qzt [facility] Comment on above:Performed By: #### CMP, LIPID, TSH #### [facility] [address] [place] [address] Dr. Jamia AlbrechtPotassium [Moles/Vol]4.5 mmol/LNormal3.5-5.1[facility] Comment on above:Performed By: #### CMP, LIPID, TSH #### [facility] [address] [address] [address] Jamia AlbrechtProtein [Mass/Vol]7.1 g/dLNormal6.4-8.2[facility] Comment on above:Performed By: #### CMP, LIPID, TSH #### [facility] [address] [address] [address] Jamia AlbrechtSodium [Moles/Vol]139 mmol/TUpuawi194-906Evk [facility] Comment on above:Performed By: #### CMP, LIPID, TSH #### [facility] [address] [address] [address] Jamia AlbrechtUrea nitrogen [Mass/Vol]10.0 mg/dLNormal7.0-18.0The [facility] HospitalComment on above:Performed By: #### CMP, LIPID, TSH #### [facility] [address] [place] [address] Dr. Jamia Barbour nitrogen/Creatinine [Mass ratio]12.0 mg/mgNormalThe Protestant HospitalComment on above:Performed By: #### CMP, LIPID, TSH #### [facility] [address] [place] [address] Dr. Jamia Hood 89-15-6118GLJ0.179 uIU/mLNormal0.358-3.740[facility] HospitalComment on above:Performed By: #### CMP, LIPID, TSH #### [facility] [address] [place] [address] Dr. Jamia AlbrechtMG MAMM RT DIAG FUon [id number] MAMM RT DIAG FUPatient: KATELYNN MELENDREZ Exam Date: 11/10/2021 : 1960 Gender:F Ordering : DR AMPARO DOWELL . Admission #: [id number] Family : DR MARTÍNEZ HARRELL . Order #: [id number] CLICK HERE TO VIEW EXAM RADIOLOGY REPORT [...] prostate cancer at age 73. LOCATION: [facility] BREAST COMPOSITION: Heterogeneously dense,which may obscure [...] by: Katie Mahmood MD on 11/10/2021 at 10:24[facility] HealthUS BREAST RIGHT LIMITEDon 90-80-6712XW BREAST RIGHT LIMITEDPatient: KATELYNN MELENDREZ Exam Date: 11/10/2021 : 1960 Gender:F Ordering : DR AMPARO DOWELL . Admission #: [id number] Family : DR MARTÍNEZ HARRELL . Order #: [id number] CLICK HERE TO VIEW EXAM RADIOLOGY REPORT [...] prostate cancer at age 73. LOCATION: [facility] BREAST COMPOSITION: Heterogeneously dense,which may obscure [...] by: Katie Mahmood MD on 11/10/2021 at 10:24[facility]MG MAMM SCREEN 3D SERA CADon 91-39-0114HX MAMM SCREEN 3D SERA CADPatient: KATELYNN MELENDREZ Exam Date: 11/07/2021 : 1960 Gender:F Ordering : DR MARTÍNEZ HARRELL . Admission #: [id number] Family : DR AMPARO DOWELL . Order #: [id number] CLICK HERE TO VIEW EXAM RADIOLOGY REPORT [...] prostate cancer at age 73. LOCATION: [facility] BREAST COMPOSITION: Heterogeneously dense,which may obscure [...] by: Katie Mahmood MD on 11/07/2021 at 14:30[facility] DIAGNOSTIC RTon [id number] DIAGNOSTIC RT* * *Final Report* * * * * * SEE BOTTOM OF REPORT FOR ADDENDED TEXT * * * DATE OF EXAM: Jan 09 2019 3:31PM [facility] [place] [facility] DIAGNOSTIC RT / PROCEDURE REASON: Abnormal ultrasound of breast * * * * Physician Interpretation * * * * RESULT: FINAL REPORT #[id number] - [facility] US BIOPSY BREAST RT #[id number] - [facility] DIAGNOSTIC RT ULTRASOUND GUIDED BIOPSY [...] 01/01/2019 ultrasound, and 01/09/2019 ultrasound - [facility] An [facility] guided biopsy using real-time [...] 01/01/2019 ultrasound, and 01/09/2019 ultrasound - The [facility]. There are scattered fibroglandular [...] up. Shannen Merino M.D. madan abraham/aj:01/13/2019 08:09:24 Commercial Airplane Pilot(s): Victoria Lynch RT(R)(M), [facility] Mammogram [...] Health, Family Medicine, and Medical/Surgical Oncology, the [facility] has carefully reviewed the data [...] their providers when to stop screening mammograms. Cp Bleacher Operator: Aj Transcribe Date/Time: Jan 09 2019 2:43P Dictated by : JENNIFER MERINO MD This examination was interpreted and the report reviewed and electronically signed by: SHANNEN GUEVARA MD on Jan 09 2019 3:56PM EST This document has been addended by: SHANNEN GUEVARA MD on Jan 13 2019 8:09AM EST [id number]. Charles Hospital US BIOPSY BREAST RTon [id number] US BIOPSY BREAST RT* * *Final Report* * * * * * SEE BOTTOM OF REPORT FOR ADDENDED TEXT * * * DATE OF EXAM: Jan 09 2019 3:31PM [facility] [place] - [place] US BIOPSY BREAST RT / PROCEDURE REASON: Abnormal ultrasound of breast * * * * Physician Interpretation * * * * RESULT: FINAL REPORT #[id number] - [facility] US BIOPSY BREAST RT #[id number] - [facility] DIAGNOSTIC RT ULTRASOUND GUIDED BIOPSY [...] 01/01/2019 ultrasound, and 01/09/2019 ultrasound - [facility] There are scattered fibroglandular elements in [...] follow up. Shannen Merino M.D., mc,fa/aj:01/13/2019 08:09:24 Commercial Airplane Pilot(s): RT An(R)(M), The [facility] [place] Mammogram BI-RADS: Post-procedure mammogram for marker placement [...] Health, Family Medicine, and Medical/Surgical Oncology, the [facility] has carefully reviewed the data [...] their providers when to stop screening mammograms. Cp Bleacher Operator: Aj Transcribe Date/Time: Jan 09 2019 2:43P Dictated by : JENNIFER MERINO MD This examination was interpreted and the report reviewed and electronically signed by: SHANNEN GUEVARA MD on Jan 09 2019 3:56PM EST This document has been addended by: SHANNEN GUEVARA MD on Jan 13 2019 8:09AM EST [id number]. Charles Hospital US BREAST LTD RTon [id number] US BREAST LTD RT* * *Final Report* * * DATE OF EXAM: Jan 09 2019 3:31PM [facility] 0594 - [facility] US BREAST LTD RT / PROCEDURE REASON: Lump of right breast * * * * Physician Interpretation * * * * RESULT: #[id number] - [facility] US BREAST LTD RT ULTRASOUND [...] 1 year screening mammogram is recommended. Shannen Guevara M.D., mc/aj:01/09/2019 15:40:59 Commercial Airplane Pilot(s): Victoria Lynch RT(R)(M), [facility] Ul[facility] BI-RADS: 2 Benign finding Multiple [...] Health, Family Medicine, and Medical/Surgical Oncology, the [facility] has carefully reviewed the data [...] their providers when to stop screening mammograms. Cp Bleacher Operator: Aj Transcribe Date/Time: Jan 09 2019 2:43P Dictated by : SHANNEN GUEVARA MD This examination was interpreted and the report reviewed and electronically signed by: SHANNEN GUEVARA MD on Jan 09 2019 3:40PM EST [id number] [facility] 01-09-2019 PROGRESSHNO ID: [id number] Author: Victoria Holley Service: ? Author Type: [...] present:Clip and Imaging Data Staff involved: Cara Guevara MD Relevant documentation, images, implants or special [...] Site Marking, Correct Position (if applicable). Time: 031 Affirmation of Time Out: N/A Sign Out Discussion: CompletedNormalCleveland Clinic ClevelandPROGRESSHNO ID: [id number] Author: Victoria Lynch Rt Service: ? Author Type: ? Type: Progress Notes Filed: 01/09/2019 3:41 PM Note Text: AMBULATORY PATIENT EDUCATION RADIOLOGY TOPIC: Procedure/Surgery: READINESS TO LEARN COGNITIVE ABILITY: Alert and oriented MOTIVATION TO LEARN: Eager FAMILY SUPPORT: None - Unavailable/disinterested INSTRUCTION PROVIDED TO: Patient PATIENT LEARNS BEST [...] follow-up SUPPLEMENTAL MATERIAL: Homegoing instructions REFERRAL (RECOMMENDATION): [facility] ID: [id number] Author: Victoria Holley Service: ? Author Type: [...] BY: Victoria Holley January 09, 2019 3:40 PMNCleveland Clinic Hillcrest HospitalSURGICAL PATHOLOGYon [id number] PATHOLOGYSpecimen originated from [facility] Specimen #: [id number] Submitting Physician: SHANNEN COLLAZO ([id number]) FINAL DIAGNOSIS [...] time: Not documented Gross examination performed at [facility], [address] [place] [address] 01/10/2019 2:03:09 AM Date of Report: 01/12/2019 Date of Procedure: 01/09/2019 Date of Receipt: 01/09/2019 Submitted by: SHANNEN COLLAZO ([id number]) Location: 0 Diagnostic interpretation performed at [place] [address]. CLIA Number: [id number] Children's Hospital Medical CenterCNOV on 71-13-6793IBRVSdftrm Visit (BRCRMN) KATELYNN MELENDREZ ([id number]) 1960 F Date Time Provider Department 01/01/19 [...] BCP for 10-12 years previously. Never breastfed. 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 No focal symptoms. Denies significant headaches. EENT: Denies changes in hearing or vision. Denies frequent nose bleeds. RESP: Denies dyspnea, chronic cough, Asthma, Bronchitis, COPD, Emphysema, or URI <2 weeks ago. CARD: Patient denies any dyspnea, recent ID, angina, arrhythmias, or valvular disease. GI: Patient [...] known coagulopathy. Denies h/o DVT or PE. CARDIAC TECHNOLOGIST: Negative for abnormal vaginal bleeding, abnormal vaginal [...] the Resident and edited as appropriate. Signature: Mratin Hameed MD Referring Provider: MARTIN LEARY [[id number]] Allergies As of Date: 01/01/2019 (Not on File) Date Reviewed: 09/12/2018 Reviewed by: Martin Leary - Fully Assessed Primary Visit Diagnosis:Posttraumatic hematoma of right breast, initial encounter [S20.01XA] Other Visit Diagnosis:Abnormal mammogram [R92.8] Problem List As Of Date: 01/01/2019 (None) Encounter Status:Closed by MARTIN LEARY MD [facility]19[facility] BRE[facility] RTon [id number] [place] BREAST LTD RT* * *Final Report* * * DATE OF EXAM: Jan 01 2019 3:12PM ELAN 0594 - [facility] [place] BREAST alooma RT / PROCEDURE REASON: Posttraumatic hematoma of right breast, initial encounter * * * * Physician Interpretation * * * * RESULT: #[id number] - [facility] [place] BREAST alooma RT ULTRASOUND OF RIGHT BREAST: 01/01/2019 HISTORY: 3 month follow-up of the right breast. History of previous trauma. RESULT: Comparison is made to exams dated: 09/03/2018 mammogram, 09/03/2018 ultrasound - [facility], and 08/20/2018 ultrasound. Color [...] was explained and signed by the patient. Mrajorie yao/aj:01/01/2019 15:27:37 Commercial Airplane Pilot(s): RT Nhan(R)(M), The [facility] [place] Ultrasound BI-RADS: 4 Suspicious finding - Biopsy [...] Health, Family Medicine, and Medical/Surgical Oncology, the [facility] has carefully reviewed the data [...] their providers when to stop screening mammograms. Cp Bleacher Operator: Aj Transcribe Date/Time: Jan 01 2019 2:47P Dictated by : MARJORIE DOHERTY MD This examination was interpreted and the report reviewed and electronically signed by: MARJORIE DOHERTY MD on Jan 01 2019 3:27PM EST [id number] Grant Medical CenterPROGRESSon 01-01-2019 PROGRESSHNO ID: [id number] Author: Martin Leary Service: ? Author Type: [...] BCP for 10-12 years previously. Never breastfed. 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 No focal symptoms. Denies significant headaches. EENT: Denies changes in hearing or vision. Denies frequent nose bleeds. RESP: Denies dyspnea, chronic cough, Asthma, Bronchitis, COPD, Emphysema, or URI <2 weeks ago. CARD: Patient denies any dyspnea, recent ID, angina, arrhythmias, or valvular disease. GI: Patient [...] known coagulopathy. Denies h/o DVT or PE. CARDIAC TECHNOLOGIST: Negative for abnormal vaginal bleeding, abnormal vaginal [...] and edited as appropriate. Signature: Martin Hameed MDCincinnati Children's Hospital Medical CenterPROCLEVEL[facility] ID: [id number] Author: Kathia Bourne Mamm-T Service: Radiology Author [...] Kathia Bourne Mamm-T January 01, 2019 2:48 PMNCleveland Clinic Hillcrest HospitalCNOVon [id number] Office Visit (BRCRMN) KATELYNN MELENDREZ ([id number]) 1960 F Date Time Provider Department 09/03/18 2:00 PM MARTIN LEARY BRMN During your visit today, we recorded the [...] any prior breast problems or breast surgery. 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 Denies any residual problem. HEENT: Negative for significant headaches. No changes in hearing or vision. Denies frequent nose bleeds. RESP: +H/O frequent bronchitis CARD: +HTN: Pt reports controlled on Rx. +SVT and has loop monitor embedded in Left chest. Denies h/o DVT or PE. Patient denies any dyspnea, recent ID, angina, or valvular disease, GI: +GERD. Patient [...] No h/o prior transfusion. Denies known coagulopathy. CARDIAC TECHNOLOGIST: Negative for abnormal vaginal bleeding, abnormal vaginal [...] Patient. Excerpts from Breast Imaging Studies RESULT: #[id number] - [facility] DIAGNOSTIC RT #[id number] - [facility] US BREAST LTD RT UNILATERAL [...] [address] [facility] [address] Referring Provider: LUKE BOBO [[id number]] Allergies As of Date: 09/03/2018 (Not on File) Date Reviewed: Never Reviewed Reason for Visit: New Patient [172] Primary Visit Diagnosis:Posttraumatic hematoma of right breast, initial encounter [S20.01XA] Order(s):US BREAST LTD RT [[id number]] Order #: [id number] FUTURE Problem List As Of Date: 09/03/2018 (None) Encounter Status:Closed by MARTIN LEARY MD on 09/12/18[facility] DIAGNOSTIC RTon [id number] DIAGNOSTIC RT* * *Final Report* * * DATE OF EXAM: Sep 03 2018 2:29PM [facility] [place] - [facility] DIAGNOSTIC RT / PROCEDURE REASON: Disorder of breast * * * * Physician Interpretation * * * * RESULT: #[id number] - [facility] DIAGNOSTIC RT #[id number] - [facility] US BREAST LTD RT UNILATERAL [...] Health, Family Medicine, and Medical/Surgical Oncology, the [facility] has carefully reviewed the data [...] their providers when to stop screening mammograms. Commercial Airplane Pilot(s): RT Nhan(R)(M), [facility] OVERALL STUDY BIRADS: 3 Probably benign finding - short term interval follow-up recommended Cp Bleacher Operator: Aj Transcribe Date/Time: Sep 03 2018 2:29P Dictated by : MARJORIE DOHERTY MD This examination was interpreted and the report reviewed and electronically signed by: MARJORIE DOHERTY MD on Sep 03 2018 4:07PM EST [id number]. Charles Hospital US BREAST LTD RTon [id number] US BREAST LTD RT* * *Final Report* * * DATE OF EXAM: Sep 03 2018 2:50PM [facility] 0594 - [facility] US BREAST LTD RT / PROCEDURE REASON: Disorder of breast * * * * Physician Interpretation * * * * RESULT: #[id number] - [facility] DIAGNOSTIC RT #[id number] - [facility] US BREAST LTD RT UNILATERAL [...] Health, Family Medicine, and Medical/Surgical Oncology, the [facility] has carefully reviewed the data [...] their providers when to stop screening mammograms. Commercial Airplane Pilot(s): RT Nhan(R)(M), [facility] OVERALL STUDY BIRADS: 3 Probably benign finding - short term interval follow-up recommended Cp Bleacher Operator: Aj Transcribe Date/Time: Sep 03 2018 2:29P Dictated by : MARJORIE DOHERTY MD This examination was interpreted and the report reviewed and electronically signed by: MARJORIE DOHERTY MD on Sep 03 2018 4:07PM EST [id number]_IDCSIACNNormalOhiohealth Grant Medical CenterPROGRESSon 09-03-2018 PROGRESSHNO ID: [id number] Author: Martin Leary Service: ? Author Type: [...] any prior breast problems or breast surgery. 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 Denies any residual problem. HEENT: Negative for significant headaches. No changes in hearing or vision. Denies frequent nose bleeds. RESP: +H/O frequent bronchitis CARD: +HTN: Pt reports controlled on Rx. +SVT and has loop monitor embedded in Left chest. Denies h/o DVT or PE. Patient denies any dyspnea, recent ID, angina, or valvular disease, GI: +GERD. Patient [...] No h/o prior transfusion. Denies known coagulopathy. CARDIAC TECHNOLOGIST: Negative for abnormal vaginal bleeding, abnormal vaginal [...] Patient. Excerpts from Breast Imaging Studies RESULT: #[id number] - [facility] DIAGNOSTIC RT #[id number] - [facility] US BREAST LTD RT UNILATERAL [...] Martin Leary MD cc: LUKE BOBO [address] [facility] [address]WucfzeHkzeqblioCorey HospitalUS OUTSIDE CD DICOM IMPORT -NBNRon 89-85-9886IT OUTSIDE CD DICOM IMPORT -NBNRImages were obtained outside of [facility] [id number] Grant Medical Center Vital Signs Date TimeVital SignValuePerforming DdoitniaeDaykmbjm41-54-0392 14:58-0500Blood Pressure LocationMichael NILL [facility] Yhbktgvp76-70-7367 14:58-0500Diastolic blood mm[Hg]Pippa NILL [facility]02-13-2024 14:58-0500Heart rate 76 /minMichael NILL [facility]02-13-2024 14:58-0500 Respiratory rate16 /minMichael NILL [facility]02-13-2024 14:58-0500Systolic blood cfsrpjcu280 mm[Hg]Pippa NILL [facility] Nhchhswf72-65-2556 09:32-0400Diastolic blood abdajqhl52 mm[Hg]Pippa NILL [phone]-QwrwaWvumedicine [facility] [place] 06-21-2022 09:32-0400Mean blood ipwyhaul84 mm[Hg] Pippa NILL 477-5710Fqxapi-AhyrmChillicothe Va [facility] Center [facility] [place] 06-21-2022 09:32-0400Systolic blood mm[Hg] Pippa NILL 371-1953Hbklpi-LwmxyChillicothe Va [facility] Center [facility] [place] 005892-20-6080 08:46-0400Blood Pressure LocationMichael NILL [phone]-MopypChillicothe Va Medical Center [facility] [place] 486999-75-6216 08:46-0400Diastolic blood smpgakyy42 mm[Hg] Pippa SANZL 343-6826Rawajc-IcyuzChillicothe Va Medical Center [facility] [place] 836069-61-0008 08:46-0400Heart rate52 /minMichael NILL 979-3380Drlspf-ZnavsChillicothe Va Medical Center [facility] [place] 06-21-2022 08:46-0400Respiratory rate16 /minMichael NILL [phone]-CudsbWvumedicine Barnesville Hospital [facility] [place] 06-21-2022 08:46-0400Systolic blood xbivdbab769 mm[Hg] Pippa NILL 180-4899Gmrvwq-HmgnlWvumedicine [facility] [place] Encounters Encounter DateEncounter TypeCare ProviderFacilityStart: 12-21-2024 End: 58-63-4481Mqqkhmc encounter procedureAmparo Bruno MD-[facility] Work Phone: Start: 12-21-2024 End: 44-86-4224shoehazmztHglxlac M Hoy MD Work Phone: [facility] Work Phone: Start: 09-21-2024 End: 76-22-2442mcytxhytmwGRYKZMercy Health Urbana Hospitaltart: 03-23-2024 End: 58-59-6654yldbogcpoaDNXBHDayton VA Medical Centertart: 01-20-2024 End: 99-66-2246nekrjgdvfqDUBSADayton VA Medical Centertart: 07-24-2023 End: 40-71-6268onvjabkjwbEzekhqp R NILLFacility:CD:[id number]: 07-16-2023 End: 71-80-1893mlqqdvtkydUqsqaho R NILLFacility:[facility] Systemtart: 07-16-2023 End: 40-55-1471Pvhfmqu encounter procedureMichael R NILL [facility] Nill/Said [place] Start: 09-26-2022 End: 09-99-9002cuaftpsowlLD AMPARO HOY .Facility:G8Kybvg: 81-63-3399Bzwtpjyux for general adult medical examination without abnormal findingsDR AMPARO HOY . [facility]: 06-26-2022 End: 93-36-9341pmcbsgvaacGW AMPARO HOY .Facility:C0Ifdpb: 06-26-2022 End: 87-99-1653Oupmbvbxh for general adult medical examination without abnormal findingsDR AMPARO HOY .Facility:F3Udiww: 03-29-2022 End: 41-20-8565fdgkajciuwFN AMPARO HOY .Facility:Q0Ptkxe: 02-07-2022 End: 16-83-9610Jfmihct encounter procedureMichael R NILL General Surgery Nill/Said [place] Start: 54-56-4293swscyvmsekAYOTPHT BOESFacility:H1 Start: 01-30-2022 End: 61-77-6352xcpssgpyzbPX PIPPA NILL .Facility:M8Hxcbv: 12-26-2021 End: 67-02-7787Kjvteiu encounter procedureMichael R NILL [facility] Start: 13-17-3831qhbebnxquqKROBQQK BOESFacility:H1 Start: 11-30-2021 End: 90-63-2604bwfwfehkpyHKFUUBLS EBERLYFacility:T7Vrcno: 11-27-2021 End: 35-52-2082ffiouvvsyaAL APMARO HOY .Facility:V8Nqsto: 11-21-2021 End: 22-95-9512Nnhobqg encounter procedureMichael R NILL 931-6153Grtnim-MjwolWvumedicine Barnesville Hospital [facility] Surgery [place] Start: 11-10-2021 End: 35-88-5370zkzjxwapfqSH AMPARO HOY .Facility:A8Qacka: 11-07-2021 End: 18-87-3787yetephfznzGJ AMPARO HOY .Facility: Procedures DateProcedureProcedure DetailPerforming ClinicianStart: 47-46-4263Hybdybflzzk of right breastDougdarlin Dowell MD Work Phone: Start: 42-21-5818Zmvvttdhucahlnhb guided core needle biopsy of breastMichael NILL Start: 42-77-8991Antzdd of breastMichael NILL Start: 22-87-8804Bikusmzctqvwjuit guided core needle biopsy of breastMichael NILL Decompression of median nerveMichael NILL Excision of lumbar intervertebral discMichael NILL Open reduction of fracture of ankle with internal fixationMichael NILL Repair of right inguinal herniaMichael NILL Total hysterectomy via vaginal approachMichael NILL Immunizations Immunization DateImmunizationNotesCare IsdvgfkdRunozllk56-53-4053jffestvzr virus vaccine, unspecified formulationMichael NILL General Surgery Pykfcgjv99-85-9158ZINJ-IwQ-6 (COVID-19) mRNA-1273 vaccineMichael NILL General Surgery Qelvieve54-84-6231LMPT-FuN-1 (COVID-19) mRNA-1273 vaccineMichael NILL General Surgery Sdqrdvhi44-44-7295CHLZ-OaM-6 (COVID-19) mRNA-1273 vaccineMichael NILL General Surgery Uzfsgswv66-14-7542YXEP-VtA-3 (COVID-19) mRNA-1273 vaccineMichael NILL General Surgery Charo Payers DatePayer CategoryPayerPolicy [id number] 2.1.802345.3.57[id number] ..1.184686.3.57[id number] 2.1.019839.3.57[id number] 2..1.817369.3.57[id number] 2.16.840.1.117122.3.57[id number] 2.16.840.1.537423.3.57[id number] 2.16.840.1.790952.3.57[id number] 2.16.840.1.837806.3.57[id number] 2.16.840.1.232318.3.57[id number] 2.16.840.1.771580.3.57[id number] 2..840.1.797337.3.579.2.83183-33-7393Ttli-[id number] 2.16.840.1.8[id number] 2.16.840.1.292471.3.579.2.531 Social History DateTypeDetailFacilityStart: 11-21-2021 End: 98-73-6675Bqpufgw smoking statusNever smoked tobacco (finding)[facility] [place] Tobacco smoking statusNeverChillicothe Va Medical Center Surgery [place] [facility] [place] Tobacco smoking status NHISUnknown if ever smoked [facility] Work Phone: SexFemale (finding)[facility] Start: 23-70-0969Juj Assigned At [facility] Functional Status SnmzTqmeccwdadPbnihyZhrokuxx81-12-6183Heugvbpnli StatusN/AGeneral Surgery Qyzgzszm26-63-4885Vknlxbwnny StatusN/[facility] [place] Progress note 09-21-2024 Note Date & IdgwUzbjOeivatcn75-85-4506 NoteUT Cardiology - [facility] Subjective Katelynn Melendrez is a [...] edema. 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 [facility] Progress note 01-20-2024 Note Date & NmemZtlrIxdlkzil75-11-6525 NoteUT Cardiology - [facility] Subjective Katelynn Melendrez is a [...] edema. 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 Echo: 04/26/2021 at (more content not included)...[facility] Clinical Note 07-16-2023 Note Date & UiusWfkxDekkpudv55-06-6193 NoteChief Complaint consultation for colonoscopy HPI Staff 62 year old female presents on consultation from Dr. Dowell for screening colonoscopy. Denies abdominal or rectal pain. No rectal bleeding or change in bowel habits. Denies nausea or vomiting. No unexplained weight loss. Never had colonoscopy in the past. No known family history of colon cancer. History of Present Illness 62 yo female with h/o hypercholesterolemia, SVT, aortic regurgitation, CVA, referred for colorectalscreening; denies change in bms or blood in [...] swallowing difficulties, no hearing loss, no ear infection(s),no nose bleeds. Cardiovascular: normal blood pressure, no [...] Tobacco Never (less than (more content not included)...[facility] Comment on above:Result Comment: Electronically Signed By: ROBBIN CASTRO, Pippa Jenkins\Date and Time Signed: 07/16/23 15:21 EST Evaluation + Plan note Note Date & TypeNoteFacilityEvaluation + Plan note Future Appointments Appointment Date:12/26/2021 01:00:00 PM Scheduled Provider: Location:.MRI Appointment Type:MRI Breast (FT) Future Scheduled Tests Radiology* MRI Breast w/o and w/ Contrast, Bilat 12/26/21 [facility] [place] Evaluation note Note Date & TypeNoteFacilityEvaluation noteNo assessment information available [facility] Work Phone: Hospital course Narrative Note Date & TypeNoteFacilityHospital course Narrative No data available for this section [facility] Hospital Discharge instructions Note Date & TypeNoteFacilityHospital Discharge instructions No data available for this section [facility] Progress note Note Date & TypeNoteFacilityProgress note No data available for this section [facility] Reason for referral (narrative) Note Date & TypeNoteFacilityReason for referral (narrative)No reason for referral information availableDayton Osteopathic Hospital [employer] Work Phone: Summary Purpose Family History No Family History Records Found Relationship Condition Age at Onset Recorded Date/T bhavani father Heart disease Unknown motherDiabetes mellitusUnknownDeceasedUnknown Advance Directives No Advanced Directives Records Found Advance Directive Response Recorded Date/ Time Advance Directives No December 11 9:52am Chief Complaint and Reason for Visit Chief Complaint Admit Date R92.8 December 21, 2024 9:02 am Additional Source Comments INFORMATION SOURCE (unrecogn ized section and content) DATE CREATED AUTHOR 01/13/2019 [facility] DATE CREATED AUTHOR AUTHOR'S ORGANIZ ATION 09/29/2022 [facility] DATE CREATED AUTHOR AUTHOR'S ORGANIZ ATION 08/02/2023 [facility] DATE CREATED AUTHOR AUTHOR'S ORGANIZ ATION 11/05/2024 [facility] DATE CREATED AUTHOR AUTHOR'S ORGANIZ ATION 12/25/2024 [facility] Care Team (unrecognized sect ion and content) Team Status: Active Member Role Status Dates Amparo Dowell MD Primary Care Provider Active Team Status: Inactive Member Role Status Dates Amparo Dowell MD Primary Care Provider Active Start: December 21, 2024 End: December 21, 2024Dowicho Dowell MDAttending ProviderActiveStart: December 21, 2024 End: December 21, 2024 Goals (unrecognized section and content) Goals may be documented in a n alternate section FOR RECORDS PERTAINING TO PATIENTS WHO ARE [...] BE BASED ON THE PRIMARY CLINICAL RECORDS. [employer] [facility]. provides no warranty or guarantee of the accuracy or completeness of information in this document.
== END 2025-04-14 08:03 | disposition home or self-care (01) ==
LOC: CARD 08:02
PROVIDERS: PCP Family Medicine; Visit Provider Internal Medicine Cardiovascular Disease
DX: I35.1 Nonrheumatic aortic (valve) insufficiency (principal)
CPT/HCPCS: 93306